=== PATIENT | female | born 1930 | race Caucasian/White ===

== ENCOUNTER 2017-02-07 19:41 | Inpatient (IN) | payer MEDICARE, BC ==
[~2017-02-07] VITALS: Ht 162.6 cm; Wt 56.2 kg
[~2017-02-07 19:41] MED LIST: BACT800T5 PO; COUM1TAB PO; DIGO0.12 PO; LEVO75TA3 PO; LOPE2 PO; METO25 PO
[2017-02-07 20:01] VITALS: BP 157/100; PULSE 87; RESP 18; TEMP 97.5; O2SAT 93
--- NOTE | 2017-02-07 20:16 | PD ---
HPI Chief Complaint: TIA Time Seen by Provider: 20:00 Travel History International Travel<30 days: No Contact w/Intl Traveler<30days: No Traveled to known affect area: No History of Present Illness HPI This 86-year-old female presents with complaint that she was unable to talk for about 2-3 minutes today. She had a similar episode on Saturday. Both episodes happened around 2:00 in the afternoon. There was no associated headache. She did not notice any weakness of her arms or legs. She was sitting during today' s episode. She tried to talk nonsensical sounds came out. She went to lay down for 20 minutes and after that she was okay. She has a history of atrial fibrillation and has been on Coumadin for some time. She has never had a stroke. PFSH Past Medical History Hx Anticoagulant Therapy: Yes Arthritis: Yes (KNEES AND ARMS) Atrial Fibrillation: Yes Autoimmune Disease: No Anxiety: Yes Heart Rhythm Problems: Yes (AFIB WITH RBBB) Cancer: Yes Cardiovascular Problems: Yes Chemotherapy: No Chest Pain: Yes Diminished Hearing: No Endocrine: Yes Gastrointestinal Disorders: Yes (IRRITABLE BOWEL SYNDROME) GERD: Yes (GERD) Headaches: Yes Hypertension: Yes Musculoskeletal: Yes Neurologic: Yes Psychiatric: Yes Immunizations Current: Yes Radiation Therapy: Yes Thyroid Disease: Yes Tetanus Vaccination: Unknown Influenza Vaccination: Yes ?: Not Past Surgical History Gynecologic Surgery: Yes (HYSTERECTOMY) Hysterectomy: Yes Other Surgery: Yes (1998 LUMPECTOMY) Social History Alcohol Use: No Tobacco Use: No Substance Use: No Allergies-Medications (Allergen,Severity, Reaction): Coded Allergies: No Known Allergies (Verified , 02/07/17) Reported Meds & Prescriptions Reported Meds & Active Scripts Active Reported Lasix (Furosemide) 20 Mg Tab 20 Mg PO DAILY Lasix (Furosemide) 40 Mg Tab 40 Mg PO DAILY Coumadin (Warfarin) 1 Mg Tab 1 Mg PO DAILY Metoprolol Tartrate 25 Mg Tab 25 Mg PO DAILY Loperamide (Loperamide HCl) 2 Mg Cap 2 Mg PO DIRECTED PRN One capsule after each loose stool. Not to exceed 8 capsules per day. Levothyroxine (Levothyroxine Sodium) 75 Mcg Tab 75 Mcg PO DAILY Digoxin 0.125 Mg Tab 0.125 Mg PO DAILY Review of Systems General / Constitutional: No: Fever, Chills Eyes: No: Diploplia, Blurred Vision HENT: No: Headaches, Vertigo Cardiovascular: No: Chest Pain or Discomfort, Palpitations Respiratory: No: Cough, Shortness of Breath Gastrointestinal: No: Vomiting, Diarrhea Genitourinary: No: Urgency, Frequency Musculoskeletal: No: Myalgias, Arthralgias Skin: No Lumps Neurologic: Positive: Focal Abnormalities, No: Weakness, Headache Hematologic/Lymphatic: No: Easy Bruising Physical Exam Narrative GENERAL: Well-developed female SKIN: Warm and dry. HEAD: Atraumatic. Normocephalic. EYES: Pupils equal and round. No scleral icterus. No injection or drainage. ENT: No nasal bleeding or discharge. Mucous membranes pink and moist. NECK: Trachea midline. No JVD. CARDIOVASCULAR: Irregular rate and rhythm. No murmur appreciated. RESPIRATORY: No accessory muscle use. Clear to auscultation. Breath sounds equal bilaterally. GASTROINTESTINAL: Abdomen soft, non-tender, nondistended. Hepatic and splenic margins not palpable. MUSCULOSKELETAL: No obvious deformities. No clubbing. No cyanosis. No edema. NEUROLOGICAL: Awake and alert. No obvious cranial nerve deficits. Motor grossly within normal limits. Normal speech. PSYCHIATRIC: Appropriate mood and affect; insight and judgment normal. Data Data Last Documented VS Vital Signs Date Time Temp Pulse Resp B/P Pulse Ox O2 Delivery O2 Flow Rate FiO2 02/07/17 20:10 87 18 93 Room Air 02/07/17 20:01 97.5 157/100 Orders Electrocardiogram (02/07/17 20:13) Complete Blood Count With Diff (02/07/17 20:13) Basic Metabolic Panel (Bmp) (02/07/17 20:13) Prothrombin Time / Inr (Pt) (02/07/17 20:13) Act Partial Throm Time (Ptt) (02/07/17 20:13) Urinalysis - C+S If Indicated (02/07/17 20:13) Ct Brain W/O Iv Contrast(Rout) (02/07/17 20:13) Digoxin (02/07/17 20:16) Labs Laboratory Tests Test 02/07/17 20:35 White Blood Count 8.0 TH/MM3 Red Blood Count 4.70 MIL/MM3 Hemoglobin 13.8 GM/DL Hematocrit 39.1 % Mean Corpuscular Volume 83.3 FL Mean Corpuscular Hemoglobin 29.3 PG Mean Corpuscular Hemoglobin 35.1 % Concent Red Cell Distribution Width 14.7 % Platelet Count 205 TH/MM3 Mean Platelet Volume 8.7 FL Neutrophils (%) (Auto) 73.7 % Lymphocytes (%) (Auto) 14.9 % Monocytes (%) (Auto) 8.1 % Eosinophils (%) (Auto) 2.7 % Basophils (%) (Auto) 0.6 % Neutrophils # (Auto) 6.0 TH/MM3 Lymphocytes # (Auto) 1.2 TH/MM3 Monocytes # (Auto) 0.6 TH/MM3 Eosinophils # (Auto) 0.2 TH/MM3 Basophils # (Auto) 0.0 TH/MM3 CBC Comment DIFF FINAL Differential Comment Prothrombin Time 17.2 SEC Prothromb Time International 1.5 RATIO Ratio Activated Partial 33.3 SEC Thromboplast Time Sodium Level 144 MEQ/L Potassium Level 3.7 MEQ/L Chloride Level 111 MEQ/L Carbon Dioxide Level 23.5 MEQ/L Anion Gap 10 MEQ/L Blood Urea Nitrogen 33 MG/DL Random Glucose 109 MG/DL Calcium Level 8.8 MG/DL [facility] Medical Decision Making Medical Screen Exam Complete: Yes Emergency Medical Condition: Yes Medical Record Reviewed: Yes Differential Diagnosis Differential includes CVA, TIA Narrative Course CT scan is read as negative. Her INR is subtherapeutic at 1.5. EKG shows atrial fibrillation at a rate of 75. There is a right bundle branch block. 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
[2017-02-07] MEDS ORDERED: DIGO0.12 PO (20:18)
[2017-02-07] MEDS ORDERED: FURO1TAB62 PO (20:18)
[2017-02-07] MEDS ORDERED: COUM1TAB PO (20:18)
[2017-02-07] MEDS ORDERED: FURO1TAB60 PO (20:18)
[2017-02-07] MEDS ORDERED: METO25TA3 PO (20:18)
[2017-02-07] MEDS ORDERED: LOPE2CAP PO (20:18)
[2017-02-07] MEDS ORDERED: LEVO75TA3 PO (20:18)
[2017-02-07 20:45] LABS: BASOPHIL % 0.6 % (0.0-2.0); EOSINOPHIL # 0.2 TH/MM3 (0-0.4); EOSINOPHIL % 2.7 % (0.0-4.0); HEMATOCRIT 39.1 % (35.0-46.0); HEMO FLAGS DIFF FINAL; LYMPH % 14.9 % (9.0-44.0); LYMPHOCYTE # 1.2 TH/MM3 (1.0-4.8); MEAN CELL VOLUME 83.3 FL (80.0-100.0); MEAN CORPUSCULAR HEMOGLOBIN 29.3 PG (27.0-34.0); MEAN CORPUSCULAR HGB CONC 35.1 % (32.0-36.0); MONO % 8.1 % (0.0-8.0); NEUT % 73.7 % (16.0-70.0); PLATELET COUNT 205 TH/MM3 (150-450); RED CELL DISTRIBUTION WIDTH 14.7 % (11.6-17.2)
--- NOTE | 2017-02-07 21:03 | RADHPO ---
EXAM DATE/TIME: 02/07/2017 20:36 [facility] COMPARISON: Report only CT BRAIN W/O CONTRAST, November 02, 2012, 17:33. INDICATIONS : Altered mental status. Speech difficulty. Evaluate for transischemic attack. RADIATION DOSE: 55.82 CTDIvol (mGy) MEDICAL HISTORY : Hypertension. SURGICAL HISTORY : None. ENCOUNTER: Initial ACUITY: 1 day PAIN SCALE: 0/10 LOCATION: cranial TECHNIQUE: Multiple contiguous axial images were obtained of the head. Using automated exposure control and adj ustment of the mA and/or kV according to patient size, radiation dose was kept as low as reasonably a chievable to obtain optimal diagnostic quality images. FINDINGS: CEREBRUM: The ventricles are normal for age. No evidence of midline shift, mass lesion, hemorrhage or acute in farction. No extra-axial fluid collections are seen. There is chronic low-attenuation in the periven tricular white matter. Diffuse atrophy noted. Incidentally seen cavum septum pellucidum. POSTERIOR FOSSA: The cerebellum and brainstem are intact. The 4th ventricle is midline. The cerebellopontine angle i s unremarkable. EXTRACRANIAL: The visualized portion of the orbits is intact. SKULL: The calvaria is intact. No evidence of skull fracture. CONCLUSION: No acute intracranial abnormality. Atrophy and chronic white matter changes. Daniel Peralta MD on February 07, 2017 at 21:00 Board Certified Radiologist. This report was verified electronically.
[2017-02-07 21:06] LABS: POTASSIUM 3.7 MEQ/L (3.5-5.1)
[2017-02-07 21:09] LABS: BICARBONATE 23.5 MEQ/L (21.0-32.0)
[2017-02-07 21:11] LABS: APTT (PATIENT) 33.3 SEC (24.3-30.1); INTERNATIONAL NORMALIZED RATIO 1.5 RATIO; PROTHROMBIN TIME - PATIENT 17.2 SEC (9.8-11.6)
[2017-02-07 21:12] VITALS: BP 191/97; PULSE 65; RESP 18; O2SAT 96
[2017-02-07] MEDS ORDERED: ACETAMINOPHEN 325 MG TAB PO PRN (21:30)
[2017-02-07] MEDS ORDERED: SODIUM CHLORIDE 0.9% FLUSH 5 ML FLUSH IVF PRN (21:30)
[2017-02-07] MEDS ORDERED: ENALAPRILAT 1.25 MG/ML VIAL IV PRN (21:30)
[2017-02-07] MEDS ORDERED: GLUCAGON 1 MG/ML VIAL IM/SQ PRN (21:30)
[2017-02-07] MEDS ORDERED: ONDANSETRON HCL 4 MG/2 ML VIAL IVP PRN (21:30)
[2017-02-07] MEDS ORDERED: BISACODYL 10 MG SUPP PR PRN (21:30)
[2017-02-07] MEDS ORDERED: SODIUM CHLORIDE 0.9% FLUSH 5 ML FLUSH FLUSH PRN (21:30)
[2017-02-07] MEDS ORDERED: DEXTROSE 50% IN WATER 50 ML VIAL(D50) IV PUSH PRN (21:30)
[2017-02-07 21:32] VITALS: O2SAT 95
[2017-02-07 21:32] LABS: BLOOD, URINE TRACE (NEG); GLUCOSE,URINE NEG (NEG); KETONE, URINE NEG (NEG); NITRITE,URINE NEG (NEG)
[2017-02-07 21:48] LABS: URINE COLOR YELLOW (YELLW/STRAW)
[2017-02-07 21:49] LABS: COMMENT (UR) CULT NOT INDICATED; CULTURE IF INDICATED CULT NOT INDICATED; RBC, URINE 0-3 /hpf (0-3); SQUAMOUS EPITHELIAL CELL URINE 0-5 /hpf (0-5); WBC, URINE 0-2 /hpf (0-5)
[2017-02-07 22:32] VITALS: BP 189/112; PULSE 73; RESP 18; O2SAT 95
[2017-02-08] VITALS (15 sets, daily range): BP systolic 165–201; BP diastolic 87–118; PULSE 71–127; RESP 17–24; TEMP 96.5–97.9; O2SAT 89–99
[2017-02-08 06:37] LABS: AUTOMATED NEUTROPHIL # 6.2 TH/MM3 (1.8-7.7); BASOPHIL # 0.1 TH/MM3 (0-0.2); BASOPHIL % 0.7 % (0.0-2.0); EOSINOPHIL # 0.2 TH/MM3 (0-0.4); HEMATOCRIT 42.7 % (35.0-46.0); LYMPH % 13.7 % (9.0-44.0); LYMPHOCYTE # 1.2 TH/MM3 (1.0-4.8); MEAN CELL VOLUME 83.5 FL (80.0-100.0); MEAN CORPUSCULAR HEMOGLOBIN 27.7 PG (27.0-34.0); MEAN CORPUSCULAR HGB CONC 33.2 % (32.0-36.0); MONO % 8.8 % (0.0-8.0); NEUT % 74.8 % (16.0-70.0); PLATELET COUNT 198 TH/MM3 (150-450); RED BLOOD COUNT 5.12 MIL/MM3 (4.00-5.30); RED CELL DISTRIBUTION WIDTH 14.7 % (11.6-17.2); WHITE BLOOD COUNT 8.4 TH/MM3 (4.0-11.0)
[2017-02-08 06:38] LABS: HEMO FLAGS DIFF FINAL
[2017-02-08 06:40] LABS: CHLORIDE 112 MEQ/L (98-107); POTASSIUM 3.8 MEQ/L (3.5-5.1); SODIUM (NA) 144 MEQ/L (136-145)
[2017-02-08 06:45] LABS: ANION GAP 10 MEQ/L (5-15); BICARBONATE 22.1 MEQ/L (21.0-32.0); BLOOD UREA NITROGEN 28 MG/DL (7-18)
[2017-02-08 06:48] LABS: ALT (GPT) 26 U/L (10-53); AST (GOT) 21 U/L (15-37); GLOMERULAR FILTRATION RATE 47 ML/MIN (>89)
[2017-02-08 06:49] LABS: TOTAL BILIRUBIN ADULT 1.5 MG/DL (0.2-1.0)
[2017-02-08 06:51] LABS: ALKALINE PHOSPHATASE 92 U/L (45-117)
[2017-02-08] MEDS ORDERED: INSULIN ASPART SUPPLEMENTAL SCALE SQ SCH ×2 (07:00→11:00)
[2017-02-08] MEDS ORDERED: GLUCAGON 1 MG/ML VIAL IM/SQ PRN (08:45)
[2017-02-08] MEDS ORDERED: DEXTROSE 50% IN WATER 50 ML VIAL(D50) IV PUSH PRN (08:45)
[2017-02-08] MEDS ORDERED: GLUCAGON 1 MG/ML VIAL OTHER PRN (08:45)
[2017-02-08] MEDS ORDERED: SODIUM CHLORIDE 0.9% FLUSH 5 ML FLUSH IVF PRN ×2 (08:45)
[2017-02-08] MEDS: SODIUM CHLORIDE 0.9% FLUSH 5 ML FLUSH IVF SCH ×2 (08:46→21:00)
[2017-02-08] MEDS ORDERED: DO NOT ADM ANY ANTICOAGULANT DRUGS XX PRN (09:00)
[2017-02-08] MEDS ORDERED: ASPIRIN 81 MG CHEW TAB PO SCH (09:00)
[2017-02-08] MEDS ORDERED: SODIUM CHLORIDE 0.9% FLUSH 5 ML FLUSH IVF SCH ×2 (09:00)
[2017-02-08] MEDS ORDERED: SODIUM CHLORIDE 0.9% FLUSH 5 ML FLUSH FLUSH SCH (09:00)
[2017-02-08] MEDS: HEPARIN-D5W INJ 250 ML IV SCH (09:16)
[2017-02-08 09:43] LABS: HDL CHOLESTEROL 36.9 MG/DL (40.0-60.0); LDL CHOLESTEROL 101 MG/DL (0-99)
--- NOTE | 2017-02-08 09:54 | RADHPO ---
EXAM DATE/TIME: 02/08/2017 08:53 [facility] COMPARISON: No previous studies available for comparison. INDICATIONS : Cerebrovascular accident. MEDICAL HISTORY : Gastroesophageal reflux disease. Hypertension. Thyroid disease. Anticoagulant therapy. Atrial fibri llation. IBS. Arhtritis. Radiation therapy. SURGICAL HISTORY : Hysterectomy. Lumpectomy. ENCOUNTER: Initial ACUITY: 1 day PAIN SCORE: 0/10 LOCATION: Bilateral neck PEAK SYSTOLIC VELOCITIES (cm/sec): ICA/CCA RATIO: Right: 1.0 Left: 1.1 ICA: Right: 54 Left: 76 CCA: Right: 55 Left: 72 ECA: Right: 79 Left: 61 VERTEBRAL: Right: 53 antegrade Left: 44 antegrade Elevated flow velocities and ICA/CCA ratios have been found to correlate with increased degrees of vessel stenosis, calculated as percentage of diameter relative to a normal segment of distal ICA/CCA FINDINGS: RIGHT CAROTID: Patchy, mild and occasionally mild to moderate soft and calcified plaque seen throughout the right CC A, bulb and ICA. LEFT CAROTID: Patchy, mild and occasionally mild to moderate soft and calcified plaque seen throughout the right CC A bulb and ICA. VERTEBRAL ARTERIES: Antegrade flow is seen in both vertebral arteries. MISCELLANEOUS: None. CONCLUSION: Mild to moderate fairly widespread plaque of both carotid systems. No hemodynamically significant cata leonora. Daniel Peralta MD on February 08, 2017 at 9:50 Board Certified Radiologist. This report was verified electronically.
[2017-02-08] MEDS: INSULIN ASPART SUPPLEMENTAL SCALE SQ SCH ×3 (11:00→21:00)
--- NOTE | 2017-02-08 11:59 | MB ---
cc: DAVID HOOD M.D. DATE OF CONSULTATION: 02/08/2017 REASON FOR CONSULTATION TIA. HISTORY OF PRESENT ILLNESS Ms. Del Cid is a very nice 86-year-old woman who has atrial fibrillation. She takes Coumadin every day. She has had two episodes where she suddenly lost ability to talk. She had an episode yesterday and a similar episode last Saturday. She states she was talking to a friend on the telephone, suddenly could not get any words out, although she could think of what she wanted to say. It lasted several minutes then resolved. She had no focal weakness or numbness. No headache or double vision. No other neurologic complaints. PAST MEDICAL HISTORY 1. History of atrial fibrillation. 2. Arthritis. 3. Irritable bowel syndrome. 4. Gastroesophageal reflux. 5. Hypertension. 6. Hypothyroidism. 7. Hysterectomy. 8. Lumpectomy. 9. History of cancer. SOCIAL HISTORY She denies tobacco use or alcohol use. MEDICATIONS 1. Coumadin 1 mg daily. 2. Metoprolol 25 mg daily. 3. Loperamide 2 mg as needed. 4. Synthroid 75 mcg daily. 5. Digoxin 0.125 mg daily. 6. Lasix 10 mg, two daily. NEUROLOGIC EXAMINATION Vital signs: Blood pressure is 195/87, pulse 90, respiratory rate 17, temperature 97 degrees. Higher cortical functions at this time are normal including speech. Cranial nerves are intact. Motor exam is 5/5 strength of all groups. There is no drift. Fine motor skills are within normal limits. Reflexes are 2+ symmetric. IMAGING DATA CT of the brain shows atrophy and chronic ischemic change but no acute change present. No hemorrhage. LABORATORY DATA Her INR yesterday was 1.5, PT 17.2, APTT 33.3. White count is 8000, hemoglobin 13.8, hematocrit 39.1%, platelet count 205,000. Sodium 144, potassium 3.7, chloride 111, CO2 23.5, BUN 33, creatinine 1.3, GFR 39, glucose 109, AST 21, ALT 26. Digoxin level 0.8. Urinalysis is normal. EKG is atrial fibrillation. IMPRESSION 1. TIA with expressive aphasia. 2. Subtherapeutic INR. 3. Atrial fibrillation. RECOMMENDATIONS Would recommend starting the patient on IV heparin per protocol with no boluses. Increase the Coumadin. Once the INR is between 2 and 3 stop the heparin. Will also obtain further evaluation with an MRI and MRA of the brain, echocardiogram, carotid ultrasound and lipid panel. MD KIMBERLY Blanchard/MORALES /8:32 AM /11:46 AM
--- NOTE | 2017-02-08 12:38 | HHI.HP ---
cc: Lc Moran MD [facility] Primary Care Physician No Primary Care Physician Admission Diagnosis TIA Diagnoses: Chief Complaint: Difficulty speaking Travel History International Travel<30 Days: No Contact w/Intl Traveler <30 Da: No Traveled to Known Affected Are: No History of Present Illness Patient is an 86-year-old female with a known history of anxiety who was in the presence of her grandson who is her primary tray drier. During this time patient became confused with difficulty word finding and had some evidence of expressive aphasia. This resolved. Her grandson thought she was very worked up and anxious. There were 2 more episodes throughout the day and finally the patient was brought to the hospital. There was some concern for TIA versus stroke. She does have atrial fibrillation but no personal history of stroke. Her heart rate has been well controlled and she has been on warfarin. Her INR however is subtherapeutic. She has been seen by neurologist with recommendations for IV heparin and for titration of her warfarin to therapeutic levels. Images are still pending at this time. Patient symptoms again have resolved and she is back to normal per her grandson who is at the bedside. Patient has no pain. She is independent with her ADLs and is appropriate with her personal hygiene. She has a family history of dementia but no personal history of dementia. For these reasons the patient was recommended for inpatient evaluation Review of Systems Constitutional: DENIES: Diaphoretic episodes, Fatigue, Fever, Weight gain, Weight loss, Chills, Dizziness, Change in appetite, Night Sweats Endocrine: DENIES: Abnorml menstrual pattern, Heat/cold intolerance, Polydipsia , Polyuria, Polyphagia Eyes: DENIES: Blurred vision, Diplopia, Eye inflammation, Eye pain, Vision loss , Photosensitivity, Double Vision Ears, nose, mouth, throat: DENIES: Tinnitus, Hearing loss, Vertigo, Nasal discharge, Oral lesions, Throat pain, Hoarseness, Ear Pain, Running Nose, Epistaxis, Sinus Pain, Toothache, Odynophagia Respiratory: DENIES: Apneas, Cough, Snoring, Wheezing, Hemoptysis, Sputum production, Shortness of breath Cardiovascular: DENIES: Chest pain, Palpitations, Syncope, Dyspnea on Exertion , PND, Lower Extremity Edema, Orthopnea, Claudication Gastrointestinal: DENIES: Abdominal pain, Black stools, Bloody stools, Constipation, Diarrhea, Nausea, Vomiting, Difficulty Swallowing, Anorexia Genitourinary: DENIES: Abnormal vaginal bleeding, Dysmenorrhea, Dyspareunia, Sexual dysfunction, Urinary frequency, Urinary incontinence, Urgency, Hematuria , Dysuria, Nocturia, Vaginal discharge Musculoskeletal: DENIES: Joint pain, Muscle aches, Stiffness, Joint Swelling, Back pain, Neck pain Integumentary: DENIES: Abnormal pigmentation, Pruritus, Rash, Nail changes, Breast masses, Breast skin changes, Nipple discharge Hematologic/lymphatic: DENIES: Bruising, Lymphadenopathy Immunologic/allergic: DENIES: Eczema, Urticaria Neurologic: COMPLAINS OF: Speech Problems, DENIES: Abnormal gait, Headache, Localized weakness, Paresthesias, Seizures, Tremor, Poor Balance Psychiatric: COMPLAINS OF: Anxiety, DENIES: Confusion, Mood changes, Depression, Hallucinations, Agitation, Suicidal Ideation, Homicidal Ideation, Delusions Past Family Social History Past Medical History Atrial fibrillation, hypothyroidism, hypertension Past Surgical History Cystocele, rectocele, hysterectomy Reported Medications Reviewed in the medical record, nothing new Allergies: Coded Allergies: No Known Allergies (Verified , 02/07/17) Active Ordered Medications Reviewed in the medical record Family History Sisters have had dementia, all 3 of her children have Social History Lives independently, no tobacco or alcohol dependency, does her own ADLs and personal hygiene without difficulty Physical Exam Vital Signs Vital Signs Date Time Temp Pulse Resp B/P Pulse Ox O2 Delivery O2 Flow Rate FiO2 02/08/17 07:47 18 93 Nasal Cannula 2 02/08/17 07:46 93 Nasal Cannula 2.00 02/08/17 07:30 89 21 02/08/17 07:13 97.9 90 17 195/87 99 Room Air 02/08/17 07:00 90 17 99 Room Air 02/08/17 06:33 86 18 96 Room Air 02/08/17 06:33 86 18 176/90 96 Room Air 02/08/17 04:42 83 18 195/101 95 Room Air 02/08/17 04:42 83 18 95 Room Air 02/08/17 02:41 80 18 201/96 96 Room Air 02/08/17 02:41 80 18 Room Air 96 02/08/17 00:45 71 18 95 Room Air 02/08/17 00:45 71 18 165/89 95 Room Air 02/07/17 22:32 73 18 189/112 95 Room Air 02/07/17 22:32 73 18 95 Room Air 02/07/17 21:32 95 21 02/07/17 21:12 65 18 191/97 96 Room Air 02/07/17 20:10 87 18 93 Room Air 02/07/17 20:01 97.5 87 18 157/100 93 Physical Exam GENERAL: This is a well-nourished, well-developed patient, in no apparent distress. SKIN: No rashes, ecchymoses or lesions. Cool and dry. HEAD: Atraumatic. Normocephalic. No temporal or scalp tenderness. EYES: Pupils equal round and reactive. Extraocular motions intact. No scleral icterus. No injection or drainage. ENT: Nose without bleeding, purulent drainage or septal hematoma. Throat without erythema, tonsillar hypertrophy or exudate. Uvula midline. Airway patent. NECK: Trachea midline. No JVD or lymphadenopathy. Supple, nontender, no meningeal signs. CARDIOVASCULAR: Regular rate and rhythm without murmurs, gallops, or rubs. RESPIRATORY: Clear to auscultation. Breath sounds equal bilaterally. No wheezes , rales, or rhonchi. GASTROINTESTINAL: Abdomen soft, non-tender, nondistended. No hepato-splenomegaly , or palpable masses. No guarding. MUSCULOSKELETAL: Extremities without clubbing, cyanosis, or edema. No joint tenderness, effusion, or edema noted. No calf tenderness. Negative Homans sign bilaterally. NEUROLOGICAL: Awake and alert. Cranial nerves II through XII intact. Motor and sensory grossly within normal limits. Five out of 5 muscle strength in all muscle groups. Normal speech. Laboratory Laboratory Tests Test 02/07/17 02/07/17 02/08/17 20:35 21:25 06:15 White Blood Count 8.0 8.4 Red Blood Count 4.70 5.12 Hemoglobin 13.8 14.2 Hematocrit 39.1 42.7 Mean Corpuscular Volume 83.3 83.5 Mean Corpuscular Hemoglobin 29.3 27.7 Mean Corpuscular Hemoglobin 35.1 33.2 Concent Red Cell Distribution Width 14.7 14.7 Platelet Count 205 198 Mean Platelet Volume 8.7 9.1 Neutrophils (%) (Auto) 73.7 74.8 Lymphocytes (%) (Auto) 14.9 13.7 Monocytes (%) (Auto) 8.1 8.8 Eosinophils (%) (Auto) 2.7 2.0 Basophils (%) (Auto) 0.6 0.7 Neutrophils # (Auto) 6.0 6.2 Lymphocytes # (Auto) 1.2 1.2 Monocytes # (Auto) 0.6 0.7 Eosinophils # (Auto) 0.2 0.2 Basophils # (Auto) 0.0 0.1 CBC Comment DIFF FINAL DIFF FINAL Differential Comment Prothrombin Time 17.2 Prothromb Time International 1.5 Ratio Activated Partial 33.3 Thromboplast Time Sodium Level 144 144 Potassium Level 3.7 3.8 Chloride Level 111 112 Carbon Dioxide Level 23.5 22.1 Anion Gap 10 10 Blood Urea Nitrogen 33 28 Creatinine 1.30 1.10 Estimat Glomerular Filtration 39 47 Rate Random Glucose 109 90 Calcium Level 8.8 9.3 Digoxin Level 0.8 Urine Color YELLOW Urine Turbidity CLEAR Urine pH 6.0 Urine Specific [place] 1.015 Urine Protein TRACE Urine Glucose (UA) NEG Urine Ketones NEG Urine Occult Blood TRACE Urine Nitrite NEG Urine Bilirubin NEG Urine Leukocyte Esterase NEG Urine RBC 0-3 Urine WBC 0-2 Urine Squamous Epithelial 0-5 Cells Microscopic Urinalysis Comment CULT NOT INDICATED Total Bilirubin 1.5 Aspartate Amino Transf 21 (AST/SGOT) Alanine Aminotransferase 26 (ALT/SGPT) Alkaline Phosphatase 92 Total Protein 7.6 Albumin 3.9 Triglycerides Level 118 Cholesterol Level 161 LDL Cholesterol 101 HDL Cholesterol 36.9 Cholesterol/HDL Ratio 4.36 Result Diagram: 02/08/1715 02/08/1715 Imaging Last Impressions Carotid Artery Ultrasound 02/08/17 0000 Signed Impressions: Service Date/Time: Wednesday, February 08, 2017 08:53 - CONCLUSION: Mild to moderate fairly widespread plaque of both carotid systems. No hemodynamically significant narrowing. Daniel Peralta MD Head CT 02/07/172012 Signed Impressions: Service Date/Time: January 20:36 - CONCLUSION: No acute intracranial abnormality. Atrophy and chronic white matter changes. Daniel Peralta MD Assessment and Plan Problem List: (1) Transient ischemic attack (TIA) ICD Code: G45.9 Status: Acute Plan: Neurology consult appreciated, continue with adjustment of warfarin, heparin to titrate to INR greater than 2. Currently subtherapeutic. Follow-up MRI and MRA. Blood pressure control (2) Afib ICD Code: I48.91 Status: Acute Plan: Rate controlled. Continue with metoprolol and digoxin Patient will continue with warfarin (3) Thyroid disease ICD Code: E07.9 Status: Acute Plan: Continue Synthroid Physician Certification 2 Midnight Certification Type: Admission for Inpatient Services Order for Inpatient Services The services are ordered in accordance with Medicare regulations or non- Medicare payer requirements, as applicable. In the case of services not specified as inpatient-only, they are appropriately provided as inpatient services in accordance with the 2-midnight benchmark. Estimated LOS (days): 3 3 days is the estimated time the patient will need to remain in the hospital, assuming treatment plan goals are met and no additional complications. 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
[2017-02-08 13:34] LABS: HEMOGLOBIN A1a 0.8 %; HEMOGLOBIN A1b 1.5 %; HEMOGLOBIN Ao 86.6 %; HEMOGLOBIN P3 5.2 %
[2017-02-08 14:22] LABS: HEMOGLOBIN A1a 0.6 %; HEMOGLOBIN A1b 1.5 %; HEMOGLOBIN Ao 86.6 %; HEMOGLOBIN P3 5.1 %
[2017-02-08] MEDS: METOPROLOL TARTRATE 25 MG TAB PO SCH (14:40)
[2017-02-08] MEDS: FUROSEMIDE 20 MG TAB PO SCH (14:40)
--- NOTE | 2017-02-08 15:52 | RADHPO ---
EXAM DATE/TIME: 02/08/2017 15:23 [facility] COMPARISON: CT BRAIN W/O CONTRAST, February 07, 2017, 20:36. INDICATIONS : CVA. Dysphasia now resolved. MEDICAL HISTORY : Hypertension. SURGICAL HISTORY : Hysterectomy. Left hip. ENCOUNTER: Initial ACUITY: 1 day PAIN SCORE: 0/10 LOCATION: head TECHNIQUE: Multiplanar, multisequence MRI of the brain was performed without contrast. FINDINGS: Generalized enlargement of the CSF spaces is noted. There is a cavum septum pellucidum. Moderate to s evere T2 hyperintense changes are seen throughout the cerebral white matter. These are predominantly in the periventricular and deep white matter tracts. There is no evidence of restricted diffusion, he morrhage mass effect or edema. CONCLUSION: Atrophic changes with chronic ischemic white matter disease. No evidence of acute infarct, hemorrhage mass or edema. Eligio Barth MD on February 08, 2017 at 15:48 Board Certified Radiologist. This report was verified electronically.
[2017-02-08 16:10] LABS: APTT (PATIENT) 37.3 SEC (24.3-30.1); INTERNATIONAL NORMALIZED RATIO 1.5 RATIO; PROTHROMBIN TIME - PATIENT 16.5 SEC (9.8-11.6)
--- NOTE | 2017-02-08 16:14 | RADHPO ---
EXAM DATE/TIME: 02/08/2017 15:23 [facility] COMPARISON: MRI BRAIN W/O CONTRAST, February 08, 2017, 15:23. INDICATIONS : CVA. Dysphasia now resolved. MEDICAL HISTORY : Hypertension. SURGICAL HISTORY : Hysterectomy. Left hip. ENCOUNTER: Initial ACUITY: 1 day PAIN SCORE: 0/10 LOCATION: head Please note a normal MRA of the brain does not entirely exclude the possibility of a small aneurysm, nor the possibility of distal intracranial vessel disease. TECHNIQUE: 3D time of flight MRA was performed. Source images, multiplanar STS MIP, and 3D volume MIP reconstru ctions were reviewed. FINDINGS: There is excellent visualization of the major intracranial arteries out to the second-order branch ve ssels. Anterior circulation: Significant luminal irregularity and flow distortion is identified in the distal cervical segment/pre -petrous of the left internal carotid artery. The internal carotid arteries are otherwise widely patent. Significant luminal irregularity with focal areas of stenosis are identified in the M2 branches of le ft middle cerebral artery. Anterior circulation is otherwise unremarkable. There is no evidence of aneurysm. Posterior circulation: The left vertebral artery is dominant. The right vertebral artery is small and terminates in PICA. Th ere is no significant vertebral basilar stenosis or aneurysm. CONCLUSION: Significant luminal deformity involving the distal left cervical internal carotid artery which may co ntain a significant stenotic lesion. Intracranial luminal irregularity and stenotic lesions within the left MCA characteristics of advance d atherosclerotic disease. Dominant left vertebral artery. No evidence of significant vertebral basilar stenosis. Eligio Barth MD on February 08, 2017 at 16:07 Board Certified Radiologist. This report was verified electronically.
[2017-02-08] MEDS: WARFARIN SOD 3 MG TAB PO SCH (16:53)
--- NOTE | 2017-02-08 19:02 | EC ---
Study Study Date:02/08/2017 STUDY CONCLUSIONS SUMMARY - Left ventricle: The cavity size was normal. Wall thickness was normal. Systolic function was normal. The estimated ejection fraction was in the range of 60% to 65%. Wall motion was normal; there were no regional wall motion abnormalities. - Aortic valve: Mild to moderate regurgitation. Valve area: 1.41cm^2(VTI). Valve area: 1.53cm^2 (Vmax). - Mitral valve: Mild to moderate regurgitation. - Left atrium: The atrium was dilated. - Right ventricle: The cavity size was dilated. Wall thickness was normal. - Right atrium: The atrium was dilated. - Tricuspid valve: Moderate-severe regurgitation. - Pulmonary arteries: PA peak pressure: 63mm Hg (S). If LV function is below 40, please consider prescribing an ACEI or ARB or document rationale for non-use. PROCEDURE DATA STUDY STATUS: Elective. Procedure: Transthoracic echocardiography. Image quality was good. Scanning was performed from the parasternal, apical, and subcostal acoustic windows. Study completion: The patient tolerated the procedure well. Transthoracic echocardiography. M-mode, complete 2D, complete spectral Doppler, and color Doppler. Height: Height: 64in. Weight: Weight: 121.7lb. Body mass index: BMI: 20.9kg/m^2. Body surface area: BSA: 1.59m^2. Patient status: Inpatient. CARDIAC ANATOMY LEFT VENTRICLE: The cavity size was normal. Wall thickness was normal. Systolic function was normal. The estimated ejection fraction was in the range of 60% to 65%. Wall motion was normal; there were no regional wall motion abnormalities. AORTIC VALVE: Trileaflet; normal thickness leaflets. Doppler: Transvalvular velocity was within the normal range. There was no stenosis. Mild to moderate regurgitation. Valve area: 1.41cm^2(VTI). Indexed valve area: 0.89cm^2/m^2 (VTI). Valve area: 1.53cm^2 (Vmax). Indexed valve area: 0.96cm^2/m^2 (Vmax). Mean gradient: 6mm Hg (S). Peak gradient: 10mm Hg (S). AORTA: Aortic root: The aortic root was normal in size. MITRAL VALVE: Structurally normal valve. Doppler: Transvalvular velocity was within the normal range. There was no evidence for stenosis. Mild to moderate regurgitation. Peak gradient: 7mm Hg (D). LEFT ATRIUM: The atrium was dilated. RIGHT VENTRICLE: The cavity size was dilated. Wall thickness was normal. PULMONIC VALVE: Doppler: Transvalvular velocity was within the normal range. There was no evidence for stenosis. No regurgitation. TRICUSPID VALVE: Structurally normal valve. Doppler: Transvalvular velocity was within the normal range. Moderate-severe regurgitation. PULMONARY ARTERY: The main pulmonary artery was normal-sized. Systolic pressure was within the normal range. RIGHT ATRIUM: The atrium was dilated. PERICARDIUM: There was no pericardial effusion. SYSTEMIC VEINS: Inferior vena cava: The vessel was normal in size. Patient weight: 121.7lb _Ejection fraction:_ 65-75% _Fractional shortening:_ 32% up to 5Kg 5-11.5Kg 11.6-22.9Kg 23-45Kg 45-57Kg Aortic Root 7-13 <17 13-22 17-27 17-27 LA diam 6-13 <23 24-38 33-47 37-40 RVID 10-17 7-15 7-15 7-18 8-17 LVIDd 12-22 <32 24-38 33-47 37-40 LVPW 2-4 3-6 5-7 6-8 7-8 IVS 2-4 3-6 5-7 6-8 7-8 BASIC MEASUREMENTS ADULT NORMAL Left ventricle LV internal dimension, ED, chordal *37.5 mm 43-52 level, PLAX LV internal dimension, ES, chordal 27.1 mm 23-38 level, PLAX Fractional shortening, chordal level, *28 % >29 PLAX LV posterior wall thickness, ED 11.7 mm IVS/LVPW ratio, ED 0.99 <1.3 Ventricular septum Septal thickness, ED 11.6 mm Aortic valve Leaflet separation 19 mm 15-26 Aorta Root diameter, ED 37 mm Left atrium Anterior-posterior dimension 29 mm Anterior-posterior dimension index 1.82 cm/m^2 <2.2 Right ventricle RV internal dimension, ED, PLAX *43.6 mm 19-38 BASIC MEASUREMENTS ADULT NORMAL Aortic valve Leaflet separation 19 mm 15-26 DOPPLER MEASUREMENTS ADULT NORMAL Main pulmonary artery Pressure, S *63 mm Hg =30 Aortic valve Peak velocity, S 162 cm/s Mean velocity, S 112 cm/s VTI, S 29.7 cm Mean gradient, S 6 mm Hg Peak gradient, S 10 mm Hg Valve area, VTI 1.41 cm^2 Valve area index, VTI 0.89 cm^2/m^2 Valve area, Vmax 1.53 cm^2 Valve area index, Vmax 0.96 cm^2/m^2 Regurgitant velocity, ED 558 cm/s Regurgitant deceleration 2520 cm/s^2 Regurgitant pressure half-time 653 ms Regurgitant gradient, ED 125 mm Hg Mitral valve Peak E-wave velocity 129 cm/s Deceleration time *131 ms 150-230 Peak gradient, D 7 mm Hg Tricuspid valve Regurgitant peak velocity 371 cm/s Peak RV-RA gradient, S 55 mm Hg Maximal regurgitant velocity 371 cm/s Systemic veins Estimated CVP 10 mm Hg Right ventricle RV pressure, S *65 mm Hg <30 Pulmonic valve Peak velocity, S 70.3 cm/s LEGEND: Mean values are shown as u=mean value. Asterisk (*) carvalho values outside specified normal range. Prepared and signed by Amador Jha [id number]
--- NOTE | 2017-02-08 19:42 | EKG ---
Date Performed: 02/07/2017 Time Performed: 20:19:40 PTAGE: 86 years EKG: Atrial fibrillation Indeterminate axis Right bundle branch block Inferior/lateral ST-T palmer ges are nonspecific Abnormal ECG PREVIOUS TRACING : 11/03/2012 05.34 Compared to prior tracing no significant change DOCTOR: Ryan Miles Interpretating Date/Time 02/08/2017 19:40:25
[2017-02-08] MEDS: PRAVASTATIN SOD 40 MG TAB PO SCH (21:00)
[2017-02-08] MEDS: LORazepam 2 MG/ML VIAL IV PRN (22:53)
[2017-02-09] VITALS (9 sets, daily range): BP systolic 123–159; BP diastolic 58–100; PULSE 81–115; RESP 19–24; TEMP 96.8–98.7; O2SAT 92–99
[2017-02-09 03:49] LABS: APTT (PATIENT) 41.5 SEC (24.3-30.1)
[2017-02-09] MEDS: LEVOTHYROXINE SODIUM 75 MCG TAB PO SCH (06:00)
[2017-02-09] MEDS: INSULIN ASPART SUPPLEMENTAL SCALE SQ SCH ×4 (06:24→21:00)
[2017-02-09] MEDS: LORazepam 2 MG/ML VIAL IV PRN ×3 (06:33→22:46)
[2017-02-09 07:33] LABS: INTERNATIONAL NORMALIZED RATIO 1.5 RATIO; PROTHROMBIN TIME - PATIENT 16.8 SEC (9.8-11.6)
[2017-02-09 09:23] LABS: HDL CHOLESTEROL 42.6 MG/DL (40.0-60.0)
--- NOTE | 2017-02-09 10:42 | HHI.PR ---
Subjective Remarks Patient seen and evaluated for TIA. Symptoms appear to be resolving patient appears to be back to baseline. Some confusion overnight requiring sedation and patient was placed on restraints. Overall patient appears back to normal this morning? . Care plan discussed with Shahram ABBOTT Objective Vitals Vital Signs Date Time Temp Pulse Resp B/P Pulse Ox O2 Delivery O2 Flow Rate FiO2 02/09/17 08:19 93 21 02/09/17 08:00 96.8 82 22 123/65 94 02/09/17 04:10 98.1 100 24 149/100 93 02/09/17 00:10 98.3 97 22 150/99 94 02/08/17 20:20 96 Nasal Cannula 2.00 02/08/17 20:10 97.0 90 24 192/102 93 02/08/17 20:00 127 02/08/17 16:37 77 02/08/17 16:00 96.5 77 20 177/104 97 02/08/17 12:00 96.6 81 20 182/99 94 I/O 02/08/17 02/08/17 02/08/17 02/09/17 02/09/17 02/09/17 07:00 15:00 23:00 07:00 15:00 23:00 Intake Total 240 ml Balance 240 ml Intake Oral 240 ml # Voids 2 2 Result Diagram: 02/08/1715 02/08/17 0615 Other Results Echocardiogram shows elevated pulmonary artery pressures with mild mitral regurgitation, left ventricular function within normal limits Imaging Last Impressions Head Magnetic Resonance Angiography 02/08/17 0000 Signed Impressions: Service Date/Time: Wednesday, February 08, 2017 15:23 - CONCLUSION: Significant luminal deformity involving the distal left cervical internal carotid artery which may contain a significant stenotic lesion. Intracranial luminal irregularity and stenotic lesions within the left MCA characteristics of advanced atherosclerotic disease. Dominant left vertebral artery. No evidence of significant vertebral basilar stenosis. Eligio Barth MD Carotid Artery Ultrasound 02/08/17 0000 Signed Impressions: Service Date/Time: Wednesday, February 08, 2017 08:53 - CONCLUSION: Mild to moderate fairly widespread plaque of both carotid systems. No hemodynamically significant narrowing. Daniel Peralta MD Brain MRI 02/08/17 0000 Signed Impressions: Service Date/Time: Wednesday, February 08, 2017 15:23 - CONCLUSION: Atrophic changes with chronic ischemic white matter disease. No evidence of acute infarct, hemorrhage mass or edema. Eligio Barth MD Head CT 02/07/172012 Signed Impressions: Service Date/Time: January 20:36 - CONCLUSION: No acute intracranial abnormality. Atrophy and chronic white matter changes. Daniel Peralta MD Objective Remarks GENERAL: This is a well-nourished, well-developed patient, in no apparent distress. CARDIOVASCULAR: Regular rate and rhythm without gallops, or rubs. There is a soft systolic murmur RESPIRATORY: Clear to auscultation. Breath sounds equal bilaterally. No wheezes , rales, or rhonchi. GASTROINTESTINAL: Abdomen soft, non-tender, nondistended. Normal active bowel sounds MUSCULOSKELETAL: Extremities without clubbing, cyanosis, or edema. NEURO: Alert & Oriented x4 to person, place, time, situation. Moves all ext x4 A/P Problem List: (1) Transient ischemic attack (TIA) ICD Code: G45.9 Status: Acute Plan: Neurology consult appreciated, continue with adjustment of warfarin, heparin to titrate to INR greater than 2 (1.5 today). MRI/A neg for acute intracranial abnormalities (2) Afib ICD Code: I48.91 Status: Chronic Plan: Rate controlled. Continue with metoprolol and digoxin Patient will continue with warfarin/heparin for goal of inr greater than 2 (3) Thyroid disease ICD Code: E07.9 Status: Chronic Plan: Continue Synthroid (4) HTN (hypertension) ICD Code: I10 Status: Chronic Plan: cont metoprolol (5) Cognitive decline ICD Code: R41.89 Status: Acute Plan: Patient with a strong family history of dementia. Some cognitive decline assessed by speech therapy. Health care surrogate is her grandson. 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
--- NOTE | 2017-02-09 10:43 | HHI.FF ---
Face to Face Verification Diagnosis: (1) Cognitive decline (2) HTN (hypertension) Speech Therapy Order: To Improve: Speech and communication skills, Cognitive skills Home Health Nursing Order: Medical education Signs/symptoms of disease process Medication education-adverse effect Nuclear Engineering Technician Order: To Evaluate: Living conditions/environment, Support services Order: To Provide: Long range planning I have seen patient Philly Del Cid on 02/09/17. My clinical findings support the need for the requested home health care services because: Med compliance is questionable Impaired cognition/judgement I certify that my clinical findings support that this patient is homebound because: Impaired cognitive ability/safety Na Santos MD Feb 09, 2017 10:43
[2017-02-09] MEDS: FUROSEMIDE 20 MG TAB PO SCH (11:23)
[2017-02-09] MEDS: SODIUM CHLORIDE 0.9% FLUSH 5 ML FLUSH IVF SCH ×2 (11:24→21:00)
[2017-02-09] MEDS: METOPROLOL TARTRATE 25 MG TAB PO SCH (11:24)
[2017-02-09] MEDS: DIGOXIN 0.125 MG TAB PO SCH (11:24)
[2017-02-09] MEDS ORDERED: QUEtiapine FUMARATE 25 MG TAB PO ONE (12:30)
[2017-02-09] MEDS: WARFARIN SOD 3 MG TAB PO SCH (14:51)
[2017-02-09] MEDS: HEPARIN-D5W INJ 250 ML IV SCH (14:54)
[2017-02-09] MEDS: QUEtiapine FUMARATE 100 MG TAB PO SCH (21:00)
[2017-02-09] MEDS: PRAVASTATIN SOD 40 MG TAB PO SCH (21:00)
[2017-02-09] MEDS ORDERED: MEMANTINE HCL 5 MG TAB PO SCH (21:00)
[2017-02-10] VITALS (7 sets, daily range): BP systolic 148–187; BP diastolic 75–94; PULSE 70–96; RESP 16–20; TEMP 96–98; O2SAT 94–98
[2017-02-10] MEDS: LEVOTHYROXINE SODIUM 75 MCG TAB PO SCH (05:53)
[2017-02-10] MEDS: INSULIN ASPART SUPPLEMENTAL SCALE SQ SCH ×4 (06:20→21:00)
[2017-02-10 08:03] LABS: APTT (PATIENT) 55.7 SEC (24.3-30.1); INTERNATIONAL NORMALIZED RATIO 1.9 RATIO
--- NOTE | 2017-02-10 08:23 | HHI.PR ---
Review/Management Daily Summary neuro coverage mildly agitated and confused thinks she is at home no insight on dx spoke to RN inr just back 1.9 suggest giving coumadin this am and d/c heparin ambulate and d/c to nursing rehab Subjective Subjective Comments No acute neuro/tia events reported remains confused Active Medications Current Medications Medications (Trade) Dose Ordered Sig/Jose A Route Start Time Stop Time Status Last Admin (Vasotec Inj) 1.25 mg Q4H PRN IV 02/07/17 21:30 (Pravachol) 40 mg HS PO 02/08/17 21:00 (Zofran Inj) 4 mg Q6H PRN IVP 02/07/17 21:30 (Dulcolax Supp) 10 mg DAILY PRN MA 02/07/17 21:30 (Tylenol) 650 mg Q6H PRN PO 02/07/17 21:30 (D50w (Vial) Inj) 25 ml UNSCH PRN IV PUSH 02/08/17 08:45 Glucagon 1 mg 1 mg UNSCH PRN IM/SQ 02/08/17 08:45 (Heparin-D5W Inj) 250 ml @ 0 mls/hr TITRATE IV 02/08/17 08:45 02/09/17 14:54 (NS Flush) 2 ml BID IVF 02/08/17 09:00 02/09/17 11:24 (NS Flush) 2 ml UNSCH PRN IVF 02/08/17 08:45 02/08/17 22:53 (Coumadin) 3 mg DAILY@16 PO 02/08/17 16:00 02/09/17 14:51 (Lanoxin) 0.125 mg DAILY PO 02/09/17 09:00 02/09/17 11:24 (Lasix) 20 mg DAILY PO 02/08/17 13:00 02/09/17 11:23 (Synthroid) 75 mcg DAILY@06 PO 02/09/17 06:00 (Lopressor) 25 mg DAILY PO 02/08/17 13:00 02/09/17 11:24 (Ativan Inj) 0.5 mg Q8H PRN IV 02/08/17 22:00 02/09/17 22:46 (SEROquel) 100 mg HS PO 02/09/17 21:00 Allergies Allergies Coded Allergies No Known Allergies (Verified02/07/17) Exam I&O / VS 02/09/17 02/09/17 02/10/17 15:00 23:00 07:00 Intake Total 100 ml 64 ml Balance 100 ml 64 ml Intake Oral 100 ml IV Total 64 ml # Voids 2 1 2 # Bowel Movements 0 0 0 Vital Signs Date Time Temp Pulse Resp B/P Pulse Ox O2 Delivery O2 Flow Rate FiO2 02/10/17 00:00 96.8 70 18 167/87 98 02/09/17 20:00 97.6 115 19 159/98 99 02/09/17 19:44 92 Nasal Cannula 2.00 02/09/17 16:00 98.7 115 22 126/58 95 02/09/17 12:00 85 20 130/80 95 Objective Micro and Labs Laboratory Tests Test 02/10/17 07:30 Prothrombin Time 22.0 Prothromb Time International 1.9 Ratio Activated Partial 55.7 Thromboplast Time Documentation Reviewed: Reviewed old records Kaushik Bower MD Feb 10, 2017 08:23
[2017-02-10] MEDS: METOPROLOL TARTRATE 25 MG TAB PO SCH (08:34)
[2017-02-10] MEDS: FUROSEMIDE 20 MG TAB PO SCH (08:34)
[2017-02-10] MEDS: DIGOXIN 0.125 MG TAB PO SCH (08:34)
[2017-02-10] MEDS: SODIUM CHLORIDE 0.9% FLUSH 5 ML FLUSH IVF SCH ×2 (08:36→23:13)
--- NOTE | 2017-02-10 12:34 | HHI.PR ---
Subjective Remarks Follow-up for TIA. Patient complains of right wrist pain stating that the chair wouldn't get away from the table and she points to the bed railing. Patient is in restraints, but she is calm and pleasant. She denies any headache or weakness. She states she is "wobbly". She denies any chest pain or shortness of breath. C/o rash to her back. Patient denies lesions to her breasts or waistline. Objective Vitals Vital Signs Date Time Temp Pulse Resp B/P Pulse Ox O2 Delivery O2 Flow Rate FiO2 02/10/17 08:00 96.8 96 20 148/75 94 02/10/17 07:40 96 Nasal Cannula 2.00 02/10/17 00:00 96.8 70 18 167/87 98 02/09/17 20:00 97.6 115 19 159/98 99 02/09/17 19:44 92 Nasal Cannula 2.00 02/09/17 16:00 98.7 115 22 126/58 95 I/O 02/09/17 02/09/17 02/09/17 02/10/17 02/10/17 02/10/17 07:00 15:00 23:00 07:00 15:00 23:00 Intake Total 100 ml 64 ml Balance 100 ml 64 ml Intake Oral 100 ml IV Total 64 ml # Voids 2 2 1 2 # Bowel Movements 0 0 0 Result Diagram: 02/08/17 0615 02/08/1715 Imaging Last Impressions Head Magnetic Resonance Angiography 02/08/17 0000 Signed Impressions: Service Date/Time: Wednesday, February 08, 2017 15:23 - CONCLUSION: Significant luminal deformity involving the distal left cervical internal carotid artery which may contain a significant stenotic lesion. Intracranial luminal irregularity and stenotic lesions within the left MCA characteristics of advanced atherosclerotic disease. Dominant left vertebral artery. No evidence of significant vertebral basilar stenosis. Eligio Barth MD Carotid Artery Ultrasound 02/08/17 0000 Signed Impressions: Service Date/Time: Wednesday, February 08, 2017 08:53 - CONCLUSION: Mild to moderate fairly widespread plaque of both carotid systems. No hemodynamically significant narrowing. Daniel Peralta MD Brain MRI 02/08/17 0000 Signed Impressions: Service Date/Time: Wednesday, February 08, 2017 15:23 - CONCLUSION: Atrophic changes with chronic ischemic white matter disease. No evidence of acute infarct, hemorrhage mass or edema. Eligio Barth MD Head CT 02/07/172012 Signed Impressions: Service Date/Time: January 20:36 - CONCLUSION: No acute intracranial abnormality. Atrophy and chronic white matter changes. Daniel Peralta MD Objective Remarks GENERAL: Elderly pleasant female in no apparent distress. SKIN: Warm and dry. Excoriated lesions over the upper and lower back. No lesions to the hands. CARDIOVASCULAR: Irregularly irregular rhythm. RESPIRATORY: No accessory muscle use. Clear to auscultation. Breath sounds equal bilaterally. GASTROINTESTINAL: Abdomen soft, non-tender, nondistended. MUSCULOSKELETAL: 2+ bilateral distal radial pulses. Patient has tenderness to palpation over the volar right wrist NEUROLOGICAL: Awake and alert. Patient knows she is at the hospital; knows the month and year. Normal speech. PSYCHIATRIC: Appropriate mood and affect. Urinary Catheter: No Vascular Central Line Catheter: No A/P Problem List: (1) Transient ischemic attack (TIA) ICD Code: G45.9 Status: Acute (2) Afib ICD Code: I48.91 Status: Chronic (3) Thyroid disease ICD Code: E07.9 Status: Chronic (4) HTN (hypertension) ICD Code: I10 Status: Chronic (5) Cognitive decline ICD Code: R41.89 Status: Acute Assessment and Plan Transient ischemic attack (TIA) -Neurology consult appreciated, continue with adjustment of warfarin, heparin to titrate to INR greater than 2. - INR 1.9 today but neuro evaluated patient this morning and advised discontinuing drip and continuing coumadin. Recheck INR tomorrow. -MRI/A neg for acute intracranial abnormalities Afib: chronic, rate controlled -Continue with metoprolol and digoxin -Patient will continue with warfarin Thyroid disease: Chronic -Continue Synthroid HTN (hypertension): Chronic, but uncontrolled currently. -Cont metoprolol, digoxin, lasix. -Add Norvasc 10 mg po daily. Renal failure: Appears to be CKD on record review. Cr stable. -Avoid nephrotoxins Cognitive decline -Patient with a strong family history of dementia. Some cognitive decline assessed by speech therapy. -Health care surrogate is her grandson. -We'll cont to support patient to return to her home environment with [facility] wrist pain: X-rays ordered and personally interpreted without evidence of fracture. Rash to the back: although appears somewhat like scabies it is unlikely as it is not noted anywhere else. Could be from sheets and patient states she has scratched in the area. Discussed with Dr. Santos. Discharge Planning Neurologist indicates discharging to rehabilitation, but physical therapy indicates the patient does not require further physical therapy and can go home. ST and OT advise supervision at home due to cognitive deficits. Discussed with Dr. Santos who states she is going to speak with son. Patient currently hypertensive, started new medication. Make sure INR is therapeutic. Likely discharge tomorrow. 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
[2017-02-10] MEDS ORDERED: PERMETHRIN 5% CREAM 60 GM TOPICAL ONE (14:00)
--- NOTE | 2017-02-10 14:37 | RADHPO ---
EXAM DATE/TIME: 02/10/2017 14:04 [place] COMPARISON: No previous studies available for comparison. INDICATIONS : Right wrist pain MEDICAL HISTORY : None. SURGICAL HISTORY : None. ENCOUNTER: Initial ACUITY: 1 day PAIN SCORE: 8/10 LOCATION: Right wrist FINDINGS: No acute fracture is seen. There is some remodeling at the first carpometacarpal joint with degenerat ramy and hypertrophic change. There is fusion between the triquetrum and the lunate. This a normal elizabeth iant. Bones appear osteopenic. There some degenerative change at the first interphalangeal joint. The re some cystic change at the scaphoid, first metacarpal, and distal radius. CONCLUSION: Chronic change as described above. Daniel Foster MD on February 10, 2017 at 14:34 Board Certified Radiologist. This report was verified electronically.
[2017-02-10] MEDS: WARFARIN SOD 3 MG TAB PO SCH (17:32)
[2017-02-10] MEDS: PRAVASTATIN SOD 40 MG TAB PO SCH (23:15)
[2017-02-10] MEDS: QUEtiapine FUMARATE 100 MG TAB PO SCH (23:15)
[2017-02-11] VITALS: BP 119/71; PULSE 90; RESP 18; TEMP 98.5; O2SAT 96
[2017-02-11] MEDS: LEVOTHYROXINE SODIUM 75 MCG TAB PO SCH (05:04)
[2017-02-11] MEDS: INSULIN ASPART SUPPLEMENTAL SCALE SQ SCH (06:23)
[2017-02-11 08:00] VITALS: BP 116/69; PULSE 104; RESP 18; TEMP 97.4; O2SAT 97
[2017-02-11 08:25] LABS: INTERNATIONAL NORMALIZED RATIO 2.3 RATIO; PROTHROMBIN TIME - PATIENT 25.8 SEC (9.8-11.6)
[2017-02-11] MEDS: DIGOXIN 0.125 MG TAB PO SCH (09:11)
[2017-02-11] MEDS: FUROSEMIDE 20 MG TAB PO SCH (09:11)
[2017-02-11] MEDS: METOPROLOL TARTRATE 25 MG TAB PO SCH (09:11)
[2017-02-11] MEDS: SODIUM CHLORIDE 0.9% FLUSH 5 ML FLUSH IVF SCH (09:12)
--- NOTE | 2017-02-11 10:40 | HHI.PR ---
Subjective Remarks Follow-up TIA 02/10/17-patient seen and examined, alert and oriented 2. No acute event overnight. Alondra by the bedside and agreed with discharge at home with home health care, however is thinking about possible DETENTION in the near future. But in the meantime alondra state he may hire a nurse to be with his grandma at all time. Objective Vitals Vital Signs Date Time Temp Pulse Resp B/P Pulse Ox O2 Delivery O2 Flow Rate FiO2 02/11/17 08:00 97.4 104 18 116/69 97 02/11/17 00:00 96 Nasal Cannula 2.00 02/11/17 00:00 98.5 90 18 119/71 96 02/10/17 20:49 95 21 02/10/17 20:00 98.0 87 16 148/81 95 02/10/17 16:00 96.0 83 20 187/90 97 02/10/17 12:00 96.1 78 20 183/94 95 I/O 02/10/17 02/10/17 02/10/17 02/11/17 02/11/17 02/11/17 07:00 15:00 23:00 07:00 15:00 23:00 Intake Total 118 ml 0 ml 120 ml Balance 118 ml 0 ml 120 ml Intake Oral 118 ml 120 ml IV Total 0 ml 0 ml # Voids 2 2 # Bowel Movements 0 0 Result Diagram: 02/08/17 0615 02/08/17 0615 Imaging Last Impressions Head Magnetic Resonance Angiography 02/08/17 0000 Signed Impressions: Service Date/Time: Wednesday, February 08, 2017 15:23 - CONCLUSION: Significant luminal deformity involving the distal left cervical internal carotid artery which may contain a significant stenotic lesion. Intracranial luminal irregularity and stenotic lesions within the left MCA characteristics of advanced atherosclerotic disease. Dominant left vertebral artery. No evidence of significant vertebral basilar stenosis. Eligio Barth MD Carotid Artery Ultrasound 02/08/17 0000 Signed Impressions: Service Date/Time: Wednesday, February 08, 2017 08:53 - CONCLUSION: Mild to moderate fairly widespread plaque of both carotid systems. No hemodynamically significant narrowing. Daniel Peralta MD Brain MRI 02/08/17 0000 Signed Impressions: Service Date/Time: Wednesday, February 08, 2017 15:23 - CONCLUSION: Atrophic changes with chronic ischemic white matter disease. No evidence of acute infarct, hemorrhage mass or edema. Eligio Barth MD Head CT 02/07/172012 Signed Impressions: Service Date/Time: January 20:36 - CONCLUSION: No acute intracranial abnormality. Atrophy and chronic white matter changes. Daniel Peralta MD Objective Remarks GENERAL: NAD SKIN: Warm and dry. HEAD: Normocephalic. EYES: No scleral icterus. No injection or drainage. NECK: Supple, trachea midline. No JVD or lymphadenopathy. CARDIOVASCULAR: Regular rate and rhythm without murmurs, gallops, or rubs. RESPIRATORY: Breath sounds equal bilaterally. No accessory muscle use. GASTROINTESTINAL: Abdomen soft, non-tender, nondistended. MUSCULOSKELETAL: No cyanosis, or edema. BACK: Nontender without obvious deformity. No CVA tenderness. Procedures none A/P Problem List: (1) Transient ischemic attack (TIA) ICD Code: G45.9 Status: Acute (2) Afib ICD Code: I48.91 Status: Chronic (3) Thyroid disease ICD Code: E07.9 Status: Chronic (4) HTN (hypertension) ICD Code: I10 Status: Chronic (5) Cognitive decline ICD Code: R41.89 Status: Acute Assessment and Plan 86-year-old female with Transient ischemic attack (TIA): Resolved.MRI/A neg for acute intracranial abnormalities. INR currently therapeutic. Appreciate input from neurology. PT 1. Afib: chronic, rate controlled -Continue with metoprolol and digoxin as well as Coumadin Thyroid disease: Chronic -Continue Synthroid HTN (hypertension): Chronic, but uncontrolled currently. -Cont metoprolol, digoxin, lasix and Norvasc 10 mg. however will increase Lopressor to 25 mg twice a day and discontinuing Norvasc. Renal failure: Appears to be CKD on record review. Cr stable. -Avoid nephrotoxins Cognitive decline -Patient with a strong family history of dementia. Some cognitive decline assessed by speech therapy. -Health care surrogate is her grandson. 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 Could be from sheets and patient states she has scratched in the area. 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
[2017-02-11] MEDS ORDERED: COUM3TAB PO (10:46)
[2017-02-11] MEDS ORDERED: PRAV40TA PO (10:46)
[2017-02-11] MEDS ORDERED: METO-309 PO (10:46)
--- NOTE | 2017-02-11 10:51 | HHI.DS ---
Discharge Summary Admission Date Feb 07, 2017 at 21:23 Discharge Date: Feb 11, 2017 Admitting Diagnosis TIA (1) Transient ischemic attack (TIA) ICD Code: G45.9 (2) Afib ICD Code: I48.91 (3) Thyroid disease ICD Code: E07.9 (4) HTN (hypertension) ICD Code: I10 (5) Cognitive decline ICD Code: R41.89 Procedures none Brief History - From Admission Patient is an 86-year-old female with a known history of anxiety who was in the presence of her grandson who is her primary talent program manager. During this time patient became confused with difficulty word finding and had some evidence of expressive aphasia. This resolved. Her grandson thought she was very worked up and anxious. There were 2 more episodes throughout the day and finally the patient was brought to the hospital. There was some concern for TIA versus stroke. She does have atrial fibrillation but no personal history of stroke. Her heart rate has been well controlled and she has been on warfarin. Her INR however is subtherapeutic. She has been seen by neurologist with recommendations for IV heparin and for titration of her warfarin to therapeutic levels. Images are still pending at this time. Patient symptoms again have resolved and she is back to normal per her grandson who is at the bedside. Patient has no pain. She is independent with her ADLs and is appropriate with her personal hygiene. She has a family history of dementia but no personal history of dementia. For these reasons the patient was recommended for inpatient evaluation CBC/BMP: 02/08/17 0615 02/08/17 0615 Significant Findings Laboratory Tests Test 02/08/17 02/08/17 02/09/17 02/09/17 15:45 21:25 03:25 06:50 Prothrombin Time 16.5 SEC 16.8 SEC (9.8-11.6) (9.8-11.6) Activated Partial 37.3 SEC 42.0 SEC 41.5 SEC Thromboplast Time (24.3-30.1) (24.3-30.1) (24.3-30.1) LDL Cholesterol 100 MG/DL (0-99) Test 02/10/17 02/11/17 07:30 07:22 Prothrombin Time 22.0 SEC 25.8 SEC (9.8-11.6) (9.8-11.6) Activated Partial 55.7 SEC Thromboplast Time (24.3-30.1) Imaging Last Impressions Head Magnetic Resonance Angiography 02/08/17 Signed Impressions: Service Date/Time: Wednesday, February 08, 2017 15:23 - CONCLUSION: Significant luminal deformity involving the distal left cervical internal carotid artery which may contain a significant stenotic lesion. Intracranial luminal irregularity and stenotic lesions within the left MCA characteristics of advanced atherosclerotic disease. Dominant left vertebral artery. No evidence of significant vertebral basilar stenosis. Eligio Barth MD Carotid Artery Ultrasound 02/08/17 Signed Impressions: Service Date/Time: Wednesday, February 08, 2017 08:53 - CONCLUSION: Mild to moderate fairly widespread plaque of both carotid systems. No hemodynamically significant narrowing. Daniel Peralta MD Brain MRI 02/08/17 Signed Impressions: Service Date/Time: Wednesday, February 08, 2017 15:23 - CONCLUSION: Atrophic changes with chronic ischemic white matter disease. No evidence of acute infarct, hemorrhage mass or edema. Eligio Barth MD Head CT 02/07/172012 Signed Impressions: Service Date/Time: January 20:36 - CONCLUSION: No acute intracranial abnormality. Atrophy and chronic white matter changes. Daniel Peralta MD PE at Discharge GENERAL: NAD SKIN: Warm and dry. HEAD: Normocephalic. EYES: No scleral icterus. No injection or drainage. NECK: Supple, trachea midline. No JVD or lymphadenopathy. CARDIOVASCULAR: Regular rate and rhythm without murmurs, gallops, or rubs. RESPIRATORY: Breath sounds equal bilaterally. No accessory muscle use. GASTROINTESTINAL: Abdomen soft, non-tender, nondistended. MUSCULOSKELETAL: No cyanosis, or edema. BACK: Nontender without obvious deformity. No CVA tenderness. Hospital Course Patient admitted and diagnosed with TIA for which neurology was consulted as well as PT. She was started on heparin drip secondary to subtherapeutic INR and continue on Coumadin. Prior to discharge heparin drip was discontinued and patient INR was 2.3. Oral antihypertensive medications were adjusted accordingly and patient remained normotensive prior to discharge. DVT and GI prophylaxis were provided. Vitals remained stable. Pt Condition on Discharge: Stable Discharge Disposition: Disch w/ Home Health Serv Discharge Time: > 30 minutes Discharge Instructions DIET: Follow Instructions for: Coumadin (Warfarin) Diet Speech Therapy-Diet Recommends: Regular Activities you can perform: Regular-No Restrictions Follow up Referrals: PCP Follow-up - 1 Week SNF/[facility]/ with NURSE COSTUME SPECIALIST C New Orders: PT/INR - Next Day New Medications: Metoprolol Tartrate (Lopressor) 50 Mg Tab 25 MG PO BID Blood Pressure Management #30 Ref 0 TAB Pravastatin (Pravachol) 40 Mg Tab 40 MG PO HS Cholesterol Management #30 TAB Warfarin (Coumadin) 3 Mg Tab 3 MG PO DAILY@16 Prevent Blood Clot #30 TAB Continued Medications: Digoxin (Digoxin) 0.125 Mg Tab 0.125 MG PO DAILY Regulate Heart Beat #30 Ref 0 TAB Furosemide (Lasix) 20 Mg Tab 20 MG PO DAILY #30 Ref 0 TAB Levothyroxine (Levothyroxine) 75 Mcg Tab 75 MCG PO DAILY Thyroid #30 Ref 0 TAB Loperamide (Loperamide) 2 Mg Cap 2 MG PO DIRECTED One capsule after each loose stool. Not to exceed 8 capsules per day. PRN DIARRHEA Ref 0 CAP Discontinued Medications: Furosemide (Lasix) 40 Mg Tab 40 MG PO DAILY #30 Ref 0 TAB Metoprolol Tartrate (Metoprolol Tartrate) 25 Mg Tab 25 MG PO DAILY #30 Ref 0 TAB Warfarin (Coumadin) 1 Mg Tab 1 MG PO DAILY Prevent Blood Clot #30 Ref 0 TAB Akhil Ramirez MD Feb 11, 2017 10:51
[2017-02-11 12:00] VITALS: BP 122/69; PULSE 78; RESP 18; TEMP 97.5; O2SAT 94
[2017-02-11 13:03] VITALS: O2SAT 92
== END 2017-02-11 14:48 | disposition home health service (06) | DRG 69 ==
LOC: PHED 19:41 → PHEDA 21:23 → PHEDH 02-08 01:23 → PH3B 02-08 07:56
PROVIDERS: ADMIT Hospitalist; ATTEND Hospitalist
DX: G45.9 Transient cerebral ischemic attack, unspecified (principal); R47.01 Aphasia; I48.91 Unspecified atrial fibrillation; I45.10 Unspecified right bundle-branch block; E03.9 Hypothyroidism, unspecified; Z78.1 Physical restraint status; I12.9 Hypertensive chronic kidney disease with stage 1 through stage 4 chronic kidney disease, or unspecified chronic kidney disease; R79.1 Abnormal coagulation profile; N18.9 Chronic kidney disease, unspecified; F41.9 Anxiety disorder, unspecified; Z81.8 Family history of other mental and behavioral disorders; Z79.01 Long term (current) use of anticoagulants; R21 Rash and other nonspecific skin eruption; M25.531 Pain in right wrist; K21.9 Gastro-esophageal reflux disease without esophagitis; M19.90 Unspecified osteoarthritis, unspecified site; K58.9 Irritable bowel syndrome, unspecified
CPT/HCPCS: 70450; 70544; 70551; 73110; 80048; 80053; 80061; 80162; 81001; 82948; 83036; 85025; 85610; 85730; 93005; 93306; 93880; J1644; J2060

== ENCOUNTER 2018-01-05 00:08 | Emergency (ER) | payer MEDICARE, BC ==
[~2018-01-05] VITALS: Ht 162.6 cm; Wt 60.0 kg
[~2018-01-05 00:08] MED LIST changes: -BACT800T5 PO; -COUM1TAB PO; +COUM3TAB PO; +FURO1TAB62 PO; -LOPE2 PO; +LOPE2CAP PO; +METO-309 PO; -METO25 PO; +PRAV40TA PO
[2018-01-05 00:12] VITALS: BP 155/73; PULSE 97; RESP 28; TEMP 97.5; O2SAT 96
[2018-01-05 00:15] VITALS: BP 152/67; PULSE 83; RESP 22; RESP 24; O2SAT 94; O2SAT 95
[2018-01-05] MEDS ORDERED: SODIUM CHLOR 0.9% 1000 ML INJ 1,000 ML IV SCH (00:32)
[2018-01-05] MEDS ORDERED: SODIUM CHLORIDE 0.9% FLUSH 10 ML FLUSH IVF PRN (00:45)
--- NOTE | 2018-01-05 00:49 | PD ---
HPI Chief Complaint: Bleeding Time Seen by Provider: 00:32 Travel History International Travel<30 days: No Contact w/Intl Traveler<30days: No Traveled to known affect area: No History of Present Illness HPI The patient is an 87-year-old female that has had rectal bleeding for 3 days. She states she can feel a bulge there at the rectum. The patient is on Coumadin. She denies any syncopal or near syncopal spells. She states she has an appointment with a female colorectal surgeon on Saturday. PFSH Past Medical History Hx Anticoagulant Therapy: Yes Arthritis: Yes (KNEES AND ARMS) Atrial Fibrillation: Yes Autoimmune Disease: No Anxiety: Yes Depression: Yes (had 3 children ) Heart Rhythm Problems: Yes (AFIB WITH RBBB) Cancer: Yes Cardiovascular Problems: Yes Chemotherapy: No Chest Pain: Yes Cerebrovascular Accident: Yes Diminished Hearing: No Endocrine: Yes Gastrointestinal Disorders: Yes (IRRITABLE BOWEL SYNDROME) GERD: Yes (GERD) Genitourinary: No Headaches: Yes Hypertension: Yes Immune Disorder: No Musculoskeletal: Yes Neurologic: Yes Psychiatric: Yes Reproductive: No Respiratory: No Immunizations Current: Yes Radiation Therapy: Yes Thyroid Disease: Yes Past Surgical History Gynecologic Surgery: Yes (HYSTERECTOMY) Hysterectomy: Yes Other Surgery: Yes (1997 LUMPECTOMY) Social History Alcohol Use: No Tobacco Use: No Substance Use: No Allergies-Medications (Allergen,Severity, Reaction): Coded Allergies: No Known Allergies (Verified Adverse Reaction, Unknown, 01/05/18) Reported Meds & Prescriptions Reported Meds & Active Scripts Active Coumadin (Warfarin) 3 Mg Tab 3 Mg PO DAILY@16 Reported Xanax (Alprazolam) 0.25 Mg Tab 0.25 Mg PO Q8H PRN Levothyroxine (Levothyroxine Sodium) 75 Mcg Tab 75 Mcg PO DAILY Digoxin 0.125 Mg Tab 0.125 Mg PO DAILY Review of Systems Except as stated in HPI: all other systems reviewed are Neg Physical Exam Narrative GENERAL: The patient is alert, oriented 3 in moderate apparent distress with her rectal discomfort. Her vital signs show blood pressure 155/73 and respirations are 28 but the rest the vital signs are normal. The patient is anxious. SKIN: Focused skin assessment warm/dry. She does not appear to be particularly anemic. HEAD: Atraumatic. Normocephalic. EYES: Pupils equal and round. No scleral icterus. No injection or drainage. ENT: No nasal bleeding or discharge. Mucous membranes pink and moist. NECK: Trachea midline. No JVD. CARDIOVASCULAR: Regular rate and rhythm. No murmur appreciated. RESPIRATORY: No accessory muscle use. Clear to auscultation. Breath sounds equal bilaterally. GASTROINTESTINAL: Abdomen soft, non-tender, nondistended. Hepatic and splenic margins not palpable. MUSCULOSKELETAL: No obvious deformities. No clubbing. No cyanosis. No edema. NEUROLOGICAL: Awake and alert. No obvious cranial nerve deficits. Motor grossly within normal limits. Normal speech. PSYCHIATRIC: Appropriate mood and affect; insight and judgment normal. RECTAL EXAM: There is a rectal prolapse present with the rectum being out about 4 cm. This prolapse was reduced easily. There is blood around the rectal prolapse. No stool was seen. Data Data Last Documented VS Vital Signs Date Time Temp Pulse Resp B/P (MAP) Pulse Ox O2 Delivery O2 Flow Rate FiO2 01/05/18 01:07 83 20 136/49 (78) 95 Room Air 01/05/18 00:12 97.5 Orders Orders Basic Metabolic Panel (Bmp) (01/05/18 00:32) Comprehensive Metabolic Panel (01/05/18 00:32) Lipase (01/05/18 00:32) Prothrombin Time / Inr (Pt) (01/05/18 00:32) Urinalysis - C+S If Indicated (01/05/18 00:32) Type And Screen (01/05/18 00:32) Ecg Monitoring (01/05/18 00:32) Iv Access Insert/Monitor (01/05/18 00:32) Oximetry (01/05/18 00:32) Sodium Chlor 0.9% 1000 Ml Inj (Ns 1000 M (01/05/18 00:32) Sodium Chloride 0.9% Flush (Ns Flush) (01/05/18 00:45) Lorazepam Inj (Ativan Inj) (01/05/18 01:00) Complete Blood Count With Diff (01/05/18 01:04) Urine Culture (01/05/18 01:27) Labs Laboratory Tests Test 01/05/18 00:44 01/05/18 01:27 White Blood Count 8.5 TH/MM3 Red Blood Count 4.53 MIL/MM3 Hemoglobin 12.7 GM/DL Hematocrit 37.9 % Mean Corpuscular Volume 83.7 FL Mean Corpuscular Hemoglobin 28.0 PG Mean Corpuscular Hemoglobin Concent 33.4 % Red Cell Distribution Width 15.0 % Platelet Count 270 TH/MM3 Mean Platelet Volume 8.4 FL Neutrophils (%) (Auto) 71.5 % Lymphocytes (%) (Auto) 16.2 % Monocytes (%) (Auto) 9.4 % Eosinophils (%) (Auto) 2.3 % Basophils (%) (Auto) 0.6 % Neutrophils # (Auto) 6.0 TH/MM3 Lymphocytes # (Auto) 1.4 TH/MM3 Monocytes # (Auto) 0.8 TH/MM3 Eosinophils # (Auto) 0.2 TH/MM3 Basophils # (Auto) 0.1 TH/MM3 CBC Comment DIFF FINAL Differential Comment Prothrombin Time 19.5 SEC Prothromb Time International Ratio 1.9 RATIO Blood Urea Nitrogen 25 MG/DL Creatinine 1.00 MG/DL Random Glucose 106 MG/DL Total Protein 7.5 GM/DL Albumin 3.3 GM/DL Calcium Level 8.9 MG/DL Alkaline Phosphatase 115 U/L Aspartate Amino Transf (AST/SGOT) 18 U/L Alanine Aminotransferase (ALT/SGPT) 17 U/L Total Bilirubin 0.8 MG/DL Sodium Level 140 MEQ/L Potassium Level 3.8 MEQ/L Chloride Level 111 MEQ/L Carbon Dioxide Level 19.9 MEQ/L Anion Gap 9 MEQ/L Estimat Glomerular Filtration Rate 53 ML/MIN Lipase 255 U/L Urine Color YELLOW Urine Turbidity CLOUDY Urine pH 5.5 Urine Specific [place] 1.015 Urine Protein TRACE mg/dL Urine Glucose (UA) NEG mg/dL Urine Ketones NEG mg/dL Urine Occult Blood SMALL Urine Nitrite POS Urine Bilirubin NEG Urine Leukocyte Esterase LARGE Urine RBC 4-9 /hpf Urine WBC 100-200 /hpf Urine Squamous Epithelial Cells 0-5 /hpf Urine Bacteria MANY /hpf Microscopic Urinalysis Comment CATH-CULTURE IND MDM Medical Decision Making Medical Screen Exam Complete: Yes Emergency Medical Condition: Yes Medical Record Reviewed: Yes Interpretation(s) The CBC is normal. The hemoglobin is 12.7. The coagulation profile shows a ProTime of 19.5 and INR of 1.9. The complete metabolic profile shows a bicarbonate of 19.9, BUN 25, GFR of 53 and albumen of 3.3 but is otherwise unremarkable. The lipase is normal. The urine shows cloudy turbidity, small occult blood, positive nitrite, large leukocyte esterase with 4-9 red cells and 102 100 white cells and many bacteria and culture is indicated. Differential Diagnosis Rectal prolapse, lower GI bleed, urinary tract infection, electrolyte disorder, anemia, coagulopathy from Coumadin Narrative Course The patient's INR is acceptable. She does have GI bleeding and should not take the Coumadin today and not start the Coumadin until she discusses this with Dr. Moran. She does have a urine infection. She does have a rectal prolapse. I reduced the rectal prolapse and the patient seems to be more comfortable. She is told that the rectal prolapse will come out later, possibly with the next bowel movement. The patient will be given Rocephin IV here and Keflex. This will not interfere with her Coumadin. Diagnosis Primary Impression: Rectal prolapse Additional Impressions: Rectal bleeding Urinary tract infection Anticoagulated on Coumadin Chronic atrial fibrillation Additional Instructions: Rectal prolapse Disposition: 01 DISCHARGE HOME Condition: Stable Valerio Arguelles MD Jan 05, 2018 00:49
[2018-01-05] MEDS ORDERED: LORazepam 2 MG/ML VIAL IV PUSH ONE (01:00)
[2018-01-05 01:06] LABS: BASOPHIL # 0.1 TH/MM3 (0-0.2); BASOPHIL % 0.6 % (0.0-2.0); EOSINOPHIL # 0.2 TH/MM3 (0-0.4); EOSINOPHIL % 2.3 % (0.0-4.0); HEMATOCRIT 37.9 % (35.0-46.0); HEMOGLOBIN 12.7 GM/DL (11.6-15.3); LYMPH % 16.2 % (9.0-44.0); LYMPHOCYTE # 1.4 TH/MM3 (1.0-4.8); MEAN CELL VOLUME 83.7 FL (80.0-100.0); MEAN CORPUSCULAR HGB CONC 33.4 % (32.0-36.0); MEAN PLATELET VOLUME 8.4 FL (7.0-11.0); MONO % 9.4 % (0.0-8.0); MONOCYTE # 0.8 TH/MM3 (0-0.9); NEUT % 71.5 % (16.0-70.0); PLATELET COUNT 270 TH/MM3 (150-450); RED BLOOD COUNT 4.53 MIL/MM3 (4.00-5.30); WHITE BLOOD COUNT 8.5 TH/MM3 (4.0-11.0)
[2018-01-05 01:07] VITALS: BP 136/49; PULSE 83; RESP 20; O2SAT 95
[2018-01-05 01:10] LABS: CHLORIDE 111 MEQ/L (98-107); SODIUM (NA) 140 MEQ/L (136-145)
[2018-01-05 01:14] LABS: ALBUMIN 3.3 GM/DL (3.4-5.0); BICARBONATE 19.9 MEQ/L (21.0-32.0); BLOOD UREA NITROGEN 25 MG/DL (7-18); CALCIUM 8.9 MG/DL (8.5-10.1); GLUCOSE,RANDOM 106 MG/DL (74-106)
[2018-01-05 01:17] LABS: ALT (GPT) 17 U/L (10-53); AST (GOT) 18 U/L (15-37); GLOMERULAR FILTRATION RATE 53 ML/MIN (>89)
[2018-01-05] MEDS ORDERED: ALPR.25 PO (01:18)
[2018-01-05 01:19] LABS: TOTAL BILIRUBIN ADULT 0.8 MG/DL (0.2-1.0); TOTAL PROTEIN 7.5 GM/DL (6.4-8.2)
[2018-01-05 01:20] LABS: ALKALINE PHOSPHATASE 115 U/L (45-117); INTERNATIONAL NORMALIZED RATIO 1.9 RATIO; PROTHROMBIN TIME - PATIENT 19.5 SEC (9.8-11.6)
[2018-01-05 01:39] LABS: BILIRUBIN, URINE NEG (NEG); BLOOD, URINE SMALL (NEG); GLUCOSE,URINE NEG (NEG); KETONE, URINE NEG (NEG); NITRITE,URINE POS (NEG); PH, URINE 5.5 (5.0-8.5); URINE LEUKOCYTE ESTERASE LARGE (NEG)
[2018-01-05 01:44] LABS: BACTERIA, URINE MANY /hpf; SQUAMOUS EPITHELIAL CELL URINE 0-5 /hpf (0-5); URINE COLOR YELLOW (YELLW/STRAW); WBC, URINE 100-200 /hpf (0-5)
[2018-01-05 02:02] VITALS: BP 144/68
[2018-01-05] MEDS ORDERED: CEPH-460 PO (02:05)
[2018-01-05] MEDS ORDERED: cefTRIAXone INJ 1,000 MG in SODIUM CHLORIDE 0.9% INJ 100 ML IV ONE (02:15)
== END 2018-01-05 03:04 | disposition home or self-care (01) ==
LOC: PHED 00:08
DX: K62.3 Rectal prolapse (principal); K62.5 Hemorrhage of anus and rectum; N39.0 Urinary tract infection, site not specified; B96.20 Unspecified Escherichia coli [E. coli] as the cause of diseases classified elsewhere; I48.2 Chronic atrial fibrillation; I48.91 Unspecified atrial fibrillation; I10 Essential (primary) hypertension; K21.9 Gastro-esophageal reflux disease without esophagitis; E07.9 Disorder of thyroid, unspecified
CPT/HCPCS: 80053; 81001; 83690; 85025; 85610; 86850; 86900; 86901; 87077; 87086; 87186; 96361; 96365; 96375; 99284; J0696; J2060; J7030

== ENCOUNTER 2018-01-07 15:20 | Inpatient (IN) | payer MEDICARE, BC ==
[~2018-01-07] VITALS: Ht 162.6 cm; Wt 60.3 kg
[~2018-01-07 15:20] MED LIST changes: +ALPR.25 PO; +CEPH-460 PO; -FURO1TAB62 PO; -LOPE2CAP PO; -METO-309 PO; -PRAV40TA PO
[2018-01-07 16:00] VITALS: BP 136/76; PULSE 85; RESP 16; TEMP 97.6; O2SAT 95
[2018-01-07] MEDS ORDERED: DEXT 5%-NACL 0.9% 1000 ML INJ 1,000 ML IV SCH (16:00)
[2018-01-07] MEDS ORDERED: ACETAMINOPHEN 325 MG TAB PO PRN (16:15)
[2018-01-07] MEDS ORDERED: Post-op Orders (for Pharmacy) XX ONE (16:15)
[2018-01-07] MEDS ORDERED: ACETAMINOPHEN/HYDROcodone 325 MG/5 MG TAB PO PRN ×2 (16:15)
[2018-01-07] MEDS ORDERED: PCA - TOTAL MG MORPHINE DELIVERED PER SHIFT SCH (16:15)
[2018-01-07] MEDS ORDERED: BENZOCAINE 6 MG/MENTHOL 10 MG LOZENGE BUCCAL PRN (16:15)
[2018-01-07] MEDS ORDERED: POTASSIUM CHLOR 40 MEQ PREMIX 100 ML IV PRN (16:15)
[2018-01-07] MEDS ORDERED: MORPHINE SULFATE 30 MG/30 ML PCA IV SCH (16:15)
[2018-01-07] MEDS ORDERED: ENALAPRILAT 2.5 MG/2 ML VIAL IV PUSH PRN (16:15)
[2018-01-07] MEDS ORDERED: KETOROLAC TROMETHAMINE 30 MG/ML (IVP) VIAL IVP PRN (16:15)
[2018-01-07] MEDS ORDERED: NALOXONE HCL 0.4 MG/ML AMP IV PUSH PRN (16:15)
[2018-01-07] MEDS ORDERED: POTASSIUM CHLOR 20 MEQ PREMIX 100 ML IV PRN (16:15)
[2018-01-07] MEDS ORDERED: ENALAPRILAT 1.25 MG/ML VIAL IV PUSH PRN (16:15)
[2018-01-07] MEDS: LEVOTHYROXINE SODIUM 75 MCG TAB PO SCH (16:30)
[2018-01-07] MEDS ORDERED: DIGOXIN 0.125 MG TAB PO SCH (16:30)
[2018-01-07] MEDS ORDERED: DILT120T PO (16:48)
[2018-01-07] MEDS ORDERED: JANT2.5T PO (16:48)
[2018-01-07] MEDS: D5-NS + KCL 20 MEQ INJ 1,000 ML IV SCH (17:25)
[2018-01-07] MEDS ORDERED: MAGNESIUM CITRATE SOLN 300 ML BTL PO ONE (17:45)
[2018-01-07] MEDS ORDERED: metroNIDAZOLE 500 MG INJ 100 ML IV SCH (18:00)
[2018-01-07] MEDS ORDERED: metroNIDAZOLE 500 MG INJ 100 ML IV ONE (18:00)
[2018-01-07 18:24] LABS: ALBUMIN 3.1 GM/DL (3.4-5.0); ALT (GPT) 16 U/L (10-53); AST (GOT) 16 U/L (15-37); BICARBONATE 21.5 MEQ/L (21.0-32.0); BLOOD UREA NITROGEN 25 MG/DL (7-18); CALCIUM 8.4 MG/DL (8.5-10.1); CHLORIDE 113 MEQ/L (98-107); CREATININE 1.04 MG/DL (0.50-1.00); GLOMERULAR FILTRATION RATE 50 ML/MIN (>89); GLUCOSE,RANDOM 104 MG/DL (74-106); SODIUM (NA) 143 MEQ/L (136-145)
[2018-01-07 18:26] LABS: INTERNATIONAL NORMALIZED RATIO 1.5 RATIO; PROTHROMBIN TIME - PATIENT 14.9 SEC (9.8-11.6)
[2018-01-07 18:27] LABS: ALKALINE PHOSPHATASE 108 U/L (45-117); TOTAL BILIRUBIN ADULT 0.8 MG/DL (0.2-1.0); TOTAL PROTEIN 6.9 GM/DL (6.4-8.2)
[2018-01-07 18:49] LABS: AUTOMATED NEUTROPHIL # 7.4 TH/MM3 (1.8-7.7); BASOPHIL # 0.1 TH/MM3 (0-0.2); BASOPHIL % 0.7 % (0.0-2.0); EOSINOPHIL # 0.1 TH/MM3 (0-0.4); EOSINOPHIL % 1.5 % (0.0-4.0); HEMATOCRIT 36.7 % (35.0-46.0); HEMOGLOBIN 12.8 GM/DL (11.6-15.3); LYMPH % 10.6 % (9.0-44.0); MEAN CELL VOLUME 83.3 FL (80.0-100.0); MEAN CORPUSCULAR HEMOGLOBIN 28.9 PG (27.0-34.0); MEAN CORPUSCULAR HGB CONC 34.7 % (32.0-36.0); MEAN PLATELET VOLUME 8.7 FL (7.0-11.0); MONO % 9.3 % (0.0-8.0); MONOCYTE # 0.9 TH/MM3 (0-0.9); NEUT % 77.9 % (16.0-70.0); PLATELET COUNT 249 TH/MM3 (150-450); RED BLOOD COUNT 4.41 MIL/MM3 (4.00-5.30); RED CELL DISTRIBUTION WIDTH 15.6 % (11.6-17.2); WHITE BLOOD COUNT 9.4 TH/MM3 (4.0-11.0)
--- NOTE | 2018-01-07 19:18 | MB ---
cc: EMMA PALENCIA ANDREW H. M.D. DATE OF CONSULTATION: 01/07/2018 REASON FOR CONSULTATION: Evaluation vomiting and dysphagia. HISTORY OF PRESENT ILLNESS A pleasant 87-year-old female who was admitted by Dr. Wesley for significant rectal prolapse and hemorrhoidal disease. The patient is scheduled for surgery tomorrow for repair of these problems. The patient has had bleeding. She is noted to be on Coumadin therapy. This was held for the past four days. We were asked to evaluate her for her dysphagia. She is followed by Dr. Sharma in our practice, and actually about three weeks ago she was scheduled for EGD with possible dilatation, but the procedure was cancelled by anesthesia due to a rapid heart rate and rapid atrial fibrillation which was of new onset. Since then her heart rate has been stabilized. She reports that over the past year she has had difficulty with swallowing and after she eats she quickly regurgitates and vomits her food. She feels a sensation in the lower sternal area of the food sticking. She has had endoscopy by Dr. Sharma with dilation without any obvious fixed obstruction of the esophagus. This may be due to a motility issue of the esophagus. Dilation had been carried out previously with good symptomatic response. We were asked to coordinate endoscopy with Dr. Wesley for the procedure as the patient was going to be given anesthesia. PAST MEDICAL HISTORY: 1. Previous TIAs. 2. Atrial fibrillation. 3. Hypertension. 4. History of IBS. 5. Gastroesophageal reflux. 6. Previous hysterectomy. 7. Previous UTIs. 8. History of anxiety. 9. Hypothyroidism. PAST SURGICAL HISTORY: Left hip and left shoulder replacement. OUTPATIENT MEDICATIONS 1. Acetaminophen. 2. Xanax. 3. Chloraseptic. 4. Lanoxin. 5. Vasotec. 6. Buckhorn. 7. Toradol. 8. Synthroid. 9. Zofran. 10. Metronidazole. 11. Potassium supplements. 12. Coumadin. The Coumadin has been held. 13. Levothyroxine. FAMILY HISTORY AND SOCIAL HISTORY Both noncontributory. REVIEW OF SYSTEMS: 12-point review of systems as stated in the HPI. She has had rectal bleeding, rectal prolapse. She has had difficulty swallowing as mentioned above. Weight has been stable, however. LABORATORY DATA Potassium and sodium were normal. Creatinine is 1.0, glucose is 106. Liver enzymes and bilirubin were normal. Abdominal was 3.4. Lipase was 255. Hemoglobin 12.7, white count was normal, platelet count was 270. PHYSICAL EXAMINATION: A pleasant elderly female who is alert and oriented x3 in no acute distress. Her vital signs are currently stable. Blood pressure 136/70, pulse is 85, regular. She is afebrile. HEENT: Exam normocephalic. Sclerae anicteric. Oral mucosa moist. NECK: Neck is supple. CARDIAC: S1-S2 regular rhythm. CHEST: Chest is clear to AP. ABDOMEN: Abdominal exam is benign, nontender. No mass, no organomegaly. Bowel sounds are present. EXTREMITIES: Trace pedal edema noted otherwise unremarkable. NEUROLOGIC: She appears to be intact. IMPRESSION 1. Rectal prolapse with rectal bleeding. 2. History of intermittent dysphagia, difficulty swallowing which may be a motility based problem of the esophagus. PLAN The patient will undergo surgery tomorrow. Unfortunately we cannot coordinate the procedure with endoscopy at the time of surgery but this can be considered after her surgery, since she is off Coumadin and ideally it would be an appropriate time to pursue EGD with possible dilatation. There is a possibility that the patient does have gastroparesis. She does report that she gets full quickly after eating as well, so she may have a secondary problem. At some point a gastric emptying study may prove of benefit as well. I would continue her PPI for now and Dr. Meléndez will follow the patient. If possible we can schedule her endoscopy in a day or so. Thank you kindly for this consult. I have discussed the case with Dr. Wesley as well. MD ANTOINE Peace/AMANDA /6:02 PM /6:53 PM
[2018-01-07 20:00] VITALS: BP 138/69; PULSE 82; RESP 20; TEMP 97.1; O2SAT 96
[2018-01-07] MEDS ORDERED: METOCLOPRAMIDE HCL 10 MG/2 ML VIAL IVS SCH (21:00)
[2018-01-07] MEDS: ALPRAZolam 0.25 MG TAB PO PRN (21:30)
[2018-01-07] MEDS ORDERED: LACTATED RINGER'S 1000 ML IV PRN (22:15)
[2018-01-07] MEDS ORDERED: SODIUM CHLORID 0.9% 500 ML IV PRN (22:15)
[2018-01-08] VITALS (9 sets, daily range): BP systolic 132–165; BP diastolic 64–87; PULSE 78–101; RESP 14–20; TEMP 95.9–98.5; O2SAT 90–95
[2018-01-08] MEDS: LEVOTHYROXINE SODIUM 75 MCG TAB PO SCH (05:14)
[2018-01-08 06:17] LABS: AUTOMATED NEUTROPHIL # 6.4 TH/MM3 (1.8-7.7); BASOPHIL # 0.1 TH/MM3 (0-0.2); BASOPHIL % 0.8 % (0.0-2.0); EOSINOPHIL # 0.2 TH/MM3 (0-0.4); EOSINOPHIL % 1.9 % (0.0-4.0); HEMATOCRIT 37.1 % (35.0-46.0); HEMOGLOBIN 13.1 GM/DL (11.6-15.3); LYMPH % 13.6 % (9.0-44.0); LYMPHOCYTE # 1.2 TH/MM3 (1.0-4.8); MEAN CELL VOLUME 83.5 FL (80.0-100.0); MEAN CORPUSCULAR HEMOGLOBIN 29.4 PG (27.0-34.0); MEAN CORPUSCULAR HGB CONC 35.2 % (32.0-36.0); MEAN PLATELET VOLUME 8.5 FL (7.0-11.0); MONO % 9.6 % (0.0-8.0); MONOCYTE # 0.8 TH/MM3 (0-0.9); NEUT % 74.1 % (16.0-70.0); PLATELET COUNT 251 TH/MM3 (150-450); RED BLOOD COUNT 4.44 MIL/MM3 (4.00-5.30); RED CELL DISTRIBUTION WIDTH 15.9 % (11.6-17.2); WHITE BLOOD COUNT 8.6 TH/MM3 (4.0-11.0)
[2018-01-08 06:48] LABS: BICARBONATE 24.3 MEQ/L (21.0-32.0); CALCIUM 9.1 MG/DL (8.5-10.1); CREATININE 1.19 MG/DL (0.50-1.00)
[2018-01-08] MEDS: ALPRAZolam 0.25 MG TAB PO PRN (08:59)
[2018-01-08] MEDS ORDERED: PANTOPRAZOLE SOD 40 MG DELAYED RELEASE TAB PO SCH (09:00)
[2018-01-08] MEDS ORDERED: PANTOPRAZOLE SODIUM 40 MG VIAL IVP SCH (09:00)
[2018-01-08] MEDS: D5-NS + KCL 20 MEQ INJ 1,000 ML IV SCH (09:01)
--- NOTE | 2018-01-08 10:32 | HHI.GIFU ---
GI Follow-up Note Consult Follow-up Subjective: Patient laying in bed comfortably.States swallowing ok today Objective: PHYSICAL EXAMINATION: Vitals signs stable No fever HEENT: no jaundice. Throat is clear. NECK: no lymphadenopathy. CHEST: Chest is clear to auscultation and percussion. CARDIAC: Regular rate and rhythm ABDOMEN: Soft, nondistended, nontender; no hepatosplenomegaly; bowel sounds are present in all four quadrants. EXTREMITIES: No clubbing, cyanosis, or edema. DIRECTOR OF FOOD AND NUTRITION: alert and oriented times three. Available Data (labs, X- Rays, Procedures) : for OR today ASSESSMENT/PLAN: 1. Dysphagia 2. Taye satiety 3. rectal prolapse PLAN: 1 EGD/Dil-hopefully tomorrow. All indications,risks, alternatives, benefits, limitations, complications were discussed including bleeding, infection, perforation, , etc It was a pleasure seeing Philly Del Cid. Thank you for this consult. Entered by: Gerard Monsivais MD Jan 08, 2018 10:32
[2018-01-08] MEDS ORDERED: DEXAMETHASONE SOD PHOS 4 MG/ML VIAL IV ONE (12:00)
[2018-01-08] MEDS ORDERED: PHENYLEPH/NS 1000 MCG/10 ML SYR IV ONE (12:00)
[2018-01-08] MEDS ORDERED: INSULIN HUMAN REGULAR 1,000 UNITS/10 ML VIAL SQ PRN (12:00)
[2018-01-08] MEDS ORDERED: ROCURONIUM INJ 50 MG/5 ML SYRINGE IV PUSH ONE (12:00)
[2018-01-08] MEDS ORDERED: POVIDONE IODINE 5% (ANTISEPSIS KIT) 4 APPLICATIONS EACH NARE PRN (12:00)
[2018-01-08] MEDS ORDERED: CHLORHEXIDINE GLUCONATE 2 % 1 PACK (2 CLOTHS) TOPICAL PRN (12:00)
[2018-01-08] MEDS ORDERED: ceFAZolin INJ 1,000 MG VIAL IV ONE (12:00)
[2018-01-08] MEDS ORDERED: SODIUM CHLOR 0.9% 1000 ML INJ 2,000 ML IV ONE (12:00)
[2018-01-08] MEDS ORDERED: PROPOFOL 200 MG/20 ML AMP IV ONE (12:00)
[2018-01-08] MEDS ORDERED: SODIUM CHLORID 0.9% 500 ML IV PRN (12:00)
[2018-01-08] MEDS ORDERED: LACTATED RINGER'S 1000 ML IV PRN (12:00)
[2018-01-08] MEDS ORDERED: METOPROLOL TARTRATE 25 MG TAB PO PRN (12:00)
[2018-01-08] MEDS ORDERED: ONDANSETRON HCL 4 MG/2 ML VIAL IV ONE (12:00)
[2018-01-08] MEDS ORDERED: LIDOCAINE HCL 1% PF 5 ML SYRINGE OTHER ONE (12:00)
--- NOTE | 2018-01-08 12:03 | HHI.PR ---
Subjective Remarks C/R Surg afebrile, VSS UO good rashaad Prep OK little bleeding Objective - Vital Signs Date Time Temp Pulse Resp B/P (MAP) Pulse Ox O2 Delivery O2 Flow Rate FiO2 01/08/18 08:00 98.5 89 19 136/70 (92) 91 Result Diagram: 01/08/1851 01/08/18 0551 Objective Remarks PE alert HEENT - clear CHEST - clear bilat CARDIA - irreg ABD - soft, min tympany EXT - 1 -2 + edema A/P Assessment and Plan Imp: OK for surgery OOB until OR hold coumadin Andrew Wesley MD Jan 08, 2018 12:03
[2018-01-08] MEDS ORDERED: BUPIVACAINE HCL PF 0.5% 30 ML VIAL ONE ×4 (12:06→13:24)
[2018-01-08] MEDS ORDERED: LIDOCAINE 1%/EPINEPHrine 1:100,000 SOLN 50 ML VIAL ONE (12:06)
[2018-01-08] MEDS ORDERED: BUPIVACAINE/EPINEPHRINE 0.25% 50 ML VIAL ONE (12:07)
[2018-01-08] MEDS ORDERED: SILVER SULFADIAZINE/LIDOCAINE CREAM 60 GM JAR EXTERNAL ONE (12:30)
[2018-01-08] MEDS ORDERED: SILVER SULFADIAZINE/LIDOCAINE CREAM 60 GM JAR SCH (12:45)
[2018-01-08] MEDS ORDERED: metroNIDAZOLE 500 MG INJ 100 ML IV ONE (12:56)
[2018-01-08] MEDS ORDERED: ceFAZolin INJ 1,000 MG VIAL ONE (12:57)
[2018-01-08] MEDS ORDERED: SUGAMMADEX SODIUM 200 MG/2 ML VIAL IV PUSH ONE (14:09)
[2018-01-08] MEDS ORDERED: D5-NS + KCL 20 MEQ INJ 1,000 ML IV SCH (14:42)
[2018-01-08] MEDS ORDERED: Post-op Orders (for Pharmacy) XX ONE (14:45)
[2018-01-08] MEDS ORDERED: BENZOCAINE 6 MG/MENTHOL 10 MG LOZENGE BUCCAL PRN (14:45)
[2018-01-08] MEDS ORDERED: ONDANSETRON HCL 4 MG/2 ML VIAL IV PUSH PRN (14:45)
[2018-01-08] MEDS ORDERED: NALOXONE HCL 0.4 MG/ML AMP IV PUSH PRN (14:45)
[2018-01-08] MEDS ORDERED: ENALAPRILAT 1.25 MG/ML VIAL IV PUSH PRN (14:45)
[2018-01-08] MEDS: PCA - TOTAL MG MORPHINE DELIVERED PER SHIFT SCH ×2 (14:45→22:00)
[2018-01-08] MEDS ORDERED: POTASSIUM CHLOR 20 MEQ PREMIX 100 ML IV PRN (14:45)
[2018-01-08] MEDS ORDERED: MORPHINE SULFATE 30 MG/30 ML PCA IV SCH (14:45)
[2018-01-08] MEDS ORDERED: ACETAMINOPHEN 325 MG TAB PO PRN (14:45)
[2018-01-08] MEDS ORDERED: POTASSIUM CHLOR 40 MEQ PREMIX 100 ML IV PRN (14:45)
[2018-01-08] MEDS ORDERED: ENALAPRILAT 2.5 MG/2 ML VIAL IV PUSH PRN (14:45)
[2018-01-08] MEDS ORDERED: BUPIVACAINE HCL PF 0.5% 30 ML VIAL NB SCH (14:45)
[2018-01-08] MEDS ORDERED: DO NOT ADM ANY ANTICOAGULANT DRUGS PRN (14:48)
[2018-01-08] MEDS ORDERED: *RESP: ALBUTEROL 2.5 MG/3 ML NEB (PRN) PERIprocedural Use ONLY NEB ONE (14:57)
[2018-01-08] MEDS ORDERED: ACETAMINOPHEN 1000 MG/100 ML 100 ML IV ONE (15:03)
[2018-01-08] MEDS ORDERED: *morphine SULFATE 4 MG/ML PERIprocedure ONLY ONE (15:04)
[2018-01-08] MEDS ORDERED: ACETAMINOPHEN/HYDROcodone 325 MG/5 MG TAB PO PRN (16:00)
[2018-01-08] MEDS ORDERED: KETOROLAC TROMETHAMINE 30 MG/ML (IVP) VIAL IVP PRN (16:00)
[2018-01-08] MEDS: METOCLOPRAMIDE HCL 10 MG/2 ML VIAL IVS SCH (21:00)
[2018-01-08] MEDS: metroNIDAZOLE 500 MG INJ 100 ML IV SCH (21:01)
[2018-01-08] MEDS: POTASSIUM CHLORIDE INJ 20 MEQ in DEXT 5%-NACL 0.9% 1000 ML INJ 1,000 ML IV SCH (23:30)
[2018-01-09] VITALS (18 sets, daily range): BP systolic 120–171; BP diastolic 64–98; PULSE 78–95; RESP 8–19; TEMP 97.6–97.9; O2SAT 81–97
[2018-01-09 04:12] LABS: AUTOMATED NEUTROPHIL # 9.2 TH/MM3 (1.8-7.7); BASOPHIL % 0.1 % (0.0-2.0); HEMATOCRIT 34.6 % (35.0-46.0); HEMOGLOBIN 12.1 GM/DL (11.6-15.3); LYMPH % 3.5 % (9.0-44.0); LYMPHOCYTE # 0.4 TH/MM3 (1.0-4.8); MEAN CELL VOLUME 84.3 FL (80.0-100.0); MEAN CORPUSCULAR HEMOGLOBIN 29.4 PG (27.0-34.0); MEAN CORPUSCULAR HGB CONC 34.9 % (32.0-36.0); MEAN PLATELET VOLUME 8.3 FL (7.0-11.0); MONO % 6.5 % (0.0-8.0); MONOCYTE # 0.7 TH/MM3 (0-0.9); NEUT % 89.9 % (16.0-70.0); PLATELET COUNT 219 TH/MM3 (150-450); RED CELL DISTRIBUTION WIDTH 15.6 % (11.6-17.2); WHITE BLOOD COUNT 10.3 TH/MM3 (4.0-11.0)
[2018-01-09] MEDS: metroNIDAZOLE 500 MG INJ 100 ML IV SCH ×2 (04:23→13:01)
[2018-01-09 04:36] LABS: CALCIUM 8.3 MG/DL (8.5-10.1); CREATININE 1.12 MG/DL (0.50-1.00)
[2018-01-09] MEDS: PCA - TOTAL MG MORPHINE DELIVERED PER SHIFT SCH (06:00)
[2018-01-09] MEDS: LEVOTHYROXINE SODIUM 75 MCG TAB PO SCH (06:18)
[2018-01-09] MEDS: POTASSIUM CHLORIDE INJ 20 MEQ in DEXT 5%-NACL 0.9% 1000 ML INJ 1,000 ML IV SCH ×2 (07:30→12:45)
--- NOTE | 2018-01-09 08:01 | HHI.PR ---
Subjective Remarks C/R Surg afebrile, VSS UO fair CHRIS min Objective - Vital Signs Date Time Temp Pulse Resp B/P (MAP) Pulse Ox O2 Delivery O2 Flow Rate FiO2 01/09/18 07:25 93 Nasal Cannula 4.00 01/09/18 06:00 14 01/09/18 03:00 97.6 92 129/73 (91) Result Diagram: 01/09/1834401/09/18 034 Objective Remarks PE alert ABD - soft, min tympany, wound dry A/P Assessment and Plan Imp: stable post-op ?EGD if stable hold coumadin - start subcut heparin Andrew Wesley MD Jan 09, 2018 08:01
[2018-01-09] MEDS: DILTIAZEM-CD 240 MG CAP ER PO SCH (08:43)
[2018-01-09] MEDS: METOCLOPRAMIDE HCL 10 MG/2 ML VIAL IVS SCH (08:44)
[2018-01-09] MEDS: PANTOPRAZOLE SODIUM 40 MG VIAL IVP SCH (08:45)
[2018-01-09] MEDS: SODIUM CHLOR 0.45% 1000 ML INJ 1,000 ML IV SCH ×2 (08:54→18:45)
[2018-01-09] MEDS: FUROSEMIDE 20 MG/2 ML VIAL IV PUSH SCH (08:54)
[2018-01-09] MEDS: PANTOPRAZOLE SOD 40 MG DELAYED RELEASE TAB PO SCH (09:00)
[2018-01-09] MEDS ORDERED: ESMOLOL HCL 100 MG/10 ML VIAL IV ONE (12:00)
[2018-01-09] MEDS ORDERED: SUCCINYLCHOLINE CHLORIDE 200 MG/10 ML VIAL IV ONE (12:00)
[2018-01-09] MEDS ORDERED: PHENYLEPH/NS 1000 MCG/10 ML SYR IV ONE (12:00)
[2018-01-09] MEDS ORDERED: ONDANSETRON HCL 4 MG/2 ML VIAL IV ONE (12:00)
--- NOTE | 2018-01-09 13:32 | MP ---
cc: GAB ERIC M.D. DATE OF SURGERY 01/08/2018 PREOPERATIVE DIAGNOSIS Full-thickness rectal prolapse. PROCEDURE Exploratory laparotomy with rectopexy POSTOPERATIVE DIAGNOSIS Full-thickness rectal prolapse. SURGEON Dr. Eric LINE PILOT Dr. Yunior Palacios PROCEDURE The patient was placed in the supine position. After adequate general anesthesia, her legs were placed in [place] stirrups and supported appropriately. The abdomen and perineum were then prepped with Betadine solution and draped in the usual sterile fashion. With Dr. Palacios's assistance, the abdomen was opened through an infraumbilical transverse incision dividing the rectus muscles with electrocautery. Exploration revealed a very deep cul-de-sac with findings consistent with full-thickness rectal prolapse with edema and swelling of the distal rectum. The sigmoid loop was somewhat redundant. It was also stuck down to the vaginal apex and the left pelvic sidewall adhered to the left remaining ovary. The proximal colon was also palpated and felt to be very redundant, but had no palpable masses. The small bowel was run from the ligament of Treitz down to the ileocecal valve and felt to be unremarkable. The liver did appear to be somewhat congested, but no masses were palpated. The gallbladder was quite distended, but had no stones. The stomach and duodenum were normal. Great vessels were of normal caliber and slightly calcified. First, the sigmoid colon was mobilized medially by dividing along the white line of Toldt. The left ureter was identified and carefully preserved. Dissection then opened up the right retroperitoneal space and the bowel dissected off the presacral fascia down toward the pelvic floor. After full mobilization, some adhesions to the left pelvic sidewall were taken down and the ovary from the sigmoid colon giving us rectal mobilization. The bowel was then pexed to the sacral promontory using two Prolene sutures on each side to secure the peritoneum getting good traction on the rectum to pex it in position. At completion, the lumen of the bowel appeared to be adequate and was not constricted. Abdomen was irrigated copiously and hemostasis achieved. Pratik-Collins drain was placed down into the presacral space and brought up through stab wound in the right lower quadrant and secured to the skin with a nylon suture. The wound was then closed in two layers using #1 PDS sutures to reapproximate the respective fascial layers. On-Q catheters were placed into the rectus sheath on both sides and then brought up through subcutaneous tunnels above the transverse incision. The subcu tissues were irrigated copiously and the skin closed with a running subcuticular Vicryl suture. The wound area washed with normal saline and dried, sterile dressing of Telfa and gauze applied. The patient tolerated the procedure quite well and was brought to recovery room in stable condition. Sponge and needle counts were correct at the end of the procedure. MD KOKO Vidal/NAZ /10:24 PM /1:25 PM
--- NOTE | 2018-01-09 15:51 | GIPROC ---
[facility] [address] [facility]. [facility], [address] EGD PROCEDURE REPORT EXAM DATE: 01/09/2018 PATIENT NAME: Philly Del Cid MR #: [id number] BIRTHDATE: 1930 ATTENDING: Gerard Meléndez MD ORDER #: [id number] [employer] MANAGER: Angela Joshua and Alvina Henson STATUS: inpatient INDICATIONS: The patient is a 87 yr old female here for an EGD due to dysphagia PROCEDURE PERFORMED: EGD w/ biopsy EGD w/ dilation of esophagus via guidewire MEDICATIONS: None and Per Anesthesia. TOPICAL ANESTHETIC: none CONSENT: The patient understands the risks and benefits of the procedure and understands that these risks include, but are not limited to: sedation, allergic reaction, infection, perforation and/or bleeding. Alternative means of evaluation and treatment include, among others: physical exam, x-rays, and/or surgical intervention. The patient elects to proceed with this endoscopic procedure. medical equipment was checked for proper function. Hand hygiene and appropriate measures for infection prevention was taken. After the risks, benefits and alternatives of the procedure were thoroughly explained, Informed consent was verified, confirmed and timeout was successfully executed by the treatment team. The patient was anesthetized with topical anesthesia and the Pentax EG-[id number] endoscope was introduced through the mouth and advanced to the second portion of the duodenum. Retroflexion was performed and was normal The gastroscope was then slowly withdrawn and removed. ESOPHAGUS: The GE Junction was located 38cm from the incisors. The GEJ appeared normal. Presbyesophagus. The stricture was dilated using a 17mm (51Fr) savary dilator over guidewire. Following this dilation, there was no change in the appearance of the stricture. Multiple biopsies were performed using cold forceps. Sample sent for histology. STOMACH: Two 1-3mm erosions were found in the gastric fundus. Multiple biopsies was performed using cold forceps. Sample sent for histology. DUODENUM: The duodenal mucosa appeared normal in the 2nd part of the duodenum and duodenal bulb. ADVERSE EVENTS: There were no complications. IMPRESSIONS: 1. The GE Junction was located 38cm from the incisors 2. Presbyesophagus 3. Two 1-3mm erosions were found in the gastric fundus; multiple biopsies was performed 4. Normal duodenal mucosa in the 2nd part of the duodenum and duodenal bulb 5. Retroflexion was performed and was normal RECOMMENDATIONS: Await biopsy results. Biopsy results will not be ready for 7-10 days. If you don't hear from us in two weeks, call our office for biopsy results. PATIENT CONDITION: stable DISPOSITION: Inpatient REPEAT EXAM: NONE Gerard Meléndez MD eSigned: Gerard Meléndez MD 01/09/2018 3:51 PM cc: PATIENT NAME: Philly Del Cid MR#: [id number]
[2018-01-09] MEDS ORDERED: DO NOT ADM ANY ANTICOAGULANT DRUGS PRN (15:53)
[2018-01-09] MEDS ORDERED: MIDAZOLAM HCL 2 MG/2 ML VIAL ONE (17:03)
[2018-01-10] VITALS (31 sets, daily range): BP systolic 120–154; BP diastolic 56–76; PULSE 73–98; RESP 18; TEMP 97.6–98.8; O2SAT 91–96
[2018-01-10] MEDS: FUROSEMIDE 20 MG/2 ML VIAL IV PUSH SCH ×3 (04:44→21:21)
[2018-01-10] MEDS: METOCLOPRAMIDE HCL 10 MG/2 ML VIAL IVS SCH ×3 (04:45→21:20)
[2018-01-10] MEDS: POTASSIUM CHLORIDE INJ 20 MEQ in DEXT 5%-NACL 0.9% 1000 ML INJ 1,000 ML IV SCH ×4 (04:45→23:30)
[2018-01-10] MEDS: LEVOTHYROXINE SODIUM 75 MCG TAB PO SCH (07:57)
[2018-01-10] MEDS: PANTOPRAZOLE SOD 40 MG DELAYED RELEASE TAB PO SCH (09:00)
[2018-01-10] MEDS: SODIUM CHLOR 0.45% 1000 ML INJ 1,000 ML IV SCH (09:55)
--- NOTE | 2018-01-10 09:55 | HHI.GIFU ---
GI Follow-up Note Consult Follow-up Subjective: Patient tolerating liquids. Discussed EGD finding with her Objective: PHYSICAL EXAMINATION: Vitals signs stable No fever CHEST: Chest is clear to auscultation and percussion. CARDIAC: Regular rate and rhythm with no murmur gallop or rubs. ABDOMEN: Soft, nondistended, nontender; no hepatosplenomegaly; bowel sounds are present in all four quadrants. EXTREMITIES: No edema. SKIN: no jaundice. SALES SUPPORT ADMINISTRATOR: alert and oriented times three. Available Data (labs, X- Rays, Procedues) : ASSESSMENT/PLAN: 1. Dysphagia--presbyesophagus noted-dilated. bx pending 2. Taye satiety 3. rectal prolapse 4. Gastric erosions PLAN: 1. Cont PPI 2. Advance diet as tolerated It was a pleasure seeing Philly Del Cid. Thank you for this consult. Entered by: Gerard Monsivais MD Jan 10, 2018 09:55
[2018-01-10] MEDS: PANTOPRAZOLE SODIUM 40 MG VIAL IVP SCH (10:03)
[2018-01-10] MEDS: DILTIAZEM-CD 240 MG CAP ER PO SCH (10:06)
[2018-01-10] MEDS: ALPRAZolam 0.25 MG TAB PO PRN ×2 (11:12→18:39)
[2018-01-10] MEDS: ACETAMINOPHEN/HYDROcodone 325 MG/5 MG TAB PO PRN (15:52)
--- NOTE | 2018-01-10 18:31 | HHI.PR ---
Subjective Remarks C/R Surg afebrile, VSS UO good CHRIS min Objective - Vital Signs Date Time Temp Pulse Resp B/P (MAP) Pulse Ox O2 Delivery O2 Flow Rate FiO2 01/10/18 18:04 85 01/10/18 16:36 95 Nasal Cannula 2.00 01/10/18 15:43 97.7 18 129/62 (84) Result Diagram: 01/09/1834401/09/18 0345 Objective Remarks PE alert ABD - soft, min tympany, wound dry +diarrhea A/P Assessment and Plan Imp: stable post-op hold coumadin - start subcut heparin Andrew Wesley MD Jan 10, 2018 18:31
[2018-01-11] VITALS (15 sets, daily range): BP systolic 111–138; BP diastolic 56–72; PULSE 80–91; RESP 18–24; TEMP 98.2–98.8; O2SAT 91–94
[2018-01-11] MEDS: SODIUM CHLOR 0.45% 1000 ML INJ 1,000 ML IV SCH (02:35)
[2018-01-11] MEDS: ACETAMINOPHEN/HYDROcodone 325 MG/5 MG TAB PO PRN (06:14)
[2018-01-11] MEDS: LEVOTHYROXINE SODIUM 75 MCG TAB PO SCH (06:14)
[2018-01-11] MEDS: POTASSIUM CHLORIDE INJ 20 MEQ in DEXT 5%-NACL 0.9% 1000 ML INJ 1,000 ML IV SCH (07:30)
[2018-01-11] MEDS: DILTIAZEM-CD 240 MG CAP ER PO SCH (09:13)
[2018-01-11] MEDS: PANTOPRAZOLE SODIUM 40 MG VIAL IVP SCH (09:13)
[2018-01-11] MEDS: PANTOPRAZOLE SOD 40 MG DELAYED RELEASE TAB PO SCH (09:13)
[2018-01-11] MEDS: FUROSEMIDE 20 MG/2 ML VIAL IV PUSH SCH ×2 (09:13→22:08)
--- NOTE | 2018-01-11 10:07 | HHI.FF ---
Face to Face Verification Diagnosis: (1) Rectal prolapse (2) Transient ischemic attack (TIA) (3) Afib Physical Therapy Order: Evaluate and Treat, Improve ambulation, Strength and gait training Home Health Nursing Order: Medical education Signs/symptoms of disease process Wound care and dressing changes I have seen patient Philly Del Cid on 01/11/18. My clinical findings support the need for the requested home health care services because: Ltd mobility - disease progression Patient has SOB Deconditioned w/ increased weakness Limited ability to care for self Infection w/ risk of complications I certify that my clinical findings support that this patient is homebound because: Post-op weakness Impaired cognitive ability/safety Unsteady gait/balance Unable to use public transportation Andrew Wesley MD Jan 11, 2018 10:07
--- NOTE | 2018-01-11 11:14 | HHI.PR ---
Subjective Remarks C/R Surg afebrile, VSS UO good CHRIS min stools better Objective - Vital Signs Date Time Temp Pulse Resp B/P (MAP) Pulse Ox O2 Delivery O2 Flow Rate FiO2 01/11/18 07:54 92 Nasal Cannula 2.00 01/11/18 06:00 88 01/11/18 03:30 98.6 18 138/72 (94) Result Diagram: 01/09/1834401/09/18 034 Objective Remarks PE alert ABD - soft, min tympany, wound dry +diarrhea better A/P Assessment and Plan Imp: hold coumadin - start subcut heparin adv diet dc plans Andrew Wesley MD Jan 11, 2018 11:14
[2018-01-11] MEDS: METOCLOPRAMIDE HCL 10 MG/2 ML VIAL IVS SCH ×2 (11:50→22:09)
[2018-01-11 14:07] LABS: INTERNATIONAL NORMALIZED RATIO 1.5 RATIO; PROTHROMBIN TIME - PATIENT 14.7 SEC (9.8-11.6)
[2018-01-11] MEDS: WARFARIN SOD 5 MG TAB PO SCH (16:06)
[2018-01-11] MEDS: ONDANSETRON HCL 4 MG/2 ML VIAL IV PUSH PRN (22:09)
[2018-01-12] VITALS (7 sets, daily range): BP systolic 115–133; BP diastolic 56–87; PULSE 75–89; RESP 18–20; TEMP 98.1–98.7; O2SAT 90–97
[2018-01-12] MEDS: LEVOTHYROXINE SODIUM 75 MCG TAB PO SCH (08:04)
[2018-01-12] MEDS: METOCLOPRAMIDE HCL 10 MG/2 ML VIAL IVS SCH ×2 (09:00→22:13)
[2018-01-12] MEDS: DILTIAZEM-CD 240 MG CAP ER PO SCH (09:19)
[2018-01-12] MEDS: PANTOPRAZOLE SOD 40 MG DELAYED RELEASE TAB PO SCH (09:19)
[2018-01-12] MEDS: ACETAMINOPHEN/HYDROcodone 325 MG/5 MG TAB PO PRN ×2 (09:20→15:04)
[2018-01-12] MEDS: FUROSEMIDE 20 MG/2 ML VIAL IV PUSH SCH ×2 (09:20→22:13)
[2018-01-12] MEDS: PANTOPRAZOLE SODIUM 40 MG VIAL IVP SCH (09:21)
--- NOTE | 2018-01-12 10:37 | HHI.PR ---
Subjective Remarks C/R Surg afebrile, VSS UO good stools better, less Objective - Vital Signs Date Time Temp Pulse Resp B/P (MAP) Pulse Ox O2 Delivery O2 Flow Rate FiO2 01/12/18 07:38 98.1 87 20 130/87 (101) 93 01/11/18 21:00 Nasal Cannula 2.00 Result Diagram: 01/09/18 0345 01/09/18 0345 Objective Remarks PE alert ABD - soft, min tympany, wound dry no prolapse A/P Assessment and Plan Imp: hold coumadin - start subcut heparin adv diet dc plans Andrew Wesley MD Jan 12, 2018 10:37
[2018-01-12] MEDS: RESP: ALBUTEROL 2.5 MG/IPRATROPIUM 0.5 MG NEB (SCH) NEB ×2 (11:27→20:00)
[2018-01-12] MEDS: HEPARIN SODIUM - SQ 10,000 UNITS/ML VIAL SQ SCH ×2 (11:49→22:13)
[2018-01-12] MEDS: ONDANSETRON HCL 4 MG/2 ML VIAL IV PUSH PRN ×2 (12:47→18:19)
[2018-01-12] MEDS: WARFARIN SOD 5 MG TAB PO SCH (15:49)
[2018-01-12] MEDS: ALPRAZolam 0.25 MG TAB PO PRN (22:12)
[2018-01-13] VITALS (9 sets, daily range): BP systolic 116–161; BP diastolic 56–79; PULSE 79–98; RESP 16–20; TEMP 97.9–98.6; O2SAT 91–97
[2018-01-13] MEDS: RESP: ALBUTEROL 2.5 MG/IPRATROPIUM 0.5 MG NEB (SCH) NEB ×3 (07:14→20:03)
[2018-01-13] MEDS: PANTOPRAZOLE SODIUM 40 MG VIAL IVP SCH (09:00)
[2018-01-13] MEDS: PANTOPRAZOLE SOD 40 MG DELAYED RELEASE TAB PO SCH (09:21)
[2018-01-13] MEDS: METOCLOPRAMIDE HCL 10 MG/2 ML VIAL IVS SCH ×2 (09:21→21:02)
[2018-01-13] MEDS: FUROSEMIDE 20 MG/2 ML VIAL IV PUSH SCH ×2 (09:22→21:02)
[2018-01-13] MEDS: DILTIAZEM-CD 240 MG CAP ER PO SCH (09:22)
[2018-01-13] MEDS: LEVOTHYROXINE SODIUM 75 MCG TAB PO SCH (09:24)
[2018-01-13] MEDS: HEPARIN SODIUM - SQ 10,000 UNITS/ML VIAL SQ SCH ×2 (11:17→22:09)
[2018-01-13] MEDS: WARFARIN SOD 5 MG TAB PO SCH (15:18)
[2018-01-13] MEDS: ALPRAZolam 0.25 MG TAB PO PRN (22:09)
--- NOTE | 2018-01-13 23:07 | HHI.PR ---
Subjective Remarks C/R Surg afebrile, VSS UO good stools better, less diarrhea Objective - Vital Signs Date Time Temp Pulse Resp B/P (MAP) Pulse Ox O2 Delivery O2 Flow Rate FiO2 01/13/18 20:03 95 Nasal Cannula 2.00 01/13/18 19:20 97.9 93 16 128/72 (90) Result Diagram: 01/09/1834401/09/18 034 Objective Remarks PE alert ABD - soft, min tympany, wound dry no prolapse, still on O2 A/P Assessment and Plan Imp: cont coumadin adv diet dc plans rehab Andrew Wesley MD Jan 13, 2018 23:07
[2018-01-14] MEDS: LEVOTHYROXINE SODIUM 75 MCG TAB PO SCH (05:55)
[2018-01-14 07:33] VITALS: BP 144/78; PULSE 89; RESP 18; TEMP 98.1; O2SAT 92
[2018-01-14] MEDS: RESP: ALBUTEROL 2.5 MG/IPRATROPIUM 0.5 MG NEB (SCH) NEB (07:44)
[2018-01-14] MEDS: DILTIAZEM-CD 240 MG CAP ER PO SCH (09:22)
[2018-01-14] MEDS: PANTOPRAZOLE SOD 40 MG DELAYED RELEASE TAB PO SCH (09:22)
[2018-01-14] MEDS: FUROSEMIDE 20 MG/2 ML VIAL IV PUSH SCH (09:23)
[2018-01-14] MEDS: METOCLOPRAMIDE HCL 10 MG/2 ML VIAL IVS SCH (09:23)
[2018-01-14] MEDS: PANTOPRAZOLE SODIUM 40 MG VIAL IVP SCH (09:24)
== END 2018-01-14 11:15 | DRG 330 ==
LOC: INTOOBSV 15:20 → N07B 15:20 → OBSVTOIN 01-08 14:45 → HCPC 01-08 15:06 → HCVI 01-08 19:01 → HCPC 01-09 11:40 → HCIS 01-14 01:56
PROVIDERS: ADMIT Colon & Rectal Surgery; ATTEND Colon & Rectal Surgery
PROC: 0DSP0ZZ Reposition Rectum, Open Approach (ICD-10-PCS; principal; 2018-01-08 12:38)
PROC: 0D758ZZ Dilation of Esophagus, Via Natural or Artificial Opening Endoscopic (ICD-10-PCS; 2018-01-09)
PROC: 0DB58ZX Excision of Esophagus, Via Natural or Artificial Opening Endoscopic, Diagnostic (ICD-10-PCS; 2018-01-09)
PROC: 0DB68ZX Excision of Stomach, Via Natural or Artificial Opening Endoscopic, Diagnostic (ICD-10-PCS; 2018-01-09)
DX: K62.3 Rectal prolapse (principal); K62.5 Hemorrhage of anus and rectum; I48.91 Unspecified atrial fibrillation; K25.9 Gastric ulcer, unspecified as acute or chronic, without hemorrhage or perforation; N39.0 Urinary tract infection, site not specified; K31.84 Gastroparesis; K22.8 Other specified diseases of esophagus; N73.6 Female pelvic peritoneal adhesions (postinfective); I10 Essential (primary) hypertension; R19.7 Diarrhea, unspecified; K21.9 Gastro-esophageal reflux disease without esophagitis; E03.9 Hypothyroidism, unspecified; K29.50 Unspecified chronic gastritis without bleeding; F41.9 Anxiety disorder, unspecified; Z79.01 Long term (current) use of anticoagulants; Z85.3 Personal history of malignant neoplasm of breast; Z86.73 Personal history of transient ischemic attack (TIA), and cerebral infarction without residual deficits; Z92.3 Personal history of irradiation; Z96.612 Presence of left artificial shoulder joint; Z96.642 Presence of left artificial hip joint; B96.20 Unspecified Escherichia coli [E. coli] as the cause of diseases classified elsewhere
CPT/HCPCS: 80048; 80053; 85025; 85610; 85730; 88305; 88312; 94150; 94640; 94664; C1769; C9113; J0131; J0330; J0690; J1100; J1644; J1940; J2250; J2270; J2370; J2405; J2765; J3010; J3480; J7030; J7042; J7613

== ENCOUNTER 2018-02-05 12:18 | Inpatient (IN) | payer MEDICARE, BC ==
[~2018-02-05] VITALS: Ht 162.6 cm; Wt 53.1 kg
[~2018-02-05 12:18] MED LIST changes: -CEPH-460 PO; -DIGO0.12 PO; +DILT120T PO; +JANT2.5T PO
[2018-02-05 12:43] VITALS: BP 151/85; PULSE 107; RESP 22; TEMP 97.7; O2SAT 95
--- NOTE | 2018-02-05 13:26 | RADRPT ---
EXAM DATE/TIME: 02/05/2018 13:15 [place] COMPARISON: WRIST RIGHT COMPLETE ([id number]), February 10, 2017, 14:04. INDICATIONS : Shortness of breath. MEDICAL HISTORY : Hypertension. SURGICAL HISTORY : Hysterectomy. Left hip. Total left shoulder. ENCOUNTER: Initial ACUITY: 2 days PAIN SCORE: 0/10 LOCATION: Bilateral chest FINDINGS: The heart is enlarged. There is a moderate size left basilar effusion and consolidative change in the left lower lobe. There is diffuse interstitial prominence. There is minimal effusion at the right ba se. The exam was suggest congestive failure. There is degenerative changes in the right shoulder. The patient is post left shoulder arthroplasty. CONCLUSION: 1. Pleural effusions larger on the left than the right with consolidative change in the left lung bas e and diffuse interstitial prominence. Study would suggest congestive failure. Zeferino Walden MD on February 05, 2018 at 13:23 Board Certified Radiologist. This report was verified electronically.
[2018-02-05 14:18] LABS: AUTOMATED NEUTROPHIL # 6.8 TH/MM3 (1.8-7.7); BASOPHIL # 0.1 TH/MM3 (0-0.2); BASOPHIL % 0.7 % (0.0-2.0); EOSINOPHIL % 0.3 % (0.0-4.0); HEMATOCRIT 38.6 % (35.0-46.0); HEMOGLOBIN 13.3 GM/DL (11.6-15.3); LYMPHOCYTE # 1.2 TH/MM3 (1.0-4.8); MEAN CELL VOLUME 83.3 FL (80.0-100.0); MEAN CORPUSCULAR HEMOGLOBIN 28.7 PG (27.0-34.0); MEAN CORPUSCULAR HGB CONC 34.4 % (32.0-36.0); MEAN PLATELET VOLUME 8.1 FL (7.0-11.0); MONO % 11.1 % (0.0-8.0); NEUT % 74.9 % (16.0-70.0); PLATELET COUNT 313 TH/MM3 (150-450); RED BLOOD COUNT 4.63 MIL/MM3 (4.00-5.30); RED CELL DISTRIBUTION WIDTH 16.2 % (11.6-17.2); WHITE BLOOD COUNT 9.1 TH/MM3 (4.0-11.0)
[2018-02-05 14:31] LABS: INTERNATIONAL NORMALIZED RATIO 2.7 RATIO; PROTHROMBIN TIME - PATIENT 27.1 SEC (9.8-11.6)
--- NOTE | 2018-02-05 14:38 | PD ---
HPI Chief Complaint: GI Complaint Time Seen by Provider: 14:35 Travel History International Travel<30 days: No Contact w/Intl Traveler<30days: No Traveled to known affect area: No History of Present Illness HPI 87-year-old female presents to the emergency Department with complaint of continued vomiting after having her esophagus stretched. She says she had vomiting before that and has continued since after the procedure. Says she cannot keep anything down. Says she can eat and then when she drinks she throws up. Does not know the doctor's name who did her "upper surgery," but says Dr. Naylor did her "lower surgery." She denies choking, gagging, coughing. She was just discharged from rehabilitation on Saturday. She denies pain. Reports shortness of breath. Says she uses home oxygen. She appears anxious and she says she is afraid. Denies chest pain. Denies fevers. No known relieving factors. Aggravated by drinking. Has not taken any medication or drainage from his to alleviate her symptoms. Symptoms are moderate to severe in severity. Primary care provider is Dr. Jones. Allergies to ampicillin. History of hypertension, hypothyroid, and is on Coumadin for atrial fibrillation. He has no other medical complaints. No other modifying factors or associated signs and symptoms. 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) Diminished Hearing: No Endocrine: Yes Gastrointestinal Disorders: Yes (IRRITABLE BOWEL SYNDROME) GERD: Yes Genitourinary: No Headaches: Yes Hypertension: Yes Immune Disorder: No Implanted Vascular Access Dvce: No Musculoskeletal: Yes Neurologic: Yes Psychiatric: Yes Reproductive: No Respiratory: No Immunizations Current: Yes Radiation Therapy: Yes (1998) Seizures: No Thyroid Disease: Yes ("TAKES A THYROID PILL") Ulcer: Yes (DUODENAL ULCER A TEENAGER) Past Surgical History Gynecologic Surgery: Yes (HYSTERECTOMY) Hysterectomy: Yes Joint Replacement: Yes (L HIP AND L SHOULDER) Other Surgery: Yes (1997 LUMPECTOMY) Social History Alcohol Use: No Tobacco Use: No Substance Use: No Allergies-Medications (Allergen,Severity, Reaction): Coded Allergies: ampicillin (Verified Allergy, Severe, Rash, 02/05/18) No Known Allergies (Verified Allergy, Unknown, 01/07/18) Reported Meds & Prescriptions Reported Meds & Active Scripts Active Coumadin (Warfarin) 3 Mg Tab 3 Mg PO DAILY@16 Reported Diltiazem (Diltiazem HCl) 120 Mg Tab 240 Mg PO QID Jantoven (Warfarin) 2.5 Mg Tab 2.5 Mg PO DAILY Xanax (Alprazolam) 0.25 Mg Tab 0.25 Mg PO Q8H PRN Levothyroxine (Levothyroxine Sodium) 75 Mcg Tab 75 Mcg PO DAILY Review of Systems Except as stated in HPI: all other systems reviewed are Neg Physical Exam Narrative GENERAL: Well-nourished, well-developed patient, in no acute distress; appears anxious SKIN: Warm and dry. HEAD: Atraumatic. Normocephalic. EYES: Pupils equal and round. No scleral icterus. No injection or drainage. ENT: Mucosa pink and moist. No erythema or exudates. No uvular edema. No uvular , palatal, or tonsillar deviation. Airway patent. Nasal turbinates appear normal without nasal blood, purulent drainage or septal hematoma. NECK: Trachea midline. CARDIOVASCULAR: Tachycardic rate and rhythm in the 100. No murmur appreciated. RESPIRATORY: Tachypnea. Patient appears anxious. No accessory muscle use. Clear to auscultation with decreased lung sounds in bilateral bases. Breath sounds equal bilaterally. GASTROINTESTINAL: Abdomen soft, non-tender, nondistended. Hepatic and splenic margins not palpable. Bowel sounds are active 4 quadrants. MUSCULOSKELETAL: No obvious deformities. No clubbing. No cyanosis. No edema. NEUROLOGICAL: Awake and alert. Oriented 3. No obvious cranial nerve deficits. Motor grossly within normal limits. Normal speech. PSYCHIATRIC: Appropriate mood and affect; insight and judgment normal. Data Data Last Documented VS Vital Signs Date Time Temp Pulse Resp B/P (MAP) Pulse Ox O2 Delivery O2 Flow Rate FiO2 02/05/18 14:55 89 Room Air 02/05/18 14:54 97 18 02/05/18 12:43 97.7 Orders Orders Complete Blood Count With Diff (02/05/18 12:47) Comprehensive Metabolic Panel (02/05/18 12:47) Lipase (02/05/18 12:47) Act Partial Throm Time (Ptt) (02/05/18 12:47) Prothrombin Time / Inr (Pt) (02/05/18 12:47) Chest, Pa & Lat (02/05/18 ) Electrocardiogram (02/05/18 ) B-Type Natriuretic Peptide (02/05/18 14:56) Lorazepam Inj (Ativan Inj) (02/05/18 15:00) Consult Gastroenterology (02/05/18 ) NPO (02/05/18 15:58) (Hub Use Only)Inp Phy Cons/Ref (02/05/18 ) Admit Order (Ed Use Only) (02/05/18 16:29) Labs Laboratory Tests Test 02/05/18 14:00 02/05/18 15:11 White Blood Count 9.1 TH/MM3 Red Blood Count 4.63 MIL/MM3 Hemoglobin 13.3 GM/DL Hematocrit 38.6 % Mean Corpuscular Volume 83.3 FL Mean Corpuscular Hemoglobin 28.7 PG Mean Corpuscular Hemoglobin Concent 34.4 % Red Cell Distribution Width 16.2 % Platelet Count 313 TH/MM3 Mean Platelet Volume 8.1 FL Neutrophils (%) (Auto) 74.9 % Lymphocytes (%) (Auto) 13.0 % Monocytes (%) (Auto) 11.1 % Eosinophils (%) (Auto) 0.3 % Basophils (%) (Auto) 0.7 % Neutrophils # (Auto) 6.8 TH/MM3 Lymphocytes # (Auto) 1.2 TH/MM3 Monocytes # (Auto) 1.0 TH/MM3 Eosinophils # (Auto) 0.0 TH/MM3 Basophils # (Auto) 0.1 TH/MM3 CBC Comment DIFF FINAL Differential Comment Prothrombin Time 27.1 SEC Prothromb Time International Ratio 2.7 RATIO Activated Partial Thromboplast Time 46.1 SEC Blood Urea Nitrogen 22 MG/DL Creatinine 1.23 MG/DL Random Glucose 74 MG/DL Total Protein 7.5 GM/DL Albumin 3.6 GM/DL Calcium Level 9.2 MG/DL Alkaline Phosphatase 136 U/L Aspartate Amino Transf (AST/SGOT) 25 U/L Alanine Aminotransferase (ALT/SGPT) 20 U/L Total Bilirubin 1.2 MG/DL Sodium Level 141 MEQ/L Potassium Level 4.1 MEQ/L Chloride Level 107 MEQ/L Carbon Dioxide Level 24.2 MEQ/L Anion Gap 10 MEQ/L Estimat Glomerular Filtration Rate 41 ML/MIN Lipase 128 U/L B-Type Natriuretic Peptide 894 PG/ML MDM Medical Decision Making Medical Screen Exam Complete: Yes Emergency Medical Condition: Yes Medical Record Reviewed: Yes Differential Diagnosis Congestive heart failure, pleural effusion, vomiting, food bolus, stricture Narrative Course 87-year-old female post esophageal stretching with continued vomiting. Endoscopy done by Dr. Manny dewitt 01/09/2018. 1438: CBC unremarkable. PT 27.1. APTT 46.1. Chest x-ray concludes: Chest X-Ray 02/05/18 0000 Signed Impressions: Service Date/Time: Monday, February 05, 2018 13:15 - CONCLUSION: 1. Pleural effusions larger on the left than the right with consolidative change in the left lung base and diffuse interstitial prominence. Study would suggest congestive failure. Zeferino Walden MD 1458: BUN 22, creatinine 1.23, GFR 41, otherwise CMP unremarkable. Lipase 128. BNP ordered. Call placed to Dr. Bryant, presentation designer. 1555: I spoke with Dr. Banks. Report given and consult ordered. Patient will be admitted. 1630: I spoke with Dr. Noel office and report given for patient admission. Physician Communication Physician Communication Dr. Banks, presentation designer Dr. Meza Diagnosis Primary Impression: Vomiting Qualified Codes: R11.10 - Vomiting, unspecified Additional Impressions: Pleural effusion, bilateral CHF (congestive heart failure) Qualified Codes: I50.9 - Heart failure, unspecified Hypoxia Shortness of breath Admitting Information Admitting Physician Requests: Admit Damaris Cottrell Feb 05, 2018 14:38
[2018-02-05 14:39] LABS: ALBUMIN 3.6 GM/DL (3.4-5.0); AST (GOT) 25 U/L (15-37); BICARBONATE 24.2 MEQ/L (21.0-32.0); BLOOD UREA NITROGEN 22 MG/DL (7-18); CALCIUM 9.2 MG/DL (8.5-10.1); CHLORIDE 107 MEQ/L (98-107); CREATININE 1.23 MG/DL (0.50-1.00); GLOMERULAR FILTRATION RATE 41 ML/MIN (>89); GLUCOSE,RANDOM 74 MG/DL (74-106); SODIUM (NA) 141 MEQ/L (136-145)
[2018-02-05 14:41] LABS: ALT (GPT) 20 U/L (10-53)
[2018-02-05 14:43] LABS: ALKALINE PHOSPHATASE 136 U/L (45-117); TOTAL BILIRUBIN ADULT 1.2 MG/DL (0.2-1.0); TOTAL PROTEIN 7.5 GM/DL (6.4-8.2)
[2018-02-05 14:54] VITALS: BP 170/87; PULSE 97; RESP 18; O2SAT 94
[2018-02-05 14:55] VITALS: O2SAT 89
[2018-02-05] MEDS ORDERED: LORazepam 2 MG/ML VIAL IV PUSH ONE (15:00)
[2018-02-05] MEDS ORDERED: ONDANSETRON HCL 4 MG/2 ML VIAL IVP PRN (17:00)
[2018-02-05] MEDS ORDERED: LACTULOSE SYRUP 20 GM/30 ML CUP PO PRN (17:00)
[2018-02-05] MEDS ORDERED: MAGNESIUM HYDROXIDE SUSP 30 ML CUP PO PRN (17:00)
[2018-02-05] MEDS ORDERED: SODIUM CHLORIDE 0.9% FLUSH 10 ML FLUSH IV FLUSH PRN (17:00)
[2018-02-05] MEDS ORDERED: SENNOSIDES 8.6 MG TAB PO PRN (17:00)
[2018-02-05] MEDS ORDERED: BISACODYL 10 MG SUPP RECTAL PRN (17:00)
[2018-02-05] MEDS ORDERED: NALOXONE HCL 0.4 MG/ML AMP IV PUSH PRN (17:00)
[2018-02-05] MEDS ORDERED: ACETAMINOPHEN 325 MG TAB PO PRN (17:00)
[2018-02-05 17:30] VITALS: BP 154/67; PULSE 51; RESP 18; TEMP 98.7; O2SAT 99
[2018-02-05] MEDS: DILTIAZEM HCL 60 MG TAB PO SCH ×2 (18:16→21:30)
[2018-02-05 18:18] VITALS: PULSE 96
--- NOTE | 2018-02-05 19:52 | MB ---
cc: Rah Banks MD DATE OF CONSULT: REASON FOR GASTROINTESTINAL CONSULTATION: Evaluation of nausea, vomiting, difficulty swallowing. HISTORY OF PRESENT ILLNESS: This is a pleasant 87-year-old female who is known to our practice. The patient recently was hospitalized at this institution in January for rectal prolapse. She was evaluated and treated by Dr. Wesley. She has a history of chronic dysphagia with previous endoscopic procedures being performed in the past by Dr. Sharma and most recently by Dr. Meléndez here at this institution. She had EGD with dilatation of the esophagus. There was some minimal narrowing of the EG junction, but no fake stricture was noted, and dilation was carried out. The patient reports that ever since she has had that done, her dysphagia has persisted. It seems to be mostly due to liquids rather than solids. Actually, today, here in the ED, she did consume solids and was able to do so quite nicely. She states while she was in rehab, she would drink water and/or liquids and subsequently have emesis shortly afterwards. Her endoscopic biopsies were negative for eosinophilic esophagitis. She states that this type of problem has persisted for several months now. The patient is very anxious and is quite concerned about her problem. She does report some shortness of breath. Her chest x-ray on this admission does reveal bilateral pleural effusions and changes consistent with congestive failure. The patient is known to be on Coumadin therapy because of chronic atrial fibrillation. She states 1 dose was held yesterday because her levels were too high. Her current hemoglobin is normal. White count is normal. INR was 2.7. Her liver enzymes were within normal range. Total bilirubin was 1.2. Electrolytes were stable. Creatinine is 1.23. PAST MEDICAL HISTORY: Includes hypertension, hypothyroidism, chronic atrial fibrillation. PAST SURGICAL HISTORY: She has had a previous hysterectomy, lumpectomy, left hip and left shoulder surgery. ALLERGIES: AMPICILLIN. CURRENT MEDICATIONS: Include Coumadin, diltiazem, Xanax, levothyroxine and omeprazole. FAMILY HISTORY: Negative from a GI standpoint. SOCIAL HISTORY: She denies smoking, alcohol or illicit drug use. REVIEW OF SYSTEMS: A 12-point review of systems as stated in the HPI. She denies any current rectal bleeding. PHYSICAL EXAMINATION: GENERAL: Well-developed, well-nourished female, alert. She does appear apprehensive, anxious. No acute distress. HEENT: Normocephalic. Sclerae anicteric. Oral mucosa moist. Poor dentition is noted. NECK: Supple. CARDIAC: S1, S2, regular rhythm without murmur. CHEST: Decreased breath sounds at the bases. ABDOMEN: Slightly protuberant but soft, nontender. Bowel sounds are present. I do not detect any masses or organomegaly. EXTREMITIES: Without clubbing, cyanosis or edema. LABORATORY DATA: Information was mentioned above. Lipase incidentally was normal. Sed rate was 41. IMPRESSION: 1. Nausea and vomiting. 2. History of dysphagia, to liquids mostly. 3. Bilateral pleural effusions. 4. Congestive heart failure. 5. Anxiety. PLAN: I have discussed this case with the patient. I have tried to reassure her. I would like to see if we could receive benefit from medical therapy including low-dose Elavil 10 mg at night and possibly baclofen 5 mg either twice a day or 3 times a day to try and relax the esophageal musculature. We could consider a Gastrografin or even a barium swallow later on as it was noted on her endoscopy report that she did have a Presby-like esophagus as well. Therefore, she could have a baseline motility disorder of the esophagus causing her liquid dysphagia. I am not certain whether or not she could withstand undergoing an esophageal manometry, which might be taxing to the patient. I will be glad to follow the patient with you. I would also continue acid suppressive therapy. Incidentally, I would hold off endoscopy for now and dilated should not be performed due to her elevated PT/INR from Coumadin therapy. Thank you kindly for this consult. MD ANTOINE Peace/SONJA , 07:26 PM , 07:51 PM
[2018-02-05 20:11] VITALS: BP 139/83; PULSE 64; RESP 18; TEMP 97.7; O2SAT 94
[2018-02-05] MEDS: DOCUSATE SODIUM 50 MG/SENNA 8.6 MG TAB PO SCH (21:00)
[2018-02-05] MEDS ORDERED: PILL SPLITTER OTHER PRN (21:00)
[2018-02-05] MEDS: SODIUM CHLORIDE 0.9% FLUSH 10 ML FLUSH IV FLUSH SCH (21:30)
[2018-02-05] MEDS: BACLOFEN 10 MG TAB PO SCH (21:30)
[2018-02-05] MEDS: AMITRIPTYLINE HCL 10 MG TAB PO SCH (22:22)
[2018-02-06] VITALS (7 sets, daily range): BP systolic 128–162; BP diastolic 64–80; PULSE 65–93; RESP 16–24; TEMP 96.3–98.4; O2SAT 91–97
[2018-02-06 04:15] LABS: INTERNATIONAL NORMALIZED RATIO 2.6 RATIO; PROTHROMBIN TIME - PATIENT 26.4 SEC (9.8-11.6)
[2018-02-06 04:38] LABS: ALBUMIN 2.7 GM/DL (3.4-5.0); ALKALINE PHOSPHATASE 103 U/L (45-117); ALT (GPT) 14 U/L (10-53); AST (GOT) 16 U/L (15-37); BICARBONATE 25.8 MEQ/L (21.0-32.0); BLOOD UREA NITROGEN 24 MG/DL (7-18); CALCIUM 8.5 MG/DL (8.5-10.1); CHLORIDE 110 MEQ/L (98-107); CREATININE 1.19 MG/DL (0.50-1.00); GLOMERULAR FILTRATION RATE 43 ML/MIN (>89); GLUCOSE,RANDOM 72 MG/DL (74-106); SODIUM (NA) 144 MEQ/L (136-145); TOTAL BILIRUBIN ADULT 0.9 MG/DL (0.2-1.0)
[2018-02-06] MEDS: LEVOTHYROXINE SODIUM 75 MCG TAB PO SCH (06:05)
[2018-02-06] MEDS: BACLOFEN 10 MG TAB PO SCH ×2 (09:00→22:10)
[2018-02-06] MEDS: DOCUSATE SODIUM 50 MG/SENNA 8.6 MG TAB PO SCH ×2 (09:00→21:00)
--- NOTE | 2018-02-06 09:29 | HHI.GIFU ---
Subjective Remarks Alert NAD c/o right shoulder pain tolerating breakfast staes she had emesis yesterday Objective Vitals I&O Vital Signs Date Time Temp Pulse Resp B/P (MAP) Pulse Ox O2 Delivery O2 Flow Rate FiO2 02/06/18 04:00 98.4 66 16 151/72 (98) 96 02/06/18 00:00 97.6 69 17 132/75 (94) 97 02/05/18 20:11 97.7 64 18 139/83 (101) 94 02/05/18 18:18 96 02/05/18 17:30 98.7 51 18 154/67 (96) 99 02/05/18 14:55 89 Room Air 02/05/18 14:54 97 18 170/87 (114) 94 Room Air 02/05/18 14:50 20 02/05/18 12:43 97.7 107 22 151/85 (107) 95 I/O 02/05/18 02/05/18 02/05/18 02/06/18 02/06/18 02/06/18 07:00 15:00 23:00 07:00 15:00 23:00 Output Total 200 ml Balance -200 ml Output Urine Total 200 ml # Bowel Movements 2 Laboratory Laboratory Tests Test 02/05/18 14:00 02/05/18 15:11 02/06/18 03:33 White Blood Count 9.1 Red Blood Count 4.63 Hemoglobin 13.3 Hematocrit 38.6 Mean Corpuscular Volume 83.3 Mean Corpuscular Hemoglobin 28.7 Mean Corpuscular Hemoglobin Concent 34.4 Red Cell Distribution Width 16.2 Platelet Count 313 Mean Platelet Volume 8.1 Neutrophils (%) (Auto) 74.9 Lymphocytes (%) (Auto) 13.0 Monocytes (%) (Auto) 11.1 Eosinophils (%) (Auto) 0.3 Basophils (%) (Auto) 0.7 Neutrophils # (Auto) 6.8 Lymphocytes # (Auto) 1.2 Monocytes # (Auto) 1.0 Eosinophils # (Auto) 0.0 Basophils # (Auto) 0.1 CBC Comment DIFF FINAL Differential Comment Prothrombin Time 27.1 26.4 Prothromb Time International Ratio 2.7 2.6 Activated Partial Thromboplast Time 46.1 Blood Urea Nitrogen 22 24 Creatinine 1.23 1.19 Random Glucose 74 72 Total Protein 7.5 6.0 Albumin 3.6 2.7 Calcium Level 9.2 8.5 Alkaline Phosphatase 136 103 Aspartate Amino Transf (AST/SGOT) 25 16 Alanine Aminotransferase (ALT/SGPT) 20 14 Total Bilirubin 1.2 0.9 Sodium Level 141 144 Potassium Level 4.1 4.2 Chloride Level 107 110 Carbon Dioxide Level 24.2 25.8 Anion Gap 10 8 Estimat Glomerular Filtration Rate 41 43 Lipase 128 B-Type Natriuretic Peptide 894 Imaging Current Medications Medications (Trade) Dose Ordered Sig/Jose A Route PRN Reason Start Time Stop Time Status Last Admin Dose Admin Sodium Chloride (NS Flush) 2 ml UNSCH PRN IV FLUSH FLUSH AFTER USING IV ACCESS 02/05/18 17:00 Sodium Chloride (NS Flush) 2 ml BID IV FLUSH 02/05/18 21:00 02/05/18 21:30 Acetaminophen (Tylenol) 650 mg Q4H PRN PO TEMP > 100.4 02/05/18 17:00 Ondansetron HCl (Zofran Inj) 4 mg Q6H PRN IVP NAUSEA OR VOMITING 02/05/18 17:00 Naloxone HCl (Narcan Inj) 0.4 mg UNSCH PRN IV PUSH SEE LABEL COMMENTS 02/05/18 17:00 Senna/Docusate Sodium ([place]-Colace) 1 tab BID PO 02/05/18 21:00 Magnesium Hydroxide (Milk Of Magnesia Liq) 30 ml Q12H PRN PO Mild constipation 02/05/18 17:00 Sennosides (Senokot) 17.2 mg Q12H PRN PO Moderate constipation 02/05/18 17:00 Bisacodyl (Dulcolax Supp) 10 mg DAILY PRN RECTAL SEVERE CONSITIPATION 02/05/18 17:00 Lactulose (Lactulose Liq) 30 ml DAILY PRN PO SEVERE CONSITIPATION 02/05/18 17:00 Levothyroxine Sodium (Synthroid) 75 mcg DAILY@0600 PO 02/06/18 06:00 02/06/18 06:05 Warfarin Sodium (Coumadin) 3 mg DAILY@16 PO 02/06/18 16:00 Diltiazem HCl (Cardizem) 120 mg QID PO 02/05/18 18:00 02/05/18 21:30 Patient Medication Teaching (Coumadin Booklet) 1 ONCE ONCE OTHER 02/06/18 16:00 02/06/18 16:01 Alprazolam (Xanax) 0.5 mg Q6H PRN PO ANXIETY 02/05/18 18:15 Amitriptyline HCl (Elavil) 10 mg HS PO 02/05/18 21:00 02/05/18 22:22 Baclofen (Lioresal) 5 mg BID PO 02/05/18 21:00 02/05/18 21:30 Miscellaneous (Pill Splitter) 1 ea UNSCH PRN OTHER SEE LABEL COMMENTS 02/05/18 21:00 Physical Exam HEENT: Pupils round and reactive to light; normocephalic; atraumatic; no jaundice. Throat is clear. NECK: Neck is supple, no JVD, no lymphadenopathy. CHEST: Chest is clear to auscultation and percussion. CARDIAC: Regular rate and rhythm with no murmur gallop or rubs. ABDOMEN: Soft, nondistended, nontender; no hepatosplenomegaly; bowel sounds are present in all four quadrants. EXTREMITIES: No clubbing, cyanosis, or edema. pain right shoulder SKIN: Normal; no rash; no jaundice. LACE WINDER: No focal deficits; alert and oriented times three. Assessment and Plan Assessment: (1) Dysphagia ICD Codes: R13.10 - Dysphagia, unspecified (2) Vomiting ICD Codes: R11.10 - Vomiting, unspecified Status: Acute Plan Obtain Mod BA swallow w speech pathology and follow clinically Problem Qualifiers (1) Vomiting: Qualified Codes: R11.10 - Vomiting, unspecified Rah Banks MD Feb 06, 2018 09:29
[2018-02-06] MEDS: ALPRAZolam 0.5 MG TAB PO PRN (10:30)
--- NOTE | 2018-02-06 11:14 | RADRPT ---
EXAM DATE/TIME: 02/06/2018 10:28 [facility] COMPARISON: No previous studies available for comparison. INDICATIONS : Dysphagia. Esophagus was dialated last month and patient complains of vomiting since that time FLUORO TIME: 0.9 minutes IMAGE COUNT: 1 CONTRAST: Dose as prescribed by speech pathologist. MEDICAL HISTORY : Hypertension. SURGICAL HISTORY : Hysterectomy. ENCOUNTER: Initial ACUITY: 1 month PAIN SCORE: 0/10 LOCATION: Bilateral esophagus FINDINGS: A modified barium swallow was performed with speech pathology. Patient was given a variety of liquids to swallow. Patient demonstrated no difficulty in swallowing the various liquids and cracker. No definite penetra tion or aspiration was demonstrated. There is evidence of mild to moderate primary degenerative arthr itis involving the cervical spine. For a full detailed report, see report by the speech pathologist. CONCLUSION: 1. 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 2. Otherwise, grossly unremarkable modified swallow. Isaiah Rowan MD on February 06, 2018 at 11:12 Board Certified Radiologist. This report was verified electronically.
[2018-02-06] MEDS: SODIUM CHLORIDE 0.9% FLUSH 10 ML FLUSH IV FLUSH SCH ×2 (11:28→22:10)
[2018-02-06] MEDS: DILTIAZEM HCL 60 MG TAB PO SCH ×3 (11:28→16:51)
[2018-02-06] MEDS: WARFARIN SOD 3 MG TAB PO SCH (15:57)
[2018-02-06] MEDS ORDERED: ACETAMINOPHEN 325 MG TAB PO PRN (16:30)
[2018-02-06] MEDS ORDERED: FUROSEMIDE 40 MG/4 ML VIAL IV PUSH ONE (16:30)
--- NOTE | 2018-02-06 16:47 | HHI.HP ---
History of Present Illness Service Dr Meza, Primary Care Physician Lc Moran MD Admission Diagnosis vomiting, CHF, bilateral pleural effusions, SOB, hypoxia Diagnoses: History of Present Illness 87-year-old female presents to the emergency Department with complaint of continued vomiting after having her esophagus stretched. She was recently D/C from [facility] on Saturday02/03/18. She in unable to keep anything down. She complains of SOB, she does use home O2. She was noted to be very anxious. Cxr shows some Chf/pleural effusion. bnp 894. She does have afib and is on Coumadin. Gi, and cardiology consulted. Review of Systems Respiratory: COMPLAINS OF: Shortness of breath Cardiovascular: COMPLAINS OF: Dyspnea on Exertion Gastrointestinal: COMPLAINS OF: Difficulty Swallowing Psychiatric: COMPLAINS OF: Anxiety Past Family Social History Allergies: Coded Allergies: ampicillin (Verified Allergy, Severe, Rash, 02/05/18) No Known Allergies (Verified Allergy, Unknown, 01/07/18) Past Medical History A fib HTN TIA IBS GERD Breast Cancer Anxiety Arthritis Past Surgical History Lumpectomy Left hip replacement Left Shoulder replacement Reported Medications Diltiazem (Diltiazem HCl) 120 Mg Tab 240 Mg PO QID Jantoven (Warfarin) 2.5 Mg Tab 2.5 Mg PO DAILY Xanax (Alprazolam) 0.25 Mg Tab 0.25 Mg PO Q8H PRN Levothyroxine (Levothyroxine Sodium) 75 Mcg Tab 75 Mcg PO DAILY Coumadin 3 mg qd Active Ordered Medications Current Medications Medications (Trade) Dose Ordered Sig/Jose A Route Start Time Stop Time Status Last Admin (NS Flush) 2 ml UNSCH PRN IV FLUSH 02/05/18 17:00 (NS Flush) 2 ml BID IV FLUSH 02/05/18 21:00 02/06/18 11:28 (Tylenol) 650 mg Q4H PRN PO 02/05/18 17:00 02/06/18 15:58 (Zofran Inj) 4 mg Q6H PRN IVP 02/05/18 17:00 (Narcan Inj) 0.4 mg UNSCH PRN IV PUSH 02/05/18 17:00 (Saskia-Colace) 1 tab BID PO 02/05/18 21:00 (Milk Of Magnesia Liq) 30 ml Q12H PRN PO 02/05/18 17:00 (Senokot) 17.2 mg Q12H PRN PO 02/05/18 17:00 (Dulcolax Supp) 10 mg DAILY PRN RECTAL 02/05/18 17:00 (Lactulose Liq) 30 ml DAILY PRN PO 02/05/18 17:00 (Synthroid) 75 mcg DAILY@0600 PO 02/06/18 06:00 02/06/18 06:05 (Coumadin) 3 mg DAILY@16 PO 02/06/18 16:00 02/06/18 15:57 (Cardizem) 120 mg QID PO 02/05/18 18:00 02/06/18 14:26 (Xanax) 0.5 mg Q6H PRN PO 02/05/18 18:15 02/06/18 10:30 (Elavil) 10 mg HS PO 02/05/18 21:00 02/05/18 22:22 (Lioresal) 5 mg BID PO 02/05/18 21:00 02/06/18 09:00 (Pill Splitter) 1 ea UNSCH PRN OTHER 02/05/18 21:00 (Tylenol) 650 mg Q4H PRN PO 02/06/18 16:30 Social History Denies ETOH, Tobacco, elicit drugs Physical Exam Vital Signs Vital Signs Date Time Temp Pulse Resp B/P (MAP) Pulse Ox O2 Delivery O2 Flow Rate FiO2 02/06/18 12:00 96.5 93 20 162/80 (107) 95 02/06/18 08:00 96.3 87 20 144/72 (96) 91 02/06/18 04:00 98.4 66 16 151/72 (98) 96 02/06/18 00:00 97.6 69 17 132/75 (94) 97 02/05/18 20:11 97.7 64 18 139/83 (101) 94 02/05/18 18:18 96 02/05/18 17:30 98.7 51 18 154/67 (96) 99 Physical Exam GENERAL: This is a well-nourished, well-developed patient, very anxious SKIN: No rashes, ecchymoses or lesions. Cool and dry. HEAD: Atraumatic. Normocephalic. No temporal or scalp tenderness. EYES: Pupils equal round and reactive. Extraocular motions intact. No scleral icterus. No injection or drainage. ENT: Nose without bleeding, purulent drainage NECK: Trachea midline. No JVD or lymphadenopathy. CARDIOVASCULAR: regular rate irregular rhythm RESPIRATORY:. Breath sounds equal bilaterally with crackles. GASTROINTESTINAL: Abdomen soft, non-tender, nondistended. MUSCULOSKELETAL: Extremities without clubbing, cyanosis, or edema. No joint tenderness, effusion, or edema noted. NEUROLOGICAL: Awake and alert. Cranial nerves II through XII intact. Normal speech. Laboratory Laboratory Tests Test 02/06/18 03:33 Prothrombin Time 26.4 Prothromb Time International Ratio 2.6 Blood Urea Nitrogen 24 Creatinine 1.19 Random Glucose 72 Total Protein 6.0 Albumin 2.7 Calcium Level 8.5 Alkaline Phosphatase 103 Aspartate Amino Transf (AST/SGOT) 16 Alanine Aminotransferase (ALT/SGPT) 14 Total Bilirubin 0.9 Sodium Level 144 Potassium Level 4.2 Chloride Level 110 Carbon Dioxide Level 25.8 Anion Gap 8 Estimat Glomerular Filtration Rate 43 Result Diagram: 02/05/18 1400 02/06/18 0333 Imaging Last 48 hours Impressions Modified Barium Swallow 02/06/18 0000 Signed Impressions: Service Date/Time: January 10:28 - CONCLUSION: 1. 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 2. Otherwise, grossly unremarkable modified swallow. Isaiah Rowan MD Chest X-Ray 02/05/18 0000 Signed Impressions: Service Date/Time: Monday, February 05, 2018 13:15 - CONCLUSION: 1. Pleural effusions larger on the left than the right with consolidative change in the left lung base and diffuse interstitial prominence. Study would suggest congestive failure. Zeferino Walden MD Last 24 hours Impressions Modified Barium Swallow 02/06/18 0000 Signed Impressions: Service Date/Time: January 10:28 - CONCLUSION: 1. 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 2. Otherwise, grossly unremarkable modified swallow. Isaiah Rowan MD Capdaniei VTE Risk Assessment Caprini VTE Risk Assessment: Mod/High Risk (score >= 2) Caprini Risk Assessment Model Point Value = 1 Point Value = 2 Point Value = 3 Point Value = 5 Age 41-60 Minor surgery BMI > 25 kg/m2 Swollen legs Varicose veins or History of unexplained or recurrent spontaneous Oral contraceptives or hormone replacement Sepsis (< 1 month) Serious lung disease, including pneumonia (< 1 month) Abnormal pulmonary function Acute myocardial infarction Congestive heart failure (< 1 month) History of inflammatory bowel disease Medical patient at bed rest Age 61-74 Arthroscopic surgery Major open surgery (> 45 min) Laparoscopic surgery (> 45 min) Malignancy Confined to bed (> 72 hours) Immobilizing plaster cast Central venous access Age >= 75 History of VTE Family history of VTE Factor V Leiden Prothrombin [id number] Lupus anticoagulant Anticardiolipin antibodies Elevated serum homocysteine Heparin-induced thrombocytopenia Other congenital or acquired thrombophilia Stroke (< 1 month) Elective arthroplasty Hip, pelvis, or leg fracture Acute spinal cord injury (< 1 month) Prophylaxis Regimen Total Risk Factor Score Risk Level Prophylaxis Regimen 0-1 Low Early ambulation 2 Moderate Order ONE of the following: *Sequential Compression Device (SCD) *Heparin 5000 units SQ BID 3-4 Higher Order ONE of the following medications: *Heparin 5000 units SQ TID *Enoxaparin/Lovenox 40 mg SQ daily (WT < 150 kg, CrCl > 30 mL/min) *Enoxaparin/Lovenox 30 mg SQ daily (WT < 150 kg, CrCl > 10-29 mL/min) *Enoxaparin/Lovenox 30 mg SQ BID (WT < 150 kg, CrCl > 30 mL/min) AND/OR *Sequential Compression Device (SCD) 5 or more Highest Order ONE of the following medications: *Heparin 5000 units SQ TID (Preferred with Epidurals) *Enoxaparin/Lovenox 40 mg SQ daily (WT < 150 kg, CrCl > 30 mL/min) *Enoxaparin/Lovenox 30 mg SQ daily (WT < 150 kg, CrCl > 10-29 mL/min) *Enoxaparin/Lovenox 30 mg SQ BID (WT < 150 kg, CrCl > 30 mL/min) AND *Sequential Compression Device (SCD) Assessment and Plan Problem List: (1) Dysphagia ICD Codes: R13.10 - Dysphagia, unspecified Plan: Follow Gi Recommendations, Barium swallow today (2) CHF (congestive heart failure) ICD Codes: I50.9 - Heart failure, unspecified Status: Acute Plan: Cardiology consulted, telemetry, Diuretics, follow Bnp, cxr (3) Afib ICD Codes: I48.91 - Unspecified atrial fibrillation Status: Chronic Plan: Rate controlled, on Coumadin, monitor INR, Cont Cardizem. (4) HTN (hypertension) ICD Codes: I10 - Essential (primary) hypertension Status: Chronic Plan: Monitor BP cont home medications. Discharge Planning Home/ snf at D/C Problem Qualifiers (1) CHF (congestive heart failure): Qualified Codes: I50.9 - Heart failure, unspecified Adrienne Lee Feb 06, 2018 16:47
--- NOTE | 2018-02-06 16:50 | HHI.HP ---
History of Present Illness Primary Care Physician Lc Moran MD Admission Diagnosis vomiting, CHF, bilateral pleural effusions, SOB, hypoxia Diagnoses: History of Present Illness 87-year-old female presents to the emergency Department with complaint of continued vomiting after having her esophagus stretched. She was recently D/C from [facility] on Saturday02/03/18. She in unable to keep anything down. She complains of SOB, she does use home O2. She was noted to be very anxious. Cxr shows some Chf/pleural effusion. bnp 894. She does have afib and is on Coumadin. Gi, and cardiology consulted. Review of Systems Respiratory: COMPLAINS OF: Shortness of breath Gastrointestinal: COMPLAINS OF: Nausea, Vomiting Past Family Social History Allergies: Coded Allergies: ampicillin (Verified Allergy, Severe, Rash, 02/05/18) No Known Allergies (Verified Allergy, Unknown, 01/07/18) Past Medical History hypothyroid anxiety hypertension esophageal strictures Past Surgical History esophageal dilation Reported Medications Reported Meds & Active Scripts Active Coumadin (Warfarin) 3 Mg Tab 3 Mg PO DAILY@16 Reported Diltiazem (Diltiazem HCl) 120 Mg Tab 240 Mg PO QID Jantoven (Warfarin) 2.5 Mg Tab 2.5 Mg PO DAILY Xanax (Alprazolam) 0.25 Mg Tab 0.25 Mg PO Q8H PRN Levothyroxine (Levothyroxine Sodium) 75 Mcg Tab 75 Mcg PO DAILY Active Ordered Medications Inpatient Medications Acetaminophen (Tylenol) 650 mg Q4H PRN PO PAIN 1-10; Start 02/06/18 at 16:30 Alprazolam (Xanax) 0.5 mg Q6H PRN PO ANXIETY Last administered on 02/06/18at 10: 30; Start 02/05/18 at 18:15 Amitriptyline HCl (Elavil) 10 mg HS PO Last administered on 02/05/18at 22:22; Start 02/05/18 at 21:00 Baclofen (Lioresal) 5 mg BID PO Last administered on 02/06/18at 09:00; Start 02/05 at 21:00 Bisacodyl (Dulcolax Supp) 10 mg DAILY PRN RECTAL SEVERE CONSITIPATION; Start at 17:00 Diltiazem HCl (Cardizem) 120 mg QID PO Last administered on 02/06/18at 14:26; Start 02/05/18 at 18:00 Furosemide (Lasix Inj) 40 mg NOW ONCE IV PUSH ; Start 02/06/18 at 16:30; Stop at 16:31; Status DC Lactulose (Lactulose Liq) 30 ml DAILY PRN PO SEVERE CONSITIPATION; Start at 17:00 Levothyroxine Sodium (Synthroid) 75 mcg DAILY@0600 PO Last administered on at 06:05; Start 02/06/18 at 06:00 Lorazepam (Ativan Inj) 0.5 mg ONCE ONCE IV PUSH Last administered on 02/05/18at 15:11; Start 02/05/18 at 15:00; Stop 02/05/18 at 15:16; Status DC Magnesium Hydroxide (Milk Of Magnesia Liq) 30 ml Q12H PRN PO Mild constipation ; Start 02/05/18 at 17:00 Miscellaneous (Pill Splitter) 1 ea UNSCH PRN OTHER SEE LABEL COMMENTS; Start at 21:00 Naloxone HCl (Narcan Inj) 0.4 mg UNSCH PRN IV PUSH SEE LABEL COMMENTS; Start at 17:00 Ondansetron HCl (Zofran Inj) 4 mg Q6H PRN IVP NAUSEA OR VOMITING; Start at 17:00 Patient Medication Teaching (Coumadin Booklet) 1 ONCE ONCE OTHER ; Start at 16:00; Stop 02/06/18 at 16:01; Status DC Senna/Docusate Sodium (Saskia-Colace) 1 tab BID PO ; Start 02/05/18 at 21:00 Sennosides (Senokot) 17.2 mg Q12H PRN PO Moderate constipation; Start 02/05/18 at 17:00 Sodium Chloride (NS Flush) 2 ml BID IV FLUSH Last administered on 02/06/18at 11: 28; Start 02/05/18 at 21:00 Warfarin Sodium (Coumadin) 3 mg DAILY@16 PO Last administered on 02/06/18at 15:57 ; Start 02/06/18 at 16:00 Social History non smoker rare drinker Physical Exam Vital Signs Vital Signs Date Time Temp Pulse Resp B/P (MAP) Pulse Ox O2 Delivery O2 Flow Rate FiO2 02/06/18 12:00 96.5 93 20 162/80 (107) 95 02/06/18 08:00 96.3 87 20 144/72 (96) 91 02/06/18 04:00 98.4 66 16 151/72 (98) 96 02/06/18 00:00 97.6 69 17 132/75 (94) 97 02/05/18 20:11 97.7 64 18 139/83 (101) 94 02/05/18 18:18 96 02/05/18 17:30 98.7 51 18 154/67 (96) 99 Physical Exam GENERAL: This is a well-nourished, well-developed patient, in no apparent distress. SKIN: No rashes, ecchymoses or lesions. Cool and dry. HEAD: Atraumatic. Normocephalic. No temporal or scalp tenderness. EYES: Pupils equal round and reactive. Extraocular motions intact. No scleral icterus. No injection or drainage. ENT: Nose without bleeding, purulent drainage or septal hematoma. Throat without erythema, tonsillar hypertrophy or exudate. Uvula midline. Airway patent. NECK: Trachea midline. No JVD or lymphadenopathy. Supple, nontender, no meningeal signs. CARDIOVASCULAR: Regular rate and rhythm without murmurs, gallops, or rubs. RESPIRATORY: Clear to auscultation. Breath sounds equal bilaterally. No wheezes , rales, or rhonchi. GASTROINTESTINAL: Abdomen soft, non-tender, nondistended. No hepato-splenomegaly , or palpable masses. No guarding. MUSCULOSKELETAL: Extremities without clubbing, cyanosis, or edema. No joint tenderness, effusion, or edema noted. No calf tenderness. Negative Homans sign bilaterally. NEUROLOGICAL: Awake and alert. Cranial nerves II through XII intact. Motor and sensory grossly within normal limits. Five out of 5 muscle strength in all muscle groups. Normal speech. Laboratory Laboratory Tests Test 02/06/18 03:33 Prothrombin Time 26.4 Prothromb Time International Ratio 2.6 Blood Urea Nitrogen 24 Creatinine 1.19 Random Glucose 72 Total Protein 6.0 Albumin 2.7 Calcium Level 8.5 Alkaline Phosphatase 103 Aspartate Amino Transf (AST/SGOT) 16 Alanine Aminotransferase (ALT/SGPT) 14 Total Bilirubin 0.9 Sodium Level 144 Potassium Level 4.2 Chloride Level 110 Carbon Dioxide Level 25.8 Anion Gap 8 Estimat Glomerular Filtration Rate 43 Result Diagram: 02/05/18 1400 02/06/18 0333 Caprini VTE Risk Assessment Caprini VTE Risk Assessment: Mod/High Risk (score >= 2) Caprini Risk Assessment Model Point Value = 1 Point Value = 2 Point Value = 3 Point Value = 5 Age 41-60 Minor surgery BMI > 25 kg/m2 Swollen legs Varicose veins or History of unexplained or recurrent spontaneous Oral contraceptives or hormone replacement Sepsis (< 1 month) Serious lung disease, including pneumonia (< 1 month) Abnormal pulmonary function Acute myocardial infarction Congestive heart failure (< 1 month) History of inflammatory bowel disease Medical patient at bed rest Age 61-74 Arthroscopic surgery Major open surgery (> 45 min) Laparoscopic surgery (> 45 min) Malignancy Confined to bed (> 72 hours) Immobilizing plaster cast Central venous access Age >= 75 History of VTE Family history of VTE Factor V Leiden Prothrombin [id number] Lupus anticoagulant Anticardiolipin antibodies Elevated serum homocysteine Heparin-induced thrombocytopenia Other congenital or acquired thrombophilia Stroke (< 1 month) Elective arthroplasty Hip, pelvis, or leg fracture Acute spinal cord injury (< 1 month) Prophylaxis Regimen Total Risk Factor Score Risk Level Prophylaxis Regimen 0-1 Low Early ambulation 2 Moderate Order ONE of the following: *Sequential Compression Device (SCD) *Heparin 5000 units SQ BID 3-4 Higher Order ONE of the following medications: *Heparin 5000 units SQ TID *Enoxaparin/Lovenox 40 mg SQ daily (WT < 150 kg, CrCl > 30 mL/min) *Enoxaparin/Lovenox 30 mg SQ daily (WT < 150 kg, CrCl > 10-29 mL/min) *Enoxaparin/Lovenox 30 mg SQ BID (WT < 150 kg, CrCl > 30 mL/min) AND/OR *Sequential Compression Device (SCD) 5 or more Highest Order ONE of the following medications: *Heparin 5000 units SQ TID (Preferred with Epidurals) *Enoxaparin/Lovenox 40 mg SQ daily (WT < 150 kg, CrCl > 30 mL/min) *Enoxaparin/Lovenox 30 mg SQ daily (WT < 150 kg, CrCl > 10-29 mL/min) *Enoxaparin/Lovenox 30 mg SQ BID (WT < 150 kg, CrCl > 30 mL/min) AND *Sequential Compression Device (SCD) Darion Meza DO Feb 06, 2018 16:50
[2018-02-06] MEDS ORDERED: FUROSEMIDE 20 MG/2 ML VIAL IV PUSH ONE (17:30)
[2018-02-06] MEDS: FUROSEMIDE 40 MG/4 ML VIAL IV PUSH SCH (18:00)
[2018-02-06] MEDS: METOLAZONE 2.5 MG TAB PO SCH (19:02)
--- NOTE | 2018-02-06 19:16 | MB ---
cc: Manuel Balderas MD DATE OF CONSULT: 02/06/2018 REASON FOR CONSULTATION: Congestive heart failure. HISTORY OF PRESENT ILLNESS: The patient is an 87-year-old white female, followed in the office by Dr. 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 The patient also has noted some increase in baseline shortness of breath over the last few days, as well as increased pedal edema. She denies chest pain, lightheadedness, syncope, near syncope, palpitations, paroxysmal nocturnal dyspnea. She reports compliance with her medications and usually a [id number] diet. The patient also denies any recent flu illness. PAST MEDICAL HISTORY: 1. Paroxysmal supraventricular tachycardia in 2002. 2. Chronic atrial fibrillation. 3. Hyperlipidemia. 4. Gastroesophageal reflux disease. 5. Irritable bowel syndrome. 6. History of breast cancer status post lumpectomy in 1997. 7. Hypothyroidism. 8. Transient ischemic attack 01/2017. 9. Esophageal stricture, status post dilation last month. 10. 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 She did have a normal nuclear stress test showing normal ejection fraction 07/17/2017. PAST SURGICAL HISTORY: 1. Breast lumpectomy in 1997. 2. Hysterectomy. 3. Left hip replacement. 4. Left shoulder replacement. 5. Exploratory laparotomy with rectopexy 01/08/2018. CARDIAC MEDICATIONS AT HOME: Warfarin 2.5 mg daily, Cardizem 240 mg daily. ALLERGIES: Ampicillin. FAMILY HISTORY: Noncontributory. SOCIAL HISTORY: There is no history of alcohol or tobacco abuse. REVIEW OF SYSTEMS: As in the history of present illness, otherwise negative or noncontributory. She also denies headache, melena, bright red blood per rectum, wheezing, cough, fevers. PHYSICAL EXAMINATION: VITAL SIGNS: Blood pressure 162/80 with a pulse of 93, respirations 20. GENERAL: She is a well developed, well nourished white female, in no acute distress. NECK: Jugular venous pressure is seen to the mandible, carotid pulses are 2+ bilaterally and without bruits. CHEST: Reveals bibasilar crackles. CARDIAC: She has an irregular irregular rhythm without S3 or murmur. ABDOMEN: She has a soft, nontender abdomen, bowel sounds are present. There is no definite hepatosplenomegaly. EXTREMITIES: Examination reveals no clubbing or cyanosis. There is 1+ pretibial edema bilaterally. LABORATORY DATA: Includes normal CBC, potassium 4.2, BUN 24, creatinine 1.19, INR 2.6. IMAGING STUDIES: Chest x-ray shows diffuse increase in interstitial markings, moderate sized left sided pleural effusion with minimal effusion at the right base. EKG shows atrial fibrillation, right bundle branch block. IMPRESSION: Acute congestive heart failure in this 87-year-old white female with a history of chronic atrial fibrillation, irritable bowel syndrome, breast cancer, transient ischemic attack, possible mild cardiomyopathy with ejection fraction 40-45% by echocardiogram last year. By her current exam and her chest x-ray findings, she indeed has moderate congestive heart failure. Her brain natriuretic peptide level has also increased to 894. The precipitating factor is not entirely clear. She appears to have adequate heart rate control with her chronic atrial fibrillation. There is no evidence for acute coronary syndrome. Echocardiogram is pending. RECOMMENDATIONS: 1. Would favor beta hunter therapy over diltiazem. 2. Await her 2D echo. 3. Consider the addition of an JESI inhibitor. 4. Intravenous Lasix diuresis. 5. Continue anticoagulation therapy for her chronic atrial fibrillation. MD NADIA Pinzon/GILES , 05:49 PM , 07:15 PM MAR
--- NOTE | 2018-02-06 19:55 | RADRPT ---
EXAM DATE/TIME: 02/06/2018 19:38 [facility] COMPARISON: CHEST SINGLE AP, November 02, 2012, 17:43. INDICATIONS : short of breath MEDICAL HISTORY : Hypertension. Congestive heart failure. SURGICAL HISTORY : Hysterectomy. Left hip. Total left shoulder ENCOUNTER: Subsequent ACUITY: 3 days PAIN SCORE: 0/10 LOCATION: chest FINDINGS: Prominent consolidation in the left mid and lower lung with loss of delineation of the left heart bor maribel and left hemidiaphragm. There is also a meniscal interface laterally in the left mid chest sugge sting moderate-sized pleural effusion. Hazy areas of opacity in the lower lateral right lung and mil d blunting of the costophrenic angles present on the right side. The heart is enlarged, similar to p rior. CONCLUSION: Prominent consolidation left mid and lower lung with probable associated pleural effusion. Hazy opac ities in the lower right lung suggest either non-consolidative infiltrate or pleural effusion. Miguel Grace MD on February 06, 2018 at 19:53 Board Certified Radiologist. This report was verified electronically.
--- NOTE | 2018-02-06 21:40 | EKG ---
Date Performed: 02/05/2018 Time Performed: 15:29:03 PTAGE: 87 years EKG: ATRIAL FIBRILLATION RIGHT BUNDLE BRANCH BLOCK ABNORMAL ECG PREVIOUS TRACING : 02/07/2017 20.19 No significant change from previous tracing noted. DOCTOR: Manuel Balderas Interpretating Date/Time 02/06/2018 21:38:25
[2018-02-06] MEDS: AMITRIPTYLINE HCL 10 MG TAB PO SCH (22:09)
[2018-02-06] MEDS: METOPROLOL TARTRATE 50 MG TAB PO SCH (22:10)
[2018-02-07] VITALS (9 sets, daily range): BP systolic 116–148; BP diastolic 70–79; PULSE 53–91; RESP 17–20; TEMP 97.2–98.1; O2SAT 93–97
[2018-02-07] MEDS: LEVOTHYROXINE SODIUM 75 MCG TAB PO SCH (05:16)
[2018-02-07 07:41] LABS: INTERNATIONAL NORMALIZED RATIO 2.6 RATIO; PROTHROMBIN TIME - PATIENT 26.1 SEC (9.8-11.6)
[2018-02-07 08:05] LABS: BICARBONATE 21.7 MEQ/L (21.0-32.0); CALCIUM 8.1 MG/DL (8.5-10.1); CREATININE 1.19 MG/DL (0.50-1.00)
--- NOTE | 2018-02-07 08:10 | PD.CARD.PN ---
Subjective Subjective Remarks Anxious. Doesn't think she has dyspnea. Denies CP, dizziness, palpitations, PND. Slept fairly well. Objective Medications Item Value Date Time Metoprolol 75 mg 02/06/18 2100 Tartrate Q12HR/PO 02/06/182209 (Lopressor) Furosemide 40 mg 02/06/18 1800 (Lasix Inj) BID@/IV PUSH Metolazone 2.5 mg 02/06/18 1800 (Zaroxolyn) DAILY/PO 02/06/18 190 Warfarin Sodium 3 mg 02/06/18 1600 (Coumadin) DAILY@16/PO 02/06/18 1557 Current Medications Medications (Trade) Dose Ordered Sig/Jose A Route Start Time Stop Time Status Last Admin (NS Flush) 2 ml UNSCH PRN IV FLUSH 02/05/18 17:00 (NS Flush) 2 ml BID IV FLUSH 02/05/18 21:00 02/06/18 22:10 (Tylenol) 650 mg Q4H PRN PO 02/05/18 17:00 02/06/18 15:58 (Zofran Inj) 4 mg Q6H PRN IVP 02/05/18 17:00 (Narcan Inj) 0.4 mg UNSCH PRN IV PUSH 02/05/18 17:00 ([place]ia-Colace) 1 tab BID PO 02/05/18 21:00 (Milk Of Magnesia Liq) 30 ml Q12H PRN PO 02/05/18 17:00 (Senokot) 17.2 mg Q12H PRN PO 02/05/18 17:00 (Dulcolax Supp) 10 mg DAILY PRN RECTAL 02/05/18 17:00 (Lactulose Liq) 30 ml DAILY PRN PO 02/05/18 17:00 (Synthroid) 75 mcg DAILY@0600 PO 02/06/18 06:00 02/07/18 05:16 (Coumadin) 3 mg DAILY@16 PO 02/06/18 16:00 02/06/18 15:57 (Xanax) 0.5 mg Q6H PRN PO 02/05/18 18:15 02/06/18 10:30 (Elavil) 10 mg HS PO 02/05/18 21:00 02/06/18 22:09 (Lioresal) 5 mg BID PO 02/05/18 21:00 02/06/18 22:10 (Pill Splitter) 1 ea UNSCH PRN OTHER 02/05/18 21:00 (Tylenol) 650 mg Q4H PRN PO 02/06/18 16:30 (Lopressor) 75 mg Q12HR PO 02/06/18 21:00 02/06/18 22:10 (Lasix Inj) 40 mg BID@09,18 IV PUSH 02/06/18 18:00 (Zaroxolyn) 2.5 mg DAILY PO 02/06/18 18:00 02/06/18 19:02 Vital Signs / I&O Vital Signs Date Time Temp Pulse Resp B/P (MAP) Pulse Ox O2 Delivery O2 Flow Rate FiO2 02/07/18 04:04 Venturi Mask 6.00 02/07/18 04:00 69 02/07/18 04:00 97.8 72 18 122/70 (87) 94 02/07/18 00:00 Venturi Mask 6.00 02/07/18 00:00 53 02/07/18 00:00 98.0 84 19 134/70 (91) 93 02/06/18 20:00 65 02/06/18 20:00 Venturi Mask 6.00 02/06/18 20:00 98.4 69 20 128/64 (85) 93 02/06/18 18:30 94 Venturi Mask 6.00 02/06/18 16:00 83 02/06/18 15:00 97.7 93 24 140/72 (94) 92 02/06/18 12:00 96.5 93 20 162/80 (107) 95 I/O 02/06/18 02/06/18 02/06/18 02/07/18 02/07/18 02/07/18 07:00 15:00 23:00 07:00 15:00 23:00 Intake Total 200 ml Output Total 200 ml 670 ml Balance -200 ml -470 ml Intake Oral 200 ml Output Urine Total 200 ml 670 ml # Voids 1 # Bowel Movements 2 1 Physical Exam GENERAL: Well developed, well nourished. No acute distress. HEENT: Jugular venous pressure 8 cm water at 45 degrees. CHEST: Minimal bibasilar crackles. CARDIAC: Irregular rate and rhythm without S3 or murmur. ABDOMEN: Soft, nontender, no hepatosplenomegaly. Bowel sounds present. EXTREMITIES: No clubbing. Trace edema. Laboratory Laboratory Tests Test 02/07/18 07:05 Prothrombin Time 26.1 SEC Prothromb Time International Ratio 2.6 RATIO Assessment and Plan Problem List: (1) CHF (congestive heart failure) ICD Codes: I50.9 - Heart failure, unspecified Status: Acute Plan: Overall improved. Small amount of diuresis past 24 hours. Echo pending. Patient with echo in 01/2017 done in radiology center showing EF 40-45 %. No evidence for ACS. REC await echo continue metoprolol add enalapril 5 mg bid continue IV furosemide, oral metolazone monitor BMP (2) Chronic atrial fibrillation ICD Codes: I48.2 - Chronic atrial fibrillation Status: Chronic Plan: Stable, chronic atrial fib. HR's acceptable. INR therapeutic. Continue metoprolol, warfarin. Code Status full code Discussed Condition With patient Problem Qualifiers (1) CHF (congestive heart failure): Qualified Codes: I50.9 - Heart failure, unspecified Manuel Balderas MD Feb 07, 2018 08:10
[2018-02-07] MEDS: FUROSEMIDE 40 MG/4 ML VIAL IV PUSH SCH ×2 (08:53→16:55)
[2018-02-07] MEDS: ENALAPRIL MALEATE 5 MG TAB PO SCH ×2 (08:53→21:48)
[2018-02-07] MEDS: METOPROLOL TARTRATE 50 MG TAB PO SCH ×2 (08:54→21:49)
[2018-02-07] MEDS: BACLOFEN 10 MG TAB PO SCH ×2 (08:54→21:48)
[2018-02-07] MEDS: METOLAZONE 2.5 MG TAB PO SCH (08:55)
[2018-02-07] MEDS: SODIUM CHLORIDE 0.9% FLUSH 10 ML FLUSH IV FLUSH SCH ×2 (08:55→21:49)
[2018-02-07] MEDS: DOCUSATE SODIUM 50 MG/SENNA 8.6 MG TAB PO SCH ×2 (08:55→21:00)
--- NOTE | 2018-02-07 10:01 | HHI.GIFU ---
Subjective Remarks Pt seen by speech pathology w MBS study and evaluation was WNL...tolerated ALL consistensies but pt had emesis today w oatmeal also slight SOB on vent mask Objective Vitals I&O Vital Signs Date Time Temp Pulse Resp B/P (MAP) Pulse Ox O2 Delivery O2 Flow Rate FiO2 02/07/18 09:32 95 Venturi Mask 6.00 02/07/18 08:23 97.4 69 20 116/78 (91) 95 02/07/18 04:04 Venturi Mask 6.00 02/07/18 04:00 69 02/07/18 04:00 97.8 72 18 122/70 (87) 94 02/07/18 00:00 Venturi Mask 6.00 02/07/18 00:00 53 02/07/18 00:00 98.0 84 19 134/70 (91) 93 02/06/18 20:00 65 02/06/18 20:00 Venturi Mask 6.00 02/06/18 20:00 98.4 69 20 128/64 (85) 93 02/06/18 18:30 94 Venturi Mask 6.00 02/06/18 16:00 83 02/06/18 15:00 97.7 93 24 140/72 (94) 92 02/06/18 12:00 96.5 93 20 162/80 (107) 95 I/O 02/06/18 02/06/18 02/06/18 02/07/18 02/07/18 02/07/18 07:00 15:00 23:00 07:00 15:00 23:00 Intake Total 200 ml Output Total 200 ml 670 ml Balance -200 ml -470 ml Intake Oral 200 ml Output Urine Total 200 ml 670 ml # Voids 1 # Bowel Movements 2 1 Laboratory Laboratory Tests Test 02/07/18 07:05 Prothrombin Time 26.1 Prothromb Time International Ratio 2.6 Blood Urea Nitrogen 30 Creatinine 1.19 Random Glucose 82 Calcium Level 8.1 Sodium Level 140 Potassium Level 3.7 Chloride Level 108 Carbon Dioxide Level 21.7 Anion Gap 10 Estimat Glomerular Filtration Rate 43 Imaging Last 72 hours Impressions Modified Barium Swallow 02/06/18 0000 Signed Impressions: Service Date/Time: January 10:28 - CONCLUSION: 1. 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 2. Otherwise, grossly unremarkable modified swallow. Isaiah Rowan MD Chest X-Ray 02/06/18 0000 Signed Impressions: Service Date/Time: January 19:38 - CONCLUSION: Prominent consolidation left mid and lower lung with probable associated pleural effusion. Hazy opacities in the lower right lung suggest either non-consolidative infiltrate or pleural effusion. Miguel Grace MD Chest X-Ray 02/05/18 0000 Signed Impressions: Service Date/Time: Monday, February 05, 2018 13:15 - CONCLUSION: 1. Pleural effusions larger on the left than the right with consolidative change in the left lung base and diffuse interstitial prominence. Study would suggest congestive failure. Zeferino Walden MD Physical Exam CHEST: Chest crackles at bases CARDIAC: Regular rate and rhythm with no murmur gallop or rubs. ABDOMEN: Soft, nondistended, nontender; no hepatosplenomegaly; bowel sounds are present in all four quadrants. EXTREMITIES: No clubbing, cyanosis, or edema. pain right shoulder SKIN: Normal; no rash; no jaundice. Assessment and Plan Assessment: (1) Dysphagia ICD Codes: R13.10 - Dysphagia, unspecified (2) Vomiting ICD Codes: R11.10 - Vomiting, unspecified Status: Acute Plan will try pureed diet pt may have severe esophageal dysmotility .. Ckeck Formal BARIUM SWALLOW tomorrow Problem Qualifiers (1) Vomiting: Qualified Codes: R11.10 - Vomiting, unspecified Rah Banks MD Feb 07, 2018 10:01
--- NOTE | 2018-02-07 12:25 | HHI.PR ---
Subjective Remarks Up In chair, very anxious, on Venti mask 6L Objective Vital Signs Date Time Temp Pulse Resp B/P (MAP) Pulse Ox O2 Delivery O2 Flow Rate FiO2 02/07/18 09:32 95 Venturi Mask 6.00 02/07/18 08:23 97.4 69 20 116/78 (91) 95 02/07/18 08:00 70 02/07/18 04:04 Venturi Mask 6.00 02/07/18 04:00 69 02/07/18 04:00 97.8 72 18 122/70 (87) 94 02/07/18 00:00 Venturi Mask 6.00 02/07/18 00:00 53 02/07/18 00:00 98.0 84 19 134/70 (91) 93 02/06/18 20:00 65 02/06/18 20:00 Venturi Mask 6.00 02/06/18 20:00 98.4 69 20 128/64 (85) 93 02/06/18 18:30 94 Venturi Mask 6.00 02/06/18 16:00 83 02/06/18 15:00 97.7 93 24 140/72 (94) 92 I/O 02/06/18 02/06/18 02/06/18 02/07/18 02/07/18 02/07/18 07:00 15:00 23:00 07:00 15:00 23:00 Intake Total 200 ml Output Total 200 ml 670 ml Balance -200 ml -470 ml Intake Oral 200 ml Output Urine Total 200 ml 670 ml # Voids 1 # Bowel Movements 2 1 Result Diagram: 02/05/18 1400 02/07/18 0705 Imaging Last 48 hours Impressions Modified Barium Swallow 02/06/18 0000 Signed Impressions: Service Date/Time: January 10:28 - CONCLUSION: 1. 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 2. Otherwise, grossly unremarkable modified swallow. Isaiah Rowan MD Chest X-Ray 02/06/18 0000 Signed Impressions: Service Date/Time: January 19:38 - CONCLUSION: Prominent consolidation left mid and lower lung with probable associated pleural effusion. Hazy opacities in the lower right lung suggest either non-consolidative infiltrate or pleural effusion. Miguel Grace MD Other Results GENERAL: This is a well-nourished, well-developed patient, very anxious SKIN: No rashes, ecchymoses or lesions. Cool and dry. HEAD: Atraumatic. Normocephalic. No temporal or scalp tenderness. EYES: Pupils equal round and reactive. ENT: Nose without bleeding, purulent drainage NECK: Trachea midline. No JVD or lymphadenopathy. CARDIOVASCULAR: regular rate irregular rhythm RESPIRATORY:. Breath sounds equal bilaterally with crackles at base on venti mask GASTROINTESTINAL: Abdomen soft, non-tender, nondistended. MUSCULOSKELETAL: Extremities without clubbing, cyanosis, or edema. NEUROLOGICAL: Awake and alert. Normal speech. Medications and IVs Laboratory Tests Test 02/05/18 14:00 02/05/18 15:11 02/06/18 03:33 02/07/18 07:05 Neutrophils (%) (Auto) 74.9 % (16.0-70.0) Monocytes (%) (Auto) 11.1 % (0.0-8.0) Monocytes # (Auto) 1.0 TH/MM3 (0-0.9) Prothrombin Time 27.1 SEC (9.8-11.6) 26.4 SEC (9.8-11.6) 26.1 SEC (9.8-11.6) Activated Partial Thromboplast Time 46.1 SEC (24.3-30.1) Blood Urea Nitrogen 22 MG/DL (7-18) 24 MG/DL (7-18) 30 MG/DL (7-18) Creatinine 1.23 MG/DL (0.50-1.00) 1.19 MG/DL (0.50-1.00) 1.19 MG/DL (0.50-1.00) Alkaline Phosphatase 136 U/L (45-117) Total Bilirubin 1.2 MG/DL (0.2-1.0) Estimat Glomerular Filtration Rate 41 ML/MIN (>89) 43 ML/MIN (>89) 43 ML/MIN (>89) B-Type Natriuretic Peptide 894 PG/ML (0-100) Random Glucose 72 MG/DL (74-106) Total Protein 6.0 GM/DL (6.4-8.2) Albumin 2.7 GM/DL (3.4-5.0) Chloride Level 110 MEQ/L (98-107) 108 MEQ/L (98-107) Calcium Level 8.1 MG/DL (8.5-10.1) Current Medications Medications (Trade) Dose Ordered Sig/Jose A Route Start Time Stop Time Status Last Admin (NS Flush) 2 ml UNSCH PRN IV FLUSH 02/05/18 17:00 (NS Flush) 2 ml BID IV FLUSH 02/05/18 21:00 02/07/18 08:55 (Tylenol) 650 mg Q4H PRN PO 02/05/18 17:00 02/06/18 15:58 (Zofran Inj) 4 mg Q6H PRN IVP 02/05/18 17:00 (Narcan Inj) 0.4 mg UNSCH PRN IV PUSH 02/05/18 17:00 ([place]-Colace) 1 tab BID PO 02/05/18 21:00 (Milk Of Magnesia Liq) 30 ml Q12H PRN PO 02/05/18 17:00 (Senokot) 17.2 mg Q12H PRN PO 02/05/18 17:00 (Dulcolax Supp) 10 mg DAILY PRN RECTAL 02/05/18 17:00 (Lactulose Liq) 30 ml DAILY PRN PO 02/05/18 17:00 (Synthroid) 75 mcg DAILY@0600 PO 02/06/18 06:00 02/07/18 05:16 (Coumadin) 3 mg DAILY@16 PO 02/06/18 16:00 02/06/18 15:57 (Xanax) 0.5 mg Q6H PRN PO 02/05/18 18:15 02/06/18 10:30 (Elavil) 10 mg HS PO 02/05/18 21:00 02/06/18 22:09 (Lioresal) 5 mg BID PO 02/05/18 21:00 02/07/18 08:54 (Pill Splitter) 1 ea UNSCH PRN OTHER 02/05/18 21:00 (Tylenol) 650 mg Q4H PRN PO 02/06/18 16:30 (Lopressor) 75 mg Q12HR PO 02/06/18 21:00 02/07/18 08:54 (Lasix Inj) 40 mg BID@18 IV PUSH 02/06/18 18:00 02/07/18 08:53 (Zaroxolyn) 2.5 mg DAILY PO 02/06/18 18:00 02/07/18 08:55 (Vasotec) 5 mg BID PO 02/07/18 09:00 02/07/18 08:53 Assessment and Plan Problem List: (1) CHF (congestive heart failure) ICD Codes: I50.9 - Heart failure, unspecified Status: Acute Plan: Follow cardiology recommendation. Lasix, Metoprolol, enalapril. Echo pending. (2) Afib ICD Codes: I48.91 - Unspecified atrial fibrillation Status: Chronic Plan: Rate controlled, on Coumadin, monitor INR. 2.6 today (3) Dysphagia ICD Codes: R13.10 - Dysphagia, unspecified Plan: Follow Gi Recommendations, Barium swallow yesterday unremarkable barium swallow. (4) HTN (hypertension) ICD Codes: I10 - Essential (primary) hypertension Status: Chronic Plan: Monitor BP cont home medications. (5) Pleural effusion, bilateral ICD Codes: J90 - Pleural effusion, not elsewhere classified Status: Acute Plan: Cont diuretics, Pulmonary consulted Discharge Planning Home/snf when stable Problem Qualifiers (1) CHF (congestive heart failure): Qualified Codes: I50.9 - Heart failure, unspecified Adrienne Lee Feb 07, 2018 12:25
--- NOTE | 2018-02-07 14:05 | ECHRPT ---
Indication: CARDIOMYOPATHY CONCLUSIONS The left ventricular systolic function is low normal with an estimated ejection fraction in the rang e of 50- 55%. Mild concentric left ventricular hypertrophy. Trace mitral valve regurgitation. Mild aortic valve regurgitation. There is moderate to severe tricuspid valve regurgitation. Mild pulmonary valve regurgitation. A moderate left sided pleural effusion is noted, and most likely a right sided pleural effusion. BP: 122 / 70 HR: 69 Rhythm: MEASUREMENTS (Male / Female) Normal Values Technical Quality:Good 2D ECHO LV Diastolic Diameter PLAX 4.3 cm 4.2 - 5.9 / 3.9 - 5.3 cm LV Systolic Diameter PLAX 3.2 cm IVS Diastolic Thickness 1.5 cm 0.6 - 1.0 / 0.6 - 0.9 cm LVPW Diastolic Thickness 0.8 cm 0.6 - 1.0 / 0.6 - 0.9 cm LV Relative Wall Thickness 0.5 RV Internal Dim ED PLAX 2.2 cm LA Systolic Diameter LX 3.7 cm 3.0 - 4.0 / 2.7 - 3.8 cm M-MODE Aortic Root Diameter MM 2.4 cm AV Cusp Separation MM 1.7 cm DOPPLER Mitral E Point Velocity 142.0 cm/s Mitral A Point Velocity 35.2 cm/s Mitral E to A Ratio 4.0 TR Peak Velocity 301.0 cm/s TR Peak Gradient 36.2 mmHg Right Atrial Pressure 10.0 mmHg Pulmonary Artery Systolic Pressu 46.2 mmHg Right Ventricular Systolic Press 46.2 mmHg FINDINGS LEFT VENTRICLE Normal left ventricular size. Mild concentric left ventricular hypertrophy. The left ventricular systolic function is low normal with an estimated ejection fraction in the rang e of 50- 55%. RIGHT VENTRICLE Grossly normal right ventricle LEFT ATRIUM The left atrial size is moderately dilated. RIGHT ATRIUM The right atrial size is moderately dilated. ATRIAL SEPTUM Normal atrial septal thickness without atrial level shunting by limited color doppler interrogation. AORTA The aortic root and proximal ascending aorta are normal in size on limited imaging. MITRAL VALVE Mild mitral annular calcification is present. Trace mitral valve regurgitation. No mitral valve stenosis. AORTIC VALVE Aortic valve sclerosis is present. Mild aortic valve regurgitation. No aortic valve stenosis. TRICUSPID VALVE There is moderate to severe tricuspid valve regurgitation. No tricuspid valve stenosis. There is estimated mild pulmonary hypertension present ( 46 mmHg). PULMONARY VALVE Mild pulmonary valve regurgitation. VESSELS The inferior vena cava is normal in size. PERICARDIUM There is a trivial pericardial effusion present. A moderate left sided pleural effusion is noted, and most likely a right sided pleural effusion. Ryan Miles DO (Electronically Signed) Final Date:07 February 2018 14:04
[2018-02-07] MEDS: WARFARIN SOD 3 MG TAB PO SCH (16:55)
--- NOTE | 2018-02-07 20:59 | RADRPT ---
EXAM DATE/TIME: 02/07/2018 20:45 [facility] COMPARISON: CHEST SINGLE AP, February 06, 2018, 19:38. INDICATIONS : Shortness of breath. RADIATION DOSE: 9.55 CTDIvol (mGy) MEDICAL HISTORY : Cardiovascular disease. Hypertension. Carcinoma, breast. SURGICAL HISTORY : Shoulder replacement. ENCOUNTER: Initial ACUITY: 1 day PAIN SCALE: 0/10 LOCATION: chest TECHNIQUE: Volumetric scanning of the chest was performed. Using automated exposure control and adjustment of t he mA and/or kV according to patient size, radiation dose was kept as low as reasonably achievable to obtain optimal diagnostic quality images. DICOM format image data is available electronically for r eview and comparison. Follow-up recommendations for detected pulmonary nodules are based at a minimum on nodule size and pa tient risk factors according to Fleischner Society Guidelines. FINDINGS: There is complete consolidation of the left lower lobe with air bronchograms and some volume loss. T here is also subsegmental consolidation in the right lower lobe and lateral left midlung. There are large bilateral pleural effusions measuring up to 4.4 cm on the right side and 7.3 cm on the left jessi e. No evidence of pneumothorax. Moderate cardiomegaly with change in configuration. Prominent max nary artery calcifications. Diffuse osteopenia. Healed fracture of the lateral left 7th rib. CONCLUSION: Large bilateral pleural effusions, left greater than right, left lower lobe consolidation, and patchy areas of consolidative infiltrate in the posterior right lower and left midlung. Miguel Grace MD on February 07, 2018 at 20:54 Board Certified Radiologist. This report was verified electronically.
[2018-02-07] MEDS: AMITRIPTYLINE HCL 10 MG TAB PO SCH (21:48)
[2018-02-07] MEDS: CEFEPIME INJ 1,000 MG in SODIUM CHLORIDE 0.9% INJ 100 ML IV SCH (21:49)
[2018-02-08] VITALS (8 sets, daily range): BP systolic 115–147; BP diastolic 58–75; PULSE 83–100; RESP 17–20; TEMP 97.6–98.2; O2SAT 92–97
[2018-02-08] MEDS: CEFEPIME INJ 1,000 MG in SODIUM CHLORIDE 0.9% INJ 100 ML IV SCH ×3 (04:53→21:15)
[2018-02-08] MEDS: LEVOTHYROXINE SODIUM 75 MCG TAB PO SCH (04:54)
[2018-02-08 07:37] LABS: INTERNATIONAL NORMALIZED RATIO 2.9 RATIO; PROTHROMBIN TIME - PATIENT 29.4 SEC (9.8-11.6)
[2018-02-08 08:54] LABS: BICARBONATE 29.3 MEQ/L (21.0-32.0); CALCIUM 8.8 MG/DL (8.5-10.1); CREATININE 1.29 MG/DL (0.50-1.00)
--- NOTE | 2018-02-08 08:58 | RADRPT ---
EXAM DATE/TIME: 02/08/2018 08:15 [facility] COMPARISON: No previous studies available for comparison. INDICATIONS : Patient has had difficulty swallowing for 2 months, has modified swallow yesterday and did well; emes is after breakfast. FLUORO TIME: .6 minutes IMAGE COUNT: 40 CONTRAST: 1. Liquid E-Z Paque Barium Sulfate (60% w/v, 41% w.w) MEDICAL HISTORY : Cardiovascular disease. Hypertension. Carcinoma, breast SURGICAL HISTORY : shoulder replacement ENCOUNTER: Subsequent ACUITY: 2 months PAIN SCORE: 3/10 LOCATION: Bilateral esophageal FINDINGS: Patient ingested barium without difficulty. There are no obstructing or constricting lesions. Significant esophageal dysmotility is noted with tertiary contractions. There is an ineffective strip ping wave. Small hiatal hernia is demonstrated. CONCLUSION: 1. Presbyesophagus with significant dysmotility. 2. No evidence of obstructing or constricting lesions. 3. Small hiatal hernia. Eligio Barth MD on February 08, 2018 at 8:55 Board Certified Radiologist. This report was verified electronically.
[2018-02-08] MEDS: DOCUSATE SODIUM 50 MG/SENNA 8.6 MG TAB PO SCH ×2 (09:15→21:14)
[2018-02-08] MEDS: ENALAPRIL MALEATE 5 MG TAB PO SCH ×2 (09:15→21:14)
[2018-02-08] MEDS: BACLOFEN 10 MG TAB PO SCH ×2 (09:16→21:14)
[2018-02-08] MEDS: AZITHROMYCIN 250 MG TAB PO SCH (09:16)
[2018-02-08] MEDS: METOPROLOL TARTRATE 50 MG TAB PO SCH ×2 (09:16→21:14)
[2018-02-08] MEDS: METOLAZONE 2.5 MG TAB PO SCH (09:17)
[2018-02-08] MEDS: FUROSEMIDE 40 MG/4 ML VIAL IV PUSH SCH (09:17)
[2018-02-08] MEDS: SODIUM CHLORIDE 0.9% FLUSH 10 ML FLUSH IV FLUSH SCH ×2 (09:18→21:15)
--- NOTE | 2018-02-08 11:08 | PD.CARD.PN ---
Subjective Subjective Remarks No cardiac complaints Objective Medications Current Medications Medications (Trade) Dose Ordered Sig/Jose A Route Start Time Stop Time Status Last Admin (NS Flush) 2 ml UNSCH PRN IV FLUSH 02/05/18 17:00 (NS Flush) 2 ml BID IV FLUSH 02/05/18 21:00 02/08/18 09:18 (Tylenol) 650 mg Q4H PRN PO 02/05/18 17:00 02/06/18 15:58 (Zofran Inj) 4 mg Q6H PRN IVP 02/05/18 17:00 (Narcan Inj) 0.4 mg UNSCH PRN IV PUSH 02/05/18 17:00 ([place]-Colace) 1 tab BID PO 02/05/18 21:00 02/08/18 09:15 (Milk Of Magnesia Liq) 30 ml Q12H PRN PO 02/05/18 17:00 (Senokot) 17.2 mg Q12H PRN PO 02/05/18 17:00 (Dulcolax Supp) 10 mg DAILY PRN RECTAL 02/05/18 17:00 (Lactulose Liq) 30 ml DAILY PRN PO 02/05/18 17:00 (Synthroid) 75 mcg DAILY@0600 PO 02/06/18 06:00 02/08/18 04:54 (Coumadin) 3 mg DAILY@16 PO 02/06/18 16:00 02/07/18 16:55 (Xanax) 0.5 mg Q6H PRN PO 02/05/18 18:15 02/06/18 10:30 (Elavil) 10 mg HS PO 02/05/18 21:00 02/07/18 21:48 (Lioresal) 5 mg BID PO 02/05/18 21:00 02/08/18 09:16 (Pill Splitter) 1 ea UNSCH PRN OTHER 02/05/18 21:00 (Tylenol) 650 mg Q4H PRN PO 02/06/18 16:30 (Lopressor) 75 mg Q12HR PO 02/06/18 21:00 02/08/18 09:16 (Lasix Inj) 40 mg BID@ IV PUSH 02/06/18 18:00 02/08/18 09:17 (Zaroxolyn) 2.5 mg DAILY PO 02/06/18 18:00 02/08/18 09:17 (Vasotec) 5 mg BID PO 02/07/18 09:00 02/08/18 09:15 Cefepime HCl 1000 mg/Sodium Chloride 100 ml @ 200 mls/hr Q8H IV 02/07/18 20:00 02/08/18 04:53 (Zithromax) 500 mg DAILY PO 02/08/18 09:00 02/08/18 09:16 Vital Signs / I&O Vital Signs Date Time Temp Pulse Resp B/P (MAP) Pulse Ox O2 Delivery O2 Flow Rate FiO2 02/08/18 10:21 Nasal Cannula 3.00 02/08/18 08:00 97.9 89 20 146/68 (94) 94 02/08/18 04:00 97 Nasal Cannula 3.00 02/08/18 04:00 89 02/08/18 04:00 98.0 98 17 139/74 (95) 96 02/08/18 00:00 97 Nasal Cannula 3.00 02/08/18 00:00 88 02/08/18 00:00 97.6 83 17 147/75 (99) 92 02/07/18 22:00 98 Nasal Cannula 4.00 02/07/18 20:00 91 02/07/18 20:00 Venturi Mask 6.00 02/07/18 20:00 98.1 84 17 148/79 (102) 97 02/07/18 19:18 96 Venturi Mask 6.00 02/07/18 16:03 98.1 82 19 142/76 (98) 96 02/07/18 16:00 83 02/07/18 12:37 70 02/07/18 12:37 96 Venturi Mask 6.00 02/07/18 12:03 97.2 66 19 117/71 (86) 97 I/O 02/07/18 02/07/18 02/07/18 02/08/18 02/08/18 02/08/18 07:00 15:00 23:00 07:00 15:00 23:00 Intake Total 200 ml 240 ml 800 ml Output Total 670 ml 700 ml Balance -470 ml 240 ml 100 ml Intake Oral 200 ml 240 ml 800 ml Output Urine Total 670 ml 700 ml # Voids 1 6 9 # Bowel Movements 1 1 1 Physical Exam GENERAL: This is a well-nourished, well-developed patient, in no apparent distress. CARDIOVASCULAR: Regular rate and irregular rhythm without murmurs, gallops, or rubs. RESPIRATORY: Clear to auscultation. Breath sounds equal bilaterally. No wheezes , rales, or rhonchi. GASTROINTESTINAL: Abdomen soft, non-tender, nondistended. Normal, active bowel sounds MUSCULOSKELETAL: Extremities without clubbing, cyanosis, or edema. NEURO: Alert & Oriented x4 to person, place, time, situation. Moves all ext x4 Laboratory Laboratory Tests Test 02/08/18 06:27 Prothrombin Time 29.4 SEC Prothromb Time International Ratio 2.9 RATIO Blood Urea Nitrogen 28 MG/DL Creatinine 1.29 MG/DL Random Glucose 80 MG/DL Calcium Level 8.8 MG/DL Sodium Level 138 MEQ/L Potassium Level 2.9 MEQ/L Chloride Level 99 MEQ/L Carbon Dioxide Level 29.3 MEQ/L Anion Gap 10 MEQ/L Estimat Glomerular Filtration Rate 39 ML/MIN Imaging Last 24 hours Impressions Barium Swallow X-Ray 02/08/18 0000 Signed Impressions: Service Date/Time: Thursday, February 08, 2018 08:15 - CONCLUSION: 1. Presbyesophagus with significant dysmotility. 2. No evidence of obstructing or constricting lesions. 3. Small hiatal hernia. Eligio Barth MD Chest CT 02/07/18 1950 Signed Impressions: Service Date/Time: Wednesday, February 07, 2018 20:45 - CONCLUSION: Large bilateral pleural effusions, left greater than right, left lower lobe consolidation, and patchy areas of consolidative infiltrate in the posterior right lower and left midlung. Miguel Grace MD Assessment and Plan Problem List: (1) CHF (congestive heart failure) ICD Codes: I50.9 - Heart failure, unspecified Status: Acute Plan: Seems compensated, cr up and K+ down; stopped IV lasix, will start low dose oral lasix tomorrow, for now will keep metolazone but may d/c as well; echo shows preserved LVEF; replaced K+ and added daily (2) Chronic atrial fibrillation ICD Codes: I48.2 - Chronic atrial fibrillation Status: Chronic Plan: Stable, chronic atrial fib. HR's acceptable. INR therapeutic. Continue metoprolol, warfarin. Problem Qualifiers (1) CHF (congestive heart failure): Qualified Codes: I50.9 - Heart failure, unspecified Figueroa Qiu MD Feb 08, 2018 11:08
[2018-02-08] MEDS ORDERED: POTASSIUM CHLORIDE 20 MEQ CONTROLLED RELEASE TAB PO ONE (11:15)
--- NOTE | 2018-02-08 12:00 | HHI.PR ---
Subjective Remarks Now with O2 via NC. Patient awake and alert and resting in bed lying flat. Objective Vital Signs Date Time Temp Pulse Resp B/P (MAP) Pulse Ox O2 Delivery O2 Flow Rate FiO2 02/08/18 10:21 Nasal Cannula 3.00 02/08/18 08:00 97.9 89 20 146/68 (94) 94 02/08/18 08:00 98 02/08/18 04:00 97 Nasal Cannula 3.00 02/08/18 04:00 89 02/08/18 04:00 98.0 98 17 139/74 (95) 96 02/08/18 00:00 97 Nasal Cannula 3.00 02/08/18 00:00 88 02/08/18 00:00 97.6 83 17 147/75 (99) 92 02/07/18 22:00 98 Nasal Cannula 4.00 02/07/18 20:00 91 02/07/18 20:00 Venturi Mask 6.00 02/07/18 20:00 98.1 84 17 148/79 (102) 97 02/07/18 19:18 96 Venturi Mask 6.00 02/07/18 16:03 98.1 82 19 142/76 (98) 96 02/07/18 16:00 83 02/07/18 12:37 70 02/07/18 12:37 96 Venturi Mask 6.00 02/07/18 12:03 97.2 66 19 117/71 (86) 97 I/O 02/07/18 02/07/18 02/07/18 02/08/18 02/08/18 02/08/18 07:00 15:00 23:00 07:00 15:00 23:00 Intake Total 200 ml 240 ml 800 ml Output Total 670 ml 700 ml Balance -470 ml 240 ml 100 ml Intake Oral 200 ml 240 ml 800 ml Output Urine Total 670 ml 700 ml # Voids 1 6 9 # Bowel Movements 1 1 1 Result Diagram: 02/05/18 1400 02/08/18 0627 Imaging Last Impressions Barium Swallow X-Ray 02/08/18 0000 Signed Impressions: Service Date/Time: Thursday, February 08, 2018 08:15 - CONCLUSION: 1. Presbyesophagus with significant dysmotility. 2. No evidence of obstructing or constricting lesions. 3. Small hiatal hernia. Eligio Barth MD Chest CT 02/07/18 1950 Signed Impressions: Service Date/Time: Wednesday, February 07, 2018 20:45 - CONCLUSION: Large bilateral pleural effusions, left greater than right, left lower lobe consolidation, and patchy areas of consolidative infiltrate in the posterior right lower and left midlung. Miguel Grace MD Modified Barium Swallow 02/06/18 0000 Signed Impressions: Service Date/Time: January 10:28 - CONCLUSION: 1. 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 2. Otherwise, grossly unremarkable modified swallow. Isaiah Rowan MD Chest X-Ray 02/06/18 0000 Signed Impressions: Service Date/Time: January 19:38 - CONCLUSION: Prominent consolidation left mid and lower lung with probable associated pleural effusion. Hazy opacities in the lower right lung suggest either non-consolidative infiltrate or pleural effusion. Miguel Grace MD Objective Remarks General - Awake and alert HEENT - AT/NC Resp - scattered rales at bases CV - Irregular rate and rhythm Abd - soft and nontender with active BS MS - FROM without deformity Medications and IVs Current Medications Medications (Trade) Dose Ordered Sig/Jose A Route Start Time Stop Time Status Last Admin (NS Flush) 2 ml UNSCH PRN IV FLUSH 02/05/18 17:00 (NS Flush) 2 ml BID IV FLUSH 02/05/18 21:00 02/08/18 09:18 (Tylenol) 650 mg Q4H PRN PO 02/05/18 17:00 02/06/18 15:58 (Zofran Inj) 4 mg Q6H PRN IVP 02/05/18 17:00 (Narcan Inj) 0.4 mg UNSCH PRN IV PUSH 02/05/18 17:00 ([place]-Colace) 1 tab BID PO 02/05/18 21:00 02/08/18 09:15 (Milk Of Magnesia Liq) 30 ml Q12H PRN PO 02/05/18 17:00 (Senokot) 17.2 mg Q12H PRN PO 02/05/18 17:00 (Dulcolax Supp) 10 mg DAILY PRN RECTAL 02/05/18 17:00 (Lactulose Liq) 30 ml DAILY PRN PO 02/05/18 17:00 (Synthroid) 75 mcg DAILY@0600 PO 02/06/18 06:00 02/08/18 04:54 (Coumadin) 3 mg DAILY@16 PO 02/06/18 16:00 02/07/18 16:55 (Xanax) 0.5 mg Q6H PRN PO 02/05/18 18:15 02/06/18 10:30 (Elavil) 10 mg HS PO 02/05/18 21:00 02/07/18 21:48 (Lioresal) 5 mg BID PO 02/05/18 21:00 02/08/18 09:16 (Pill Splitter) 1 ea UNSCH PRN OTHER 02/05/18 21:00 (Tylenol) 650 mg Q4H PRN PO 02/06/18 16:30 (Lopressor) 75 mg Q12HR PO 02/06/18 21:00 02/08/18 09:16 (Zaroxolyn) 2.5 mg DAILY PO 02/06/18 18:00 02/08/18 09:17 (Vasotec) 5 mg BID PO 02/07/18 09:00 02/08/18 09:15 Cefepime HCl 1000 mg/Sodium Chloride 100 ml @ 200 mls/hr Q8H IV 02/07/18 20:00 02/08/18 04:53 (Zithromax) 500 mg DAILY PO 02/08/18 09:00 02/08/18 09:16 (Lasix) 20 mg DAILY PO 02/09/18 09:00 UNV (KCl) 10 meq DAILY PO 02/09/18 09:00 UNV Assessment and Plan Problem List: (1) Hypokalemia due to loss of potassium ICD Codes: E87.6 - Hypokalemia Status: Acute Plan: Received extra KCL today and Lasix changed from IV to PO (2) CHF (congestive heart failure) ICD Codes: I50.9 - Heart failure, unspecified Status: Acute Plan: F/u Cards recommendations (3) Pleural effusion, bilateral ICD Codes: J90 - Pleural effusion, not elsewhere classified Status: Acute Plan: F/U Pulm recommendations (4) Chronic atrial fibrillation ICD Codes: I48.2 - Chronic atrial fibrillation Status: Chronic Plan: INR therapeutic at 2.9 Assessment and Plan Monitor sats and F/U Cards and Pul recommendations. Exam and Xray are improved. Discussed Condition With Patient and manager photo Planning Home vs SNF Problem Qualifiers (1) CHF (congestive heart failure): Qualified Codes: I50.9 - Heart failure, unspecified Levi Bautista Feb 08, 2018 12:00
--- NOTE | 2018-02-08 13:06 | HHI.GIFU ---
Subjective Remarks Eating better today Nad ....... BA swallow : Presby esophagus no obstruction Objective Vitals I&O Vital Signs Date Time Temp Pulse Resp B/P (MAP) Pulse Ox O2 Delivery O2 Flow Rate FiO2 02/08/18 12:00 87 02/08/18 10:21 Nasal Cannula 3.00 02/08/18 08:00 97.9 89 20 146/68 (94) 94 02/08/18 08:00 98 02/08/18 04:00 97 Nasal Cannula 3.00 02/08/18 04:00 89 02/08/18 04:00 98.0 98 17 139/74 (95) 96 02/08/18 00:00 97 Nasal Cannula 3.00 02/08/18 00:00 88 02/08/18 00:00 97.6 83 17 147/75 (99) 92 02/07/18 22:00 98 Nasal Cannula 4.00 02/07/18 20:00 91 02/07/18 20:00 Venturi Mask 6.00 02/07/18 20:00 98.1 84 17 148/79 (102) 97 02/07/18 19:18 96 Venturi Mask 6.00 02/07/18 16:03 98.1 82 19 142/76 (98) 96 02/07/18 16:00 83 I/O 02/07/18 02/07/18 02/07/18 02/08/18 02/08/18 02/08/18 07:00 15:00 23:00 07:00 15:00 23:00 Intake Total 200 ml 240 ml 800 ml Output Total 670 ml 700 ml Balance -470 ml 240 ml 100 ml Intake Oral 200 ml 240 ml 800 ml Output Urine Total 670 ml 700 ml # Voids 1 6 9 # Bowel Movements 1 1 1 Laboratory Laboratory Tests Test 02/08/18 06:27 Prothrombin Time 29.4 Prothromb Time International Ratio 2.9 Blood Urea Nitrogen 28 Creatinine 1.29 Random Glucose 80 Calcium Level 8.8 Sodium Level 138 Potassium Level 2.9 Chloride Level 99 Carbon Dioxide Level 29.3 Anion Gap 10 Estimat Glomerular Filtration Rate 39 Imaging Last 24 hours Impressions Barium Swallow X-Ray 02/08/18 0000 Signed Impressions: Service Date/Time: Thursday, February 08, 2018 08:15 - CONCLUSION: 1. Presbyesophagus with significant dysmotility. 2. No evidence of obstructing or constricting lesions. 3. Small hiatal hernia. Eligio Barth MD Chest CT 02/07/181949 Signed Impressions: Service Date/Time: Wednesday, February 07, 2018 20:45 - CONCLUSION: Large bilateral pleural effusions, left greater than right, left lower lobe consolidation, and patchy areas of consolidative infiltrate in the posterior right lower and left midlung. Miguel Grace MD Physical Exam CHEST: Chest crackles at bases CARDIAC: Regular rate and rhythm with no murmur gallop or rubs. ABDOMEN: Soft, nondistended, nontender; no hepatosplenomegaly; bowel sounds are present in all four quadrants. EXTREMITIES: No clubbing, cyanosis, or edema. pain right shoulder SKIN: Normal; no rash; no jaundice. Assessment and Plan Assessment: (1) Dysphagia ICD Codes: R13.10 - Dysphagia, unspecified (2) Vomiting ICD Codes: R11.10 - Vomiting, unspecified Status: Acute Plan Continue present therapy w elavil and baclofen Pts sxs due to esophageal dysmotility......ok for d/c w outpt [facility] w Dr Sharma if pulmonary stable Problem Qualifiers (1) Vomiting: Qualified Codes: R11.10 - Vomiting, unspecified Rah Banks MD Feb 08, 2018 13:06
--- NOTE | 2018-02-08 13:27 | HHI.PR ---
Subjective Remarks Patient is lying in bed in NAD. On 3L oxygen. Looks comfortable. Afebrile. Objective Vital Signs Vital Signs Date Time Temp Pulse Resp B/P (MAP) Pulse Ox O2 Delivery O2 Flow Rate FiO2 02/08/18 12:00 87 02/08/18 10:21 Nasal Cannula 3.00 02/08/18 08:00 97.9 89 20 146/68 (94) 94 02/08/18 08:00 98 02/08/18 04:00 97 Nasal Cannula 3.00 02/08/18 04:00 89 02/08/18 04:00 98.0 98 17 139/74 (95) 96 02/08/18 00:00 97 Nasal Cannula 3.00 02/08/18 00:00 88 02/08/18 00:00 97.6 83 17 147/75 (99) 92 02/07/18 22:00 98 Nasal Cannula 4.00 02/07/18 20:00 91 02/07/18 20:00 Venturi Mask 6.00 02/07/18 20:00 98.1 84 17 148/79 (102) 97 02/07/18 19:18 96 Venturi Mask 6.00 02/07/18 16:03 98.1 82 19 142/76 (98) 96 02/07/18 16:00 83 I/O 02/07/18 02/07/18 02/07/18 02/08/18 02/08/18 02/08/18 06:59 14:59 22:59 06:59 14:59 22:59 Intake Total 200 ml 240 ml 800 ml Output Total 670 ml 700 ml Balance -470 ml 240 ml 100 ml Intake Oral 200 ml 240 ml 800 ml Output Urine Total 670 ml 700 ml # Voids 1 6 9 # Bowel Movements 1 1 1 Result Diagram: 02/05/18 1400 02/08/18 0627 Other Results Last Impressions Barium Swallow X-Ray 02/08/18 0000 Signed Impressions: Service Date/Time: Thursday, February 08, 2018 08:15 - CONCLUSION: 1. Presbyesophagus with significant dysmotility. 2. No evidence of obstructing or constricting lesions. 3. Small hiatal hernia. Eligio Barth MD Chest CT 02/07/18 1950 Signed Impressions: Service Date/Time: Wednesday, February 07, 2018 20:45 - CONCLUSION: Large bilateral pleural effusions, left greater than right, left lower lobe consolidation, and patchy areas of consolidative infiltrate in the posterior right lower and left midlung. Miguel Grace MD Modified Barium Swallow 02/06/18 0000 Signed Impressions: Service Date/Time: January 10:28 - CONCLUSION: 1. 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 2. Otherwise, grossly unremarkable modified swallow. Isaiah Rowan MD Chest X-Ray 02/06/18 0000 Signed Impressions: Service Date/Time: January 19:38 - CONCLUSION: Prominent consolidation left mid and lower lung with probable associated pleural effusion. Hazy opacities in the lower right lung suggest either non-consolidative infiltrate or pleural effusion. Miguel Grace MD Objective Remarks GENERAL: Patient is 87 yo lying in bed in NAD SKIN: Warm and dry. HEAD: Normocephalic. EYES: No scleral icterus. No injection or drainage. NECK: Supple, trachea midline. No JVD or lymphadenopathy. CARDIOVASCULAR: Regular rate and rhythm without murmurs, gallops, or rubs. RESPIRATORY: Breath sounds equal bilaterally. Diminished at bases GASTROINTESTINAL: Abdomen soft, non-tender, nondistended. MUSCULOSKELETAL: No cyanosis, or edema. Neuro: Awake and alert. A/P Assessment and Plan 1)Resp Insuff 2)Pleural effusions with consolidation 3)CHF 4)Afib 5)HTN 6)Coagulopathy - on Coumadin Plan Continue with oxygen keep sats >92% Bronchodilators( DuoNeb), Incentive Spirometry Continue with abx ( Cefepime, Zithromax) monitor for signs of infections ( fever , WBC) Check sputum cx, strep pneumonia and Legionella urinary Ag Will repeat CXR in 1-2 days if effusion is worse then will need US guided thoracentesis and holding Coumadin. Monitor CBC, INR- 2.9 today Continue with diuretics- On Lasix 20mg daily and Zaroxolyn 2.5 daily Continue treatment plan. Shannon Han MD Feb 08, 2018 13:27
[2018-02-08] MEDS ORDERED: RESP: ALBUTEROL 2.5 MG/IPRATROPIUM 0.5 MG NEB (PRN) NEB (13:30)
[2018-02-08] MEDS: WARFARIN SOD 3 MG TAB PO SCH (15:28)
[2018-02-08] MEDS: RESP: ALBUTEROL 2.5 MG/IPRATROPIUM 0.5 MG NEB (SCH) NEB ×2 (17:00→21:19)
[2018-02-08] MEDS: ALPRAZolam 0.5 MG TAB PO PRN (17:46)
--- NOTE | 2018-02-08 20:03 | MB ---
cc: Gage Coleman MD, V J MD DATE OF CONSULT: 02/07/2018 REASON FOR CONSULTATION: Hypoxia and pulmonary infiltrates with effusion. HISTORY OF PRESENT ILLNESS: This is an 87-year-old lady who was initially admitted with complaints of vomiting and apparently had endoscopy with esophageal dilatation. The patient was unable to keep her food down and was quite short of breath and despite of being on oxygen at the [facility] she was noted to be hypoxic, anxious and tachypneic and was brought to the hospital. Chest x-ray showed pulmonary infiltrates with pleural effusion. The patient has been treated for atrial fibrillation and is on anticoagulation including Coumadin. She also had a lower lobe infiltrate consistent with possible pneumonia, in the left base larger than in the right base. There was suggestion of congestive heart failure as well. The patient presently is quite weak, unable to answer many questions and she is presently on a Ventimask at 50% FiO2. She has a cough. She has wheezing. She is orthopneic and she has had some leg swelling. PAST MEDICAL HISTORY: Includes history for gastroesophageal reflux, history of atrial fibrillation and hypertension, history of TIAs and irritable bowel syndrome, anxiety disorder as well as arthritis. She has had history of breast cancer, lumpectomy of the left breast. PAST SURGICAL HISTORY: Includes left hip replacement surgery and left shoulder replacement surgery. ALLERGIES; AMPICILLIN. HABITS: The patient has remote history of smoking and no significant alcohol use. FAMILY HISTORY: Essentially noncontributory. MEDICATIONS: Cardizem 240 mg daily, ____ 2.5 mg daily, Xanax 0.25 mg q 8 p.r.n., levothyroxine 75 mcg a day. REVIEW OF SYSTEMS: The patient has wheezing and orthopnea, cough and shortness of breath. She has reflex and choking. She also has had some leg swelling. She has urinary frequency and lower abdominal discomfort and arthritis of her extremities as well as anxiety. PHYSICAL EXAMINATION: GENERAL: This is an elderly averagely built white female who is anxious and tachypneic. VITAL SIGNS: Blood pressure 150/80, pulse is 85, respirations are 20, temperature 97.2. HEENT: Head normocephalic. Pupils are reactive and equal. Tongue is moist. Throat is injected. Ears - no inflammation. NECK: No bruits, mild venous distention while lying flat. Trachea midline. CHEST: Distant breath sounds with occasional wheezes throughout both lung katz with a few bibasilar crackles, more on the left side. HEART: Sounds are irregular, S1 and S2, with no definite murmur or S3. ABDOMEN: Soft, protuberant. No masses, no organomegaly or tenderness. The bowel sounds are active. EXTREMITIES: No clubbing, no edema. Peripheral pulses are diminished. NEUROLOGIC: Reflexes are 1+ with no gross motor deficits. Cranial nerves are grossly intact. RECTAL: Exam is deferred. SKIN: No lesions are observed. IMPRESSION: 1. Basilar pneumonia with hypoxemia. 2. Congestive heart failure with atrial fibrillation and atherosclerotic heart disease. 3. Dysphagia and probable aspiration. 4. Essential hypertension. 5. History of transient ischemic attack. 6. History of breast cancer. PLAN: The patient will be maintained on O2 at 5 liters nasal cannula and weaned down. Continue with diuretic therapy as ordered. She will be placed on antibiotic coverage including cefepime 1 gram IV q 8 hrs and Zithromax 500 mg daily. Sputum will be sent for Gram stain and culture. Followup chest x-ray to be obtained. CT scan of the chest to evaluate the lower lung infiltrates without contrast. Pulmonary function study will be obtained when she is clinically stable and on a nasal cannula. The patient will be nebulized albuterol and Atrovent solution 4 times daily. I will follow the case with you, Dr. Meza. Thank you for this consultation. MD YANIQUE Schofield//checo , 10:47 AM , 05:05 PM
[2018-02-08] MEDS: AMITRIPTYLINE HCL 10 MG TAB PO SCH (21:14)
[2018-02-09] VITALS (12 sets, daily range): BP systolic 105–142; BP diastolic 65–82; PULSE 87–106; RESP 18–20; TEMP 97.2–98.1; O2SAT 92–97
[2018-02-09] MEDS: CEFEPIME INJ 1,000 MG in SODIUM CHLORIDE 0.9% INJ 100 ML IV SCH ×3 (03:47→20:26)
[2018-02-09] MEDS: RESP: ALBUTEROL 2.5 MG/IPRATROPIUM 0.5 MG NEB (SCH) NEB ×4 (03:56→21:04)
[2018-02-09] MEDS: ALPRAZolam 0.5 MG TAB PO PRN ×3 (04:30→20:43)
[2018-02-09] MEDS: LEVOTHYROXINE SODIUM 75 MCG TAB PO SCH (04:31)
[2018-02-09] MEDS: FUROSEMIDE 20 MG TAB PO SCH (08:50)
[2018-02-09] MEDS: ENALAPRIL MALEATE 5 MG TAB PO SCH ×2 (08:50→20:25)
[2018-02-09] MEDS: SODIUM CHLORIDE 0.9% FLUSH 10 ML FLUSH IV FLUSH SCH ×2 (08:50→20:26)
[2018-02-09] MEDS: BACLOFEN 10 MG TAB PO SCH ×2 (08:51→20:25)
[2018-02-09] MEDS: POTASSIUM CHLORIDE 10 MEQ CAP PO SCH (08:51)
[2018-02-09] MEDS: METOLAZONE 2.5 MG TAB PO SCH (08:51)
[2018-02-09] MEDS: AZITHROMYCIN 250 MG TAB PO SCH (08:51)
[2018-02-09] MEDS: METOPROLOL TARTRATE 50 MG TAB PO SCH ×2 (08:51→20:25)
[2018-02-09] MEDS: DOCUSATE SODIUM 50 MG/SENNA 8.6 MG TAB PO SCH ×2 (08:51→20:25)
[2018-02-09 09:09] LABS: BICARBONATE 27.3 MEQ/L (21.0-32.0); CALCIUM 8.7 MG/DL (8.5-10.1); CREATININE 1.31 MG/DL (0.50-1.00)
--- NOTE | 2018-02-09 10:57 | HHI.PR ---
Subjective Remarks Now with O2 via NC. Patient awake and alert, but much more confused today. Objective Vital Signs Date Time Temp Pulse Resp B/P (MAP) Pulse Ox O2 Delivery O2 Flow Rate FiO2 02/09/18 10:17 Nasal Cannula 3.00 02/09/18 08:51 94 Nasal Cannula 3.00 02/09/18 08:00 97.9 106 20 142/82 (102) 92 02/09/18 04:00 92 02/09/18 04:00 98.0 89 18 122/70 (87) 92 02/09/18 00:34 96 02/09/18 00:00 98.1 93 18 107/65 (79) 93 02/08/18 21:21 94 Nasal Cannula 3.00 02/08/18 21:15 Nasal Cannula 3.00 02/08/18 20:00 97.8 94 18 115/67 (83) 94 02/08/18 17:02 97 Nasal Cannula 3.00 02/08/18 16:00 100 02/08/18 16:00 98.0 94 20 116/61 (79) 94 02/08/18 12:00 98.2 92 20 119/58 (78) 93 02/08/18 12:00 87 I/O 02/08/18 02/08/18 02/08/18 02/09/18 02/09/18 02/09/18 07:00 15:00 23:00 07:00 15:00 23:00 Intake Total 800 ml 100 ml 480 ml Output Total 700 ml Balance 100 ml 100 ml 480 ml Intake Oral 800 ml 480 ml IV Total 100 ml Output Urine Total 700 ml # Voids 9 3 2 # Bowel Movements 1 3 Result Diagram: 02/05/18 1400 02/09/18 0755 Imaging Last Impressions Barium Swallow X-Ray 02/08/18 0000 Signed Impressions: Service Date/Time: Thursday, February 08, 2018 08:15 - CONCLUSION: 1. Presbyesophagus with significant dysmotility. 2. No evidence of obstructing or constricting lesions. 3. Small hiatal hernia. Eligio Barth MD Chest CT 02/07/18 1950 Signed Impressions: Service Date/Time: Wednesday, February 07, 2018 20:45 - CONCLUSION: Large bilateral pleural effusions, left greater than right, left lower lobe consolidation, and patchy areas of consolidative infiltrate in the posterior right lower and left midlung. Miguel Garce MD Modified Barium Swallow 02/06/18 0000 Signed Impressions: Service Date/Time: January 10:28 - CONCLUSION: 1. 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 2. Otherwise, grossly unremarkable modified swallow. Isaiah Rowan MD Chest X-Ray 02/06/18 0000 Signed Impressions: Service Date/Time: January 19:38 - CONCLUSION: Prominent consolidation left mid and lower lung with probable associated pleural effusion. Hazy opacities in the lower right lung suggest either non-consolidative infiltrate or pleural effusion. Miguel Grace MD Objective Remarks General - Awake and alert. but confused HEENT - AT/NC Resp - decreased BS at bases CV - Irregular rate and rhythm Abd - soft and nontender with active BS MS - FROM without deformity Medications and IVs Current Medications Medications (Trade) Dose Ordered Sig/Jose A Route Start Time Stop Time Status Last Admin (NS Flush) 2 ml UNSCH PRN IV FLUSH 02/05/18 17:00 (NS Flush) 2 ml BID IV FLUSH 02/05/18 21:00 02/09/18 08:50 (Tylenol) 650 mg Q4H PRN PO 02/05/18 17:00 02/06/18 15:58 (Zofran Inj) 4 mg Q6H PRN IVP 02/05/18 17:00 (Narcan Inj) 0.4 mg UNSCH PRN IV PUSH 02/05/18 17:00 ([place]-Colace) 1 tab BID PO 02/05/18 21:00 02/09/18 08:51 (Milk Of Magnesia Liq) 30 ml Q12H PRN PO 02/05/18 17:00 (Senokot) 17.2 mg Q12H PRN PO 02/05/18 17:00 (Dulcolax Supp) 10 mg DAILY PRN RECTAL 02/05/18 17:00 (Lactulose Liq) 30 ml DAILY PRN PO 02/05/18 17:00 (Synthroid) 75 mcg DAILY@0600 PO 02/06/18 06:00 02/09/18 04:31 (Coumadin) 3 mg DAILY@16 PO 02/06/18 16:00 02/08/18 15:28 (Xanax) 0.5 mg Q6H PRN PO 02/05/18 18:15 02/09/18 04:30 (Elavil) 10 mg HS PO 02/05/18 21:00 02/08/18 21:14 (Lioresal) 5 mg BID PO 02/05/18 21:00 02/09/18 08:51 (Pill Splitter) 1 ea UNSCH PRN OTHER 02/05/18 21:00 (Tylenol) 650 mg Q4H PRN PO 02/06/18 16:30 (Lopressor) 75 mg Q12HR PO 02/06/18 21:00 02/09/18 08:51 (Zaroxolyn) 2.5 mg DAILY PO 02/06/18 18:00 02/09/18 08:51 (Vasotec) 5 mg BID PO 02/07/18 09:00 02/09/18 08:50 Cefepime HCl 1000 mg/Sodium Chloride 100 ml @ 200 mls/hr Q8H IV 02/07/18 20:00 02/09/18 03:47 (Zithromax) 500 mg DAILY PO 02/08/18 09:00 02/09/18 08:51 (Lasix) 20 mg DAILY PO 02/09/18 09:00 02/09/18 08:50 (KCl) 10 meq DAILY PO 02/09/18 09:00 02/09/18 08:51 (Duoneb Neb) 1 ampule Q2HR NEB PRN NEB 02/08/18 13:30 (Duoneb Neb) 1 ampule Q6HR NEB NEB 02/08/18 16:00 02/09/18 08:48 Assessment and Plan Problem List: (1) Hypokalemia due to loss of potassium ICD Codes: E87.6 - Hypokalemia Status: Acute Plan: Received extra KCL yesterday but K still low. Will supplement PO with 40 meq IV Kcl and recheck in the AM. Now on Lasix PO (2) CHF (congestive heart failure) ICD Codes: I50.9 - Heart failure, unspecified Status: Acute Plan: F/u Cards recommendations (3) Pleural effusion, bilateral ICD Codes: J90 - Pleural effusion, not elsewhere classified Status: Acute Plan: Per Pulm, for repeat CXR tomorrow and order thoracentesis if effusion not improved. F/U Pulm recommendations (4) Chronic atrial fibrillation ICD Codes: I48.2 - Chronic atrial fibrillation Status: Chronic Plan: INR therapeutic at 2.9 yesterday Assessment and Plan Monitor sats and F/U Cards and Pul recommendations. Exam and Xray are improved. Discussed Condition With Patient's nurse Discharge Planning SNF Problem Qualifiers (1) CHF (congestive heart failure): Qualified Codes: I50.9 - Heart failure, unspecified Levi Bautista Feb 09, 2018 10:57
--- NOTE | 2018-02-09 11:37 | HHI.PR ---
Subjective Remarks Patient is lying in bed in NAD. On 3L oxygen. Looks comfortable. Afebrile, confused Objective Vital Signs Vital Signs Date Time Temp Pulse Resp B/P (MAP) Pulse Ox O2 Delivery O2 Flow Rate FiO2 02/09/18 10:17 Nasal Cannula 3.00 02/09/18 08:51 94 Nasal Cannula 3.00 02/09/18 08:00 97.9 106 20 142/82 (102) 92 02/09/18 08:00 88 02/09/18 04:00 92 02/09/18 04:00 98.0 89 18 122/70 (87) 92 02/09/18 00:34 96 02/09/18 00:00 98.1 93 18 107/65 (79) 93 02/08/18 21:21 94 Nasal Cannula 3.00 02/08/18 21:15 Nasal Cannula 3.00 02/08/18 20:00 97.8 94 18 115/67 (83) 94 02/08/18 17:02 97 Nasal Cannula 3.00 02/08/18 16:00 100 02/08/18 16:00 98.0 94 20 116/61 (79) 94 02/08/18 12:00 98.2 92 20 119/58 (78) 93 02/08/18 12:00 87 I/O 02/08/18 02/08/18 02/08/18 02/09/18 02/09/18 02/09/18 07:00 15:00 23:00 07:00 15:00 23:00 Intake Total 800 ml 100 ml 480 ml Output Total 700 ml Balance 100 ml 100 ml 480 ml Intake Oral 800 ml 480 ml IV Total 100 ml Output Urine Total 700 ml # Voids 9 3 2 # Bowel Movements 1 3 Result Diagram: 02/05/18 1400 02/09/18 0755 Other Results Laboratory Tests Test 02/09/18 07:55 Blood Urea Nitrogen 32 MG/DL Creatinine 1.31 MG/DL Random Glucose 87 MG/DL Calcium Level 8.7 MG/DL Sodium Level 134 MEQ/L Potassium Level 2.8 MEQ/L Chloride Level 97 MEQ/L Carbon Dioxide Level 27.3 MEQ/L Anion Gap 10 MEQ/L Estimat Glomerular Filtration Rate 38 ML/MIN Objective Remarks GENERAL: Patient is 87 yo lying in bed in NAD SKIN: Warm and dry. HEAD: Normocephalic. EYES: No scleral icterus. No injection or drainage. NECK: Supple, trachea midline. No JVD or lymphadenopathy. CARDIOVASCULAR: Regular rate and rhythm without murmurs, gallops, or rubs. RESPIRATORY: Breath sounds equal bilaterally. Diminished at bases GASTROINTESTINAL: Abdomen soft, non-tender, nondistended. MUSCULOSKELETAL: No cyanosis, or edema. Neuro: Awake and alert. A/P Assessment and Plan 1)Resp Insuff 2)Pleural effusions with consolidation 3)CHF 4)Afib 5)HTN 6)Coagulopathy - on Coumadin Plan Continue with oxygen keep sats >92% Bronchodilators( DuoNeb), Incentive Spirometry Continue with abx ( Cefepime, Zithromax) monitor for signs of infections ( fever , WBC) Check sputum cx, strep pneumonia and Legionella urinary Ag Check CXR if effusion is worse then will need US guided thoracentesis and hold Coumadin. Monitor CBC, INR- 2.9 on 02/08 Continue with diuretics- On Lasix 20mg daily and Zaroxolyn 2.5 daily Continue treatment plan. Shannon Han MD Feb 09, 2018 11:37
--- NOTE | 2018-02-09 12:27 | PD.CARD.PN ---
Subjective Subjective Remarks No cardiac complaints Objective Medications Current Medications Medications (Trade) Dose Ordered Sig/Jose A Route Start Time Stop Time Status Last Admin (NS Flush) 2 ml UNSCH PRN IV FLUSH 02/05/18 17:00 (NS Flush) 2 ml BID IV FLUSH 02/05/18 21:00 02/09/18 08:50 (Tylenol) 650 mg Q4H PRN PO 02/05/18 17:00 02/06/18 15:58 (Zofran Inj) 4 mg Q6H PRN IVP 02/05/18 17:00 (Narcan Inj) 0.4 mg UNSCH PRN IV PUSH 02/05/18 17:00 ([place]-Colace) 1 tab BID PO 02/05/18 21:00 02/09/18 08:51 (Milk Of Magnesia Liq) 30 ml Q12H PRN PO 02/05/18 17:00 (Senokot) 17.2 mg Q12H PRN PO 02/05/18 17:00 (Dulcolax Supp) 10 mg DAILY PRN RECTAL 02/05/18 17:00 (Lactulose Liq) 30 ml DAILY PRN PO 02/05/18 17:00 (Synthroid) 75 mcg DAILY@0600 PO 02/06/18 06:00 02/09/18 04:31 (Coumadin) 3 mg DAILY@16 PO 02/06/18 16:00 02/08/18 15:28 (Xanax) 0.5 mg Q6H PRN PO 02/05/18 18:15 02/09/18 04:30 (Elavil) 10 mg HS PO 02/05/18 21:00 02/08/18 21:14 (Lioresal) 5 mg BID PO 02/05/18 21:00 02/09/18 08:51 (Pill Splitter) 1 ea UNSCH PRN OTHER 02/05/18 21:00 (Tylenol) 650 mg Q4H PRN PO 02/06/18 16:30 (Lopressor) 75 mg Q12HR PO 02/06/18 21:00 02/09/18 08:51 (Zaroxolyn) 2.5 mg DAILY PO 02/06/18 18:00 02/09/18 08:51 (Vasotec) 5 mg BID PO 02/07/18 09:00 02/09/18 08:50 Cefepime HCl 1000 mg/Sodium Chloride 100 ml @ 200 mls/hr Q8H IV 02/07/18 20:00 02/09/18 03:47 (Zithromax) 500 mg DAILY PO 02/08/18 09:00 02/09/18 08:51 (Lasix) 20 mg DAILY PO 02/09/18 09:00 02/09/18 08:50 (KCl) 10 meq DAILY PO 02/09/18 09:00 02/09/18 08:51 (Duoneb Neb) 1 ampule Q2HR NEB PRN NEB 02/08/18 13:30 (Duoneb Neb) 1 ampule Q6HR NEB NEB 02/08/18 16:00 02/09/18 08:48 Potassium Chloride 100 ml @ 50 mls/hr Q2H IV 02/09/18 11:00 02/09/18 14:59 Vital Signs / I&O Vital Signs Date Time Temp Pulse Resp B/P (MAP) Pulse Ox O2 Delivery O2 Flow Rate FiO2 02/09/18 10:17 Nasal Cannula 3.00 02/09/18 08:51 94 Nasal Cannula 3.00 02/09/18 08:00 97.9 106 20 142/82 (102) 92 02/09/18 08:00 88 02/09/18 04:00 92 02/09/18 04:00 98.0 89 18 122/70 (87) 92 02/09/18 00:34 96 02/09/18 00:00 98.1 93 18 107/65 (79) 93 02/08/18 21:21 94 Nasal Cannula 3.00 02/08/18 21:15 Nasal Cannula 3.00 02/08/18 20:00 97.8 94 18 115/67 (83) 94 02/08/18 17:02 97 Nasal Cannula 3.00 02/08/18 16:00 100 02/08/18 16:00 98.0 94 20 116/61 (79) 94 I/O 02/08/18 02/08/18 02/08/18 02/09/18 02/09/18 02/09/18 07:00 15:00 23:00 07:00 15:00 23:00 Intake Total 800 ml 100 ml 480 ml Output Total 700 ml Balance 100 ml 100 ml 480 ml Intake Oral 800 ml 480 ml IV Total 100 ml Output Urine Total 700 ml # Voids 9 3 2 # Bowel Movements 1 3 Physical Exam GENERAL: This is a well-nourished, well-developed patient, in no apparent distress. CARDIOVASCULAR: Regular rate and irregular rhythm without murmurs, gallops, or rubs. RESPIRATORY: Clear to auscultation. Breath sounds equal bilaterally. No wheezes , rales, or rhonchi. GASTROINTESTINAL: Abdomen soft, non-tender, nondistended. Normal, active bowel sounds MUSCULOSKELETAL: Extremities without clubbing, cyanosis, or edema. NEURO: Alert & Oriented x4 to person, place, time, situation. Moves all ext x4 Laboratory Laboratory Tests Test 02/09/18 07:55 Blood Urea Nitrogen 32 MG/DL Creatinine 1.31 MG/DL Random Glucose 87 MG/DL Calcium Level 8.7 MG/DL Sodium Level 134 MEQ/L Potassium Level 2.8 MEQ/L Chloride Level 97 MEQ/L Carbon Dioxide Level 27.3 MEQ/L Anion Gap 10 MEQ/L Estimat Glomerular Filtration Rate 38 ML/MIN Imaging Last Impressions Barium Swallow X-Ray 02/08/18 Signed Impressions: Service Date/Time: Thursday, February 08, 2018 08:15 - CONCLUSION: 1. Presbyesophagus with significant dysmotility. 2. No evidence of obstructing or constricting lesions. 3. Small hiatal hernia. Eligio Barth MD Chest CT 02/07/18 1950 Signed Impressions: Service Date/Time: Wednesday, February 07, 2018 20:45 - CONCLUSION: Large bilateral pleural effusions, left greater than right, left lower lobe consolidation, and patchy areas of consolidative infiltrate in the posterior right lower and left midlung. Miguel Grace MD Modified Barium Swallow 02/06/18 0000 Signed Impressions: Service Date/Time: January 10:28 - CONCLUSION: 1. 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 2. Otherwise, grossly unremarkable modified swallow. Isaiah Rowan MD Chest X-Ray 02/06/18 0000 Signed Impressions: Service Date/Time: January 19:38 - CONCLUSION: Prominent consolidation left mid and lower lung with probable associated pleural effusion. Hazy opacities in the lower right lung suggest either non-consolidative infiltrate or pleural effusion. Miguel Grace MD Assessment and Plan Problem List: (1) CHF (congestive heart failure) ICD Codes: I50.9 - Heart failure, unspecified Status: Acute Plan: Compensated, on oral diuretics; K+ being replaced; normal LVEF by echo (2) Chronic atrial fibrillation ICD Codes: I48.2 - Chronic atrial fibrillation Status: Chronic Plan: Stable, chronic atrial fib. HR's acceptable. INR therapeutic. Continue metoprolol, warfarin. (3) Pleural effusion, bilateral ICD Codes: J90 - Pleural effusion, not elsewhere classified Status: Acute Plan: may need thoracentesis; do not feel the pt would benefit from further IV diuretics at this time (4) Hypokalemia due to loss of potassium ICD Codes: E87.6 - Hypokalemia Status: Acute Plan: currently being replaced. Problem Qualifiers (1) CHF (congestive heart failure): Qualified Codes: I50.9 - Heart failure, unspecified Figueroa Qiu MD Feb 09, 2018 12:27
--- NOTE | 2018-02-09 12:35 | HHI.GIFU ---
Subjective Remarks alert NAd Had difficulty w Janet olivarez Grandson at bedside Objective Vitals I&O Vital Signs Date Time Temp Pulse Resp B/P (MAP) Pulse Ox O2 Delivery O2 Flow Rate FiO2 02/09/18 10:17 Nasal Cannula 3.00 02/09/18 08:51 94 Nasal Cannula 3.00 02/09/18 08:00 97.9 106 20 142/82 (102) 92 02/09/18 08:00 88 02/09/18 04:00 92 02/09/18 04:00 98.0 89 18 122/70 (87) 92 02/09/18 00:34 96 02/09/18 00:00 98.1 93 18 107/65 (79) 93 02/08/18 21:21 94 Nasal Cannula 3.00 02/08/18 21:15 Nasal Cannula 3.00 02/08/18 20:00 97.8 94 18 115/67 (83) 94 02/08/18 17:02 97 Nasal Cannula 3.00 02/08/18 16:00 100 02/08/18 16:00 98.0 94 20 116/61 (79) 94 I/O 02/08/18 02/08/18 02/08/18 02/09/18 02/09/18 02/09/18 07:00 15:00 23:00 07:00 15:00 23:00 Intake Total 800 ml 100 ml 480 ml Output Total 700 ml Balance 100 ml 100 ml 480 ml Intake Oral 800 ml 480 ml IV Total 100 ml Output Urine Total 700 ml # Voids 9 3 2 # Bowel Movements 1 3 Laboratory Laboratory Tests Test 02/09/18 07:55 Blood Urea Nitrogen 32 Creatinine 1.31 Random Glucose 87 Calcium Level 8.7 Sodium Level 134 Potassium Level 2.8 Chloride Level 97 Carbon Dioxide Level 27.3 Anion Gap 10 Estimat Glomerular Filtration Rate 38 Imaging Last 48 hours Impressions Barium Swallow X-Ray 02/08/18 0000 Signed Impressions: Service Date/Time: Thursday, February 08, 2018 08:15 - CONCLUSION: 1. Presbyesophagus with significant dysmotility. 2. No evidence of obstructing or constricting lesions. 3. Small hiatal hernia. Eligio Barth MD Chest CT 02/07/18 1950 Signed Impressions: Service Date/Time: Wednesday, February 07, 2018 20:45 - CONCLUSION: Large bilateral pleural effusions, left greater than right, left lower lobe consolidation, and patchy areas of consolidative infiltrate in the posterior right lower and left midlung. Miguel Grace MD Physical Exam CHEST: Chest crackles at bases CARDIAC: Regular rate and rhythm with no murmur gallop or rubs. ABDOMEN: Soft, nondistended, nontender; no hepatosplenomegaly; bowel sounds are present in all four quadrants. EXTREMITIES: No clubbing, cyanosis, or edema. pain right shoulder SKIN: Normal; no rash; no jaundice. Assessment and Plan Assessment: (1) Dysphagia ICD Codes: R13.10 - Dysphagia, unspecified (2) Vomiting ICD Codes: R11.10 - Vomiting, unspecified Status: Acute Plan Continue present therapy w elavil and baclofen discussed case w grandson if feeding not possible may need to consider peg tube Problem Qualifiers (1) Vomiting: Qualified Codes: R11.10 - Vomiting, unspecified Rah Banks MD Feb 09, 2018 12:35
[2018-02-09] MEDS: POTASSIUM CHLOR 20 MEQ PREMIX 100 ML IV SCH ×2 (14:16→16:24)
[2018-02-09] MEDS: WARFARIN SOD 3 MG TAB PO SCH (16:24)
[2018-02-09 16:58] LABS: BASOPHIL # 0.1 TH/MM3 (0-0.2); BASOPHIL % 0.5 % (0.0-2.0); EOSINOPHIL # 0.1 TH/MM3 (0-0.4); EOSINOPHIL % 0.8 % (0.0-4.0); HEMATOCRIT 39.5 % (35.0-46.0); HEMOGLOBIN 13.7 GM/DL (11.6-15.3); LYMPH % 7.2 % (9.0-44.0); LYMPHOCYTE # 0.9 TH/MM3 (1.0-4.8); MEAN CELL VOLUME 82.9 FL (80.0-100.0); MEAN CORPUSCULAR HEMOGLOBIN 28.6 PG (27.0-34.0); MEAN CORPUSCULAR HGB CONC 34.5 % (32.0-36.0); MEAN PLATELET VOLUME 8.7 FL (7.0-11.0); MONO % 10.2 % (0.0-8.0); MONOCYTE # 1.3 TH/MM3 (0-0.9); NEUT % 81.3 % (16.0-70.0); PLATELET COUNT 282 TH/MM3 (150-450); RED BLOOD COUNT 4.77 MIL/MM3 (4.00-5.30); RED CELL DISTRIBUTION WIDTH 16.5 % (11.6-17.2); WHITE BLOOD COUNT 12.3 TH/MM3 (4.0-11.0)
[2018-02-09 17:27] LABS: ALBUMIN 2.8 GM/DL (3.4-5.0); ALT (GPT) 24 U/L (10-53); AST (GOT) 29 U/L (15-37); BICARBONATE 28.4 MEQ/L (21.0-32.0); BLOOD UREA NITROGEN 31 MG/DL (7-18); CALCIUM 8.6 MG/DL (8.5-10.1); CHLORIDE 97 MEQ/L (98-107); CREATININE 1.21 MG/DL (0.50-1.00); GLOMERULAR FILTRATION RATE 42 ML/MIN (>89); GLUCOSE,RANDOM 88 MG/DL (74-106); SODIUM (NA) 134 MEQ/L (136-145)
[2018-02-09 17:29] LABS: ALKALINE PHOSPHATASE 114 U/L (45-117); TOTAL BILIRUBIN ADULT 1.6 MG/DL (0.2-1.0)
[2018-02-09] MEDS: AMITRIPTYLINE HCL 10 MG TAB PO SCH (20:25)
[2018-02-10] VITALS (10 sets, daily range): BP systolic 91–121; BP diastolic 51–69; PULSE 66–87; RESP 16–22; TEMP 97.3–97.5; O2SAT 96–100
[2018-02-10] MEDS: RESP: ALBUTEROL 2.5 MG/IPRATROPIUM 0.5 MG NEB (SCH) NEB ×4 (04:00→20:41)
[2018-02-10] MEDS: CEFEPIME INJ 1,000 MG in SODIUM CHLORIDE 0.9% INJ 100 ML IV SCH ×3 (05:56→21:18)
[2018-02-10] MEDS: LEVOTHYROXINE SODIUM 75 MCG TAB PO SCH (05:56)
--- NOTE | 2018-02-10 06:24 | RADRPT ---
EXAM DATE/TIME: 02/10/2018 05:24 [facility] COMPARISON: CHEST SINGLE AP, February 06, 2018, 19:38. INDICATIONS : Shortness of breath. Evaluate for effusion. MEDICAL HISTORY : Cardiovascular disease. Hypertension. Carcinoma, breast. SURGICAL HISTORY : Shoulder replacement. ENCOUNTER: Subsequent ACUITY: 4 - 6 days PAIN SCORE: 0/10 LOCATION: Bilateral chest FINDINGS: Single portable frontal view the chest shows mild cardiomegaly. There is been improvement in the pulm onary consolidations. Consolidation does remain within the left base. No discrete effusions. Left hum eral head prosthesis. CONCLUSION: Improvement in the bilateral pulmonary infiltrates and effusions. Mild consolidative changes remain i n the left base. Miguel Corcoran Jr., MD on February 10, 2018 at 6:21 Board Certified Radiologist. This report was verified electronically.
--- NOTE | 2018-02-10 08:59 | HHI.PR ---
Subjective Remarks Very lethargic this am. Nurse voiced she was agitated last night and was medicated. Breathing better on NC Objective Vital Signs Date Time Temp Pulse Resp B/P (MAP) Pulse Ox O2 Delivery O2 Flow Rate FiO2 02/10/18 08:52 97.3 79 16 100/59 (73) 99 02/10/18 08:36 98 Nasal Cannula 3.00 02/10/18 07:54 82 02/10/18 05:41 97.5 75 18 121/69 (86) 100 02/10/18 04:06 84 02/09/18 23:49 Nasal Cannula 3.00 02/09/18 23:49 97.9 94 18 139/80 (99) 97 02/09/18 23:47 87 02/09/18 22:24 99 02/09/18 21:06 94 Nasal Cannula 3.00 02/09/18 20:00 97.9 98 18 105/70 (82) 93 02/09/18 20:00 Nasal Cannula 3.00 02/09/18 16:00 92 02/09/18 16:00 97.5 99 20 107/74 (85) 93 02/09/18 12:00 97.2 91 20 120/82 (95) 93 02/09/18 10:17 Nasal Cannula 3.00 I/O 02/09/18 02/09/18 02/09/18 02/10/18 02/10/18 02/10/18 07:00 15:00 23:00 07:00 15:00 23:00 Intake Total 100 ml 240 ml Balance 100 ml 240 ml Intake Oral 240 ml IV Total 100 ml # Voids 2 2 1 # Bowel Movements 1 1 Result Diagram: 02/09/18 1610 02/09/18 1610 Imaging Last 72 hours Impressions Chest X-Ray 02/10/18 0600 Signed Impressions: Service Date/Time: Saturday, February 10, 2018 05:24 - CONCLUSION: Improvement in the bilateral pulmonary infiltrates and effusions. Mild consolidative changes remain in the left base. Miguel Corcoran Jr., MD Barium Swallow X-Ray 02/08/18 0000 Signed Impressions: Service Date/Time: Thursday, February 08, 2018 08:15 - CONCLUSION: 1. Presbyesophagus with significant dysmotility. 2. No evidence of obstructing or constricting lesions. 3. Small hiatal hernia. Eligio Barth MD Chest CT 02/07/181949 Signed Impressions: Service Date/Time: Wednesday, February 07, 2018 20:45 - CONCLUSION: Large bilateral pleural effusions, left greater than right, left lower lobe consolidation, and patchy areas of consolidative infiltrate in the posterior right lower and left midlung. Miguel Grace MD Other Results GENERAL: This is a well-nourished, well-developed patient, lethargic SKIN: No rashes, ecchymoses or lesions. Cool and dry. HEAD: Atraumatic. Normocephalic. No temporal or scalp tenderness. EYES: Pupils equal round and reactive. Extraocular motions intact. No scleral icterus. No injection or drainage. ENT: Nose without bleeding, purulent drainage NECK: Trachea midline. No JVD or lymphadenopathy. CARDIOVASCULAR: regular rate irregular rhythm RESPIRATORY:. Breath sounds equal bilaterally GASTROINTESTINAL: Abdomen soft, non-tender, nondistended. MUSCULOSKELETAL: Extremities without clubbing, cyanosis, or edema. No joint tenderness, effusion, or edema noted. NEUROLOGICAL:Lethargic, but arousable Medications and IVs Current Medications Medications (Trade) Dose Ordered Sig/Jose A Route Start Time Stop Time Status Last Admin (NS Flush) 2 ml UNSCH PRN IV FLUSH 02/05/18 17:00 (NS Flush) 2 ml BID IV FLUSH 02/05/18 21:00 02/09/18 20:26 (Tylenol) 650 mg Q4H PRN PO 02/05/18 17:00 02/06/18 15:58 (Zofran Inj) 4 mg Q6H PRN IVP 02/05/18 17:00 (Narcan Inj) 0.4 mg UNSCH PRN IV PUSH 02/05/18 17:00 ([place]-Colace) 1 tab BID PO 02/05/18 21:00 02/09/18 20:25 (Milk Of Magnesia Liq) 30 ml Q12H PRN PO 02/05/18 17:00 (Senokot) 17.2 mg Q12H PRN PO 02/05/18 17:00 (Dulcolax Supp) 10 mg DAILY PRN RECTAL 02/05/18 17:00 (Lactulose Liq) 30 ml DAILY PRN PO 02/05/18 17:00 (Synthroid) 75 mcg DAILY@0600 PO 02/06/18 06:00 02/10/18 05:56 (Coumadin) 3 mg DAILY@16 PO 02/06/18 16:00 02/09/18 16:24 (Xanax) 0.5 mg Q6H PRN PO 02/05/18 18:15 02/09/18 20:43 (Elavil) 10 mg HS PO 02/05/18 21:00 02/09/18 20:25 (Lioresal) 5 mg BID PO 02/05/18 21:00 02/09/18 20:25 (Pill Splitter) 1 ea UNSCH PRN OTHER 02/05/18 21:00 (Tylenol) 650 mg Q4H PRN PO 02/06/18 16:30 (Lopressor) 75 mg Q12HR PO 02/06/18 21:00 02/09/18 20:25 (Vasotec) 5 mg BID PO 02/07/18 09:00 02/09/18 20:25 Cefepime HCl 1000 mg/Sodium Chloride 100 ml @ 200 mls/hr Q8H IV 02/07/18 20:00 02/10/18 05:56 (Zithromax) 500 mg DAILY PO 02/08/18 09:00 02/09/18 08:51 (Lasix) 20 mg DAILY PO 02/09/18 09:00 02/09/18 08:50 (KCl) 10 meq DAILY PO 02/09/18 09:00 02/09/18 08:51 (Duoneb Neb) 1 ampule Q2HR NEB PRN NEB 02/08/18 13:30 (Duoneb Neb) 1 ampule Q6HR NEB NEB 02/08/18 16:00 02/09/18 21:04 Assessment and Plan Problem List: (1) CHF (congestive heart failure) ICD Codes: I50.9 - Heart failure, unspecified Status: Acute Plan: Follow cardiology recommendation. Lasix, Metoprolol, enalapril. (2) Pleural effusion, bilateral ICD Codes: J90 - Pleural effusion, not elsewhere classified Status: Acute Plan: Pulmonary following, CXR today show some improvement, LLL consolidation remains. (3) Afib ICD Codes: I48.91 - Unspecified atrial fibrillation Status: Chronic Plan: Rate controlled, on Coumadin (4) Dysphagia ICD Codes: R13.10 - Dysphagia, unspecified Plan: Follow Gi Recommendations, Nurse reports no vomiting (5) HTN (hypertension) ICD Codes: I10 - Essential (primary) hypertension Status: Chronic Plan: Monitor BP cont home medications. Assessment and Plan Very Lethargic this am, will d/c xanax. Discharge Planning Rehab at D/C Problem Qualifiers (1) CHF (congestive heart failure): Qualified Codes: I50.9 - Heart failure, unspecified Adrienne Lee Feb 10, 2018 08:59
[2018-02-10] MEDS: ENALAPRIL MALEATE 5 MG TAB PO SCH ×2 (09:00→21:18)
[2018-02-10] MEDS: SODIUM CHLORIDE 0.9% FLUSH 10 ML FLUSH IV FLUSH SCH ×2 (09:19→21:20)
[2018-02-10] MEDS: FUROSEMIDE 20 MG TAB PO SCH (09:23)
[2018-02-10] MEDS: AZITHROMYCIN 250 MG TAB PO SCH (09:23)
[2018-02-10] MEDS: DOCUSATE SODIUM 50 MG/SENNA 8.6 MG TAB PO SCH ×2 (09:23→21:19)
[2018-02-10] MEDS: METOPROLOL TARTRATE 50 MG TAB PO SCH ×2 (09:24→21:18)
[2018-02-10] MEDS: POTASSIUM CHLORIDE 10 MEQ CAP PO SCH (09:24)
[2018-02-10] MEDS: BACLOFEN 10 MG TAB PO SCH ×2 (09:25→21:18)
--- NOTE | 2018-02-10 09:26 | PD.CARD.PN ---
Subjective Subjective Remarks pt more confused/somnolent this am; had xanax apparently Objective Medications Current Medications Medications (Trade) Dose Ordered Sig/Jose A Route Start Time Stop Time Status Last Admin (NS Flush) 2 ml UNSCH PRN IV FLUSH 02/05/18 17:00 (NS Flush) 2 ml BID IV FLUSH 02/05/18 21:00 02/09/18 20:26 (Tylenol) 650 mg Q4H PRN PO 02/05/18 17:00 02/06/18 15:58 (Zofran Inj) 4 mg Q6H PRN IVP 02/05/18 17:00 (Narcan Inj) 0.4 mg UNSCH PRN IV PUSH 02/05/18 17:00 ([place]-Colace) 1 tab BID PO 02/05/18 21:00 02/09/18 20:25 (Milk Of Magnesia Liq) 30 ml Q12H PRN PO 02/05/18 17:00 (Senokot) 17.2 mg Q12H PRN PO 02/05/18 17:00 (Dulcolax Supp) 10 mg DAILY PRN RECTAL 02/05/18 17:00 (Lactulose Liq) 30 ml DAILY PRN PO 02/05/18 17:00 (Synthroid) 75 mcg DAILY@0600 PO 02/06/18 06:00 02/10/18 05:56 (Coumadin) 3 mg DAILY@16 PO 02/06/18 16:00 02/09/18 16:24 (Xanax) 0.5 mg Q6H PRN PO 02/05/18 18:15 02/09/18 20:43 (Elavil) 10 mg HS PO 02/05/18 21:00 02/09/18 20:25 (Lioresal) 5 mg BID PO 02/05/18 21:00 02/09/18 20:25 (Pill Splitter) 1 ea UNSCH PRN OTHER 02/05/18 21:00 (Tylenol) 650 mg Q4H PRN PO 02/06/18 16:30 (Lopressor) 75 mg Q12HR PO 02/06/18 21:00 02/09/18 20:25 (Vasotec) 5 mg BID PO 02/07/18 09:00 02/09/18 20:25 Cefepime HCl 1000 mg/Sodium Chloride 100 ml @ 200 mls/hr Q8H IV 02/07/18 20:00 02/10/18 05:56 (Zithromax) 500 mg DAILY PO 02/08/18 09:00 02/09/18 08:51 (Lasix) 20 mg DAILY PO 02/09/18 09:00 02/09/18 08:50 (KCl) 10 meq DAILY PO 02/09/18 09:00 02/09/18 08:51 (Duoneb Neb) 1 ampule Q2HR NEB PRN NEB 02/08/18 13:30 (Duoneb Neb) 1 ampule Q6HR NEB NEB 02/08/18 16:00 02/09/18 21:04 Vital Signs / I&O Vital Signs Date Time Temp Pulse Resp B/P (MAP) Pulse Ox O2 Delivery O2 Flow Rate FiO2 02/10/18 08:52 97.3 79 16 100/59 (73) 99 02/10/18 08:36 98 Nasal Cannula 3.00 02/10/18 07:54 82 02/10/18 05:41 97.5 75 18 121/69 (86) 100 02/10/18 04:06 84 02/09/18 23:49 Nasal Cannula 3.00 02/09/18 23:49 97.9 94 18 139/80 (99) 97 02/09/18 23:47 87 02/09/18 22:24 99 02/09/18 21:06 94 Nasal Cannula 3.00 02/09/18 20:00 97.9 98 18 105/70 (82) 93 02/09/18 20:00 Nasal Cannula 3.00 02/09/18 16:00 92 02/09/18 16:00 97.5 99 20 107/74 (85) 93 02/09/18 12:00 97.2 91 20 120/82 (95) 93 02/09/18 10:17 Nasal Cannula 3.00 I/O 02/09/18 02/09/18 02/09/18 02/10/18 02/10/18 02/10/18 07:00 15:00 23:00 07:00 15:00 23:00 Intake Total 100 ml 240 ml Balance 100 ml 240 ml Intake Oral 240 ml IV Total 100 ml # Voids 2 2 1 # Bowel Movements 1 1 Physical Exam GENERAL: somnolent/confused CARDIOVASCULAR: Regular rate and irregular rhythm without murmurs, gallops, or rubs. RESPIRATORY: Clear to auscultation. Breath sounds equal bilaterally. No wheezes , rales, or rhonchi. GASTROINTESTINAL: Abdomen soft, non-tender, nondistended. Normal, active bowel sounds MUSCULOSKELETAL: Extremities without clubbing, cyanosis, or edema. NEURO: not oriented Laboratory Laboratory Tests Test 02/09/18 16:10 White Blood Count 12.3 TH/MM3 Red Blood Count 4.77 MIL/MM3 Hemoglobin 13.7 GM/DL Hematocrit 39.5 % Mean Corpuscular Volume 82.9 FL Mean Corpuscular Hemoglobin 28.6 PG Mean Corpuscular Hemoglobin Concent 34.5 % Red Cell Distribution Width 16.5 % Platelet Count 282 TH/MM3 Mean Platelet Volume 8.7 FL Neutrophils (%) (Auto) 81.3 % Lymphocytes (%) (Auto) 7.2 % Monocytes (%) (Auto) 10.2 % Eosinophils (%) (Auto) 0.8 % Basophils (%) (Auto) 0.5 % Neutrophils # (Auto) 10.0 TH/MM3 Lymphocytes # (Auto) 0.9 TH/MM3 Monocytes # (Auto) 1.3 TH/MM3 Eosinophils # (Auto) 0.1 TH/MM3 Basophils # (Auto) 0.1 TH/MM3 CBC Comment DIFF FINAL Differential Comment Blood Urea Nitrogen 31 MG/DL Creatinine 1.21 MG/DL Random Glucose 88 MG/DL Total Protein 7.0 GM/DL Albumin 2.8 GM/DL Calcium Level 8.6 MG/DL Alkaline Phosphatase 114 U/L Aspartate Amino Transf (AST/SGOT) 29 U/L Alanine Aminotransferase (ALT/SGPT) 24 U/L Total Bilirubin 1.6 MG/DL Sodium Level 134 MEQ/L Potassium Level 3.5 MEQ/L Chloride Level 97 MEQ/L Carbon Dioxide Level 28.4 MEQ/L Anion Gap 9 MEQ/L Estimat Glomerular Filtration Rate 42 ML/MIN Imaging Last 24 hours Impressions Chest X-Ray 02/10/18 0600 Signed Impressions: Service Date/Time: Saturday, February 10, 2018 05:24 - CONCLUSION: Improvement in the bilateral pulmonary infiltrates and effusions. Mild consolidative changes remain in the left base. Miguel Corcoran Jr., MD Assessment and Plan Problem List: (1) CHF (congestive heart failure) ICD Codes: I50.9 - Heart failure, unspecified Status: Acute Plan: Compensated, on oral diuretics; K+ being replaced; normal LVEF by echo (2) Chronic atrial fibrillation ICD Codes: I48.2 - Chronic atrial fibrillation Status: Chronic Plan: Stable, chronic atrial fib. HR's acceptable. INR therapeutic. Continue metoprolol, warfarin. (3) Pleural effusion, bilateral ICD Codes: J90 - Pleural effusion, not elsewhere classified Status: Acute Plan: may need thoracentesis; do not feel the pt would benefit from further IV diuretics at this time (4) Hypokalemia due to loss of potassium ICD Codes: E87.6 - Hypokalemia Status: Acute Plan: currently being replaced; improved (5) Confusion and disorientation ICD Codes: F99 - Mental disorder, not otherwise specified Plan: will defer to medical team Assessment and Plan will sign off at this point, pls call with questions. Problem Qualifiers (1) CHF (congestive heart failure): Qualified Codes: I50.9 - Heart failure, unspecified Figueroa Qiu MD Feb 10, 2018 09:26
[2018-02-10 13:03] LABS: AUTOMATED NEUTROPHIL # 6.4 TH/MM3 (1.8-7.7); BASOPHIL % 0.5 % (0.0-2.0); EOSINOPHIL # 0.2 TH/MM3 (0-0.4); EOSINOPHIL % 2.4 % (0.0-4.0); HEMATOCRIT 44.8 % (35.0-46.0); HEMOGLOBIN 14.7 GM/DL (11.6-15.3); LYMPH % 8.8 % (9.0-44.0); LYMPHOCYTE # 0.7 TH/MM3 (1.0-4.8); MEAN CELL VOLUME 85.8 FL (80.0-100.0); MEAN CORPUSCULAR HEMOGLOBIN 28.2 PG (27.0-34.0); MEAN CORPUSCULAR HGB CONC 32.9 % (32.0-36.0); MONO % 8.7 % (0.0-8.0); MONOCYTE # 0.7 TH/MM3 (0-0.9); NEUT % 79.6 % (16.0-70.0); PLATELET COUNT 271 TH/MM3 (150-450); RED BLOOD COUNT 5.22 MIL/MM3 (4.00-5.30); RED CELL DISTRIBUTION WIDTH 16.7 % (11.6-17.2)
[2018-02-10 13:12] LABS: INTERNATIONAL NORMALIZED RATIO 5.7 RATIO; PROTHROMBIN TIME - PATIENT 57.5 SEC (9.8-11.6)
[2018-02-10 13:19] LABS: BICARBONATE 29.1 MEQ/L (21.0-32.0); CALCIUM 8.9 MG/DL (8.5-10.1); CREATININE 1.27 MG/DL (0.50-1.00)
[2018-02-10] MEDS ORDERED: POTASSIUM CHLORIDE 10 MEQ CONTROLLED RELEASE TAB PO ONE (14:45)
--- NOTE | 2018-02-10 19:19 | HHI.PR ---
Subjective Remarks Feels better. On O2 4 L. Good output. CXR is improved. Objective Vital Signs Date Time Temp Pulse Resp B/P (MAP) Pulse Ox O2 Delivery O2 Flow Rate FiO2 02/10/18 18:23 Nasal Cannula 3.00 02/10/18 16:36 97.3 66 20 111/59 (76) 97 02/10/18 13:14 97.3 87 20 91/51 (64) 98 02/10/18 11:54 81 02/10/18 08:52 97.3 79 16 100/59 (73) 99 02/10/18 08:36 98 Nasal Cannula 3.00 02/10/18 08:00 Nasal Cannula 3.00 02/10/18 07:54 82 02/10/18 05:41 97.5 75 18 121/69 (86) 100 02/10/18 04:06 84 02/09/18 23:49 Nasal Cannula 3.00 02/09/18 23:49 97.9 94 18 139/80 (99) 97 02/09/18 23:47 87 02/09/18 22:24 99 02/09/18 21:06 94 Nasal Cannula 3.00 02/09/18 20:00 97.9 98 18 105/70 (82) 93 02/09/18 20:00 Nasal Cannula 3.00 I/O 02/09/18 02/09/18 02/09/18 02/10/18 02/10/18 02/10/18 06:59 14:59 22:59 06:59 14:59 22:59 Intake Total 100 ml 240 ml 100 ml Balance 100 ml 240 ml 100 ml Intake Oral 240 ml IV Total 100 ml 100 ml # Voids 2 2 1 1 1 # Bowel Movements 1 1 Result Diagram: 02/10/18 1230 02/10/18 1230 Objective Remarks GENERAL: This is an elderly averagely built white female who is anxious and tachypneic. HEENT: Head normocephalic. Pupils are reactive and equal. Tongue is moist. Throat is injected. Ears - no inflammation. NECK: No bruits, mild venous distention while lying flat. Trachea midline. CHEST: Distant breath sounds with occasional wheezes over both lung katz with a few bibasilar crackles, more on the left side. HEART: Sounds are irregular, S1 and S2, with no definite murmur or S3. ABDOMEN: Soft, protuberant. No masses, no organomegaly or tenderness. The bowel sounds are active. EXTREMITIES: No clubbing, no edema. Peripheral pulses are diminished. NEUROLOGIC: Reflexes are 1+ with no gross motor deficits. Cranial nerves are grossly intact. SKIN: No lesions are observed. Assessment and Plan Assessment and Plan IMPRESSION: 1. Basilar pneumonia with hypoxemia. 2. Congestive heart failure with atrial fibrillation and atherosclerotic heart disease. 3. Dysphagia and probable aspiration. 4. Essential hypertension. 5. History of transient ischemic attack. 6. History of breast cancer. PLan : 1. Continue antibiotics as ordered.D/C Zithromax 2. Nebs qid Duoneb 3. O2 at 3 L. 4. IS at Bedside qid 5. Swallow Evaluation. 6. Continue lasix 20 mg daily Gage Coleman MD Feb 10, 2018 19:19
[2018-02-10] MEDS: AMITRIPTYLINE HCL 10 MG TAB PO SCH (21:18)
[2018-02-11] VITALS (12 sets, daily range): BP systolic 103–141; BP diastolic 55–85; PULSE 86–103; RESP 18–24; TEMP 97.6–99.2; O2SAT 94–99
[2018-02-11] MEDS: ALPRAZolam 0.5 MG TAB PO PRN ×3 (02:24→21:14)
[2018-02-11] MEDS: RESP: ALBUTEROL 2.5 MG/IPRATROPIUM 0.5 MG NEB (SCH) NEB ×4 (04:12→21:29)
[2018-02-11] MEDS: CEFEPIME INJ 1,000 MG in SODIUM CHLORIDE 0.9% INJ 100 ML IV SCH ×2 (04:56→11:36)
[2018-02-11] MEDS: LEVOTHYROXINE SODIUM 75 MCG TAB PO SCH (04:57)
[2018-02-11] MEDS: SODIUM CHLORIDE 0.9% FLUSH 10 ML FLUSH IV FLUSH SCH ×2 (07:29→21:17)
--- NOTE | 2018-02-11 07:39 | PD.CARD.PN ---
Subjective Subjective Remarks -confused, no CV complaints Objective Medications Current Medications Medications (Trade) Dose Ordered Sig/Jose A Route Start Time Stop Time Status Last Admin (NS Flush) 2 ml UNSCH PRN IV FLUSH 02/05/18 17:00 (NS Flush) 2 ml BID IV FLUSH 02/05/18 21:00 02/11/18 07:29 (Tylenol) 650 mg Q4H PRN PO 02/05/18 17:00 02/06/18 15:58 (Zofran Inj) 4 mg Q6H PRN IVP 02/05/18 17:00 (Narcan Inj) 0.4 mg UNSCH PRN IV PUSH 02/05/18 17:00 ([place]-Colace) 1 tab BID PO 02/05/18 21:00 02/10/18 21:19 (Milk Of Magnesia Liq) 30 ml Q12H PRN PO 02/05/18 17:00 (Senokot) 17.2 mg Q12H PRN PO 02/05/18 17:00 (Dulcolax Supp) 10 mg DAILY PRN RECTAL 02/05/18 17:00 (Lactulose Liq) 30 ml DAILY PRN PO 02/05/18 17:00 (Synthroid) 75 mcg DAILY@0600 PO 02/06/18 06:00 02/10/18 05:56 (Coumadin) 3 mg DAILY@16 PO 02/06/18 16:00 Future Hold 02/09/18 16:24 (Xanax) 0.5 mg Q6H PRN PO 02/05/18 18:15 Future hold 02/11/18 02:24 (Elavil) 10 mg HS PO 02/05/18 21:00 02/10/18 21:18 (Lioresal) 5 mg BID PO 02/05/18 21:00 02/10/18 21:18 (Pill Splitter) 1 ea UNSCH PRN OTHER 02/05/18 21:00 (Tylenol) 650 mg Q4H PRN PO 02/06/18 16:30 (Lopressor) 75 mg Q12HR PO 02/06/18 21:00 02/10/18 21:18 (Vasotec) 5 mg BID PO 02/07/18 09:00 02/10/18 21:18 Cefepime HCl 1000 mg/Sodium Chloride 100 ml @ 200 mls/hr Q8H IV 02/07/18 20:00 02/11/18 04:56 (Lasix) 20 mg DAILY PO 02/09/18 09:00 02/10/18 09:23 (Duoneb Neb) 1 ampule Q2HR NEB PRN NEB 02/08/18 13:30 (Duoneb Neb) 1 ampule Q6HR NEB NEB 02/08/18 16:00 02/11/18 04:12 (KCl) 10 meq BID PO 02/11/18 09:00 03/01/18 08:59 Vital Signs / I&O Vital Signs Date Time Temp Pulse Resp B/P (MAP) Pulse Ox O2 Delivery O2 Flow Rate FiO2 02/11/18 04:12 98 Nasal Cannula 3.00 02/11/18 04:07 Nasal Cannula 3.00 02/11/18 04:00 98.2 91 22 107/65 (79) 96 02/11/18 04:00 93 02/11/18 00:00 98.0 103 20 103/55 (71) 02/11/18 00:00 100 02/10/18 23:49 Nasal Cannula 3.00 02/10/18 20:41 97 Nasal Cannula 3.00 02/10/18 20:00 Nasal Cannula 3.00 02/10/18 20:00 97.5 87 22 112/56 (74) 96 02/10/18 20:00 83 02/10/18 18:23 Nasal Cannula 3.00 02/10/18 16:36 97.3 66 20 111/59 (76) 97 02/10/18 13:14 97.3 87 20 91/51 (64) 98 02/10/18 11:54 81 02/10/18 08:52 97.3 79 16 100/59 (73) 99 02/10/18 08:36 98 Nasal Cannula 3.00 02/10/18 08:00 Nasal Cannula 3.00 02/10/18 07:54 82 I/O 02/10/18 02/10/18 02/10/18 02/11/18 02/11/18 02/11/18 07:00 15:00 23:00 07:00 15:00 23:00 Intake Total 100 ml 100 ml Balance 100 ml 100 ml IV Total 100 ml 100 ml # Voids 1 1 2 1 # Bowel Movements 1 0 2 Physical Exam GENERAL: Well developed, well nourished. confused, would not answer questions HEENT: Jugular venous pressure is normal. CHEST: Lungs clear to auscultation bilaterally. Unlabored respiratory effort. CARDIAC: irregular rate and rhythm without S3, S4, or murmur. ABDOMEN: Soft, nontender, no hepatosplenomegaly. Bowel sounds present. EXTREMITIES: No clubbing, cyanosis, or edema. Laboratory Laboratory Tests Test 02/10/18 12:30 White Blood Count 8.0 TH/MM3 Red Blood Count 5.22 MIL/MM3 Hemoglobin 14.7 GM/DL Hematocrit 44.8 % Mean Corpuscular Volume 85.8 FL Mean Corpuscular Hemoglobin 28.2 PG Mean Corpuscular Hemoglobin Concent 32.9 % Red Cell Distribution Width 16.7 % Platelet Count 271 TH/MM3 Mean Platelet Volume 8.0 FL Neutrophils (%) (Auto) 79.6 % Lymphocytes (%) (Auto) 8.8 % Monocytes (%) (Auto) 8.7 % Eosinophils (%) (Auto) 2.4 % Basophils (%) (Auto) 0.5 % Neutrophils # (Auto) 6.4 TH/MM3 Lymphocytes # (Auto) 0.7 TH/MM3 Monocytes # (Auto) 0.7 TH/MM3 Eosinophils # (Auto) 0.2 TH/MM3 Basophils # (Auto) 0.0 TH/MM3 CBC Comment DIFF FINAL Differential Comment Hematology Comments Prothrombin Time 57.5 SEC Prothromb Time International Ratio 5.7 RATIO Blood Urea Nitrogen 33 MG/DL Creatinine 1.27 MG/DL Random Glucose 102 MG/DL Calcium Level 8.9 MG/DL Sodium Level 135 MEQ/L Potassium Level 3.3 MEQ/L Chloride Level 98 MEQ/L Carbon Dioxide Level 29.1 MEQ/L Anion Gap 8 MEQ/L Estimat Glomerular Filtration Rate 40 ML/MIN Assessment and Plan Problem List: (1) Wide-complex tachycardia ICD Codes: I47.2 - Ventricular tachycardia Plan: tele most consistent with Rashawn's phenomenon (not VT) -she is a poor revascularization candidate at this time (2) CHF (congestive heart failure) ICD Codes: I50.9 - Heart failure, unspecified Status: Acute Plan: stable (3) Chronic atrial fibrillation ICD Codes: I48.2 - Chronic atrial fibrillation Status: Chronic Plan: Stable, chronic atrial fib. (4) Pleural effusion, bilateral ICD Codes: J90 - Pleural effusion, not elsewhere classified Status: Acute (5) Hypokalemia due to loss of potassium ICD Codes: E87.6 - Hypokalemia Status: Acute (6) Confusion and disorientation ICD Codes: F99 - Mental disorder, not otherwise specified Plan: will defer to medical team Problem Qualifiers (1) CHF (congestive heart failure): Qualified Codes: I50.9 - Heart failure, unspecified Sabra Cheema MD Feb 11, 2018 07:39
[2018-02-11] MEDS: FUROSEMIDE 20 MG TAB PO SCH (08:19)
[2018-02-11] MEDS: DOCUSATE SODIUM 50 MG/SENNA 8.6 MG TAB PO SCH ×2 (08:19→21:17)
[2018-02-11] MEDS: BACLOFEN 10 MG TAB PO SCH ×2 (08:19→21:14)
[2018-02-11] MEDS: METOPROLOL TARTRATE 50 MG TAB PO SCH ×2 (08:19→21:14)
[2018-02-11] MEDS: ENALAPRIL MALEATE 5 MG TAB PO SCH ×2 (08:19→21:14)
[2018-02-11] MEDS: POTASSIUM CHLORIDE 10 MEQ CAP PO SCH ×2 (08:19→21:13)
--- NOTE | 2018-02-11 08:48 | HHI.PR ---
Subjective Remarks Continues to be very confused this am. Objective Vital Signs Date Time Temp Pulse Resp B/P (MAP) Pulse Ox O2 Delivery O2 Flow Rate FiO2 02/11/18 04:12 98 Nasal Cannula 3.00 02/11/18 04:07 Nasal Cannula 3.00 02/11/18 04:00 98.2 91 22 107/65 (79) 96 02/11/18 04:00 93 02/11/18 00:00 98.0 103 20 103/55 (71) 02/11/18 00:00 100 02/10/18 23:49 Nasal Cannula 3.00 02/10/18 20:41 97 Nasal Cannula 3.00 02/10/18 20:00 Nasal Cannula 3.00 02/10/18 20:00 97.5 87 22 112/56 (74) 96 02/10/18 20:00 83 02/10/18 18:23 Nasal Cannula 3.00 02/10/18 16:36 97.3 66 20 111/59 (76) 97 02/10/18 13:14 97.3 87 20 91/51 (64) 98 02/10/18 11:54 81 02/10/18 08:52 97.3 79 16 100/59 (73) 99 I/O 02/10/18 02/10/18 02/10/18 02/11/18 02/11/18 02/11/18 07:00 15:00 23:00 07:00 15:00 23:00 Intake Total 100 ml 100 ml Balance 100 ml 100 ml IV Total 100 ml 100 ml # Voids 1 1 2 1 # Bowel Movements 1 0 2 Result Diagram: 02/10/18 1230 02/10/18 1230 Imaging Last 72 hours Impressions Chest X-Ray 02/10/18 0600 Signed Impressions: Service Date/Time: Saturday, February 10, 2018 05:24 - CONCLUSION: Improvement in the bilateral pulmonary infiltrates and effusions. Mild consolidative changes remain in the left base. Miguel Corcoran Jr., MD Other Results GENERAL: This is a well-nourished, well-developed patient confused SKIN: No rashes, ecchymoses or lesions. Cool and dry. CARDIOVASCULAR: regular rate irregular rhythm RESPIRATORY:. Breath sounds equal bilaterally GASTROINTESTINAL: Abdomen soft, non-tender, nondistended. MS-trace edema NEUROLOGICAL:awake, confused Medications and IVs Medications and IVs Current Medications Medications (Trade) Dose Ordered Sig/Jose A Route Start Time Stop Time Status Last Admin (NS Flush) 2 ml UNSCH PRN IV FLUSH 02/05/18 17:00 (NS Flush) 2 ml BID IV FLUSH 02/05/18 21:00 02/11/18 07:29 (Tylenol) 650 mg Q4H PRN PO 02/05/18 17:00 02/06/18 15:58 (Zofran Inj) 4 mg Q6H PRN IVP 02/05/18 17:00 (Narcan Inj) 0.4 mg UNSCH PRN IV PUSH 02/05/18 17:00 ([place]-Colace) 1 tab BID PO 02/05/18 21:00 02/11/18 08:19 (Milk Of Magnesia Liq) 30 ml Q12H PRN PO 02/05/18 17:00 (Senokot) 17.2 mg Q12H PRN PO 02/05/18 17:00 (Dulcolax Supp) 10 mg DAILY PRN RECTAL 02/05/18 17:00 (Lactulose Liq) 30 ml DAILY PRN PO 02/05/18 17:00 (Synthroid) 75 mcg DAILY@0600 PO 02/06/18 06:00 02/10/18 05:56 (Coumadin) 3 mg DAILY@16 PO 02/06/18 16:00 Future Hold 02/09/18 16:24 (Xanax) 0.5 mg Q6H PRN PO 02/05/18 18:15 Future hold 02/11/18 02:24 (Elavil) 10 mg HS PO 02/05/18 21:00 02/10/18 21:18 (Lioresal) 5 mg BID PO 02/05/18 21:00 02/11/18 08:19 (Pill Splitter) 1 ea UNSCH PRN OTHER 02/05/18 21:00 (Tylenol) 650 mg Q4H PRN PO 02/06/18 16:30 (Lopressor) 75 mg Q12HR PO 02/06/18 21:00 02/11/18 08:19 (Vasotec) 5 mg BID PO 02/07/18 09:00 02/11/18 08:19 Cefepime HCl 1000 mg/Sodium Chloride 100 ml @ 200 mls/hr Q8H IV 02/07/18 20:00 02/11/18 04:56 (Lasix) 20 mg DAILY PO 02/09/18 09:00 02/11/18 08:19 (Duoneb Neb) 1 ampule Q2HR NEB PRN NEB 02/08/18 13:30 (Duoneb Neb) 1 ampule Q6HR NEB NEB 02/08/18 16:00 02/11/18 04:12 (KCl) 10 meq BID PO 02/11/18 09:00 03/01/18 08:59 02/11/18 08:19 Assessment and Plan Problem List: (1) CHF (congestive heart failure) ICD Codes: I50.9 - Heart failure, unspecified Status: Acute Plan: Follow cardiology recommendation. Lasix, Metoprolol, enalapril. (2) Pleural effusion, bilateral ICD Codes: J90 - Pleural effusion, not elsewhere classified Status: Acute Plan: Pulmonary following, CXR today show some improvement, LLL consolidation remains. (3) Afib ICD Codes: I48.91 - Unspecified atrial fibrillation Status: Chronic Plan: Rate controlled, on Coumadin (4) Dysphagia ICD Codes: R13.10 - Dysphagia, unspecified Plan: Follow Gi Recommendations, Nurse reports no vomiting (5) HTN (hypertension) ICD Codes: I10 - Essential (primary) hypertension Status: Chronic Plan: Monitor BP cont home medications. Assessment and Plan Confused this am. Has underlying dementia, but more confused from baseline. Received call last night that patient had run of VT. . Cardiology reconsulted, and determined that it was not actual Vtach. INR today 4.5. Will restart when INR <3.0. Potassium pending, Breathing better on NC 4L.. Will get UA, and check ammonia level for increased confusion. If clear and breathing continues to improve will DC once cleared by Pulmonary. Problem Qualifiers (1) CHF (congestive heart failure): Qualified Codes: I50.9 - Heart failure, unspecified Adrienne Lee Feb 11, 2018 08:48
[2018-02-11 08:50] LABS: AUTOMATED NEUTROPHIL # 5.4 TH/MM3 (1.8-7.7); BASOPHIL # 0.1 TH/MM3 (0-0.2); BASOPHIL % 0.9 % (0.0-2.0); EOSINOPHIL # 0.1 TH/MM3 (0-0.4); EOSINOPHIL % 1.6 % (0.0-4.0); HEMATOCRIT 37.4 % (35.0-46.0); HEMOGLOBIN 13.3 GM/DL (11.6-15.3); LYMPH % 11.3 % (9.0-44.0); LYMPHOCYTE # 0.8 TH/MM3 (1.0-4.8); MEAN CELL VOLUME 83.1 FL (80.0-100.0); MEAN CORPUSCULAR HEMOGLOBIN 29.5 PG (27.0-34.0); MEAN CORPUSCULAR HGB CONC 35.5 % (32.0-36.0); MEAN PLATELET VOLUME 8.2 FL (7.0-11.0); MONO % 10.3 % (0.0-8.0); MONOCYTE # 0.7 TH/MM3 (0-0.9); NEUT % 75.9 % (16.0-70.0); PLATELET COUNT 259 TH/MM3 (150-450); WHITE BLOOD COUNT 7.2 TH/MM3 (4.0-11.0)
[2018-02-11 08:53] LABS: INTERNATIONAL NORMALIZED RATIO 4.5 RATIO; PROTHROMBIN TIME - PATIENT 44.8 SEC (9.8-11.6)
[2018-02-11 09:20] LABS: BICARBONATE 26.8 MEQ/L (21.0-32.0); CALCIUM 9.5 MG/DL (8.5-10.1); CREATININE 1.23 MG/DL (0.50-1.00)
[2018-02-11 12:53] LABS: BICARBONATE 28.7 MEQ/L (21.0-32.0); CALCIUM 9.2 MG/DL (8.5-10.1); CREATININE 1.24 MG/DL (0.50-1.00)
--- NOTE | 2018-02-11 18:21 | HHI.PR ---
Subjective Remarks Confused and crying. On O2 2 L. Keeps O2 off CXR is improved. Objective Vital Signs Date Time Temp Pulse Resp B/P (MAP) Pulse Ox O2 Delivery O2 Flow Rate FiO2 02/11/18 16:00 97.7 97 20 129/85 (100) 98 02/11/18 15:59 92 02/11/18 15:10 94 Nasal Cannula 3.00 02/11/18 12:00 97.6 86 20 141/68 (92) 99 02/11/18 09:32 Nasal Cannula 3.00 02/11/18 09:10 94 Nasal Cannula 3.00 02/11/18 08:00 97.7 92 24 127/81 (96) 96 02/11/18 04:12 98 Nasal Cannula 3.00 02/11/18 04:07 Nasal Cannula 3.00 02/11/18 04:00 98.2 91 22 107/65 (79) 96 02/11/18 04:00 93 02/11/18 00:00 98.0 103 20 103/55 (71) 02/11/18 00:00 100 02/10/18 23:49 Nasal Cannula 3.00 02/10/18 20:41 97 Nasal Cannula 3.00 02/10/18 20:00 Nasal Cannula 3.00 02/10/18 20:00 97.5 87 22 112/56 (74) 96 02/10/18 20:00 83 02/10/18 18:23 Nasal Cannula 3.00 I/O 02/10/18 02/10/18 02/10/18 02/11/18 02/11/18 02/11/18 07:00 15:00 23:00 07:00 15:00 23:00 Intake Total 100 ml 100 ml Balance 100 ml 100 ml IV Total 100 ml 100 ml # Voids 1 1 2 1 # Bowel Movements 1 0 2 Result Diagram: 02/11/18 0809 02/11/18 1155 Objective Remarks GENERAL: This is an elderly averagely built white female who is anxious . HEENT: Head normocephalic. Pupils are reactive and equal. Tongue is moist. Throat is clear. Ears - no inflammation. NECK: No bruits, mild venous distention while lying flat. Trachea midline. CHEST: Distant breath sounds with occasional wheezes over both lung katz with bibasilar crackles, more on the left side. HEART: Sounds are irregular, S1 and S2, with no definite murmur or S3. ABDOMEN: Soft, protuberant. No masses, no organomegaly or tenderness. The bowel sounds are active. EXTREMITIES: No clubbing, no edema. Peripheral pulses are diminished. NEUROLOGIC: Reflexes are 1+ with no gross motor deficits. SKIN: No lesions are observed. Assessment and Plan Assessment and Plan IMPRESSION: 1. Basilar pneumonia with hypoxemia. 2. Congestive heart failure with atrial fibrillation and atherosclerotic heart disease. 3. Dysphagia and probable aspiration. 4. Essential hypertension. 5. History of transient ischemic attack. 6. History of breast cancer. PLan : 1. Continue antibiotics and switch to PO Ceftin 2. Nebs qid Duoneb 3. O2 at 2 L. 4. IS at Bedside qid 5. PT Evaluation 6. Continue lasix 20 mg daily 7. Rehab soon Gage Coleman MD Feb 11, 2018 18:21
[2018-02-11] MEDS: AMITRIPTYLINE HCL 10 MG TAB PO SCH (21:13)
[2018-02-11] MEDS: CEFUROXIME AXETIL 500 MG TAB PO SCH (21:14)
[2018-02-11] MEDS: risperiDONE 0.25 MG TAB PO SCH (21:17)
[2018-02-12] VITALS (11 sets, daily range): BP systolic 110–133; BP diastolic 63–91; PULSE 64–100; RESP 18–20; TEMP 97.3–98.3; O2SAT 93–100
[2018-02-12 02:33] LABS: BILIRUBIN, URINE NEG (NEG); BLOOD, URINE NEG (NEG); GLUCOSE,URINE NEG (NEG); HYALINE CAST, URINE 3 /lpf (RARE); KETONE, URINE NEG (NEG); NITRITE,URINE NEG (NEG); PH, URINE 6.5 (5.0-8.5); SQUAMOUS EPITHELIAL CELL URINE <1 /hpf (0-5); URINE COLOR YELLOW (YELLW/STRAW); URINE LEUKOCYTE ESTERASE NEG (NEG)
[2018-02-12] MEDS: RESP: ALBUTEROL 2.5 MG/IPRATROPIUM 0.5 MG NEB (SCH) NEB ×2 (03:10→09:37)
[2018-02-12] MEDS: ALPRAZolam 0.5 MG TAB PO PRN (03:15)
[2018-02-12] MEDS: LEVOTHYROXINE SODIUM 75 MCG TAB PO SCH (06:00)
--- NOTE | 2018-02-12 06:34 | HHI.PR ---
Subjective Remarks remains confused, no apparent distress. Objective Vital Signs Date Time Temp Pulse Resp B/P (MAP) Pulse Ox O2 Delivery O2 Flow Rate FiO2 02/12/18 04:16 98.2 94 19 131/86 (101) 97 02/12/18 00:34 98.3 100 18 125/63 (83) 97 02/12/18 00:10 Nasal Cannula 3.00 02/12/18 00:00 Room Air 02/11/18 21:27 94 Nasal Cannula 3.00 02/11/18 21:00 99.2 93 18 120/63 (82) 96 02/11/18 20:00 Nasal Cannula 3.00 02/11/18 20:00 Room Air 02/11/18 20:00 96 02/11/18 16:00 97.7 97 20 129/85 (100) 98 02/11/18 15:59 92 02/11/18 15:10 94 Nasal Cannula 3.00 02/11/18 12:00 97.6 86 20 141/68 (92) 99 02/11/18 09:32 Nasal Cannula 3.00 02/11/18 09:10 94 Nasal Cannula 3.00 02/11/18 08:00 97.7 92 24 127/81 (96) 96 I/O 02/11/18 02/11/18 02/11/18 02/12/18 02/12/18 02/12/18 07:00 15:00 23:00 07:00 15:00 23:00 Intake Total 100 ml 360 ml Balance 100 ml 360 ml Intake Oral 360 ml IV Total 100 ml # Voids 1 4 # Bowel Movements 2 2 Result Diagram: 02/11/18 0809 02/11/18 1155 Imaging Last 72 hours Impressions Chest X-Ray 02/10/18 0600 Signed Impressions: Service Date/Time: Saturday, February 10, 2018 05:24 - CONCLUSION: Improvement in the bilateral pulmonary infiltrates and effusions. Mild consolidative changes remain in the left base. Miguel Corcoran Jr., MD Other Results GENERAL: This is a well-nourished, well-developed patient confused SKIN: No rashes, ecchymoses or lesions. Cool and dry. CARDIOVASCULAR: regular rate irregular rhythm RESPIRATORY:. BS equal, BL, diminished, with expiratory wheezes. GASTROINTESTINAL: Abdomen soft, non-tender, nondistended. MS-trace edema NEUROLOGICAL:awake, confused Medications and IVs Current Medications Medications (Trade) Dose Ordered Sig/Jose A Route Start Time Stop Time Status Last Admin (NS Flush) 2 ml UNSCH PRN IV FLUSH 02/05/18 17:00 (NS Flush) 2 ml BID IV FLUSH 02/05/18 21:00 02/11/18 21:17 (Tylenol) 650 mg Q4H PRN PO 02/05/18 17:00 02/06/18 15:58 (Zofran Inj) 4 mg Q6H PRN IVP 02/05/18 17:00 (Narcan Inj) 0.4 mg UNSCH PRN IV PUSH 02/05/18 17:00 ([place]-Colace) 1 tab BID PO 02/05/18 21:00 02/11/18 21:17 (Milk Of Magnesia Liq) 30 ml Q12H PRN PO 02/05/18 17:00 (Senokot) 17.2 mg Q12H PRN PO 02/05/18 17:00 (Dulcolax Supp) 10 mg DAILY PRN RECTAL 02/05/18 17:00 (Lactulose Liq) 30 ml DAILY PRN PO 02/05/18 17:00 (Synthroid) 75 mcg DAILY@0600 PO 02/06/18 06:00 02/10/18 05:56 (Coumadin) 3 mg DAILY@16 PO 02/06/18 16:00 Future Hold 02/09/18 16:24 (Xanax) 0.5 mg Q6H PRN PO 02/05/18 18:15 Future hold 02/12/18 03:15 (Elavil) 10 mg HS PO 02/05/18 21:00 02/11/18 21:13 (Lioresal) 5 mg BID PO 02/05/18 21:00 02/11/18 21:14 (Pill Splitter) 1 ea UNSCH PRN OTHER 02/05/18 21:00 (Tylenol) 650 mg Q4H PRN PO 02/06/18 16:30 (Lopressor) 75 mg Q12HR PO 02/06/18 21:00 02/11/18 21:14 (Vasotec) 5 mg BID PO 02/07/18 09:00 02/11/18 21:14 (Lasix) 20 mg DAILY PO 02/09/18 09:00 02/11/18 08:19 (Duoneb Neb) 1 ampule Q2HR NEB PRN NEB 02/08/18 13:30 (Duoneb Neb) 1 ampule Q6HR NEB NEB 02/08/18 16:00 02/11/18 21:29 (KCl) 10 meq BID PO 02/11/18 09:00 03/01/18 08:59 02/11/18 21:13 (risperDAL) 0.25 mg Q12HR PO 02/11/18 21:00 02/11/18 21:17 (Ceftin) 500 mg BID PO 02/11/18 21:00 02/11/18 21:14 Assessment and Plan Problem List: (1) CHF (congestive heart failure) ICD Codes: I50.9 - Heart failure, unspecified Status: Acute Plan: Cont cardiac medications, Lasix, Metoprolol, enalapril. Will follow up as patients. (2) Pleural effusion, bilateral ICD Codes: J90 - Pleural effusion, not elsewhere classified Status: Acute Plan: Pulmonary following, antibiotics switched to po Ceftin, continue duonebs , O2 . (3) Afib ICD Codes: I48.91 - Unspecified atrial fibrillation Status: Chronic Plan: Rate controlled, on Coumadin INR pending 4.5 yesterday Coumadin on hold until <3.0 (4) Dysphagia ICD Codes: R13.10 - Dysphagia, unspecified Plan: Follow Gi Recommendations, Nurse reports no vomiting (5) HTN (hypertension) ICD Codes: I10 - Essential (primary) hypertension Status: Chronic Plan: Monitor BP cont home medications. Assessment and Plan 02/11/18-Confused this am. Has underlying dementia, but more confused from baseline. Received call last night that patient had run of VT. . Cardiology reconsulted,and determined that it was not actual Vtach. INR today 4.5. Will restart when INR <3.0. Potassium pending, Breathing better on NC 4L.. Will get UA, and check ammonia level for increased confusion. If clear and breathing continues to improve will DC once cleared by Pulmonary. 02/12/18 Breathing better today, remains confused. Antibiotics switched to po Ceftin. Will get CXR today. Likely DC in am, if cont to improve. Problem Qualifiers (1) CHF (congestive heart failure): Qualified Codes: I50.9 - Heart failure, unspecified Adrienne Lee Feb 12, 2018 06:34
[2018-02-12] MEDS: SODIUM CHLORIDE 0.9% FLUSH 10 ML FLUSH IV FLUSH SCH ×2 (07:31→22:29)
[2018-02-12] MEDS: BACLOFEN 10 MG TAB PO SCH ×2 (08:25→22:13)
[2018-02-12] MEDS: DOCUSATE SODIUM 50 MG/SENNA 8.6 MG TAB PO SCH ×2 (08:25→22:13)
[2018-02-12] MEDS: ENALAPRIL MALEATE 5 MG TAB PO SCH ×2 (08:25→22:13)
[2018-02-12] MEDS: CEFUROXIME AXETIL 500 MG TAB PO SCH ×2 (08:25→22:13)
[2018-02-12] MEDS: POTASSIUM CHLORIDE 10 MEQ CAP PO SCH ×2 (08:25→22:12)
[2018-02-12] MEDS: METOPROLOL TARTRATE 50 MG TAB PO SCH ×2 (08:25→22:14)
[2018-02-12] MEDS: FUROSEMIDE 20 MG TAB PO SCH (08:25)
[2018-02-12] MEDS: risperiDONE 0.25 MG TAB PO SCH ×2 (08:26→22:13)
--- NOTE | 2018-02-12 10:14 | RADRPT ---
EXAM DATE/TIME: 02/12/2018 09:14 [place] COMPARISON: CHEST PA & LAT, February 05, 2018, 13:15. INDICATIONS : Shortness of breath, follow up pleural effusion. MEDICAL HISTORY : Cardiovascular disease. Hypertension. Carcinoma, breast. SURGICAL HISTORY : Left shoulder replacement. ENCOUNTER: Subsequent ACUITY: 2 weeks PAIN SCORE: Non-responsive. LOCATION: Bilateral chest FINDINGS: The heart is enlarged. Minimal increased interstitial markings are noted consistent with pulmonary va scular congestion or pneumonitis. The left pleural effusion is decreased compared to previous examina tion. Severe degenerative changes and probable rotator cuff pathology are noted involving the right s houlder. CONCLUSION: 1. Cardiomegaly. 2. Increased interstitial markings consistent with pulmonary vascular congestion or pneumonitis. 3. Decreased left pleural effusion. 4. Severe degenerative changes and probable rotator cuff pathology involving the right shoulder. Rupert Zhou MD on February 12, 2018 at 10:10 Board Certified Radiologist. This report was verified electronically.
[2018-02-12 10:57] LABS: INTERNATIONAL NORMALIZED RATIO 5.3 RATIO; PROTHROMBIN TIME - PATIENT 53.1 SEC (9.8-11.6)
[2018-02-12 11:19] LABS: BICARBONATE 29.7 MEQ/L (21.0-32.0); CALCIUM 9.3 MG/DL (8.5-10.1); CREATININE 1.26 MG/DL (0.50-1.00)
[2018-02-12] MEDS ORDERED: POTASSIUM CHLORIDE 20 MEQ CONTROLLED RELEASE TAB PO ONE (11:45)
--- NOTE | 2018-02-12 17:25 | PD.CARD.PN ---
Subjective Subjective Remarks -confused, no CV complaints Objective Medications Current Medications Medications (Trade) Dose Ordered Sig/Jose A Route Start Time Stop Time Status Last Admin (NS Flush) 2 ml UNSCH PRN IV FLUSH 02/05/18 17:00 (NS Flush) 2 ml BID IV FLUSH 02/05/18 21:00 02/12/18 07:31 (Tylenol) 650 mg Q4H PRN PO 02/05/18 17:00 02/06/18 15:58 (Zofran Inj) 4 mg Q6H PRN IVP 02/05/18 17:00 (Narcan Inj) 0.4 mg UNSCH PRN IV PUSH 02/05/18 17:00 ([place]-Colace) 1 tab BID PO 02/05/18 21:00 02/12/18 08:25 (Milk Of Magnesia Liq) 30 ml Q12H PRN PO 02/05/18 17:00 (Senokot) 17.2 mg Q12H PRN PO 02/05/18 17:00 (Dulcolax Supp) 10 mg DAILY PRN RECTAL 02/05/18 17:00 (Lactulose Liq) 30 ml DAILY PRN PO 02/05/18 17:00 (Synthroid) 75 mcg DAILY@0600 PO 02/06/18 06:00 02/10/18 05:56 (Coumadin) 3 mg DAILY@16 PO 02/06/18 16:00 Future Hold 02/09/18 16:24 (Xanax) 0.5 mg Q6H PRN PO 02/05/18 18:15 Future hold 02/12/18 03:15 (Elavil) 10 mg HS PO 02/05/18 21:00 02/11/18 21:13 (Lioresal) 5 mg BID PO 02/05/18 21:00 02/12/18 08:25 (Pill Splitter) 1 ea UNSCH PRN OTHER 02/05/18 21:00 (Tylenol) 650 mg Q4H PRN PO 02/06/18 16:30 (Lopressor) 75 mg Q12HR PO 02/06/18 21:00 02/12/18 08:25 (Vasotec) 5 mg BID PO 02/07/18 09:00 02/12/18 08:25 (Lasix) 20 mg DAILY PO 02/09/18 09:00 02/12/18 08:25 (Duoneb Neb) 1 ampule Q2HR NEB PRN NEB 02/08/18 13:30 (risperDAL) 0.25 mg Q12HR PO 02/11/18 21:00 02/12/18 08:26 (Ceftin) 500 mg BID PO 02/11/18 21:00 02/12/18 08:25 (KCl) 20 meq BID PO 02/12/18 21:00 Vital Signs / I&O Vital Signs Date Time Temp Pulse Resp B/P (MAP) Pulse Ox O2 Delivery O2 Flow Rate FiO2 02/12/18 16:00 97.3 94 20 133/91 (105) 93 02/12/18 12:00 97.5 82 20 118/71 (87) 99 02/12/18 08:00 97.4 82 20 117/71 (86) 99 02/12/18 04:16 98.2 94 19 131/86 (101) 97 02/12/18 04:00 92 02/12/18 00:34 98.3 100 18 125/63 (83) 97 02/12/18 00:10 Nasal Cannula 3.00 02/12/18 00:00 Room Air 02/11/18 21:27 94 Nasal Cannula 3.00 02/11/18 21:00 99.2 93 18 120/63 (82) 96 02/11/18 20:00 Nasal Cannula 3.00 02/11/18 20:00 Room Air 02/11/18 20:00 96 I/O 02/11/18 02/11/18 02/11/18 02/12/18 02/12/18 02/12/18 07:00 15:00 23:00 07:00 15:00 23:00 Intake Total 100 ml 50 ml 360 ml 100 ml Balance 100 ml 50 ml 360 ml 100 ml Intake Oral 360 ml IV Total 100 ml 50 ml 100 ml # Voids 1 4 # Bowel Movements 2 2 Physical Exam GENERAL: Well developed, well nourished. confused, would not answer questions HEENT: Jugular venous pressure is normal. CHEST: Lungs clear to auscultation bilaterally. Unlabored respiratory effort. CARDIAC: irregular rate and rhythm without S3, S4, or murmur. ABDOMEN: Soft, nontender, no hepatosplenomegaly. Bowel sounds present. EXTREMITIES: No clubbing, cyanosis, or edema. Laboratory Laboratory Tests Test 02/11/18 23:20 02/12/18 10:20 Urine Color YELLOW Urine Turbidity CLEAR Urine pH 6.5 Urine Specific [place] 1.010 Urine Protein NEG mg/dL Urine Glucose (UA) NEG mg/dL Urine Ketones NEG mg/dL Urine Occult Blood NEG Urine Nitrite NEG Urine Bilirubin NEG Urine Urobilinogen LESS THAN 2.0 MG/DL Urine Leukocyte Esterase NEG Urine Squamous Epithelial Cells <1 /hpf Urine Hyaline Casts 3 /lpf Microscopic Urinalysis Comment CATH-CULT NOT IND Prothrombin Time 53.1 SEC Prothromb Time International Ratio 5.3 RATIO Blood Urea Nitrogen 34 MG/DL Creatinine 1.26 MG/DL Random Glucose 100 MG/DL Calcium Level 9.3 MG/DL Sodium Level 139 MEQ/L Potassium Level 3.1 MEQ/L Chloride Level 101 MEQ/L Carbon Dioxide Level 29.7 MEQ/L Anion Gap 8 MEQ/L Estimat Glomerular Filtration Rate 40 ML/MIN Ammonia LESS THAN 10 MCMOL/L Imaging Last 24 hours Impressions Chest X-Ray 02/12/18 0000 Signed Impressions: Service Date/Time: Monday, February 12, 2018 09:14 - CONCLUSION: 1. Cardiomegaly. 2. Increased interstitial markings consistent with pulmonary vascular congestion or pneumonitis. 3. Decreased left pleural effusion. 4. Severe degenerative changes and probable rotator cuff pathology involving the right shoulder. Rupert Zhou MD Assessment and Plan Problem List: (1) Wide-complex tachycardia ICD Codes: I47.2 - Ventricular tachycardia (2) CHF (congestive heart failure) ICD Codes: I50.9 - Heart failure, unspecified Status: Acute Plan: stable (3) Chronic atrial fibrillation ICD Codes: I48.2 - Chronic atrial fibrillation Status: Chronic Plan: Stable, chronic atrial fib- rate controlled; continue present meds -coumadin per primary team -attempted to call grand son, but NA ok for d/c from CV perspective (4) Pleural effusion, bilateral ICD Codes: J90 - Pleural effusion, not elsewhere classified Status: Acute (5) Hypokalemia due to loss of potassium ICD Codes: E87.6 - Hypokalemia Status: Acute (6) Confusion and disorientation ICD Codes: F99 - Mental disorder, not otherwise specified Problem Qualifiers (1) CHF (congestive heart failure): Qualified Codes: I50.9 - Heart failure, unspecified Sabra Cheema MD Feb 12, 2018 17:25
--- NOTE | 2018-02-12 17:46 | HHI.PR ---
Subjective Remarks Calm and seems sleepy . Had Xanax last PM. On O2 2 L. Keeps O2 on.INR >4. CXR is improved. Objective Vital Signs Date Time Temp Pulse Resp B/P (MAP) Pulse Ox O2 Delivery O2 Flow Rate FiO2 02/12/18 16:00 97.3 94 20 133/91 (105) 93 02/12/18 12:00 97.5 82 20 118/71 (87) 99 02/12/18 08:00 97.4 82 20 117/71 (86) 99 02/12/18 04:16 98.2 94 19 131/86 (101) 97 02/12/18 04:00 92 02/12/18 00:34 98.3 100 18 125/63 (83) 97 02/12/18 00:10 Nasal Cannula 3.00 02/12/18 00:00 Room Air 02/11/18 21:27 94 Nasal Cannula 3.00 02/11/18 21:00 99.2 93 18 120/63 (82) 96 02/11/18 20:00 Nasal Cannula 3.00 02/11/18 20:00 Room Air 02/11/18 20:00 96 I/O 02/11/18 02/11/18 02/11/18 02/12/18 02/12/18 02/12/18 07:00 15:00 23:00 07:00 15:00 23:00 Intake Total 100 ml 50 ml 360 ml 100 ml Balance 100 ml 50 ml 360 ml 100 ml Intake Oral 360 ml IV Total 100 ml 50 ml 100 ml # Voids 1 4 # Bowel Movements 2 2 Result Diagram: 02/11/18 0809 02/12/18 1020 Objective Remarks GENERAL: This is an elderly averagely built white female who is Lethargic HEENT: Head normocephalic. Pupils are reactive and equal. Tongue is moist. Throat is clear. Ears - no inflammation. NECK: No bruits, mild venous distention while lying flat. Trachea midline. CHEST: Distant breath sounds with occasional wheezes over both lung katz with bibasilar crackles. HEART: Sounds are irregular, S1 and S2, with no definite murmur or S3. ABDOMEN: Soft, protuberant. No masses, no organomegaly or tenderness. The bowel sounds are active. EXTREMITIES: No clubbing, no edema. Peripheral pulses are diminished. NEUROLOGIC: Reflexes are 1+ with no gross motor deficits. SKIN: No lesions are observed. Assessment and Plan Assessment and Plan IMPRESSION: 1. Basilar pneumonia with hypoxemia. 2. Congestive heart failure with atrial fibrillation and atherosclerotic heart disease. 3. Dysphagia and probable aspiration. 4. Essential hypertension. 5. History of transient ischemic attack. 6. History of breast cancer. PLan : 1. Continue PO Ceftin 500 mg BID X 7 days 2. Nebs TID Duoneb 3. O2 at 3 L. 4. IS at Bedside qid 5. PT Evaluation 6. Continue lasix 20 mg daily 7. Rehab anytime when INR is corrected. 8. Will see as OP in 2 weeks Gage Coleman MD Feb 12, 2018 17:46
--- NOTE | 2018-02-12 20:55 | RADRPT ---
EXAM DATE/TIME: 02/12/2018 20:02 [place] COMPARISON: MRI BRAIN W/O CONTRAST, February 08, 2017, 15:23. CT BRAIN W/O CONTRAST, February 07, 2017, 20:36. INDICATIONS : Altered mental status. RADIATION DOSE: 44.98 CTDIvol (mGy) MEDICAL HISTORY : Cardiovascular disease. Hypertension. Carcinoma, breast. SURGICAL HISTORY : None. ENCOUNTER: Initial ACUITY: 1 day PAIN SCALE: 0/10 LOCATION: cranial TECHNIQUE: Multiple contiguous axial images were obtained of the head. Using automated exposure control and adj ustment of the mA and/or kV according to patient size, radiation dose was kept as low as reasonably a chievable to obtain optimal diagnostic quality images. DICOM format image data is available electro nically for review and comparison. FINDINGS: CEREBRUM: The ventricles are normal for age. Cavum septum pellucidum again noted. No evidence of midline shift, mass lesion, hemorrhage or acute infarction. No extra-axial fluid collections are seen. Chronic low attenuation again seen in the periventricular white matter. POSTERIOR FOSSA: The cerebellum and brainstem are intact. The 4th ventricle is midline. The cerebellopontine angle i s unremarkable. EXTRACRANIAL: The visualized portion of the orbits is intact. SKULL: The calvaria is intact. No evidence of skull fracture. CONCLUSION: No atrophy or other acute intracranial abnormality. Chronic white matter changes. Daniel Peralta MD on February 12, 2018 at 20:52 Board Certified Radiologist. This report was verified electronically.
[2018-02-12 21:13] LABS: AUTOMATED NEUTROPHIL # 4.9 TH/MM3 (1.8-7.7); BASOPHIL # 0.1 TH/MM3 (0-0.2); BASOPHIL % 0.8 % (0.0-2.0); EOSINOPHIL # 0.4 TH/MM3 (0-0.4); EOSINOPHIL % 5.7 % (0.0-4.0); HEMATOCRIT 37.5 % (35.0-46.0); HEMOGLOBIN 13.4 GM/DL (11.6-15.3); LYMPH % 16.3 % (9.0-44.0); LYMPHOCYTE # 1.2 TH/MM3 (1.0-4.8); MEAN CELL VOLUME 81.6 FL (80.0-100.0); MEAN CORPUSCULAR HEMOGLOBIN 29.2 PG (27.0-34.0); MEAN CORPUSCULAR HGB CONC 35.8 % (32.0-36.0); MEAN PLATELET VOLUME 8.3 FL (7.0-11.0); MONOCYTE # 0.9 TH/MM3 (0-0.9); NEUT % 65.2 % (16.0-70.0); PLATELET COUNT 275 TH/MM3 (150-450); RED BLOOD COUNT 4.59 MIL/MM3 (4.00-5.30); RED CELL DISTRIBUTION WIDTH 15.8 % (11.6-17.2); WHITE BLOOD COUNT 7.5 TH/MM3 (4.0-11.0)
[2018-02-12] MEDS: AMITRIPTYLINE HCL 10 MG TAB PO SCH (22:13)
[2018-02-13] VITALS (11 sets, daily range): BP systolic 87–143; BP diastolic 49–67; PULSE 71–92; RESP 16–18; TEMP 96.9–97.9; O2SAT 95–100
[2018-02-13] MEDS: LEVOTHYROXINE SODIUM 75 MCG TAB PO SCH (05:41)
--- NOTE | 2018-02-13 07:30 | HHI.PR ---
Subjective Remarks Sleepy But Abusableable, O2 @ @liters Objective Vital Signs Date Time Temp Pulse Resp B/P (MAP) Pulse Ox O2 Delivery O2 Flow Rate FiO2 02/13/18 04:00 72 02/13/18 04:00 97.2 71 16 97/59 (72) 100 02/13/18 00:00 78 02/13/18 00:00 Nasal Cannula 2.00 02/13/18 00:00 97.4 74 16 108/67 (81) 98 02/12/18 21:00 81 02/12/18 20:46 98.1 86 18 132/69 (90) 100 02/12/18 20:00 Nasal Cannula 2.00 02/12/18 16:00 97.3 94 20 133/91 (105) 93 02/12/18 15:57 94 02/12/18 12:00 97.5 82 20 118/71 (87) 99 02/12/18 11:52 73 02/12/18 08:00 97.4 82 20 117/71 (86) 99 I/O 02/12/18 02/12/18 02/12/18 02/13/18 02/13/18 02/13/18 07:00 15:00 23:00 07:00 15:00 23:00 Intake Total 100 ml 240 ml 720 ml Balance 100 ml 240 ml 720 ml Intake Oral 240 ml 720 ml IV Total 100 ml # Voids 3 4 # Bowel Movements 1 1 Result Diagram: 02/12/18201902/12/18 1020 Imaging Last [address] 02/12/18 0000 Signed Impressions: Service Date/Time: Monday, February 12, 2018 20:02 - CONCLUSION: No atrophy or other acute intracranial abnormality. Chronic white matter changes. Daniel Peralta MD Chest X-Ray 02/12/18 0000 Signed Impressions: Service Date/Time: Monday, February 12, 2018 09:14 - CONCLUSION: 1. Cardiomegaly. 2. Increased interstitial markings consistent with pulmonary vascular congestion or pneumonitis. 3. Decreased left pleural effusion. 4. Severe degenerative changes and probable rotator cuff pathology involving the right shoulder. Rupert Zhou MD Other Results GENERAL: This is a well-nourished, well-developed patient sleepy SKIN: No rashes, ecchymoses or lesions. Cool and dry. CARDIOVASCULAR: regular rate irregular rhythm RESPIRATORY:. BS equal, BL, diminished, with expiratory wheezes. GASTROINTESTINAL: Abdomen soft, non-tender, nondistended. MS-trace edema NEUROLOGICAL:awake, confused Medications and IVs Last [address] 02/12/18 0000 Signed Impressions: Service Date/Time: Monday, February 12, 2018 20:02 - CONCLUSION: No atrophy or other acute intracranial abnormality. Chronic white matter changes. Daniel Peralta MD Chest X-Ray 02/12/18 0000 Signed Impressions: Service Date/Time: Monday, February 12, 2018 09:14 - CONCLUSION: 1. Cardiomegaly. 2. Increased interstitial markings consistent with pulmonary vascular congestion or pneumonitis. 3. Decreased left pleural effusion. 4. Severe degenerative changes and probable rotator cuff pathology involving the right shoulder. Rupert Zhou MD Assessment and Plan Problem List: (1) CHF (congestive heart failure) ICD Codes: I50.9 - Heart failure, unspecified Status: Acute Plan: Cont cardiac medications, Lasix, Metoprolol, enalapril. Will follow up as patients. (2) Pleural effusion, bilateral ICD Codes: J90 - Pleural effusion, not elsewhere classified Status: Acute Plan: Pulmonary following, antibiotics switched to po Ceftin, continue duonebs , O2 . (3) Afib ICD Codes: I48.91 - Unspecified atrial fibrillation Status: Chronic Plan: Rate controlled, on Coumadin INR pending 5.3 yesterday Coumadin on hold until <3.0 (4) Dysphagia ICD Codes: R13.10 - Dysphagia, unspecified Plan: Follow Gi Recommendations, Nurse reports no vomiting (5) HTN (hypertension) ICD Codes: I10 - Essential (primary) hypertension Status: Chronic Plan: Monitor BP cont home medications. Assessment and Plan 02/11/18-Confused this am. Has underlying dementia, but more confused from baseline. Received call last night that patient had run of VT. . Cardiology reconsulted,and determined that it was not actual Vtach. INR today 4.5. Will restart when INR <3.0. Potassium pending, Breathing better on NC 4L.. Will get UA, and check ammonia level for increased confusion. If clear and breathing continues to improve will DC once cleared by Pulmonary. 02/12/18 Breathing better today, remains confused. Antibiotics switched to po Ceftin. Will get CXR today. Likely DC in am, if cont to improve. 02/13/18 Sleepy this am, sats maintained on 2 liters. Xanax, Elavil and Risperdal stopped. CT of brain done yesterday, no acute abnormalities. Will dc to rehab once inr <3.0. Discussed plan with grandson. Problem Qualifiers (1) CHF (congestive heart failure): Qualified Codes: I50.9 - Heart failure, unspecified Adrienne Lee Feb 13, 2018 07:30
[2018-02-13] MEDS: DOCUSATE SODIUM 50 MG/SENNA 8.6 MG TAB PO SCH ×2 (09:40→22:00)
[2018-02-13] MEDS: CEFUROXIME AXETIL 500 MG TAB PO SCH ×2 (09:40→21:59)
[2018-02-13] MEDS: POTASSIUM CHLORIDE 10 MEQ CAP PO SCH ×2 (09:41→22:00)
[2018-02-13] MEDS: SODIUM CHLORIDE 0.9% FLUSH 10 ML FLUSH IV FLUSH SCH ×2 (09:41→22:12)
[2018-02-13] MEDS: METOPROLOL TARTRATE 50 MG TAB PO SCH ×2 (09:42→22:00)
[2018-02-13] MEDS: BACLOFEN 10 MG TAB PO SCH ×2 (09:43→22:01)
[2018-02-13] MEDS: ENALAPRIL MALEATE 5 MG TAB PO SCH ×2 (09:44→22:00)
[2018-02-13] MEDS: FUROSEMIDE 20 MG TAB PO SCH (09:44)
[2018-02-13 11:29] LABS: AUTOMATED NEUTROPHIL # 5.5 TH/MM3 (1.8-7.7); BASOPHIL # 0.1 TH/MM3 (0-0.2); BASOPHIL % 1.3 % (0.0-2.0); EOSINOPHIL # 0.4 TH/MM3 (0-0.4); EOSINOPHIL % 4.8 % (0.0-4.0); HEMATOCRIT 43.5 % (35.0-46.0); HEMOGLOBIN 14.7 GM/DL (11.6-15.3); LYMPH % 13.1 % (9.0-44.0); MEAN CORPUSCULAR HEMOGLOBIN 28.2 PG (27.0-34.0); MEAN CORPUSCULAR HGB CONC 33.9 % (32.0-36.0); MEAN PLATELET VOLUME 8.4 FL (7.0-11.0); MONO % 8.4 % (0.0-8.0); MONOCYTE # 0.6 TH/MM3 (0-0.9); NEUT % 72.4 % (16.0-70.0); PLATELET COUNT 304 TH/MM3 (150-450); RED BLOOD COUNT 5.24 MIL/MM3 (4.00-5.30); RED CELL DISTRIBUTION WIDTH 16.1 % (11.6-17.2); WHITE BLOOD COUNT 7.6 TH/MM3 (4.0-11.0)
[2018-02-13 11:31] LABS: INTERNATIONAL NORMALIZED RATIO 4.6 RATIO; PROTHROMBIN TIME - PATIENT 46.5 SEC (9.8-11.6)
[2018-02-13 11:51] LABS: BICARBONATE 27.8 MEQ/L (21.0-32.0); CALCIUM 9.9 MG/DL (8.5-10.1); CREATININE 1.37 MG/DL (0.50-1.00)
--- NOTE | 2018-02-13 18:52 | HHI.PR ---
Subjective Remarks Calm and still sleepy . Had Seroquel last PM. On O2 2 L. Keeps O2 on. INR better. CXR is improved. Objective Vital Signs Date Time Temp Pulse Resp B/P (MAP) Pulse Ox O2 Delivery O2 Flow Rate FiO2 02/13/18 16:00 97.9 79 16 107/56 (73) 100 02/13/18 15:55 81 02/13/18 12:00 97.9 78 16 122/65 (84) 97 02/13/18 12:00 92 02/13/18 10:31 95 Nasal Cannula 3.00 02/13/18 08:00 Nasal Cannula 3.00 02/13/18 08:00 96.9 78 16 143/53 (83) 100 02/13/18 07:39 82 02/13/18 04:00 72 02/13/18 04:00 97.2 71 16 97/59 (72) 100 02/13/18 00:00 78 02/13/18 00:00 Nasal Cannula 2.00 02/13/18 00:00 97.4 74 16 108/67 (81) 98 02/12/18 21:00 81 02/12/18 20:46 98.1 86 18 132/69 (90) 100 02/12/18 20:00 Nasal Cannula 2.00 I/O 02/12/18 02/12/18 02/12/18 02/13/18 02/13/18 02/13/18 07:00 15:00 23:00 07:00 15:00 23:00 Intake Total 100 ml 240 ml 720 ml 540 ml Balance 100 ml 240 ml 720 ml 540 ml Intake Oral 240 ml 720 ml 540 ml IV Total 100 ml # Voids 3 4 2 # Bowel Movements 1 1 1 Result Diagram: 02/13/18 1054 02/13/18 1054 Objective Remarks GENERAL: This is an elderly averagely built white female who is Lethargic HEENT: Head normocephalic. Pupils are reactive and equal. Tongue is moist. NECK: No bruits, mild venous distention while lying flat. Trachea midline. CHEST: Distant breath sounds with occasional wheezes over both lung katz . HEART: Sounds are irregular, S1 and S2, with no definite murmur or S3. ABDOMEN: Soft, protuberant. No masses, no organomegaly or tenderness. The bowel sounds are active. EXTREMITIES: No clubbing, no edema. Peripheral pulses are diminished. NEUROLOGIC: Reflexes are 1+ with no gross motor deficits. SKIN: No lesions are observed. Assessment and Plan Assessment and Plan IMPRESSION: 1. Basilar pneumonia with hypoxemia. 2. Congestive heart failure with atrial fibrillation and atherosclerotic heart disease. 3. Dysphagia and probable aspiration. 4. Essential hypertension. 5. History of transient ischemic attack. 6. History of breast cancer. PLan : 1. PO Ceftin 500 mg BID X 5 days 2. Nebs TID Duoneb 3. O2 at 3 L. 4. IS at Bedside qid 5. PT Evaluation 6. Continue lasix 20 mg daily 7. Rehab placement 8. Stop Sedation. Gage Coleman MD Feb 13, 2018 18:52
[2018-02-14] VITALS (12 sets, daily range): BP systolic 108–128; BP diastolic 55–73; PULSE 73–93; RESP 16–18; TEMP 97.3–98.4; O2SAT 96–99
[2018-02-14] MEDS: LEVOTHYROXINE SODIUM 75 MCG TAB PO SCH (06:34)
[2018-02-14] MEDS: FUROSEMIDE 20 MG TAB PO SCH (08:28)
[2018-02-14] MEDS: CEFUROXIME AXETIL 500 MG TAB PO SCH ×2 (08:28→22:11)
[2018-02-14] MEDS: SODIUM CHLORIDE 0.9% FLUSH 10 ML FLUSH IV FLUSH SCH ×2 (08:29→21:00)
[2018-02-14] MEDS: ENALAPRIL MALEATE 5 MG TAB PO SCH ×2 (08:29→22:11)
[2018-02-14] MEDS: POTASSIUM CHLORIDE 10 MEQ CAP PO SCH ×2 (08:29→22:11)
[2018-02-14] MEDS: METOPROLOL TARTRATE 50 MG TAB PO SCH ×2 (08:29→22:11)
[2018-02-14] MEDS: DOCUSATE SODIUM 50 MG/SENNA 8.6 MG TAB PO SCH ×2 (08:29→21:00)
[2018-02-14 08:45] LABS: AUTOMATED NEUTROPHIL # 4.8 TH/MM3 (1.8-7.7); BASOPHIL # 0.1 TH/MM3 (0-0.2); BASOPHIL % 1.4 % (0.0-2.0); EOSINOPHIL # 0.4 TH/MM3 (0-0.4); EOSINOPHIL % 5.1 % (0.0-4.0); HEMATOCRIT 41.7 % (35.0-46.0); LYMPH % 16.1 % (9.0-44.0); LYMPHOCYTE # 1.1 TH/MM3 (1.0-4.8); MEAN CELL VOLUME 83.8 FL (80.0-100.0); MEAN CORPUSCULAR HEMOGLOBIN 28.2 PG (27.0-34.0); MEAN CORPUSCULAR HGB CONC 33.7 % (32.0-36.0); MEAN PLATELET VOLUME 8.6 FL (7.0-11.0); MONO % 9.1 % (0.0-8.0); MONOCYTE # 0.6 TH/MM3 (0-0.9); NEUT % 68.3 % (16.0-70.0); PLATELET COUNT 301 TH/MM3 (150-450); RED BLOOD COUNT 4.97 MIL/MM3 (4.00-5.30); RED CELL DISTRIBUTION WIDTH 16.1 % (11.6-17.2); WHITE BLOOD COUNT 7.1 TH/MM3 (4.0-11.0)
[2018-02-14 08:52] LABS: PROTHROMBIN TIME - PATIENT 39.9 SEC (9.8-11.6)
[2018-02-14] MEDS: BACLOFEN 10 MG TAB PO SCH (09:00)
--- NOTE | 2018-02-14 09:19 | HHI.PR ---
Subjective Remarks More awake today, still sleepy, but able to hold conversation. Objective Vital Signs Date Time Temp Pulse Resp B/P (MAP) Pulse Ox O2 Delivery O2 Flow Rate FiO2 02/14/18 08:07 92 02/14/18 08:00 97.7 83 16 128/73 (91) 97 02/14/18 04:30 87 02/14/18 04:00 97.3 88 18 124/66 (85) 99 02/14/18 04:00 Nasal Cannula 2.00 02/14/18 00:00 98.0 79 18 122/56 (78) 96 02/14/18 00:00 Nasal Cannula 2.00 02/13/18 23:45 77 02/13/18 20:00 Nasal Cannula 2.00 02/13/18 20:00 97.3 84 18 107/53 (71) 95 02/13/18 19:48 86 02/13/18 16:00 97.9 79 16 107/56 (73) 100 02/13/18 15:55 81 02/13/18 12:00 97.9 78 16 122/65 (84) 97 02/13/18 12:00 92 02/13/18 10:31 95 Nasal Cannula 3.00 I/O 02/13/18 02/13/18 02/13/18 02/14/18 02/14/18 02/14/18 07:00 15:00 23:00 07:00 15:00 23:00 Intake Total 720 ml 540 ml Balance 720 ml 540 ml Intake Oral 720 ml 540 ml # Voids 4 2 # Bowel Movements 1 1 Result Diagram: 02/14/18 0803 02/13/18 1054 Imaging Last [address] 02/12/18 0000 Signed Impressions: Service Date/Time: Monday, February 12, 2018 20:02 - CONCLUSION: No atrophy or other acute intracranial abnormality. Chronic white matter changes. Daniel Peralta MD Chest X-Ray 02/12/18 0000 Signed Impressions: Service Date/Time: Monday, February 12, 2018 09:14 - CONCLUSION: 1. Cardiomegaly. 2. Increased interstitial markings consistent with pulmonary vascular congestion or pneumonitis. 3. Decreased left pleural effusion. 4. Severe degenerative changes and probable rotator cuff pathology involving the right shoulder. Rupert Zhou MD Other Results GENERAL: This is a well-nourished, well-developed patient, still sleepy SKIN: No rashes, ecchymoses or lesions. Cool and dry. CARDIOVASCULAR: regular rate irregular rhythm RESPIRATORY:. BS equal, BL, diminished, with expiratory wheezes and rhonchi O2 2L. GASTROINTESTINAL: Abdomen soft, non-tender, nondistended. MS-trace edema NEUROLOGICAL:awake, sleepy, arousable Medications and IVs Current Medications Medications (Trade) Dose Ordered Sig/Jose A Route Start Time Stop Time Status Last Admin (NS Flush) 2 ml UNSCH PRN IV FLUSH 02/05/18 17:00 (NS Flush) 2 ml BID IV FLUSH 02/05/18 21:00 02/14/18 08:29 (Tylenol) 650 mg Q4H PRN PO 02/05/18 17:00 02/06/18 15:58 (Zofran Inj) 4 mg Q6H PRN IVP 02/05/18 17:00 (Narcan Inj) 0.4 mg UNSCH PRN IV PUSH 02/05/18 17:00 ([place]-Colace) 1 tab BID PO 02/05/18 21:00 02/14/18 08:29 (Milk Of Magnesia Liq) 30 ml Q12H PRN PO 02/05/18 17:00 (Senokot) 17.2 mg Q12H PRN PO 02/05/18 17:00 (Dulcolax Supp) 10 mg DAILY PRN RECTAL 02/05/18 17:00 (Lactulose Liq) 30 ml DAILY PRN PO 02/05/18 17:00 (Synthroid) 75 mcg DAILY@0600 PO 02/06/18 06:00 02/14/18 06:34 (Coumadin) 3 mg DAILY@16 PO 02/06/18 16:00 Future Hold 02/09/18 16:24 (Xanax) 0.5 mg Q6H PRN PO 02/05/18 18:15 Future Hold 02/12/18 03:15 (Elavil) 10 mg HS PO 02/05/18 21:00 Future Hold 02/12/18 22:13 (Lioresal) 5 mg BID PO 02/05/18 21:00 02/13/18 22:01 (Pill Splitter) 1 ea UNSCH PRN OTHER 3/7/18 21:00 (Tylenol) 650 mg Q4H PRN PO 02/06/18 16:30 (Lopressor) 75 mg Q12HR PO 02/06/18 21:00 02/14/18 08:29 (Vasotec) 5 mg BID PO 02/07/18 09:00 02/14/18 08:29 (Lasix) 20 mg DAILY PO 02/09/18 09:00 02/14/18 08:28 (Duoneb Neb) 1 ampule Q2HR NEB PRN NEB 02/08/18 13:30 (risperDAL) 0.25 mg Q12HR PO 02/11/18 21:00 Future Hold 02/12/18 22:13 (Ceftin) 500 mg BID PO 02/11/18 21:00 02/14/18 08:28 (KCl) 20 meq BID PO 02/12/18 21:00 02/14/18 08:29 Assessment and Plan Problem List: (1) CHF (congestive heart failure) ICD Codes: I50.9 - Heart failure, unspecified Status: Acute Plan: Cont cardiac medications, Lasix, Metoprolol, enalapril. Will follow up as patients. (2) Pleural effusion, bilateral ICD Codes: J90 - Pleural effusion, not elsewhere classified Status: Acute Plan: Pulmonary following, lasix 20 mg qd (3) Afib ICD Codes: I48.91 - Unspecified atrial fibrillation Status: Chronic Plan: Rate controlled, on Coumadin INR better 4.0 today Coumadin on hold until <3.0 (4) Dysphagia ICD Codes: R13.10 - Dysphagia, unspecified Plan: Follow Gi Recommendations, Nurse reports no vomiting Baclofen and amitriptyline stopped r/t sedation (5) HTN (hypertension) ICD Codes: I10 - Essential (primary) hypertension Status: Chronic Plan: Monitor BP cont home medications. Assessment and Plan 02/11/18-Confused this am. Has underlying dementia, but more confused from baseline. Received call last night that patient had run of VT. . Cardiology reconsulted,and determined that it was not actual Vtach. INR today 4.5. Will restart when INR <3.0. Potassium pending, Breathing better on NC 4L.. Will get UA, and check ammonia level for increased confusion. If clear and breathing continues to improve will DC once cleared by Pulmonary. 02/12/18 Breathing better today, remains confused. Antibiotics switched to po Ceftin. Will get CXR today. Likely DC in am, if cont to improve. 02/13/18 Sleepy this am, sats maintained on 2 liters. Xanax, Elavil and Risperdal stopped. CT of brain done yesterday, no acute abnormalities. Will dc to rehab once inr <3.0. Discussed plan with alondra. 02/14/18- Still lethargic but better this am, She is able to hold conversation and asks why she is so sleepy. bun/creat 1.48/45, she is on Lasix 20mg qd. Cont to monitor. INR better today 4.0. Continue to hold until <3.0. Anticipate dc to rehab, likely tomorrow. Problem Qualifiers (1) CHF (congestive heart failure): Qualified Codes: I50.9 - Heart failure, unspecified Adrienne Lee Feb 14, 2018 09:18
[2018-02-14 09:22] LABS: BICARBONATE 26.8 MEQ/L (21.0-32.0); CALCIUM 9.8 MG/DL (8.5-10.1); CREATININE 1.48 MG/DL (0.50-1.00)
--- NOTE | 2018-02-14 19:37 | HHI.PR ---
Subjective Remarks Alert and in a chair . On O2 2 L. Keeps O2 on. INR better. Good output. Objective Vital Signs Date Time Temp Pulse Resp B/P (MAP) Pulse Ox O2 Delivery O2 Flow Rate FiO2 02/14/18 17:31 96 Nasal Cannula 3.00 02/14/18 16:00 93 02/14/18 16:00 98.3 88 16 108/58 (75) 96 02/14/18 12:18 86 02/14/18 12:00 98.4 88 16 114/64 (81) 97 02/14/18 08:07 92 02/14/18 08:00 Nasal Cannula 3.00 02/14/18 08:00 97.7 83 16 128/73 (91) 97 02/14/18 04:30 87 02/14/18 04:00 97.3 88 18 124/66 (85) 99 02/14/18 04:00 Nasal Cannula 2.00 02/14/18 00:00 98.0 79 18 122/56 (78) 96 02/14/18 00:00 Nasal Cannula 2.00 02/13/18 23:45 77 02/13/18 20:00 Nasal Cannula 2.00 02/13/18 20:00 97.3 84 18 107/53 (71) 95 02/13/18 19:48 86 I/O 02/13/18 02/13/18 02/13/18 02/14/18 02/14/18 02/14/18 07:00 15:00 23:00 07:00 15:00 23:00 Intake Total 720 ml 540 ml 480 ml Balance 720 ml 540 ml 480 ml Intake Oral 720 ml 540 ml 480 ml # Voids 4 2 2 # Bowel Movements 1 1 1 Result Diagram: 02/14/18 0803 02/14/18 0803 Objective Remarks GENERAL: This is an elderly averagely built white female who is alert and cooperative HEENT: Head normocephalic. Pupils are reactive and equal. Tongue is moist. NECK: No bruits, mild venous distention while lying flat. Trachea midline. CHEST: Distant breath sounds with occasional wheezes over both lung katz .Occ Crackles at bases HEART: Sounds are irregular, S1 and S2, with no definite murmur or S3. ABDOMEN: Soft, protuberant. No masses, no organomegaly or tenderness. The bowel sounds are active. EXTREMITIES: No clubbing, no edema. Peripheral pulses are diminished. NEUROLOGIC: Reflexes are 1+ with no gross motor deficits. SKIN: No lesions are observed. Assessment and Plan Assessment and Plan IMPRESSION: 1. Basilar pneumonia with hypoxemia. 2. Congestive heart failure with atrial fibrillation and atherosclerotic heart disease. 3. Dysphagia and probable aspiration. 4. Essential hypertension. 5. History of transient ischemic attack. 6. History of breast cancer. PLan : 1. PO Ceftin 500 mg BID X 5 days 2. Nebs TID Duoneb 3. O2 at 3 L. 4. IS at Bedside qid 5. PT Evaluation 6. Continue lasix 20 mg daily 7. Rehab placement 8. No Sedation. Gage Coleman MD Feb 14, 2018 19:37
[2018-02-15] VITALS (7 sets, daily range): BP systolic 122–134; BP diastolic 55–72; PULSE 80–91; RESP 16; TEMP 97.3–97.5; O2SAT 97–100
[2018-02-15] MEDS: LEVOTHYROXINE SODIUM 75 MCG TAB PO SCH (06:00)
[2018-02-15] MEDS: SODIUM CHLORIDE 0.9% FLUSH 10 ML FLUSH IV FLUSH SCH (08:58)
[2018-02-15] MEDS: CEFUROXIME AXETIL 500 MG TAB PO SCH (08:58)
[2018-02-15] MEDS: FUROSEMIDE 20 MG TAB PO SCH (08:59)
[2018-02-15] MEDS: POTASSIUM CHLORIDE 10 MEQ CAP PO SCH (08:59)
[2018-02-15] MEDS: ENALAPRIL MALEATE 5 MG TAB PO SCH (08:59)
[2018-02-15] MEDS: DOCUSATE SODIUM 50 MG/SENNA 8.6 MG TAB PO SCH (08:59)
[2018-02-15] MEDS: METOPROLOL TARTRATE 50 MG TAB PO SCH (08:59)
[2018-02-15 09:08] LABS: AUTOMATED NEUTROPHIL # 4.1 TH/MM3 (1.8-7.7); BASOPHIL # 0.1 TH/MM3 (0-0.2); BASOPHIL % 1.7 % (0.0-2.0); EOSINOPHIL # 0.3 TH/MM3 (0-0.4); EOSINOPHIL % 4.5 % (0.0-4.0); HEMATOCRIT 40.4 % (35.0-46.0); HEMOGLOBIN 13.8 GM/DL (11.6-15.3); LYMPH % 20.1 % (9.0-44.0); LYMPHOCYTE # 1.3 TH/MM3 (1.0-4.8); MEAN CELL VOLUME 82.9 FL (80.0-100.0); MEAN CORPUSCULAR HEMOGLOBIN 28.3 PG (27.0-34.0); MEAN CORPUSCULAR HGB CONC 34.2 % (32.0-36.0); MEAN PLATELET VOLUME 8.6 FL (7.0-11.0); MONO % 9.5 % (0.0-8.0); MONOCYTE # 0.6 TH/MM3 (0-0.9); NEUT % 64.2 % (16.0-70.0); PLATELET COUNT 286 TH/MM3 (150-450); RED BLOOD COUNT 4.88 MIL/MM3 (4.00-5.30); RED CELL DISTRIBUTION WIDTH 16.1 % (11.6-17.2); WHITE BLOOD COUNT 6.4 TH/MM3 (4.0-11.0)
[2018-02-15 09:14] LABS: INTERNATIONAL NORMALIZED RATIO 2.5 RATIO; PROTHROMBIN TIME - PATIENT 25.4 SEC (9.8-11.6)
[2018-02-15 09:59] LABS: BICARBONATE 27.1 MEQ/L (21.0-32.0); CALCIUM 9.6 MG/DL (8.5-10.1); CREATININE 1.44 MG/DL (0.50-1.00)
[2018-02-15] MEDS ORDERED: PERI PO (12:03)
[2018-02-15] MEDS ORDERED: POTA10CA PO (12:03)
[2018-02-15] MEDS ORDERED: CEFU1TAB20 PO (12:03)
[2018-02-15] MEDS ORDERED: METO-309 PO (12:03)
[2018-02-15] MEDS ORDERED: BACL10TA PO (12:03)
[2018-02-15] MEDS ORDERED: ENAL5TAB PO (12:03)
[2018-02-15] MEDS ORDERED: FURO20TA PO (12:03)
--- NOTE | 2018-02-15 12:05 | HHI.DS ---
Discharge Summary Admission Date Feb 05, 2018 at 16:31 Admitting Diagnosis vomiting, CHF, bilateral pleural effusions, SOB, hypoxia CBC/BMP: 02/15/18 0827 02/15/18 0827 Significant Findings Laboratory Tests Test 02/12/18 20:20 02/13/18 00:25 02/13/18 10:54 02/14/18 08:03 Monocytes (%) (Auto) 12.0 % (0.0-8.0) 8.4 % (0.0-8.0) 9.1 % (0.0-8.0) Eosinophils (%) (Auto) 5.7 % (0.0-4.0) 4.8 % (0.0-4.0) 5.1 % (0.0-4.0) Blood Gas HCO3 28 mmol/L (22-26) Blood Gas Base Excess 4.0 mmol/L (-2-2) Arterial Blood pH 7.43 (7.380-7.420) Arterial Blood Partial Pressure CO2 43 mmHg (38-42) Neutrophils (%) (Auto) 72.4 % (16.0-70.0) Prothrombin Time 46.5 SEC (9.8-11.6) 39.9 SEC (9.8-11.6) Blood Urea Nitrogen 38 MG/DL (7-18) 45 MG/DL (7-18) Creatinine 1.37 MG/DL (0.50-1.00) 1.48 MG/DL (0.50-1.00) Random Glucose 121 MG/DL (74-106) Estimat Glomerular Filtration Rate 37 ML/MIN (>89) 33 ML/MIN (>89) Test 02/15/18 08:27 Monocytes (%) (Auto) 9.5 % (0.0-8.0) Eosinophils (%) (Auto) 4.5 % (0.0-4.0) Prothrombin Time 25.4 SEC (9.8-11.6) Blood Urea Nitrogen 54 MG/DL (7-18) Creatinine 1.44 MG/DL (0.50-1.00) Estimat Glomerular Filtration Rate 35 ML/MIN (>89) Pt Condition on Discharge: Stable Discharge Disposition: Rehab Inpatient Discharge Instructions DIET: Follow Instructions for: Heart Healthy Diet, Coumadin (Warfarin) Diet Activities you can perform: Regular-No Restrictions Arlene Foster MD Feb 15, 2018 12:05
--- NOTE | 2018-02-15 12:05 | HHI.DCPOC ---
Discharge Care Plan Diagnosis: (1) Wide-complex tachycardia (2) Confusion and disorientation (3) Hypokalemia due to loss of potassium (4) Chronic atrial fibrillation (5) Pleural effusion, bilateral (6) Hypoxia (7) CHF (congestive heart failure) Goals to Promote Your Health * To prevent worsening of your condition and complications * To maintain your health at the optimal level Directions to Meet Your Goals Take your medications as prescribed Follow your dietary instruction Follow activity as directed Keep your appointments as scheduled Take your immunizations and boosters as scheduled If your symptoms worsen call your PCP, if no PCP go to Urgent Care Center or Emergency Room Smoking is Dangerous to Your Health. Avoid second hand smoke Call the 24-hour hour crisis hotline for domestic abuse at Arlene Foster MD Feb 15, 2018 12:05
[2018-02-15] MEDS ORDERED: SENN8.6T88 PO (16:40)
== END 2018-02-15 14:58 | DRG 391 ==
LOC: NEPD 12:18 → NEDA 16:31 → NEDH 20:31 → N04B 02-06 14:29
PROVIDERS: ADMIT Family Medicine; ATTEND Family Medicine
DX: K22.4 Dyskinesia of esophagus (principal); J18.9 Pneumonia, unspecified organism; I47.2 Ventricular tachycardia; I11.0 Hypertensive heart disease with heart failure; I42.9 Cardiomyopathy, unspecified; I50.9 Heart failure, unspecified; F03.90 Unspecified dementia, unspecified severity, without behavioral disturbance, psychotic disturbance, mood disturbance, and anxiety; R11.2 Nausea with vomiting, unspecified; Z99.81 Dependence on supplemental oxygen; R09.02 Hypoxemia; I48.2 Chronic atrial fibrillation; E03.9 Hypothyroidism, unspecified; M17.0 Bilateral primary osteoarthritis of knee; K21.9 Gastro-esophageal reflux disease without esophagitis; E78.5 Hyperlipidemia, unspecified; I45.10 Unspecified right bundle-branch block; I25.10 Atherosclerotic heart disease of native coronary artery without angina pectoris; E87.6 Hypokalemia; K22.8 Other specified diseases of esophagus; F32.9 Major depressive disorder, single episode, unspecified; F41.9 Anxiety disorder, unspecified; Z79.01 Long term (current) use of anticoagulants; Z85.3 Personal history of malignant neoplasm of breast; Z86.73 Personal history of transient ischemic attack (TIA), and cerebral infarction without residual deficits; Z87.891 Personal history of nicotine dependence; Z88.0 Allergy status to penicillin; Z96.612 Presence of left artificial shoulder joint; Z96.642 Presence of left artificial hip joint
CPT/HCPCS: 36600; 70450; 71045; 71046; 71250; 74230; 80048; 80053; 81001; 82140; 82805; 83690; 83735; 83880; 85025; 85610; 85730; 87449; 93005; 93306; 94640; 94664; 96374; J0692; J1940; J2060; J3480

== ENCOUNTER 2018-02-23 15:54 | Inpatient (IN) | payer MEDICARE, BC ==
[~2018-02-23] VITALS: Ht 152.4 cm; Wt 54.2 kg
[~2018-02-23 15:54] MED LIST changes: +BACL10TA PO; +CEFU1TAB20 PO; +COUM1TAB PO; -COUM3TAB PO; -DILT120T PO; +ENAL5TAB PO; +FAMO20TA2 PO; +FURO20TA PO; -JANT2.5T PO; +METO-309 PO; +PERI PO; +POTA10CA PO; +SENN8.6T88 PO; +VANC125C3 PO
[2018-02-23 17:00] VITALS: BP 155/92; PULSE 92; RESP 35; O2SAT 92
[2018-02-23 17:14] VITALS: O2SAT 96
[2018-02-23] MEDS ORDERED: DILTIAZEM HCL 25 MG/5 ML VIAL IV PUSH ONE (17:15)
[2018-02-23] MEDS ORDERED: DEXTROSE 50% IN WATER 50 ML VIAL(D50) IV PUSH PRN (17:15)
[2018-02-23] MEDS ORDERED: DILTIAZEM INJ 125 MG in SODIUM CHLORIDE 0.9% INJ 100 ML IV PRN (17:15)
[2018-02-23] MEDS ORDERED: GLUCAGON 1 MG/ML VIAL OTHER PRN (17:15)
[2018-02-23] MEDS ORDERED: SODIUM CHLORIDE 0.9% FLUSH 10 ML FLUSH IV FLUSH PRN ×2 (17:15)
[2018-02-23] MEDS: metroNIDAZOLE 500 MG INJ 100 ML IV SCH (17:39)
--- NOTE | 2018-02-23 17:45 | HHI.HP ---
[facility] Lc Moran MD Admission Diagnosis Diagnoses: (1) Transient ischemic attack (TIA) Diagnosis: Principal (2) Atrial fibrillation with RVR Diagnosis: Principal (3) Altered mental status Diagnosis: Principal (4) HTN (hypertension) Chief Complaint: Stroke alert Travel History International Travel<30 Days: No Contact w/Intl Traveler <30 Da: No Traveled to Known Affected Are: No History of Present Illness Written by Elian Gunter, acting as scribe for Dr. Jeb Torrez on 02/23/18 at 16: 59. 87-year-old female with past medical history significant for A. fib on Coumadin , TIA(January 2017), HTN, esophageal strictures s/p dilatation, hypothyroidism, IBS, depression and anxiety who was admitted to [facility] after recently being treated for CHF exacerbation and pneumonia. Patient was stable participating in physical therapy, however earlier today had an episode of anxiety as reported by nurse with increased heart rate, blood pressure, and altered mental status. Stat EKG was done revealing A. fib with RVR, due to her altered metal status a stroke alert was called. Patient underwent stat head CT which showed no new acute abnormalities, did show atrophy, and low density throughout the cerebral white matter likely representing small vessel ischemic changes. Patient also underwent CTA of brain and carotid arteries. She was transfer to [facility]. She is seen and examined in her room lying with HOB flat, she is nonverbal, but is moving all extremities. She does not follow commands, she is smiling, no facial droop noted. HR still in the 120's. Patient was not able to receive IV Cardizem as she was in CT scanner. Nurse is present during exam. Review of Systems ROS Limitations: Altered Mental Status Except as stated in HPI: all other systems reviewed are Neg Past Family Social History Past Medical History Gathered from prior EMR Atrial fibrillation on Coumadin Hypertension Esophageal stricture status post dilation 01/09/18 Dysphagia Hypothyroidism TIA Dec 2016 IBS Depression Anxiety History of duodenal ulcer as a teenager Past Surgical History Gathered from prior EMR Left hip replacement Hysterectomy Left shoulder replacement Previous lumpectomy Reported Medications Reported Meds & Active Scripts Active Vancomycin (Vancomycin HCl) 125 Mg Cap 125 Mg PO QID 10 Days Famotidine 20 Mg Tab 20 Mg PO BID 1 Days Xanax (Alprazolam) 0.25 Mg Tab 0.25 Mg PO Q8H PRN 1 Days Coumadin (Warfarin) 1 Mg Tab 1.5 Mg PO DAILY@1600 1 Days Gnp Senna Plus 8.6-50 mg (Sennosides-Docusate Sodium) 8.6 Mg-50 Mg Tab 1 Tab PO BID Furosemide 20 Mg Tab 20 Mg PO DAILY Potassium Chloride ER (Potassium Chloride) 10 Meq Cap 20 Meq PO BID Enalapril (Enalapril Maleate) 5 Mg Tab 5 Mg PO BID Lopressor (Metoprolol Tartrate) 50 Mg Tab 75 Mg PO Q12HR Baclofen 10 Mg Tab 5 Mg PO BID Reported Senna-Docusate Sodium Tablet (Sennosides/Docusate Sodium) 8.6 Mg-50 Mg Tablet 8.6 PO BID NEB Levothyroxine (Levothyroxine Sodium) 75 Mcg Tab 75 Mcg PO DAILY Allergies: Coded Allergies: ampicillin (Verified Allergy, Severe, Rash, 02/15/18) No Known Allergies (Verified Allergy, Unknown, 02/15/18) Family History Gathered from prior EMR CAD, NM, CHF Social History Patient unable to provide history Physical Exam Physical Exam GENERAL: This is a well-nourished, well-developed patient, restless. SKIN: No rashes, ecchymoses or lesions. Cool and dry. HEAD: Atraumatic. Normocephalic. EYES: Pupils equal round and reactive. No scleral icterus. No injection or drainage. ENT: Nose without bleeding, purulent drainage. Airway patent. NECK: Trachea midline. No JVD or lymphadenopathy. Supple. CARDIOVASCULAR: Irregular rate and rhythm (afib) no murmurs, gallops, or rubs. RESPIRATORY: Clear to auscultation. Breath sounds equal bilaterally. No wheezes , rales, or rhonchi. GASTROINTESTINAL: Abdomen soft, non-tender, nondistended. No guarding. MUSCULOSKELETAL: Extremities without clubbing, cyanosis, or edema. No joint tenderness, effusion, or edema noted. NEUROLOGICAL: Awake and alert, nonverbal. Moving all extremities spontaneously, not following commands, no facial droop noted. Caprini VTE Risk Assessment Caprini VTE Risk Assessment: Mod/High Risk (score >= 2) Caprini Risk Assessment Model Point Value = 1 Point Value = 2 Point Value = 3 Point Value = 5 Age 41-60 Minor surgery BMI > 25 kg/m2 Swollen legs Varicose veins or History of unexplained or recurrent spontaneous Oral contraceptives or hormone replacement Sepsis (< 1 month) Serious lung disease, including pneumonia (< 1 month) Abnormal pulmonary function Acute myocardial infarction Congestive heart failure (< 1 month) History of inflammatory bowel disease Medical patient at bed rest Age 61-74 Arthroscopic surgery Major open surgery (> 45 min) Laparoscopic surgery (> 45 min) Malignancy Confined to bed (> 72 hours) Immobilizing plaster cast Central venous access Age >= 75 History of VTE Family history of VTE Factor V Leiden Prothrombin [id number] Lupus anticoagulant Anticardiolipin antibodies Elevated serum homocysteine Heparin-induced thrombocytopenia Other congenital or acquired thrombophilia Stroke (< 1 month) Elective arthroplasty Hip, pelvis, or leg fracture Acute spinal cord injury (< 1 month) Prophylaxis Regimen Total Risk Factor Score Risk Level Prophylaxis Regimen 0-1 Low Early ambulation 2 Moderate Order ONE of the following: *Sequential Compression Device (SCD) *Heparin 5000 units SQ BID 3-4 Higher Order ONE of the following medications: *Heparin 5000 units SQ TID *Enoxaparin/Lovenox 40 mg SQ daily (WT < 150 kg, CrCl > 30 mL/min) *Enoxaparin/Lovenox 30 mg SQ daily (WT < 150 kg, CrCl > 10-29 mL/min) *Enoxaparin/Lovenox 30 mg SQ BID (WT < 150 kg, CrCl > 30 mL/min) AND/OR *Sequential Compression Device (SCD) 5 or more Highest Order ONE of the following medications: *Heparin 5000 units SQ TID (Preferred with Epidurals) *Enoxaparin/Lovenox 40 mg SQ daily (WT < 150 kg, CrCl > 30 mL/min) *Enoxaparin/Lovenox 30 mg SQ daily (WT < 150 kg, CrCl > 10-29 mL/min) *Enoxaparin/Lovenox 30 mg SQ BID (WT < 150 kg, CrCl > 30 mL/min) AND *Sequential Compression Device (SCD) Assessment and Plan Assessment and Plan 87-year-old female with past medical history significant for A. fib on Coumadin , TIA (January 2017), HTN, esophageal strictures s/p dilatation, hypothyroidism, IBS, depression and anxiety who was admitted to [facility] after recently being treated for CHF exacerbation and pneumonia. Patient was stable participating in physical therapy, however earlier today had an episode of anxiety as reported by nurse with increased heart rate, blood pressure, and altered mental status. Stat EKG was done revealing A. fib with RVR, due to her altered metal status a stroke alert was called. AMS Rule out stroke (Hx TIA 01/2017) -Orders placed while patient was still in [facility] re[facility]. Stroke protocol initiated, and stroke alert called. Patient D/C from [facility] admit to [facility] - Neurology consulted for further evaluation and recommendations, appreciate input -Stat CT of the brain with no new or acute abnormalities, atrophy, low density throughout the cerebral white matter likely related to small vessel ischemic change. 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 Peripheral flow appears symmetric. - Neck CTA mild calcified plaque at the carotid bulb regions without significant stenosis. Asymmetric vertebral arteries with the right vertebral artery being smaller. Flow was not seen in the most distal aspect of the right vertebral artery above the C1/foramina magnum level. - MRA and MRI of brain ordered - Check 2D echo, lipid profile, hemoglobin A1C - CBC and BMP reviewed, consistent with priors. - HOB flat, Neuro-checks, swallow evaluation IVF for hydration A. fib with RVR (not new) - AMS ? if this is TIA or if A.fib w/ RVR is causing mental status change. - Patient has been anticoagulated while at [place] on Coumadin. INR this AM 2.6, PT 25.8, rate controlled on Metoprolol 75mg BID - Stat EKG showing A. fib w/ RVR - HR continues to be in the 120's, Give Cardizem 15mg IVP, and start Cardizem gtt, titrate for HR <100 - Monitor HR and BP CHF - Last 2D echo completed on 02/07/18 with EF 50-55% mild centric left ventricular hypertrophy, trace MVR, moderate to severe TVR, mild pulmonary valve regurgitation. - Chest x-ray completed on 02/23 with left basilar patchiness consistent with atelectasis and/or infiltrate, cardiomegaly. - Gentle hydration with close monitoring for fluid overload. Patient has been afebrile while in rehab with no leukocytosis. BRADLEY on CKD -baseline creatinine/GFR around 1.1-1.2/40 - Gentle hydration as patient has received IV contrast, monitor renal function closely. C. Diff - Treat with IV Metronidazole - Special contact precautions Dysphagia - Hx esophageal dysmotility and stricture with recent dilation on 01/09/18 DVT prophylaxis-INR therapeutic, SCD's Discussed Condition With This note was transcribed by scribfelipe [Elian Gunter]. I, Dr. Zeferino Torrez personally performed the history, physical exam, and medical decision making; and confirmed the accuracy of the information in the transcribed note. Authenticated by Dr. Zeferino Torrez on 02/23/18 at 18:48. Physician Certification 2 Midnight Certification Type: Admission for Inpatient Services Order for Inpatient Services The services are ordered in accordance with Medicare regulations or non- Medicare payer requirements, as applicable. In the case of services not specified as inpatient-only, they are appropriately provided as inpatient services in accordance with the 2-midnight benchmark. Estimated LOS (days): 5 days is the estimated time the patient will need to remain in the hospital, assuming treatment plan goals are met and no additional complications. Post-Hospital Plan: Not yet determined Elian Gunter Feb 23, 2018 17:45 Zeferino Torrez MD Feb 23, 2018 18:49
[2018-02-23 18:00] VITALS: PULSE 102
[2018-02-23 18:25] LABS: INTERNATIONAL NORMALIZED RATIO 2.2 RATIO; PROTHROMBIN TIME - PATIENT 22.3 SEC (9.8-11.6)
[2018-02-23 20:00] VITALS: BP 154/73; PULSE 90; RESP 30; TEMP 100.2; O2SAT 91
[2018-02-23] MEDS ORDERED: hydrALAZINE HCL 20 MG/ML VIAL IV PUSH PRN (20:45)
[2018-02-23] MEDS: SODIUM CHLORIDE 0.9% FLUSH 10 ML FLUSH IV FLUSH SCH (20:47)
[2018-02-23 20:54] VITALS: O2SAT 97
[2018-02-23] MEDS ORDERED: SODIUM CHLORIDE 0.9% FLUSH 10 ML FLUSH IV FLUSH SCH (21:00)
[2018-02-23] MEDS: INSULIN ASPART SUPPLEMENTAL SCALE SQ SCH (21:00)
[2018-02-23 22:00] VITALS: PULSE 84
[2018-02-24] VITALS (15 sets, daily range): BP systolic 101–137; BP diastolic 57–65; PULSE 70–85; RESP 18–33; TEMP 98.5–99.7; O2SAT 93–98
[2018-02-24] MEDS: metroNIDAZOLE 500 MG INJ 100 ML IV SCH ×3 (01:07→16:41)
[2018-02-24 05:54] LABS: ALBUMIN 3.2 GM/DL (3.4-5.0); AST (GOT) 31 U/L (15-37); BICARBONATE 25.3 MEQ/L (21.0-32.0); BLOOD UREA NITROGEN 27 MG/DL (7-18); CHLORIDE 102 MEQ/L (98-107); CHOLESTEROL 187 MG/DL (120-200); CREATININE 1.41 MG/DL (0.50-1.00); GLOMERULAR FILTRATION RATE 35 ML/MIN (>89); GLUCOSE,RANDOM 93 MG/DL (74-106); SODIUM (NA) 137 MEQ/L (136-145); TRIGLYCERIDES 218 MG/DL (42-150)
[2018-02-24 05:58] LABS: ALKALINE PHOSPHATASE 104 U/L (45-117); ALT (GPT) 27 U/L (10-53); CHOLESTEROL/ HDL RATIO 5.09 RATIO; HDL CHOLESTEROL 36.7 MG/DL (40.0-60.0); LDL CHOLESTEROL 107 MG/DL (0-99); TOTAL BILIRUBIN ADULT 0.8 MG/DL (0.2-1.0); TOTAL PROTEIN 7.2 GM/DL (6.4-8.2)
[2018-02-24 06:12] LABS: AUTOMATED NEUTROPHIL # 8.5 TH/MM3 (1.8-7.7); BASOPHIL # 0.1 TH/MM3 (0-0.2); BASOPHIL % 0.6 % (0.0-2.0); EOSINOPHIL % 0.4 % (0.0-4.0); HEMATOCRIT 38.6 % (35.0-46.0); HEMOGLOBIN 13.2 GM/DL (11.6-15.3); LYMPH % 13.1 % (9.0-44.0); LYMPHOCYTE # 1.5 TH/MM3 (1.0-4.8); MEAN CELL VOLUME 82.2 FL (80.0-100.0); MEAN CORPUSCULAR HEMOGLOBIN 28.1 PG (27.0-34.0); MEAN CORPUSCULAR HGB CONC 34.2 % (32.0-36.0); MEAN PLATELET VOLUME 10.4 FL (7.0-11.0); MONO % 12.2 % (0.0-8.0); MONOCYTE # 1.4 TH/MM3 (0-0.9); NEUT % 73.7 % (16.0-70.0); PLATELET COUNT 294 TH/MM3 (150-450); RED BLOOD COUNT 4.69 MIL/MM3 (4.00-5.30); RED CELL DISTRIBUTION WIDTH 16.3 % (11.6-17.2); WHITE BLOOD COUNT 11.6 TH/MM3 (4.0-11.0)
[2018-02-24] MEDS: INSULIN ASPART SUPPLEMENTAL SCALE SQ SCH ×4 (08:00→21:00)
[2018-02-24] MEDS: SODIUM CHLORIDE 0.9% FLUSH 10 ML FLUSH IV FLUSH SCH ×2 (09:00→21:00)
--- NOTE | 2018-02-24 09:08 | MB ---
cc: Kaushik Bower MD DATE: 02/24/2018 HISTORY OF PRESENT ILLNESS: She is an 87-year-old gentleman seen in neurological consultation. This consult was called when she was in rehab yesterday. I spoke to the staff there at that time, but the patient was subsequently transferred to the regular floor. Seems to be stable. I have looked at the data. The patient was in rehab and has a history of atrial fibrillation, on Coumadin. Her INR was 2.4. Yesterday, the patient became anxious and there was some altered mentation. She was noted to have atrial fibrillation with RVR and the CT brain showed no acute abnormality. She also had CT angio studies yesterday, head and neck. The neck study was essentially unremarkable and the head study showed the right vertebral artery being occluded distally, just above the foramen magnum. The neurological exam shows the patient to be awakened easily this morning, obviously quite anxious, moving all 4 extremities. She is repeatedly talking something about [place], but she knew she was at [facility] and she asked that I help her, but she could not be specific. She denied pain. She did not know the date, but she knew her age. She has diminished but present reflexes throughout. Plantar responses were flexor. She has restraints. Again, on command, she was able to flex the knees and wiggle the toes/feet and she did associate application developer bilaterally without any distinct asymmetry. She gazed in all directions and was able to count fingers bilaterally. ASSESSMENT: Altered mentation, which seems to be improving. She is agitated and very anxious and talking about sabianist/[place]. Probably delirium from multiple sources including medications, cardiac issues, and severe anxiety. INR is 2.2. There is a plan for MRI studies. Would continue the Coumadin therapy from a neurological standpoint. Thank you for asking us to assist in her care. I will follow her with you. Kaushik Bower MD OFC/TI , 08:29 AM , 09:07 AM
--- NOTE | 2018-02-24 14:32 | RADRPT ---
EXAM DATE/TIME: 02/24/2018 11:38 [facility] COMPARISON: MRI BRAIN W/O CONTRAST, February 08, 2017, 15:23. INDICATIONS : CVA. MEDICAL HISTORY : Hypertension. TIA SURGICAL HISTORY : Total shoulder rt/hip replacement ENCOUNTER: Initial ACUITY: 2 day PAIN SCORE: 0/10 LOCATION: head TECHNIQUE: Multiplanar, multisequence MRI of the brain was performed without contrast. FINDINGS: CEREBRUM: A small focus of restricted diffusion is identified in the right parietal cortex. There is no associa shawn mass effect or edema. Significant atrophic changes remain evident throughout the brain there is loss of volume with en largement of the CSF spaces. A cavum septum pellucidum is again noted. WHITE MATTER: Advanced T2 hyperintense changes are again noted throughout the cerebral white matter. POSTERIOR FOSSA: The cerebellum and brainstem are intact. The 4th ventricle is midline. The cerebellopontine angle is unremarkable. The cerebellar tonsils are normal in position. DIFFUSION IMAGING: No other focal areas of restricted diffusion are seen. No evidence of acute infarction. EXTRACRANIAL: The visualized portions of the orbits and paranasal sinuses are unremarkable. CONCLUSION: 1. Very small focus of restricted diffusion in the right parietal lobe characteristics of of a small cortical infarct. 2. Advanced cerebral white matter chronic ischemic changes without significant change since previous study. 3. No evidence of acute hemorrhage, edema or mass effect. Eligio Barth MD on February 24, 2018 at 14:23 Board Certified Radiologist. This report was verified electronically.
--- NOTE | 2018-02-24 14:35 | RADRPT ---
EXAM DATE/TIME: 02/24/2018 11:38 [facility] COMPARISON: MRA BRAIN W/O CONTRAST, February 08, 2017, 15:23. INDICATIONS : CVA. MEDICAL HISTORY : Hypertension. SURGICAL HISTORY : Total shoulder replac.hip replacement. ENCOUNTER: Initial ACUITY: 1 day PAIN SCORE: 0/10 LOCATION: head Please note a normal MRA of the brain does not entirely exclude the possibility of a small aneurysm, nor the possibility of distal intracranial vessel disease. TECHNIQUE: 3D time of flight MRA was performed. Source images, multiplanar STS MIP, and 3D volume MIP reconstru ctions were reviewed. FINDINGS: There is adequate visualization of the major intracranial arteries out to the second-order branch ves sels. Luminal irregularity most characteristic of atherosclerotic disease is identified in the proximal cer ebral vessels. There are no proximal high-grade stenotic lesions, evidence of aneurysm or vascular displacement. CONCLUSION: 1. Luminal irregularity most characteristic of vessels chronic vascular disease. Other forms of vascu lopathy cannot be excluded. 2. No evidence of significant proximal stenotic or occlusive disease. Eligio Barth MD on February 24, 2018 at 14:29 Board Certified Radiologist. This report was verified electronically.
[2018-02-24] MEDS: DILTIAZEM INJ 125 MG in SODIUM CHLORIDE 0.9% INJ 100 ML IV PRN (16:00)
--- NOTE | 2018-02-24 19:12 | HHI.PR ---
Subjective Remarks pt with marked confusion and mild elevation of wbc Objective Vital Signs Date Time Temp Pulse Resp B/P (MAP) Pulse Ox O2 Delivery O2 Flow Rate FiO2 02/24/18 18:00 75 02/24/18 16:00 98.5 85 28 119/57 (77) 93 02/24/18 16:00 85 02/24/18 16:00 82 119/57 02/24/18 14:00 78 02/24/18 12:00 99.0 78 28 137/62 (87) 97 02/24/18 12:00 78 02/24/18 10:00 72 02/24/18 08:57 94 Nasal Cannula 3.00 02/24/18 08:00 76 02/24/18 08:00 98.7 76 18 101/65 (77) 96 02/24/18 07:00 Nasal Cannula 3.00 97 02/24/18 06:00 70 02/24/18 04:00 99.1 76 26 112/65 (81) 97 02/24/18 04:00 81 02/24/18 02:00 78 02/24/18 00:59 98 Nasal Cannula 4.00 02/24/18 00:00 82 02/24/18 00:00 99.7 81 33 132/65 (87) 97 02/23/18 22:00 84 02/23/18 22:00 84 02/23/18 20:54 97 Nasal Cannula 3.00 02/23/18 20:00 90 02/23/18 20:00 90 02/23/18 20:00 100.2 90 30 154/73 (100) 91 I/O 02/23/18 02/23/18 02/23/18 02/24/18 02/24/18 02/24/18 07:00 15:00 23:00 07:00 15:00 23:00 Intake Total 200 ml Balance 200 ml Intake Oral 200 ml # Voids 1 2 2 # Bowel Movements 0 1 2 Result Diagram: 02/24/1850602/24/18 050 Imaging Inpatient Medications Dextrose (D50w (Vial) Inj) 50 ml UNSCH PRN IV PUSH HYPOGLYCEMIA-SEE COMMENTS; Start 02/23/18 at 17:15 Diltiazem HCl (Cardizem Inj) 15 mg ONCE ONCE IV PUSH Last administered on 02/23at 17:41; Start 02/23/18 at 17:15; Stop 02/23/18 at 17:16; Status DC Diltiazem HCl 125 mg/Sodium Chloride 125 ml @ 5 mls/hr TITRATE PRN IV Tachycardia Last administered on 02/24/18at 16:00; Start 02/23/18 at 17:30 Glucagon (Glucagon Inj) 1 mg UNSCH PRN OTHER HYPOGLYCEMIA-SEE COMMENTS; Start 02/23/18 at 17:15 Hydralazine HCl (Apresoline Inj) 10 mg Q4H PRN IV PUSH SBP > 220 or DBP > 120; Start 02/23/18 at 20:45 Insulin Aspart (NovoLOG SUPPLEMENTAL SCALE) 1 ACHS SQ ; Start 02/23/18 at 21:00 Metronidazole 100 ml @ 100 mls/hr Q8H IV Last administered on 02/24/18at 16:41 ; Start 02/23/18 at 17:00 Sodium Chloride (NS Flush) 2 ml BID IV FLUSH ; Start 02/23/18 at 21:00 Objective Remarks GENERAL: Well-nourished, well-developed patient. SKIN: Warm and dry. HEAD: Normocephalic. EYES: No scleral icterus. No injection or drainage. NECK: Supple, trachea midline. No JVD or lymphadenopathy. CARDIOVASCULAR: Regular rate and rhythm without murmurs, gallops, or rubs.currently rate controlled on cardizem drip RESPIRATORY: Breath sounds equal bilaterally. No accessory muscle use. GASTROINTESTINAL: Abdomen soft, non-tender, nondistended. EXTREMITIES: No cyanosis, or edema. NEUROLOGICAL: Awake, very confused Medications and IVs Inpatient Medications Dextrose (D50w (Vial) Inj) 50 ml UNSCH PRN IV PUSH HYPOGLYCEMIA-SEE COMMENTS; Start 02/23/18 at 17:15 Diltiazem HCl (Cardizem Inj) 15 mg ONCE ONCE IV PUSH Last administered on 02/23at 17:41; Start 02/23/18 at 17:15; Stop 02/23/18 at 17:16; Status DC Diltiazem HCl 125 mg/Sodium Chloride 125 ml @ 5 mls/hr TITRATE PRN IV Tachycardia Last administered on 02/24/18at 16:00; Start 02/23/18 at 17:30 Glucagon (Glucagon Inj) 1 mg UNSCH PRN OTHER HYPOGLYCEMIA-SEE COMMENTS; Start 02/23/18 at 17:15 Hydralazine HCl (Apresoline Inj) 10 mg Q4H PRN IV PUSH SBP > 220 or DBP > 120; Start 02/23/18 at 20:45 Insulin Aspart (NovoLOG SUPPLEMENTAL SCALE) 1 ACHS SQ ; Start 02/23/18 at 21:00 Metronidazole 100 ml @ 100 mls/hr Q8H IV Last administered on 02/24/18at 16:41 ; Start 02/23/18 at 17:00 Sodium Chloride (NS Flush) 2 ml BID IV FLUSH ; Start 02/23/18 at 21:00 Assessment and Plan Problem List: (1) Confusion and disorientation ICD Codes: F99 - Mental disorder, not otherwise specified Plan: add risperdal consult neuro (2) Atrial fibrillation with RVR ICD Codes: I48.91 - Unspecified atrial fibrillation Plan: on cardizem drip cardiology managing Assessment and Plan elevated wbc asses cxr ua repeat cbc Darion Cano DO Feb 24, 2018 19:12
[2018-02-24] MEDS: risperiDONE 0.25 MG TAB PO SCH (23:06)
--- NOTE | 2018-02-24 23:08 | RADRPT ---
EXAM DATE/TIME: 02/24/2018 22:38 [facility] COMPARISON: CHEST SINGLE AP, November 02, 2012, 17:43. INDICATIONS : Cough. MEDICAL HISTORY : Cardiovascular disease. Hypertension Carcinoma, breast. SURGICAL HISTORY : Left shoulder arthroplasty. ENCOUNTER: Subsequent ACUITY: 3 days PAIN SCORE: Non-responsive. LOCATION: Bilateral chest FINDINGS: There is cardiomegaly. Mild left basilar airspace disease. Chronic interstitial changes in lungs agai n noted. Trace pleural fluid. No pneumothorax. Previous left shoulder joint replacement. CONCLUSION: 1. Subsegmental airspace disease at the left lung base. 2. Trace pleural fluid. 3. Cardiomegaly with interstitial changes, possibly some mild interstitial edema. Huber Herrera MD on February 24, 2018 at 23:03 Board Certified Radiologist. This report was verified electronically.
[2018-02-25] VITALS (15 sets, daily range): BP systolic 112–130; BP diastolic 58–83; PULSE 74–109; RESP 18–25; TEMP 97.6–98.7; O2SAT 95–99
[2018-02-25] MEDS: metroNIDAZOLE 500 MG INJ 100 ML IV SCH ×3 (02:11→17:38)
[2018-02-25 06:59] LABS: AUTOMATED NEUTROPHIL # 6.4 TH/MM3 (1.8-7.7); BASOPHIL # 0.1 TH/MM3 (0-0.2); BASOPHIL % 0.7 % (0.0-2.0); EOSINOPHIL % 0.4 % (0.0-4.0); LYMPH % 15.2 % (9.0-44.0); LYMPHOCYTE # 1.4 TH/MM3 (1.0-4.8); MEAN CELL VOLUME 83.3 FL (80.0-100.0); MEAN CORPUSCULAR HEMOGLOBIN 29.5 PG (27.0-34.0); MEAN CORPUSCULAR HGB CONC 35.4 % (32.0-36.0); MEAN PLATELET VOLUME 10.1 FL (7.0-11.0); MONO % 16.7 % (0.0-8.0); MONOCYTE # 1.6 TH/MM3 (0-0.9); PLATELET COUNT 215 TH/MM3 (150-450); RED BLOOD COUNT 4.08 MIL/MM3 (4.00-5.30); RED CELL DISTRIBUTION WIDTH 16.6 % (11.6-17.2); WHITE BLOOD COUNT 9.5 TH/MM3 (4.0-11.0)
[2018-02-25 07:18] LABS: BICARBONATE 21.4 MEQ/L (21.0-32.0); CALCIUM 8.7 MG/DL (8.5-10.1); CREATININE 1.14 MG/DL (0.50-1.00)
[2018-02-25] MEDS: INSULIN ASPART SUPPLEMENTAL SCALE SQ SCH ×4 (07:36→20:54)
[2018-02-25] MEDS: risperiDONE 0.25 MG TAB PO SCH ×2 (07:52→20:28)
[2018-02-25] MEDS: SODIUM CHLORIDE 0.9% FLUSH 10 ML FLUSH IV FLUSH SCH ×2 (07:52→20:28)
--- NOTE | 2018-02-25 08:57 | HHI.PR ---
Subjective Remarks In bed this am with wrist restraints, pleasantly confused Objective Vital Signs Date Time Temp Pulse Resp B/P (MAP) Pulse Ox O2 Delivery O2 Flow Rate FiO2 02/25/18 07:00 Nasal Cannula 3.00 100 02/25/18 06:00 94 02/25/18 05:57 96 Nasal Cannula 3.00 02/25/18 04:00 97.7 82 18 118/61 (80) 98 02/25/18 04:00 88 02/25/18 02:00 81 02/25/18 01:26 97 Nasal Cannula 3.00 02/25/18 00:00 81 02/25/18 00:00 98.2 82 20 112/58 (76) 96 02/24/18 22:00 82 02/24/18 20:40 95 Nasal Cannula 3.00 02/24/18 20:00 76 02/24/18 20:00 98.7 76 20 114/57 (76) 95 02/24/18 19:00 Nasal Cannula 3.00 96 02/24/18 18:00 75 02/24/18 16:00 98.5 85 28 119/57 (77) 93 02/24/18 16:00 85 02/24/18 16:00 82 119/57 02/24/18 14:00 78 02/24/18 12:00 99.0 78 28 137/62 (87) 97 02/24/18 12:00 78 02/24/18 10:00 72 I/O 02/24/18 02/24/18 02/24/18 02/25/18 02/25/18 02/25/18 07:00 15:00 23:00 07:00 15:00 23:00 Intake Total 200 ml 400 ml Balance 200 ml 400 ml Intake Oral 200 ml 400 ml # Voids 2 2 4 # Bowel Movements 1 2 Result Diagram: 02/25/18 0449 02/25/18 0449 Imaging Last 72 hours Impressions Head Magnetic Resonance Angiography 02/24/18 0000 Signed Impressions: Service Date/Time: Saturday, February 24, 2018 11:38 - CONCLUSION: 1. Luminal irregularity most characteristic of vessels chronic vascular disease. Other forms of vasculopathy cannot be excluded. 2. No evidence of significant proximal stenotic or occlusive disease. Eligio Barth MD Brain MRI 02/24/18 0000 Signed Impressions: Service Date/Time: Saturday, February 24, 2018 11:38 - CONCLUSION: 1. Very small focus of restricted diffusion in the right parietal lobe characteristics of of a small cortical infarct. 2. Advanced cerebral white matter chronic ischemic changes without significant change since previous study. 3. No evidence of acute hemorrhage, edema or mass effect. Eligio Barth MD Other Results ENERAL: Well-nourished, well-developed patient. SKIN: Warm and dry. HEAD: Normocephalic. EYES: No scleral icterus. No injection or drainage. NECK: Supple, trachea midline. No JVD or lymphadenopathy. CARDIOVASCULAR: Regular rate, no gallops, or rubs.currently on cardizem drip RESPIRATORY: Breath sounds equal bilaterally. No use of accessory muscle. GASTROINTESTINAL: Abdomen soft, non-tender, nondistended. EXTREMITIES: No cyanosis, or edema. NEUROLOGICAL: Awake, very confused, anxious Medications and IVs Laboratory Tests Test 02/23/18 17:30 02/23/18 18:05 02/24/18 05:07 02/25/18 04:49 Prothrombin Time 22.3 SEC (9.8-11.6) Activated Partial Thromboplast Time 39.8 SEC (24.3-30.1) White Blood Count 11.6 TH/MM3 (4.0-11.0) Neutrophils (%) (Auto) 73.7 % (16.0-70.0) Monocytes (%) (Auto) 12.2 % (0.0-8.0) 16.7 % (0.0-8.0) Neutrophils # (Auto) 8.5 TH/MM3 (1.8-7.7) Monocytes # (Auto) 1.4 TH/MM3 (0-0.9) 1.6 TH/MM3 (0-0.9) Blood Urea Nitrogen 27 MG/DL (7-18) 24 MG/DL (7-18) Creatinine 1.41 MG/DL (0.50-1.00) 1.14 MG/DL (0.50-1.00) Albumin 3.2 GM/DL (3.4-5.0) Estimat Glomerular Filtration Rate 35 ML/MIN (>89) 45 ML/MIN (>89) Triglycerides Level 218 MG/DL (42-150) LDL Cholesterol 107 MG/DL (0-99) HDL Cholesterol 36.7 MG/DL (40.0-60.0) Hematocrit 34.0 % (35.0-46.0) Chloride Level 108 MEQ/L (98-107) Current Medications Medications (Trade) Dose Ordered Sig/Jose A Route Start Time Stop Time Status Last Admin Metronidazole 100 ml @ 100 mls/hr Q8H IV 02/23/18 17:00 02/25/18 07:52 (NovoLOG SUPPLEMENTAL SCALE) 1 ACHS SQ 02/23/18 21:00 (D50w (Vial) Inj) 50 ml UNSCH PRN IV PUSH 02/23/18 17:15 (Glucagon Inj) 1 mg UNSCH PRN OTHER 02/23/18 17:15 (NS Flush) 2 ml UNSCH PRN IV FLUSH 02/23/18 17:15 (NS Flush) 2 ml BID IV FLUSH 02/23/18 21:00 Diltiazem HCl 125 mg/Sodium Chloride 125 ml @ 5 mls/hr TITRATE PRN IV 02/23/18 17:30 02/24/18 16:00 (Apresoline Inj) 10 mg Q4H PRN IV PUSH 02/23/18 20:45 (risperDAL) 0.25 mg Q12HR PO 02/24/18 21:00 02/25/18 07:52 Assessment and Plan Problem List: (1) Atrial fibrillation with RVR ICD Codes: I48.91 - Unspecified atrial fibrillation Plan: Currently on cardizem drip. Was on Cardizem at one point but d/c and Lopressor started prior to going to rehab. Will appreciate cardiology recommendation INR 2.2 . (2) Confusion and disorientation ICD Codes: F99 - Mental disorder, not otherwise specified Plan: started on low dose Risperdal will monitor (3) HTN (hypertension) ICD Codes: I10 - Essential (primary) hypertension Status: Chronic Plan: cont home medications, monitor Discharge Planning back to rehab at [facility] Feb 25, 2018 08:57
[2018-02-25] MEDS: DILTIAZEM INJ 125 MG in SODIUM CHLORIDE 0.9% INJ 100 ML IV PRN ×2 (11:41→23:44)
[2018-02-25] MEDS: METOPROLOL TARTRATE 50 MG TAB PO SCH (19:15)
[2018-02-25 19:25] LABS: PROTHROMBIN TIME - PATIENT 20.1 SEC (9.8-11.6)
[2018-02-25] MEDS: AMIODARONE 200 MG TAB PO SCH (20:28)
[2018-02-26] VITALS (11 sets, daily range): BP systolic 130–163; BP diastolic 65–87; PULSE 76–102; RESP 20–22; TEMP 97.8–98.2; O2SAT 91–98
[2018-02-26] MEDS: metroNIDAZOLE 500 MG INJ 100 ML IV SCH ×3 (02:08→17:00)
[2018-02-26 05:19] LABS: AUTOMATED NEUTROPHIL # 6.1 TH/MM3 (1.8-7.7); BASOPHIL # 0.1 TH/MM3 (0-0.2); BASOPHIL % 0.7 % (0.0-2.0); EOSINOPHIL # 0.1 TH/MM3 (0-0.4); EOSINOPHIL % 0.9 % (0.0-4.0); HEMOGLOBIN 12.2 GM/DL (11.6-15.3); LYMPH % 10.6 % (9.0-44.0); LYMPHOCYTE # 0.8 TH/MM3 (1.0-4.8); MEAN CELL VOLUME 87.3 FL (80.0-100.0); MEAN CORPUSCULAR HEMOGLOBIN 28.1 PG (27.0-34.0); MEAN CORPUSCULAR HGB CONC 32.2 % (32.0-36.0); MEAN PLATELET VOLUME 10.3 FL (7.0-11.0); MONO % 11.9 % (0.0-8.0); NEUT % 75.9 % (16.0-70.0); PLATELET COUNT 179 TH/MM3 (150-450); RED BLOOD COUNT 4.35 MIL/MM3 (4.00-5.30)
[2018-02-26 05:43] LABS: BICARBONATE 21.8 MEQ/L (21.0-32.0); CALCIUM 8.9 MG/DL (8.5-10.1); CREATININE 1.17 MG/DL (0.50-1.00)
[2018-02-26] MEDS: METOPROLOL TARTRATE 50 MG TAB PO SCH ×2 (06:04→17:53)
[2018-02-26] MEDS: INSULIN ASPART SUPPLEMENTAL SCALE SQ SCH ×4 (08:00→21:00)
--- NOTE | 2018-02-26 08:08 | MB ---
cc: Sabra Cheema MD DATE: 02/18/2018 REASON FOR CONSULTATION: Atrial fibrillation. HISTORY OF PRESENT ILLNESS: Ms. Del Cid is an 87-year-old female who does have a history of atrial fibrillation, hyperlipidemia, TIA. She initially presented at the beginning of the month with congestive heart failure and atrial fibrillation. She was changed from Cardizem to metoprolol before both the RVR and an EF of 40-45%. She had subsequently done well and was at [facility] when she was transferred back to the hospital for vomiting and shortness of breath on 02/15/2018. The patient was brought back to the main hospital for a possible TIA. She also had some atrial fibrillation with rapid ventricular rate at 125 beats a minute. She was taken off of her metoprolol and placed on a Cardizem drip. Cardiology was subsequently requested to assist with getting her back on p.o. medications. The patient remains pleasantly confused today. Thus, the history is per the records. PAST MEDICAL HISTORY: Significant for the atrial fibrillation, on Coumadin, hypertension, esophageal stricture with dilation, dysphagia, hypothyroidism, TIA, irritable bowel syndrome, depression, anxiety, cardiomyopathy of 40-45% that has subsequently resolved per the echo on 02/07/2018 that shows an EF of 50-55%. CURRENT MEDICATIONS: Per the record. FAMILY HISTORY, SOCIAL HISTORY AND REVIEW OF SYSTEMS: Unobtainable. PHYSICAL EXAMINATION: VITAL SIGNS: Are temperature 98.3, heart rate 86, blood pressure 130/65. GENERAL: She is a well-appearing, elderly female who is in no apparent distress. She is pleasantly confused. She recognizes me, but does not recall my name. PULMONARY: The lungs are decreased in the bases, but clear to auscultation. CARDIOVASCULAR: She has an irregularly irregular rhythm. No rubs or gallops were appreciated. ABDOMEN: Soft. EXTREMITIES: Free from edema. LABORATORY DATA: Significant for an INR of 2.2. ECHOCARDIOGRAM: From 02/23/2018 shows atrial fibrillation with a rapid ventricular rate. TELEMETRY: Shows atrial fibrillation at 86 beats a minute. IMPRESSION AND PLAN: 1. Atrial fibrillation with rapid ventricular rate. The patient is now well rate controlled on low-dose Cardizem. She did appear to have very good control on the metoprolol. I would like to put her back on the metoprolol and will also add amiodarone, as the metoprolol held her quite well. Heart rate of 125, I did not consider this to be excessive given her circumstance. The patient should be on anticoagulation. The Neurology note also recommended continuing anticoagulation. Her Coumadin was therapeutic. I do not see any Coumadin at this point and would have the primary team restart that. 2. History of congestive heart failure. The patient seems to be euvolemic at this point. The patient appears reasonably well compensated at this point. 3. Altered mental status. The patient has had some difficulties with this recently. This will be managed per the primary team and Neurology. MD DIONISIO Thomas/JADE , 05:43 PM , 06:03 PM
--- NOTE | 2018-02-26 08:43 | HHI.PR ---
Subjective Remarks Off Cardizem, resting in bed pleasantly confused Objective Vital Signs Date Time Temp Pulse Resp B/P (MAP) Pulse Ox O2 Delivery O2 Flow Rate FiO2 02/26/18 06:00 97 02/26/18 04:00 80 02/26/18 04:00 98.1 82 20 131/70 (90) 93 02/26/18 02:00 87 02/26/18 00:00 78 02/26/18 00:00 98.0 79 20 130/65 (86) 95 02/25/18 22:00 74 02/25/18 21:03 95 Nasal Cannula 3.00 02/25/18 20:00 90 02/25/18 20:00 97.6 90 20 112/58 (76) 96 02/25/18 19:00 Nasal Cannula 3.00 96 02/25/18 18:00 109 02/25/18 16:00 98.3 86 20 130/65 (86) 97 02/25/18 16:00 86 02/25/18 14:00 86 02/25/18 12:00 79 02/25/18 12:00 98.4 79 24 125/61 (82) 99 02/25/18 11:41 82 109/66 02/25/18 10:00 81 I/O 02/25/18 02/25/18 02/25/18 02/26/18 02/26/18 02/26/18 07:00 15:00 23:00 07:00 15:00 23:00 Intake Total 400 ml 540 ml 200 ml Output Total 500 ml Balance 400 ml 40 ml 200 ml Intake Oral 400 ml 540 ml 200 ml Output Urine Total 500 ml # Voids 4 2 # Bowel Movements 1 Result Diagram: 02/26/18 0452 02/26/18 0452 Other Results GENERAL: Well-nourished, well-developed patient. SKIN: Warm and dry. HEAD: Normocephalic. EYES: No scleral icterus. No injection or drainage. NECK: Supple, trachea midline. No JVD or lymphadenopathy. CARDIOVASCULAR: Regular rate, no gallops, or rubs.currently RESPIRATORY: Breath sounds equal bilaterally. No use of accessory muscle. GASTROINTESTINAL: Abdomen soft, non-tender, nondistended. EXTREMITIES: No cyanosis, or edema. NEUROLOGICAL: Awake, confused, anxious Medications and IVs Current Medications Medications (Trade) Dose Ordered Sig/Jose A Route Start Time Stop Time Status Last Admin Metronidazole 100 ml @ 100 mls/hr Q8H IV 02/23/18 17:00 02/26/18 02:08 (NovoLOG SUPPLEMENTAL SCALE) 1 ACHS SQ 02/23/18 21:00 02/25/18 20:54 (D50w (Vial) Inj) 50 ml UNSCH PRN IV PUSH 02/23/18 17:15 (Glucagon Inj) 1 mg UNSCH PRN OTHER 02/23/18 17:15 (NS Flush) 2 ml UNSCH PRN IV FLUSH 02/23/18 17:15 (NS Flush) 2 ml BID IV FLUSH 02/23/18 21:00 02/25/18 20:28 Diltiazem HCl 125 mg/Sodium Chloride 125 ml @ 5 mls/hr TITRATE PRN IV 02/23/18 17:30 02/25/18 11:41 (Apresoline Inj) 10 mg Q4H PRN IV PUSH 02/23/18 20:45 (risperDAL) 0.25 mg Q12HR PO 02/24/18 21:00 02/25/18 20:28 (Lopressor) 50 mg Q12H PO 02/25/18 18:00 02/26/18 06:04 (Cordarone) 400 mg Q12HR PO 02/25/18 21:00 02/25/18 20:28 Assessment and Plan Problem List: (1) Atrial fibrillation with RVR ICD Codes: I48.91 - Unspecified atrial fibrillation Plan: Off Cardizem, HR controlled with Lopressor and amiodarone. Coumadin 2 mg restarted Monitor INR (2) Confusion and disorientation ICD Codes: F99 - Mental disorder, not otherwise specified Plan: cont Risperdal will monitor (3) HTN (hypertension) ICD Codes: I10 - Essential (primary) hypertension Status: Chronic Plan: cont home medications, monitor Adrienne Lee Feb 26, 2018 08:43
[2018-02-26] MEDS: SODIUM CHLORIDE 0.9% FLUSH 10 ML FLUSH IV FLUSH SCH ×2 (09:14→21:52)
[2018-02-26] MEDS: AMIODARONE 200 MG TAB PO SCH ×2 (09:15→21:51)
[2018-02-26] MEDS: risperiDONE 0.25 MG TAB PO SCH ×2 (09:15→21:51)
[2018-02-26 11:19] LABS: PROTHROMBIN TIME - PATIENT 62.3 SEC (9.8-11.6)
[2018-02-26 11:25] LABS: INTERNATIONAL NORMALIZED RATIO 6.2 RATIO
--- NOTE | 2018-02-26 11:43 | ECHRPT ---
Indication: CVA/TIA CONCLUSIONS Normal left ventricular size. Mild concentric left ventricular hypertrophy. The left ventricular systolic function is hyperdynamic with an estimated ejection fraction in the ra nge of 65- 70%. LV normal size and systolic function. The left atrial size is erockzzt-ji-thzjtekp dilated. The right atrial size is severely dilated. Mild mitral valve regurgitation. Aortic valve sclerosis is present. Mild aortic valve regurgitation. There is moderate tricuspid valve regurgitation. The estimated pulmonary arterial pressure is 63.3 mmHg. Moderate pulmonary valve regurgitation. BP: 101 / 65 HR: 72 Rhythm: Sinus MEASUREMENTS (Male / Female) Normal Values Technical Quality:Fair 2D ECHO LV Diastolic Diameter PLAX 4.6 cm 4.2 - 5.9 / 3.9 - 5.3 cm LV Systolic Diameter PLAX 3.1 cm IVS Diastolic Thickness 1.0 cm 0.6 - 1.0 / 0.6 - 0.9 cm LVPW Diastolic Thickness 1.0 cm 0.6 - 1.0 / 0.6 - 0.9 cm LV Relative Wall Thickness 0.5 RV Internal Dim ED PLAX 3.5 cm LVOT Diameter 1.8 cm Aortic Root Diameter 3.2 cm LA Systolic Diameter LX 4.6 cm 3.0 - 4.0 / 2.7 - 3.8 cm M-MODE AV Cusp Separation MM 1.8 cm DOPPLER AV Peak Velocity 147.0 cm/s AV Peak Gradient 8.6 mmHg AV Mean Gradient 4.5 mmHg AV Velocity Time Integral 23.5 cm LVOT Peak Velocity 69.2 cm/s LVOT Peak Gradient 1.9 mmHg LVOT Velocity Time Integral 13.6 cm AV Area Cont Eq vti 1.5 cm AV Area Cont Eq pk 1.2 cm Mitral E Point Velocity 127.5 cm/s LV E' Lateral Velocity 6.6 cm/s Mitral E to LV E' Lateral Ratio 19.5 LV E' Septal Velocity 3.4 cm/s Mitral E to LV E' Septal Ratio 37.6 TR Peak Velocity 365.0 cm/s TR Peak Gradient 53.3 mmHg Right Atrial Pressure 10.0 mmHg Pulmonary Artery Systolic Pressu 63.3 mmHg Right Ventricular Systolic Press 63.3 mmHg PV Peak Velocity 97.8 cm/s PV Peak Gradient 3.8 mmHg FINDINGS LEFT VENTRICLE Normal left ventricular size. Mild concentric left ventricular hypertrophy. The left ventricular systolic function is hyperdynamic with an estimated ejection fraction in the ra nge of 65- 70%. RIGHT VENTRICLE Normal right ventricular size and systolic function. LEFT ATRIUM The left atrial size is hgtiaqdg-di-hutndcqa dilated. RIGHT ATRIUM The right atrial size is severely dilated. ATRIAL SEPTUM No atrial level shunt is demonstrated by color flow Doppler interrogation. AORTA The aortic root and proximal ascending aorta are not well visualized. MITRAL VALVE Mild mitral valve regurgitation. AORTIC VALVE Aortic valve sclerosis is present. Mild aortic valve regurgitation. TRICUSPID VALVE There is moderate to severe tricuspid valve regurgitation. The estimated pulmonary arterial pressure is 63.3 mmHg. PULMONARY VALVE Moderate pulmonary valve regurgitation. VESSELS The inferior vena cava is normal in size. PERICARDIUM No pericardial effusion. Yunior Greer MD, FACC (Electronically Signed) Final Date:26 February 2018 11:42
[2018-02-26 13:59] LABS: INTERNATIONAL NORMALIZED RATIO 1.5 RATIO; PROTHROMBIN TIME - PATIENT 15.1 SEC (9.8-11.6)
[2018-02-26] MEDS ORDERED: WARFARIN SOD 2 MG TAB PO SCH (16:00)
--- NOTE | 2018-02-26 17:56 | PD.CARD.PN ---
Subjective Subjective Remarks pt without complaints Objective Medications Current Medications Medications (Trade) Dose Ordered Sig/Jose A Route Start Time Stop Time Status Last Admin Metronidazole 100 ml @ 100 mls/hr Q8H IV 02/23/18 17:00 02/26/18 17:00 (NovoLOG SUPPLEMENTAL SCALE) 1 ACHS SQ 02/23/18 21:00 02/25/18 20:54 (D50w (Vial) Inj) 50 ml UNSCH PRN IV PUSH 02/23/18 17:15 (Glucagon Inj) 1 mg UNSCH PRN OTHER 02/23/18 17:15 (NS Flush) 2 ml UNSCH PRN IV FLUSH 02/23/18 17:15 (NS Flush) 2 ml BID IV FLUSH 02/23/18 21:00 02/26/18 09:14 Diltiazem HCl 125 mg/Sodium Chloride 125 ml @ 5 mls/hr TITRATE PRN IV 02/23/18 17:30 02/25/18 11:41 (Apresoline Inj) 10 mg Q4H PRN IV PUSH 02/23/18 20:45 (risperDAL) 0.25 mg Q12HR PO 02/24/18 21:00 02/26/18 09:15 (Lopressor) 50 mg Q12H PO 02/25/18 18:00 02/26/18 06:04 (Cordarone) 400 mg Q12HR PO 02/25/18 21:00 02/26/18 09:15 (Coumadin) 2 mg DAILY@16 PO 02/26/18 16:00 02/26/18 16:00 Vital Signs / I&O Vital Signs Date Time Temp Pulse Resp B/P (MAP) Pulse Ox O2 Delivery O2 Flow Rate FiO2 02/26/18 16:00 102 02/26/18 16:00 98.0 102 22 163/71 (101) 91 02/26/18 14:00 86 02/26/18 12:00 81 02/26/18 10:00 87 02/26/18 08:00 76 02/26/18 08:00 Nasal Cannula 2.00 02/26/18 08:00 98.2 79 20 152/82 (105) 98 02/26/18 06:00 97 02/26/18 04:00 80 02/26/18 04:00 98.1 82 20 131/70 (90) 93 02/26/18 02:00 87 02/26/18 00:00 78 02/26/18 00:00 98.0 79 20 130/65 (86) 95 02/25/18 22:00 74 02/25/18 21:03 95 Nasal Cannula 3.00 02/25/18 20:00 90 02/25/18 20:00 97.6 90 20 112/58 (76) 96 02/25/18 19:00 Nasal Cannula 3.00 96 02/25/18 18:00 109 I/O 02/25/18 02/25/18 02/25/18 02/26/18 02/26/18 02/26/18 07:00 15:00 23:00 07:00 15:00 23:00 Intake Total 400 ml 540 ml 200 ml Output Total 500 ml Balance 400 ml 40 ml 200 ml Intake Oral 400 ml 540 ml 200 ml Output Urine Total 500 ml # Voids 4 2 # Bowel Movements 1 Physical Exam Current Medications Medications (Trade) Dose Ordered Sig/Jose A Route Start Time Stop Time Status Last Admin Metronidazole 100 ml @ 100 mls/hr Q8H IV 02/23/18 17:00 02/26/18 17:00 (NovoLOG SUPPLEMENTAL SCALE) 1 ACHS SQ 02/23/18 21:00 02/25/18 20:54 (D50w (Vial) Inj) 50 ml UNSCH PRN IV PUSH 02/23/18 17:15 (Glucagon Inj) 1 mg UNSCH PRN OTHER 02/23/18 17:15 (NS Flush) 2 ml UNSCH PRN IV FLUSH 02/23/18 17:15 (NS Flush) 2 ml BID IV FLUSH 02/23/18 21:00 02/26/18 09:14 Diltiazem HCl 125 mg/Sodium Chloride 125 ml @ 5 mls/hr TITRATE PRN IV 02/23/18 17:30 02/25/18 11:41 (Apresoline Inj) 10 mg Q4H PRN IV PUSH 02/23/18 20:45 (risperDAL) 0.25 mg Q12HR PO 02/24/18 21:00 02/26/18 09:15 (Lopressor) 50 mg Q12H PO 02/25/18 18:00 02/26/18 06:04 (Cordarone) 400 mg Q12HR PO 02/25/18 21:00 02/26/18 09:15 (Coumadin) 2 mg DAILY@16 PO 02/26/18 16:00 02/26/18 16:00 Laboratory Laboratory Tests Test 02/25/18 18:50 02/26/18 04:52 02/26/18 11:00 02/26/18 13:35 Prothrombin Time 20.1 SEC 62.3 SEC 15.1 SEC Prothromb Time International Ratio 2.0 RATIO 6.2 RATIO 1.5 RATIO White Blood Count 8.0 TH/MM3 Red Blood Count 4.35 MIL/MM3 Hemoglobin 12.2 GM/DL Hematocrit 38.0 % Mean Corpuscular Volume 87.3 FL Mean Corpuscular Hemoglobin 28.1 PG Mean Corpuscular Hemoglobin Concent 32.2 % Red Cell Distribution Width 17.0 % Platelet Count 179 TH/MM3 Mean Platelet Volume 10.3 FL Neutrophils (%) (Auto) 75.9 % Lymphocytes (%) (Auto) 10.6 % Monocytes (%) (Auto) 11.9 % Eosinophils (%) (Auto) 0.9 % Basophils (%) (Auto) 0.7 % Neutrophils # (Auto) 6.1 TH/MM3 Lymphocytes # (Auto) 0.8 TH/MM3 Monocytes # (Auto) 1.0 TH/MM3 Eosinophils # (Auto) 0.1 TH/MM3 Basophils # (Auto) 0.1 TH/MM3 CBC Comment DIFF FINAL Differential Comment Blood Urea Nitrogen 22 MG/DL Creatinine 1.17 MG/DL Random Glucose 102 MG/DL Calcium Level 8.9 MG/DL Sodium Level 140 MEQ/L Potassium Level 3.8 MEQ/L Chloride Level 110 MEQ/L Carbon Dioxide Level 21.8 MEQ/L Anion Gap 8 MEQ/L Estimat Glomerular Filtration Rate 44 ML/MIN Assessment and Plan Problem List: (1) Afib ICD Codes: I48.91 - Unspecified atrial fibrillation Status: Chronic Plan: reasonable rate control on present meds; - I will decrease amio to standard dose -continue Coumadin for target INR 2-3 per PCP ok for d/c from CV perspective (2) Altered mental status ICD Codes: R41.82 - Altered mental status, unspecified (3) HTN (hypertension) ICD Codes: I10 - Essential (primary) hypertension Status: Chronic Sabra Cheema MD Feb 26, 2018 17:56
[2018-02-26 18:53] LABS: HEMOGLOBIN A1C 4.9 % (4.3-6.0)
[2018-02-27] VITALS (7 sets, daily range): BP systolic 153–158; BP diastolic 80–87; PULSE 77–88; RESP 17–25; TEMP 97.7–98.3; O2SAT 95–96
[2018-02-27] MEDS: metroNIDAZOLE 500 MG INJ 100 ML IV SCH ×2 (01:36→08:40)
[2018-02-27 05:22] LABS: AUTOMATED NEUTROPHIL # 6.4 TH/MM3 (1.8-7.7); BASOPHIL # 0.1 TH/MM3 (0-0.2); BASOPHIL % 0.9 % (0.0-2.0); EOSINOPHIL # 0.2 TH/MM3 (0-0.4); EOSINOPHIL % 1.9 % (0.0-4.0); HEMATOCRIT 38.1 % (35.0-46.0); LYMPH % 15.9 % (9.0-44.0); LYMPHOCYTE # 1.4 TH/MM3 (1.0-4.8); MEAN CELL VOLUME 83.3 FL (80.0-100.0); MEAN CORPUSCULAR HEMOGLOBIN 28.5 PG (27.0-34.0); MEAN CORPUSCULAR HGB CONC 34.2 % (32.0-36.0); MEAN PLATELET VOLUME 9.8 FL (7.0-11.0); MONO % 10.6 % (0.0-8.0); NEUT % 70.7 % (16.0-70.0); PLATELET COUNT 260 TH/MM3 (150-450); RED BLOOD COUNT 4.57 MIL/MM3 (4.00-5.30); RED CELL DISTRIBUTION WIDTH 17.1 % (11.6-17.2); WHITE BLOOD COUNT 9.1 TH/MM3 (4.0-11.0)
[2018-02-27 05:27] LABS: INTERNATIONAL NORMALIZED RATIO 1.4 RATIO
[2018-02-27 05:44] LABS: BICARBONATE 21.2 MEQ/L (21.0-32.0); CALCIUM 8.9 MG/DL (8.5-10.1); CREATININE 1.25 MG/DL (0.50-1.00)
[2018-02-27] MEDS: METOPROLOL TARTRATE 50 MG TAB PO SCH (06:37)
[2018-02-27] MEDS: INSULIN ASPART SUPPLEMENTAL SCALE SQ SCH (08:30)
[2018-02-27] MEDS: risperiDONE 0.25 MG TAB PO SCH (08:41)
[2018-02-27] MEDS: SODIUM CHLORIDE 0.9% FLUSH 10 ML FLUSH IV FLUSH SCH (08:41)
--- NOTE | 2018-02-27 08:44 | HHI.PR ---
Review/Management Daily Summary alert and pleasantly confused probably baseline cognition follows all simple commands counts fingers bilat overall doing reasonbly well neuro inr goal is 2-3 rehab today prn neuro while inpatient, outpt follow up after rehab Subjective Subjective Comments No acute events reported No headache Active Medications Current Medications Medications (Trade) Dose Ordered Sig/Jose A Route Start Time Stop Time Status Last Admin Metronidazole 100 ml @ 100 mls/hr Q8H IV 02/23/18 17:00 02/27/18 01:36 (NovoLOG SUPPLEMENTAL SCALE) 1 ACHS SQ 02/23/18 21:00 02/25/18 20:54 (D50w (Vial) Inj) 50 ml UNSCH PRN IV PUSH 02/23/18 17:15 (Glucagon Inj) 1 mg UNSCH PRN OTHER 02/23/18 17:15 (NS Flush) 2 ml UNSCH PRN IV FLUSH 02/23/18 17:15 (NS Flush) 2 ml BID IV FLUSH 02/23/18 21:00 02/26/18 21:52 Diltiazem HCl 125 mg/Sodium Chloride 125 ml @ 5 mls/hr TITRATE PRN IV 02/23/18 17:30 02/25/18 11:41 (Apresoline Inj) 10 mg Q4H PRN IV PUSH 02/23/18 20:45 (risperDAL) 0.25 mg Q12HR PO 02/24/18 21:00 02/26/18 21:51 (Lopressor) 50 mg Q12H PO 02/25/18 18:00 02/27/18 06:37 (Coumadin) 2 mg DAILY@16 PO 02/26/18 16:00 02/26/18 16:00 (Cordarone) 200 mg DAILY PO 02/27/18 09:00 Allergies Allergies Coded Allergies ampicillin (Verified Allergy, Severe, Rash, 02/15/18) No Known Allergies (Verified Allergy, Unknown, 02/15/18) Exam I&O / VS Vital Signs Date Time Temp Pulse Resp B/P (MAP) Pulse Ox O2 Delivery O2 Flow Rate FiO2 02/27/18 06:00 78 02/27/18 04:00 98.3 88 25 153/85 (107) 95 02/27/18 04:00 88 02/27/18 02:00 86 02/27/18 00:00 97.9 88 17 158/80 (106) 95 02/27/18 00:00 88 02/26/18 22:00 77 02/26/18 20:00 95 Nasal Cannula 2.00 02/26/18 20:00 97.8 81 22 152/87 (108) 95 02/26/18 20:00 78 02/26/18 16:00 102 02/26/18 16:00 98.0 102 22 163/71 (101) 91 02/26/18 14:00 86 02/26/18 12:00 81 02/26/18 10:00 87 Respiratory: Lungs CTA, Non-labored respirations, BS equal Cardiology: Normal rate, Intact pulses, Normal peripheral perfusion, No edema, Irregular Rhythm Musculoskeletal: ROM, No calf tenderness Objective Micro and Labs Laboratory Tests Test 02/26/18 11:00 02/26/18 13:35 02/27/18 05:00 Prothrombin Time 62.3 15.1 14.0 Prothromb Time International Ratio 6.2 1.5 1.4 White Blood Count 9.1 Red Blood Count 4.57 Hemoglobin 13.0 Hematocrit 38.1 Mean Corpuscular Volume 83.3 Mean Corpuscular Hemoglobin 28.5 Mean Corpuscular Hemoglobin Concent 34.2 Red Cell Distribution Width 17.1 Platelet Count 260 Mean Platelet Volume 9.8 Neutrophils (%) (Auto) 70.7 Lymphocytes (%) (Auto) 15.9 Monocytes (%) (Auto) 10.6 Eosinophils (%) (Auto) 1.9 Basophils (%) (Auto) 0.9 Neutrophils # (Auto) 6.4 Lymphocytes # (Auto) 1.4 Monocytes # (Auto) 1.0 Eosinophils # (Auto) 0.2 Basophils # (Auto) 0.1 CBC Comment DIFF FINAL Differential Comment Blood Urea Nitrogen 27 Creatinine 1.25 Random Glucose 98 Calcium Level 8.9 Sodium Level 141 Potassium Level 4.0 Chloride Level 111 Carbon Dioxide Level 21.2 Anion Gap 9 Estimat Glomerular Filtration Rate 41 Kaushik Bower MD Feb 27, 2018 08:44
[2018-02-27] MEDS ORDERED: AMIODARONE 200 MG TAB PO SCH (09:00)
[2018-02-27] MEDS ORDERED: COUM2TAB PO (09:33)
[2018-02-27] MEDS ORDERED: ENAL5TAB PO (09:33)
[2018-02-27] MEDS ORDERED: METO-309 PO (09:33)
[2018-02-27] MEDS ORDERED: RISP.25 PO (09:33)
[2018-02-27] MEDS ORDERED: AMIO200T PO (09:33)
--- NOTE | 2018-02-27 09:41 | HHI.DS ---
Discharge Summary Admission Date Feb 23, 2018 at 16:48 Admitting Diagnosis (1) Transient ischemic attack (TIA) Diagnosis: Principal ICD Codes: G45.9 - Transient cerebral ischemic attack, unspecified Status: Acute (2) Atrial fibrillation with RVR Diagnosis: Principal ICD Codes: I48.91 - Unspecified atrial fibrillation (3) Altered mental status Diagnosis: Principal ICD Codes: R41.82 - Altered mental status, unspecified (4) HTN (hypertension) ICD Codes: I10 - Essential (primary) hypertension Status: Chronic CBC/BMP: 02/27/18 0500 02/27/18 0500 Significant Findings Laboratory Tests Test 02/25/18 04:49 02/25/18 18:50 02/26/18 04:52 02/26/18 11:00 Hematocrit 34.0 % (35.0-46.0) Monocytes (%) (Auto) 16.7 % (0.0-8.0) 11.9 % (0.0-8.0) Monocytes # (Auto) 1.6 TH/MM3 (0-0.9) 1.0 TH/MM3 (0-0.9) Blood Urea Nitrogen 24 MG/DL (7-18) 22 MG/DL (7-18) Creatinine 1.14 MG/DL (0.50-1.00) 1.17 MG/DL (0.50-1.00) Chloride Level 108 MEQ/L (98-107) 110 MEQ/L (98-107) Estimat Glomerular Filtration Rate 45 ML/MIN (>89) 44 ML/MIN (>89) Prothrombin Time 20.1 SEC (9.8-11.6) 62.3 SEC (9.8-11.6) Neutrophils (%) (Auto) 75.9 % (16.0-70.0) Lymphocytes # (Auto) 0.8 TH/MM3 (1.0-4.8) Prothromb Time International Ratio 6.2 RATIO Test 02/26/18 13:35 02/27/18 05:00 Prothrombin Time 15.1 SEC (9.8-11.6) 14.0 SEC (9.8-11.6) Neutrophils (%) (Auto) 70.7 % (16.0-70.0) Monocytes (%) (Auto) 10.6 % (0.0-8.0) Monocytes # (Auto) 1.0 TH/MM3 (0-0.9) Blood Urea Nitrogen 27 MG/DL (7-18) Creatinine 1.25 MG/DL (0.50-1.00) Chloride Level 111 MEQ/L (98-107) Estimat Glomerular Filtration Rate 41 ML/MIN (>89) PE at Discharge GENERAL: Well-nourished, well-developed patient. SKIN: Warm and dry. HEAD: Normocephalic. EYES: No scleral icterus. No injection or drainage. NECK: Supple, trachea midline. No JVD or lymphadenopathy. CARDIOVASCULAR: Regular rate, no gallops, or rubs.currently RESPIRATORY: Breath sounds equal bilaterally. No use of accessory muscle. GASTROINTESTINAL: Abdomen soft, non-tender, nondistended. EXTREMITIES: No cyanosis, or edema. NEUROLOGICAL: Awake, pleasantly confused Hospital Course Neuro consulted for some AMS possible , Mri/ mra completed no bleed noted cleared to restart Coumadin. Cardiology consulted for afib rvr- placed on Cardizem, rate controlled, changed to po amiodarone, metoprolol, Coumadin restarted. started on Risperdal for some confusion. agitation, tolerating well Dc back to rehab. Pt Condition on Discharge: Stable Discharge Disposition: Rehab Inpatient Discharge Instructions DIET: Follow Instructions for: Heart Healthy Diet Activities you can perform: Regular-No Restrictions Adrienne Lee Feb 27, 2018 09:41
== END 2018-02-27 11:28 | DRG 69 ==
LOC: N03B 16:48
PROVIDERS: ADMIT Family Medicine; ATTEND Family Medicine
DX: G45.9 Transient cerebral ischemic attack, unspecified (principal); N17.9 Acute kidney failure, unspecified; I13.0 Hypertensive heart and chronic kidney disease with heart failure and stage 1 through stage 4 chronic kidney disease, or unspecified chronic kidney disease; I48.91 Unspecified atrial fibrillation; I08.1 Rheumatic disorders of both mitral and tricuspid valves; I50.9 Heart failure, unspecified; N18.9 Chronic kidney disease, unspecified; F41.9 Anxiety disorder, unspecified; E03.9 Hypothyroidism, unspecified; F32.9 Major depressive disorder, single episode, unspecified; Z78.1 Physical restraint status; Z79.01 Long term (current) use of anticoagulants; Z86.73 Personal history of transient ischemic attack (TIA), and cerebral infarction without residual deficits; Z96.612 Presence of left artificial shoulder joint; Z96.642 Presence of left artificial hip joint; Z82.49 Family history of ischemic heart disease and other diseases of the circulatory system; K22.4 Dyskinesia of esophagus; E78.5 Hyperlipidemia, unspecified; K58.9 Irritable bowel syndrome, unspecified
CPT/HCPCS: 70544; 70551; 71046; 80048; 80053; 80061; 82948; 83036; 85025; 85610; 85730; 87641; 93308; J1815

== ENCOUNTER 2018-04-16 10:31 | Inpatient (IN) | payer MEDICARE, BC ==
[~2018-04-16 10:31] MED LIST changes: +ACET325T15 PO; +AMIO200T PO; +AMLO5 PO; -CEFU1TAB20 PO; +CHOL4POW4 PO; -COUM1TAB PO; +LACTTAB8 PO; +ONDA4TAB7 PO; -PERI PO; -POTA10CA PO; -SENN8.6T88 PO; -VANC125C3 PO; +VANC500I3 PO; +WARF4TAB52 PO
[2018-04-16 10:46] VITALS: BP 119/56; PULSE 79; RESP 12; TEMP 97.4; O2SAT 94
--- NOTE | 2018-04-16 11:17 | PD ---
HPI Chief Complaint: General Weakness Time Seen by Provider: 11:04 Travel History International Travel<30 days: No Contact w/Intl Traveler<30days: No Traveled to known affect area: No History of Present Illness HPI This is an 87-year-old female who presents from [facility] reportedly for evaluation of pressure ulcers. It appears that the patient was discharged to [facility] on March 17. She was reportedly being treated there for pneumonia with Levaquin. At some point she developed pressure ulcers on her sacrum and bilateral heels. The patient reports that he started 3 weeks ago. They are somewhat painful. She reports that her cough is improved. Overall she reports that she feels well. She denies any fevers, chills, headache, chest pain, shortness of breath, abdominal pain, nausea, vomiting, diarrhea, constipation. She reports that she is ambulatory with assistance and with a walker. She reports that her grandson Raz wanted her to be evaluated in the emergency room today and that is why she was transported here. No other complaints at this time. PFSH Past Medical History Hx Anticoagulant Therapy: Yes Arthritis: Yes (BILATERAL KNEES) Atrial Fibrillation: Yes Autoimmune Disease: No Anxiety: Yes Depression: Yes Heart Rhythm Problems: Yes (A. 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) Diabetes: No Diminished Hearing: No Endocrine: Yes Gastrointestinal Disorders: Yes (IRRITABLE BOWEL SYNDROME) GERD: Yes Genitourinary: Yes Headaches: Yes Hiatal Hernia: No Hypertension: Yes Immune Disorder: No Implanted Vascular Access Dvce: No Kidney Stones: No Musculoskeletal: Yes Neurologic: Yes Psychiatric: Yes Reproductive: No Respiratory: Yes Immunizations Current: Yes Migraines: Yes Radiation Therapy: Yes (1998) Renal Failure: No Seizures: No Sickle Cell Disease: No Sleep Apnea: No Thyroid Disease: Yes (HYPOTHYROIDISM) Ulcer: Yes (DUODENAL ULCER ) ?: Not Past Surgical History Abdominal Surgery: Yes (01/08/18 PROLAPSED RECTUM) AICD: No Arteriovenous Shunt: No Cardiac Surgery: No Ear Surgery: No Endocrine Surgery: No Eye Surgery: No Genitourinary Surgery: Yes (CYSTOCELE AND RECTOCELE) Gynecologic Surgery: Yes (HYSTERECTOMY) Hysterectomy: Yes Insulin Pump: No Joint Replacement: Yes (L HIP AND L SHOULDER) Oral Surgery: No Pacemaker: No Thoracic Surgery: No Other Surgery: Yes (1997 LEFT LUMPECTOMY (15 LYMPH NODES REMOVED) ) Social History Alcohol Use: No Tobacco Use: No Substance Use: No Allergies-Medications (Allergen,Severity, Reaction): Coded Allergies: ampicillin (Verified Allergy, Severe, Rash, 04/16/18) Reported Meds & Prescriptions Reported Meds & Active Scripts Active Xanax (Alprazolam) 0.25 Mg Tab 0.125 Mg PO Q12HR PRN Xanax (Alprazolam) 0.25 Mg Tab 0.125 Mg PO HS Baclofen 10 Mg Tab 5 Mg PO BID Norvasc (Amlodipine Besylate) 5 Mg Tab 5 Mg PO DAILY Lactobacillus Acidophilus 1 Billion Cell Tab 1 Tab PO BIDAC Ondansetron Odt 4 Mg Tab 4 Mg PO Q4H PRN Eq Acetaminophen (Acetaminophen) 325 Mg Tab 650 Mg PO Q4H PRN MDD 3gm 30 Days Lopressor (Metoprolol Tartrate) 50 Mg Tab 50 Mg PO Q12HR Cholestyramine 4 Gm/Pkt Powd 4 Gm PO BID Please do not take if you have constipation Amiodarone (Amiodarone HCl) 200 Mg Tab 200 Mg PO DAILY 30 Days Warfarin 1 Mg Tab 1 Mg PO DAILY Please have your PT INR checked every Saturday and -depending on the levels will be the dose she will continue to take. Enalapril (Enalapril Maleate) 5 Mg Tab 5 Mg PO BID 30 Days Famotidine 20 Mg Tab 20 Mg PO BID 1 Days Furosemide 20 Mg Tab 20 Mg PO DAILY Levothyroxine (Levothyroxine Sodium) 75 Mcg Tab 75 Mcg PO DAILY Reported Levofloxacin 750 Mg Tablet 750 Mg PO DAILY Santyl Topical (Collagenase) 250 Unit/Gm Oint 1 Applic TOPICAL DAILY Omeprazole 20 Mg Tab 20 Mg PO DAILY Escitalopram (Escitalopram Oxalate) 5 Mg Tab 5 Mg PO DAILY Duoneb (Ipratropium-Albuterol Neb) 0.5-2.5 Mg/3 Ml Neb 1 Nebule INH Q6HR NEB Dulcolax Supp (Bisacodyl) 10 Mg Supp 10 Mg RECTAL DAILY PRN Citroma Liq (Magnesium Citrate) 300 Ml Liq 300 Ml PO DIRECTED Review of Systems Except as stated in HPI: all other systems reviewed are Neg Physical Exam Narrative GENERAL: Pleasant well-developed well-nourished female no acute distress. She is alert and oriented to person place but not time. SKIN: Warm and dry. There is a stage I pressure ulcer on the sacrum, stage I pressure ulcer on the posterior right heel and a stage III pressure ulcer to the posterior left heel. The margins the pressure ulcer clean. There is no erythema or foul-smelling drainage. HEAD: Atraumatic. Normocephalic. EYES: Pupils equal and round. No scleral icterus. No injection or drainage. ENT: No nasal bleeding or discharge. Mucous membranes pink and moist. NECK: Trachea midline. No JVD. CARDIOVASCULAR: Regular rate and rhythm. No murmur appreciated. RESPIRATORY: No accessory muscle use. Clear to auscultation. Breath sounds equal bilaterally. GASTROINTESTINAL: Abdomen soft, non-tender, nondistended. Hepatic and splenic margins not palpable. MUSCULOSKELETAL: No obvious deformities. No clubbing. No cyanosis. No edema. NEUROLOGICAL: Awake and alert. No obvious cranial nerve deficits. Motor grossly within normal limits. Normal speech. Data Data Last Documented VS Vital Signs Date Time Temp Pulse Resp B/P (MAP) Pulse Ox O2 Delivery O2 Flow Rate FiO2 04/16/18 10:46 97.4 79 12 119/56 (77) 94 Orders Orders Electrocardiogram (04/16/18 11:12) Complete Blood Count With Diff (04/16/18 11:12) Comprehensive Metabolic Panel (04/16/18 11:12) Prothrombin Time / Inr (Pt) (04/16/18 11:12) Magnesium (Mg) (04/16/18 11:12) Urinalysis - C+S If Indicated (04/16/18 11:12) Chest, Single Ap (04/16/18 11:12) Act Partial Throm Time (Ptt) (04/16/18 11:12) Iv Access Insert/Monitor (04/16/18 11:12) Foot, Complete ([id number]) (04/16/18 ) Urine Culture (04/16/18 12:25) Labs Laboratory Tests Test 04/16/18 11:20 04/16/18 12:25 White Blood Count 6.9 TH/MM3 Red Blood Count 3.73 MIL/MM3 Hemoglobin 10.5 GM/DL Hematocrit 30.9 % Mean Corpuscular Volume 82.8 FL Mean Corpuscular Hemoglobin 28.2 PG Mean Corpuscular Hemoglobin Concent 34.1 % Red Cell Distribution Width 17.8 % Platelet Count 262 TH/MM3 Mean Platelet Volume 8.9 FL Neutrophils (%) (Auto) 78.8 % Lymphocytes (%) (Auto) 8.0 % Monocytes (%) (Auto) 11.7 % Eosinophils (%) (Auto) 0.9 % Basophils (%) (Auto) 0.6 % Neutrophils # (Auto) 5.5 TH/MM3 Lymphocytes # (Auto) 0.6 TH/MM3 Monocytes # (Auto) 0.8 TH/MM3 Eosinophils # (Auto) 0.1 TH/MM3 Basophils # (Auto) 0.0 TH/MM3 CBC Comment AUTO DIFF Differential Comment AUTO DIFF CONFIRMED Platelet Estimate NORMAL Platelet Morphology Comment NORMAL Ovalocytes 1+ Acanthocytes OCC Prothrombin Time 28.0 SEC Prothromb Time International Ratio 2.8 RATIO Activated Partial Thromboplast Time 45.3 SEC Blood Urea Nitrogen 30 MG/DL Creatinine 1.39 MG/DL Random Glucose 81 MG/DL Total Protein 7.7 GM/DL Albumin 2.4 GM/DL Calcium Level 8.5 MG/DL Magnesium Level 2.1 MG/DL Alkaline Phosphatase 91 U/L Aspartate Amino Transf (AST/SGOT) 13 U/L Alanine Aminotransferase (ALT/SGPT) 18 U/L Total Bilirubin 0.7 MG/DL Sodium Level 138 MEQ/L Potassium Level 4.4 MEQ/L Chloride Level 107 MEQ/L Carbon Dioxide Level 15.6 MEQ/L Anion Gap 15 MEQ/L Estimat Glomerular Filtration Rate 36 ML/MIN Urine Color YELLOW Urine Turbidity CLEAR Urine pH 5.0 Urine Specific [place] 1.008 Urine Protein NEG mg/dL Urine Glucose (UA) NEG mg/dL Urine Ketones NEG mg/dL Urine Occult Blood NEG Urine Nitrite NEG Urine Bilirubin NEG Urine Urobilinogen LESS THAN 2.0 MG/DL Urine Leukocyte Esterase NEG Urine RBC 2 /hpf Urine WBC 1 /hpf Urine Squamous Epithelial Cells 2 /hpf Urine Renal Epithelial Cells <1 /hpf Urine Amorphous Sediment RARE Urine Bacteria FEW /hpf Urine Mucus FEW /lpf Microscopic Urinalysis Comment CATH-CULTURE IND MDM Medical Decision Making Medical Screen Exam Complete: Yes Emergency Medical Condition: Yes Medical Record Reviewed: Yes Differential Diagnosis Pressure ulcer, cellulitis, osteomyelitis, sepsis, pneumonia, failure to thrive Narrative Course The patient was placed on ECG monitoring pulse oximetry. A 12-lead EKG was obtained. Lab work, chest x-ray, left foot x-ray were obtained. The heels were floated on pillows. The patient was turned on her side to keep pressure off of the sacrum. Chest x-ray reveals CONCLUSION: 1. Left basilar airspace disease 2. Persistent moderate to severe cardiomegaly 3. Otherwise stable evaluation. The left-sided basilar airspace disease seems significantly worse in comparison to most recent chest x-ray that we have on record from mid March. Per chart review from [facility] it appears that the patient was started on Levaquin 750 mg yesterday for 10 days for pneumonia treatment. Prior to that she was on a seven-day course of Levaquin 250 mg which was completed on April 11. I discussed the case with the supervisor case loading Froylan who spoke to a nurse at [facility]. She reports over the past 2 days the patient has not been eating and they have been hydrating her parentally. I also discussed the case with the patient's grandson, Vidal, on the phone. At this point time the plan would be to admit the patient, likely would benefit from further physical therapy evaluation and treatment. Diagnosis Primary Impression: Pneumonia Additional Impressions: Pressure ulcer of left heel, stage 3 Pressure ulcer of left heel, stage 1 Pressure ulcer of sacral region, stage 1 Failure to thrive in adult Admitting Information Admitting Physician Requests: Marcell Rico April 16, 2018 11:16
[2018-04-16] MEDS ORDERED: IPRASOL INH (11:21)
[2018-04-16] MEDS ORDERED: ESCI5TAB PO (11:21)
[2018-04-16] MEDS ORDERED: OMEP20TA93 PO (11:21)
[2018-04-16] MEDS ORDERED: COLL30T TOPICAL (11:21)
[2018-04-16] MEDS ORDERED: DULC10SU3 RECTAL (11:21)
[2018-04-16] MEDS ORDERED: CITRSOL4 PO (11:21)
[2018-04-16 11:34] LABS: AUTOMATED NEUTROPHIL # 5.5 TH/MM3 (1.8-7.7); BASOPHIL % 0.6 % (0.0-2.0); EOSINOPHIL # 0.1 TH/MM3 (0-0.4); EOSINOPHIL % 0.9 % (0.0-4.0); HEMATOCRIT 30.9 % (35.0-46.0); HEMOGLOBIN 10.5 GM/DL (11.6-15.3); LYMPHOCYTE # 0.6 TH/MM3 (1.0-4.8); MEAN CELL VOLUME 82.8 FL (80.0-100.0); MEAN CORPUSCULAR HEMOGLOBIN 28.2 PG (27.0-34.0); MEAN CORPUSCULAR HGB CONC 34.1 % (32.0-36.0); MEAN PLATELET VOLUME 8.9 FL (7.0-11.0); MONO % 11.7 % (0.0-8.0); MONOCYTE # 0.8 TH/MM3 (0-0.9); NEUT % 78.8 % (16.0-70.0); PLATELET COUNT 262 TH/MM3 (150-450); RED BLOOD COUNT 3.73 MIL/MM3 (4.00-5.30); RED CELL DISTRIBUTION WIDTH 17.8 % (11.6-17.2); WHITE BLOOD COUNT 6.9 TH/MM3 (4.0-11.0)
[2018-04-16 11:53] LABS: INTERNATIONAL NORMALIZED RATIO 2.8 RATIO
[2018-04-16 12:06] LABS: ACANTHOCYTES OCC (NORMAL); OVALOCYTES 1+ (NORMAL)
[2018-04-16 12:10] LABS: ALBUMIN 2.4 GM/DL (3.4-5.0); AST (GOT) 13 U/L (15-37); BICARBONATE 15.6 MEQ/L (21.0-32.0); BLOOD UREA NITROGEN 30 MG/DL (7-18); CALCIUM 8.5 MG/DL (8.5-10.1); CHLORIDE 107 MEQ/L (98-107); CREATININE 1.39 MG/DL (0.50-1.00); GLOMERULAR FILTRATION RATE 36 ML/MIN (>89); GLUCOSE,RANDOM 81 MG/DL (74-106); MAGNESIUM 2.1 MG/DL (1.5-2.5); SODIUM (NA) 138 MEQ/L (136-145)
[2018-04-16 12:14] LABS: ALKALINE PHOSPHATASE 91 U/L (45-117); ALT (GPT) 18 U/L (10-53); TOTAL BILIRUBIN ADULT 0.7 MG/DL (0.2-1.0); TOTAL PROTEIN 7.7 GM/DL (6.4-8.2)
--- NOTE | 2018-04-16 12:39 | RADRPT ---
EXAM DATE/TIME: 04/16/2018 11:53 [facility] COMPARISON: CHEST SINGLE AP, March 13, 2018, 18:06. INDICATIONS : Shortness of breath. MEDICAL HISTORY : Hypertension. Hypothyroidism. Congestive heart failure SURGICAL HISTORY : Hysterectomy. Lumpectomy, Lt shoulder sx, left hip sx/ ENCOUNTER: Initial ACUITY: 1 day PAIN SCORE: Non-responsive. LOCATION: Bilateral chest FINDINGS: Moderate to severe cardiomegaly is again noted. Significant airspace disease remains evident in the left base. There is no significant interstitial or vascular congestion. Left shoulder joint prosthesis is again noted. CONCLUSION: 1. Left basilar airspace disease 2. Persistent moderate to severe cardiomegaly 3. Otherwise stable evaluation. Eligio Barth MD on April 16, 2018 at 12:37 Board Certified Radiologist. This report was verified electronically.
--- NOTE | 2018-04-16 12:48 | RADRPT ---
EXAM DATE/TIME: 04/16/2018 11:57 [facility] COMPARISON: No previous studies available for comparison. INDICATIONS : Left foot pain and heel laceration. MEDICAL HISTORY : Hypertension. Hypothyroidism. Congestive heart failure SURGICAL HISTORY : Hysterectomy. Lumpectomy, Lt shoulder sx, left hip sx/ ENCOUNTER: Initial ACUITY: 1 day PAIN SCORE: Non-responsive. LOCATION: Left foot FINDINGS: The second metatarsophalangeal joint is dislocated. There is no evidence of acute fracture. An old fracture of the third metatarsal is identified. Soft tissue swelling is seen along the heel. The underlying bone is unremarkable. There are no erosiv e or destructive changes. CONCLUSION: 1. Soft tissue swelling of the heel pad without evidence of underlying calcaneal erosive or destructi ve changes. 2. Dislocated second metatarsophalangeal joint. 3. Healed fracture third metatarsal. Eligio Barth MD on April 16, 2018 at 12:44 Board Certified Radiologist. This report was verified electronically.
[2018-04-16 12:53] LABS: AMORPHOUS SEDIMENT, URINE RARE; BACTERIA, URINE FEW /hpf; BILIRUBIN, URINE NEG (NEG); BLOOD, URINE NEG (NEG); GLUCOSE,URINE NEG (NEG); KETONE, URINE NEG (NEG); MUCUS URINE FEW /lpf (OCC); NITRITE,URINE NEG (NEG); RENAL EPITHELIAL CELLS <1 /hpf; SQUAMOUS EPITHELIAL CELL URINE 2 /hpf (0-5); URINE COLOR YELLOW (YELLW/STRAW); URINE LEUKOCYTE ESTERASE NEG (NEG)
[2018-04-16] MEDS ORDERED: LEVO750T3 PO (13:11)
[2018-04-16] MEDS ORDERED: MAGNESIUM HYDROXIDE SUSP 30 ML CUP PO PRN (14:15)
[2018-04-16] MEDS ORDERED: NALOXONE HCL 0.4 MG/ML AMP IV PUSH PRN (14:15)
[2018-04-16] MEDS ORDERED: LACTULOSE SYRUP 20 GM/30 ML CUP PO PRN (14:15)
[2018-04-16] MEDS ORDERED: ONDANSETRON ODT 4 MG TAB PO PRN (14:15)
[2018-04-16] MEDS ORDERED: BISACODYL 10 MG SUPP RECTAL PRN (14:15)
[2018-04-16] MEDS ORDERED: SODIUM CHLORIDE 0.9% FLUSH 10 ML FLUSH IV FLUSH PRN (14:15)
[2018-04-16] MEDS ORDERED: SENNOSIDES 8.6 MG TAB PO PRN (14:15)
[2018-04-16] MEDS ORDERED: ACETAMINOPHEN 325 MG TAB PO PRN (14:15)
--- NOTE | 2018-04-16 14:46 | HHI.HP ---
HPI Service [facility] Primary Care Physician Lc Moran MD Admission Diagnosis Pneumonia, failure to thrive, pressure ulcers Diagnoses: Chief Complaint: Generalized weakness, pressure ulcers Travel History International Travel<30 Days: No Contact w/Intl Traveler <30 Da: No Traveled to Known Affected Are: No History of Present Illness Ms. Del Cid is a pleasant 87-year-old female with a history of breast cancer, atrial fibrillation who presents to the emergency department from [facility] due to generalized weakness as well as pressure ulcers. Patient was discharged to [facility] on March 17, 2018. She was being treated for pneumonia with Levaquin. During her stay about pressure ulcers on her sacrum and bilateral heels. Patient reports some cough but no fever or chills. She denies any dysphagia or odynophagia. No chest pain, shortness of breath. She denies any abdominal pain but reports persistent diarrhea. She denies any dysuria or hematuria. On arrival, vitals within normal range. No leukocytosis, BUN 30, Cr 1.39, Lactic acid 0.9. CXR shows Left basilar airspace disease and cardiomegaly. Patient denies any allergies to any medications including penicillins. Review of Systems Except as stated in HPI: all other systems reviewed are Neg Past Family Social History Past Medical History Breast cancer, atrial fibrillation, arthritis, hypothyroidism Past Surgical History Surgery for rectal prolapse Hysterectomy Hip and shoulder surgery Left sided breast lumpectomy Reported Medications Xanax (Alprazolam) 0.25 Mg Tab 0.125 Mg PO Q12HR PRN Xanax (Alprazolam) 0.25 Mg Tab 0.125 Mg PO HS Baclofen 10 Mg Tab 5 Mg PO BID Norvasc (Amlodipine Besylate) 5 Mg Tab 5 Mg PO DAILY Lactobacillus Acidophilus 1 Billion Cell Tab 1 Tab PO BIDAC Ondansetron Odt 4 Mg Tab 4 Mg PO Q4H PRN Eq Acetaminophen (Acetaminophen) 325 Mg Tab 650 Mg PO Q4H PRN MDD 3gm 30 Days Lopressor (Metoprolol Tartrate) 50 Mg Tab 50 Mg PO Q12HR Cholestyramine 4 Gm/Pkt Powd 4 Gm PO BID Please do not take if you have constipation Amiodarone (Amiodarone HCl) 200 Mg Tab 200 Mg PO DAILY 30 Days Warfarin 1 Mg Tab 1 Mg PO DAILY Please have your PT INR checked every Saturday and -depending on the levels will be the dose she will continue to take. Enalapril (Enalapril Maleate) 5 Mg Tab 5 Mg PO BID 30 Days Famotidine 20 Mg Tab 20 Mg PO BID 1 Days Furosemide 20 Mg Tab 20 Mg PO DAILY Levothyroxine (Levothyroxine Sodium) 75 Mcg Tab 75 Mcg PO DAILY Reported Levofloxacin 750 Mg Tablet 750 Mg PO DAILY Santyl Topical (Collagenase) 250 Unit/Gm Oint 1 Applic TOPICAL DAILY Omeprazole 20 Mg Tab 20 Mg PO DAILY Escitalopram (Escitalopram Oxalate) 5 Mg Tab 5 Mg PO DAILY Duoneb (Ipratropium-Albuterol Neb) 0.5-2.5 Mg/3 Ml Neb 1 Nebule INH Q6HR NEB Dulcolax Supp (Bisacodyl) 10 Mg Supp 10 Mg RECTAL DAILY PRN Citroma Liq (Magnesium Citrate) 300 Ml Liq 300 Ml PO DIRECTED Allergies: Coded Allergies: ampicillin (Verified Allergy, Severe, Rash, 04/16/18) Family History No family history of Alzheimer's or Parkinson's. Social History Alcohol Use: No Tobacco Use: No Substance Use: No Physical Exam Vital Signs Vital Signs Date Time Temp Pulse Resp B/P (MAP) Pulse Ox O2 Delivery O2 Flow Rate FiO2 04/16/18 10:46 97.4 79 12 119/56 (77 94 Physical Exam GENERAL: This is a well-nourished, well-developed patient, in no apparent distress. SKIN: No rashes, ecchymoses or lesions. Warm and dry. HEAD: Atraumatic. Normocephalic. No temporal or scalp tenderness. EYES: Pupils equal round and reactive. No injection or drainage. ENT: Nose without bleeding, purulent drainage or septal hematoma. Airway patent. NECK: Trachea midline. No lymphadenopathy. Supple, nontender, no meningeal signs. CARDIOVASCULAR: Regular rate and rhythm without murmurs, gallops, or rubs. No JVD. RESPIRATORY: Moderate air entry, No wheezes, rales, or rhonchi. GASTROINTESTINAL: Abdomen soft, non-tender, nondistended. No guarding. MUSCULOSKELETAL: Extremities without clubbing, cyanosis, or edema. Pressure ulcer noted on heels. Left heel has peeled skin with bloody discharge. NEUROLOGICAL: Awake and alert. Cranial nerves II through XII intact. No focal neurological deficits. Normal speech. Laboratory Laboratory Tests Test 04/16/18 11:20 04/16/18 12:25 White Blood Count 6.9 Red Blood Count 3.73 Hemoglobin 10.5 Hematocrit 30.9 Mean Corpuscular Volume 82.8 Mean Corpuscular Hemoglobin 28.2 Mean Corpuscular Hemoglobin Concent 34.1 Red Cell Distribution Width 17.8 Platelet Count 262 Mean Platelet Volume 8.9 Neutrophils (%) (Auto) 78.8 Lymphocytes (%) (Auto) 8.0 Monocytes (%) (Auto) 11.7 Eosinophils (%) (Auto) 0.9 Basophils (%) (Auto) 0.6 Neutrophils # (Auto) 5.5 Lymphocytes # (Auto) 0.6 Monocytes # (Auto) 0.8 Eosinophils # (Auto) 0.1 Basophils # (Auto) 0.0 CBC Comment AUTO DIFF Differential Comment AUTO DIFF CONFIRMED Platelet Estimate NORMAL Platelet Morphology Comment NORMAL Ovalocytes 1+ Acanthocytes OCC Prothrombin Time 28.0 Prothromb Time International Ratio 2.8 Activated Partial Thromboplast Time 45.3 Blood Urea Nitrogen 30 Creatinine 1.39 Random Glucose 81 Total Protein 7.7 Albumin 2.4 Calcium Level 8.5 Magnesium Level 2.1 Alkaline Phosphatase 91 Aspartate Amino Transf (AST/SGOT) 13 Alanine Aminotransferase (ALT/SGPT) 18 Total Bilirubin 0.7 Sodium Level 138 Potassium Level 4.4 Chloride Level 107 Carbon Dioxide Level 15.6 Anion Gap 15 Estimat Glomerular Filtration Rate 36 Urine Color YELLOW Urine Turbidity CLEAR Urine pH 5.0 Urine Specific [place] 1.008 Urine Protein NEG Urine Glucose (UA) NEG Urine Ketones NEG Urine Occult Blood NEG Urine Nitrite NEG Urine Bilirubin NEG Urine Urobilinogen LESS THAN 2.0 Urine Leukocyte Esterase NEG Urine RBC 2 Urine WBC 1 Urine Squamous Epithelial Cells 2 Urine Renal Epithelial Cells <1 Urine Amorphous Sediment RARE Urine Bacteria FEW Urine Mucus FEW Microscopic Urinalysis Comment CATH-CULTURE IND Date/Time Source Procedure Growth Status 04/16/18 12:25 Urine Clean Catch Urine Culture Pending Received Result Diagram: 04/16/18 1120 04/16/18 1120 Imaging Last Impressions Chest X-Ray 04/16/18 1112 Signed Impressions: Service Date/Time: Monday, April 16, 2018 11:53 - CONCLUSION: 1. Left basilar airspace disease 2. Persistent moderate to severe cardiomegaly 3. Otherwise stable evaluation. Eligio Barth MD Foot X-Ray 04/16/18 0000 Signed Impressions: Service Date/Time: Monday, April 16, 2018 11:57 - CONCLUSION: 1. Soft tissue swelling of the heel pad without evidence of underlying calcaneal erosive or destructive changes. 2. Dislocated second metatarsophalangeal joint. 3. Healed fracture third metatarsal. Eligio Barth MD Echo 02/25/2018 Normal left ventricular size. Mild concentric left ventricular hypertrophy. The left ventricular systolic function is hyperdynamic with an estimated ejection fraction in the range of 65- 70%. LV normal size and systolic function. The left atrial size is [id number]-[id number] dilated. The right atrial size is severely dilated. Mild mitral valve regurgitation. Aortic valve sclerosis is present. Mild aortic valve regurgitation. There is moderate tricuspid valve regurgitation. The estimated pulmonary arterial pressure is 63.3 mmHg. Moderate pulmonary valve regurgitation. Caprini VTE Risk Assessment Caprini VTE Risk Assessment: Mod/High Risk (score >= 2) Caprini Risk Assessment Model Point Value = 1 Point Value = 2 Point Value = 3 Point Value = 5 Age 41-60 Minor surgery BMI > 25 kg/m2 Swollen legs Varicose veins or History of unexplained or recurrent spontaneous Oral contraceptives or hormone replacement Sepsis (< 1 month) Serious lung disease, including pneumonia (< 1 month) Abnormal pulmonary function Acute myocardial infarction Congestive heart failure (< 1 month) History of inflammatory bowel disease Medical patient at bed rest Age 61-74 Arthroscopic surgery Major open surgery (> 45 min) Laparoscopic surgery (> 45 min) Malignancy Confined to bed (> 72 hours) Immobilizing plaster cast Central venous access Age >= 75 History of VTE Family history of VTE Factor V Leiden Prothrombin [id number] Lupus anticoagulant Anticardiolipin antibodies Elevated serum homocysteine Heparin-induced thrombocytopenia Other congenital or acquired thrombophilia Stroke (< 1 month) Elective arthroplasty Hip, pelvis, or leg fracture Acute spinal cord injury (< 1 month) Prophylaxis Regimen Total Risk Factor Score Risk Level Prophylaxis Regimen 0-1 Low Early ambulation 2 Moderate Order ONE of the following: *Sequential Compression Device (SCD) *Heparin 5000 units SQ BID 3-4 Higher Order ONE of the following medications: *Heparin 5000 units SQ TID *Enoxaparin/Lovenox 40 mg SQ daily (WT < 150 kg, CrCl > 30 mL/min) *Enoxaparin/Lovenox 30 mg SQ daily (WT < 150 kg, CrCl > 10-29 mL/min) *Enoxaparin/Lovenox 30 mg SQ BID (WT < 150 kg, CrCl > 30 mL/min) AND/OR *Sequential Compression Device (SCD) 5 or more Highest Order ONE of the following medications: *Heparin 5000 units SQ TID (Preferred with Epidurals) *Enoxaparin/Lovenox 40 mg SQ daily (WT < 150 kg, CrCl > 30 mL/min) *Enoxaparin/Lovenox 30 mg SQ daily (WT < 150 kg, CrCl > 10-29 mL/min) *Enoxaparin/Lovenox 30 mg SQ BID (WT < 150 kg, CrCl > 30 mL/min) AND *Sequential Compression Device (SCD) Assessment and Plan Problem List: (1) Pneumonia ICD Code: J18.9 - Pneumonia, unspecified organism Status: Resolved (2) Pressure ulcer of left heel, stage 1 ICD Code: L89.621 - Pressure ulcer of left heel, stage 1 Status: Acute (3) Pressure ulcer of left heel, stage 3 ICD Code: L89.623 - Pressure ulcer of left heel, stage 3 Status: Acute (4) Pressure ulcer of sacral region, stage 1 ICD Code: L89.151 - Pressure ulcer of sacral region, stage 1 Status: Acute (5) Afib ICD Code: I48.91 - Unspecified atrial fibrillation Status: Chronic (6) HTN (hypertension) ICD Code: I10 - Essential (primary) hypertension Status: Chronic (7) Hypothyroidism ICD Code: E03.9 - Hypothyroidism, unspecified Status: Chronic Assessment and Plan Ms. Del Cid is a pleasant 87 year old female with a history of Afib, breast cancer and recent pneumonia who presents to the ED from [facility] due to cough, generalized weakness, pressure ulcer on heels and sacral area. Pneumonia - Possibility of aspiration pneumonia cannot be ruled out at this point - Patient was on Levaquin. Will start patient on Zosyn IV and IV Azithromycin. May de-escalate based on clinical response - PSI score is 106 which indicates need for hospital admission. - CXR reviewed - shows cardiomegaly and possible left sided pleural effusion and infiltrates. Pressure ulcers on heels and sacram - Will obtain wound care consult. CKD stage IIIB - Creatinine 1.39. Avoid nephrotoxins. - will provide NS gentle hydration. Atrial fibrillation - Rate is controlled with BB. Patient takes Metoprolol tartrate 50mg BID. - On Warfarin. INR 2.8. IF family desires, we can switch to Apixaban Hypertension Hypothyroidism - Continue Amlodipine and JESI inhibitor. May need to hold some of these meds due to low BP. - Continue Levothyroxine. Full code. Warfarin. INR 2.8. Physician Certification 2 Midnight Certification Type: Admission for Inpatient Services Order for Inpatient Services The services are ordered in accordance with Medicare regulations or non- Medicare payer requirements, as applicable. In the case of services not specified as inpatient-only, they are appropriately provided as inpatient services in accordance with the 2-midnight benchmark. Estimated LOS (days): 3 days is the estimated time the patient will need to remain in the hospital, assuming treatment plan goals are met and no additional complications. Post-Hospital Plan: [facility] Luisa Damon DO April 16, 2018 14:45
[2018-04-16] MEDS: PIPERACIL-TAZO 4.5 GM PREMIX 100 ML IV SCH (15:40)
[2018-04-16] MEDS: SODIUM CHLOR 0.9% 1000 ML INJ 1,000 ML IV SCH (15:49)
[2018-04-16 15:52] VITALS: BP 92/75; PULSE 74; RESP 19; TEMP 97.6; O2SAT 95
[2018-04-16] MEDS: AZITHROMYCIN INJ 500 MG in SODIUM CHLOR 0.9% 250 ML INJ 250 ML IV SCH (16:10)
[2018-04-16 20:00] VITALS: BP 111/58; PULSE 87; RESP 18; TEMP 97.4; O2SAT 94
[2018-04-16] MEDS: SODIUM CHLORIDE 0.9% FLUSH 10 ML FLUSH IV FLUSH SCH (21:00)
[2018-04-17] VITALS (8 sets, daily range): BP systolic 93–122; BP diastolic 49–65; PULSE 57–82; RESP 18; TEMP 97.3–98.5; O2SAT 91–96
[2018-04-17] MEDS: SODIUM CHLOR 0.9% 1000 ML INJ 1,000 ML IV SCH ×3 (00:05→20:24)
[2018-04-17] MEDS: PIPERACIL-TAZO 4.5 GM PREMIX 100 ML IV SCH ×3 (01:24→16:49)
--- NOTE | 2018-04-17 07:42 | PD.PN.STU ---
Subjective Remarks 87 y/o F w/ PMHx of a fib, hypothyroidism, and HTN seen in the ER with a chief concern of feeling weak. She was brought in by after feeling like she wasnt being treated well in an assisted living facility. She has completed day one of a 10 day course of levoquin for presumed pneumonia. She also has pressure on her heels bilaterally (L appears worse than right) and on her back. She admits to having some cough. Denies fever, chest pain, SOB, swelling. CXR showed left basilar disease and persistent moderate to severe cardiomegaly. Labs showed Hgb of 10.5, WBC 6.9, BUN 30, creatinine 1.39 PMHx: hypothyroidism, HTN, a fib PSHx: rectal prolapse, esophageal dilation Objective Vitals Vital Signs Date Time Temp Pulse Resp B/P (MAP) Pulse Ox O2 Delivery O2 Flow Rate FiO2 04/17/18 04:00 98.5 77 18 122/58 (79) 94 04/17/18 00:00 97.5 76 18 120/65 (83) 94 04/16/18 20:00 97.4 87 18 111/58 (75) 94 04/16/18 16:47 (81) 04/16/18 15:52 97.6 74 19 92/75 (81) 95 Room Air 04/16/18 10:46 97.4 79 12 119/56 (77) 94 I/O 04/16/18 04/16/18 04/16/18 04/17/18 04/17/18 04/17/18 07:00 15:00 23:00 07:00 15:00 23:00 Intake Total 100 ml Output Total 300 ml Balance -300 ml 100 ml Intake IV Total 100 ml Output Urine Total 300 ml # Voids 2 2 1 Result Diagram: 04/16/18 1120 04/16/18 1120 Imaging Vital Signs, 24 Hour Date Time Temp Pulse Resp B/P (MAP) Pulse Ox O2 Delivery O2 Flow Rate FiO2 04/17/18 04:00 98.5 77 18 122/58 (79) 94 04/17/18 00:00 97.5 76 18 120/65 (83) 94 04/16/18 20:00 97.4 87 18 111/58 (75) 94 04/16/18 16:47 (81) 04/16/18 15:52 97.6 74 19 92/75 (81) 95 Room Air 04/16/18 10:46 97.4 79 12 119/56 (77) 94 Allergies Coded Allergies ampicillin (Verified Allergy, Severe, Rash, 04/16/18) Laboratory Tests per Claudia Test 04/16/18 11:20 Blood Urea Nitrogen 30 MG/DL Creatinine 1.39 MG/DL Random Glucose 81 MG/DL Total Protein 7.7 GM/DL Albumin 2.4 GM/DL Calcium Level 8.5 MG/DL Magnesium Level 2.1 MG/DL Alkaline Phosphatase 91 U/L Aspartate Amino Transf (AST/SGOT) 13 U/L Alanine Aminotransferase (ALT/SGPT) 18 U/L Total Bilirubin 0.7 MG/DL Sodium Level 138 MEQ/L Potassium Level 4.4 MEQ/L Chloride Level 107 MEQ/L Carbon Dioxide Level 15.6 MEQ/L Red Blood Count 3.73 MIL/MM3 White Blood Count 6.9 TH/MM3 Recent Impressions Chest X-Ray 04/16/18 1112 Signed Impressions: Service Date/Time: Monday, April 16, 2018 11:53 - CONCLUSION: 1. Left basilar airspace disease 2. Persistent moderate to severe cardiomegaly 3. Otherwise stable evaluation. Eligio Barth MD Active Scripts Active Xanax (Alprazolam) 0.25 Mg Tab 0.125 Mg PO Q12HR PRN Xanax (Alprazolam) 0.25 Mg Tab 0.125 Mg PO HS Baclofen 10 Mg Tab 5 Mg PO BID Norvasc (Amlodipine Besylate) 5 Mg Tab 5 Mg PO DAILY Lactobacillus Acidophilus 1 Billion Cell Tab 1 Tab PO BIDAC Ondansetron Odt 4 Mg Tab 4 Mg PO Q4H PRN Eq Acetaminophen (Acetaminophen) 325 Mg Tab 650 Mg PO Q4H PRN MDD 3gm 30 Days Lopressor (Metoprolol Tartrate) 50 Mg Tab 50 Mg PO Q12HR Cholestyramine 4 Gm/Pkt Powd 4 Gm PO BID Please do not take if you have constipation Amiodarone (Amiodarone HCl) 200 Mg Tab 200 Mg PO DAILY 30 Days Warfarin 1 Mg Tab 1 Mg PO DAILY Please have your PT INR checked every Saturday and -depending on the levels will be the dose she will continue to take. Enalapril (Enalapril Maleate) 5 Mg Tab 5 Mg PO BID 30 Days Famotidine 20 Mg Tab 20 Mg PO BID 1 Days Furosemide 20 Mg Tab 20 Mg PO DAILY Levothyroxine (Levothyroxine Sodium) 75 Mcg Tab 75 Mcg PO DAILY Reported Levofloxacin 750 Mg Tablet 750 Mg PO DAILY Santyl Topical (Collagenase) 250 Unit/Gm Oint 1 Applic TOPICAL DAILY Omeprazole 20 Mg Tab 20 Mg PO DAILY Escitalopram (Escitalopram Oxalate) 5 Mg Tab 5 Mg PO DAILY Duoneb (Ipratropium-Albuterol Neb) 0.5-2.5 Mg/3 Ml Neb 1 Nebule INH Q6HR NEB Dulcolax Supp (Bisacodyl) 10 Mg Supp 10 Mg RECTAL DAILY PRN Citroma Liq (Magnesium Citrate) 300 Ml Liq 300 Ml PO DIRECTED Microbiology 04/16/18 Urine Culture, Received Pending Objective Remarks pt appears comfortable and in no acute distress alert and oriented HEENT:normocephalic Pulm: lungs clear to auscultation, no rails rhonchi or wheezing Cardiac: regular rate, irregular rhythm Abdomen: soft nondistended Lower extremities: ulcers noted on the both heels, left larger than right. They are not covered, not dry, and some blood is noted on the sheets from presumably them A/P Assessment and Plan 87 y/o F with weakness and CXR findings 1. Pneumonia obtain Lactic acid discontinue levofloxacin Start piperacillin/tazobactam 2. Prerenal Azotemia Decreased urine output, BUn/Cr ratio 30/1.39, consider decreased volume status Replete volume with normal saline 3. A fib contnue therapuetic warfarin, consider changing to eliquis 4. HTN: well controlled with amlodipine and angela 5. Hypothyroidism obtain TSH continue levothyroxine Jono Rowell M3 April 17, 2018 07:42
[2018-04-17] MEDS ORDERED: ENALAPRIL MALEATE 5 MG TAB PO SCH (09:00)
[2018-04-17] MEDS ORDERED: METOPROLOL TARTRATE 50 MG TAB PO SCH (09:00)
[2018-04-17] MEDS: amLODIPine BESYLATE 5 MG TAB PO SCH (09:58)
[2018-04-17] MEDS: METOPROLOL TARTRATE 25 MG TAB PO SCH ×2 (09:58→20:23)
[2018-04-17] MEDS: ESCITALOPRAM OXALATE 10 MG TAB PO SCH (09:58)
[2018-04-17] MEDS: FAMOTIDINE 20 MG TAB PO SCH ×2 (09:59→20:23)
[2018-04-17] MEDS: SODIUM CHLORIDE 0.9% FLUSH 10 ML FLUSH IV FLUSH SCH ×2 (09:59→20:24)
[2018-04-17] MEDS: LEVOTHYROXINE SODIUM 75 MCG TAB PO SCH (10:08)
--- NOTE | 2018-04-17 10:38 | HHI.PR ---
Subjective Remarks Follow-up for pneumonia, pressure ulcers, CKD stage III, atrial fibrillation. Patient is currently resting in bed. No fever, chills. Currently on room air. Objective Vitals Vital Signs Date Time Temp Pulse Resp B/P (MAP) Pulse Ox O2 Delivery O2 Flow Rate FiO2 04/17/18 08:00 97.3 76 18 112/58 (76) 94 04/17/18 04:00 98.5 77 18 122/58 (79) 94 04/17/18 00:00 97.5 76 18 120/65 (83) 94 04/16/18 20:00 97.4 87 18 111/58 (75) 94 04/16/18 16:47 (81) 04/16/18 15:52 97.6 74 19 92/75 (81) 95 Room Air 04/16/18 10:46 97.4 79 12 119/56 (77) 94 I/O 04/16/18 04/16/18 04/16/18 04/17/18 04/17/18 04/17/18 07:00 15:00 23:00 07:00 15:00 23:00 Intake Total 100 ml Output Total 300 ml Balance -300 ml 100 ml Intake IV Total 100 ml Output Urine Total 300 ml # Voids 2 2 1 Result Diagram: 04/16/18 1120 04/16/18 1120 Imaging Last Impressions Chest X-Ray 04/16/18 1112 Signed Impressions: Service Date/Time: Monday, April 16, 2018 11:53 - CONCLUSION: 1. Left basilar airspace disease 2. Persistent moderate to severe cardiomegaly 3. Otherwise stable evaluation. Eligio Barth MD Foot X-Ray 04/16/18 0000 Signed Impressions: Service Date/Time: Monday, April 16, 2018 11:57 - CONCLUSION: 1. Soft tissue swelling of the heel pad without evidence of underlying calcaneal erosive or destructive changes. 2. Dislocated second metatarsophalangeal joint. 3. Healed fracture third metatarsal. Eligio Barth MD Objective Remarks GENERAL: Alert, NAD. Answers questions appropriately but somewhat confused as well. SKIN: Warm and dry. HEAD: Normocephalic. EYES: No scleral icterus. No injection or drainage. NECK: Supple, trachea midline. No JVD or lymphadenopathy. CARDIOVASCULAR: Regular rate and rhythm without murmurs, gallops, or rubs. RESPIRATORY: Breath sounds equal bilaterally. No accessory muscle use. GASTROINTESTINAL: Abdomen soft, non-tender, nondistended. MUSCULOSKELETAL: No cyanosis, or edema. Heel ulcers noted. BACK: Nontender without obvious deformity. No CVA tenderness. Procedures None. A/P Problem List: (1) Pneumonia ICD Code: J18.9 - Pneumonia, unspecified organism Status: Resolved (2) Pressure ulcer of left heel, stage 1 ICD Code: L89.621 - Pressure ulcer of left heel, stage 1 Status: Acute (3) Pressure ulcer of left heel, stage 3 ICD Code: L89.623 - Pressure ulcer of left heel, stage 3 Status: Acute (4) Pressure ulcer of sacral region, stage 1 ICD Code: L89.151 - Pressure ulcer of sacral region, stage 1 Status: Acute (5) Afib ICD Code: I48.91 - Unspecified atrial fibrillation Status: Chronic (6) HTN (hypertension) ICD Code: I10 - Essential (primary) hypertension Status: Chronic (7) Hypothyroidism ICD Code: E03.9 - Hypothyroidism, unspecified Status: Chronic Assessment and Plan Ms. Del Cid is a pleasant 87 year old female with a history of Afib, breast cancer and recent pneumonia who presents to the ED from [facility] due to cough, generalized weakness, pressure ulcer on heels and sacral area. Pneumonia - Possibility of aspiration pneumonia cannot be ruled out at this point - Patient was on Levaquin. Continue patient on Zosyn IV and IV Azithromycin. May de-escalate based on clinical response - PSI score is 106 which indicates need for hospital admission. - CXR reviewed - shows cardiomegaly and possible left sided pleural effusion and infiltrates. Anemia of unknown cause -Patient's baseline hemoglobin appears to be above 12 which was noted in the labs 2 months ago. -We will obtain iron studies, ferritin level as well as reticulocyte count, TSH, Free T4. -CBC shows acanthocytes - no liver disease history. Will check TSH. -If iron deficiency anemia noted, we will consider GI consult. Pressure ulcers on heels and sacram - Wound care consult pending. CKD stage IIIB - Creatinine 1.39. Avoid nephrotoxins. - will provide NS gentle hydration. Atrial fibrillation - Continue metoprolol 25 mg twice daily - On Warfarin. INR 2.8 on 04/16/2018. Will obtain PT/INR tomorrow morning. Hypertension Hypothyroidism - Continue Amlodipine and JESI inhibitor. May need to hold some of these meds due to low BP. - Continue Levothyroxine. Full code. Warfarin. INR 2.8 on 04/16/2018. Luisa Damon DO April 17, 2018 10:38 am
--- NOTE | 2018-04-17 11:27 | PD.PN.STU ---
Subjective Remarks 87 Y F w/ PMHx of A fib, Left Breast Cancer, Hypertension, Hypothyroidism is being followed for pneumonia and bilateral pressure ulcers on both her heels. She reports that she has some cough and that her feet hurt. Denies chest pain, SOB, wheezing, abdominal pain, wheezing. She says she can ambulate with assistance of walker and has good appetite. Objective Vitals Vital Signs Date Time Temp Pulse Resp B/P (MAP) Pulse Ox O2 Delivery O2 Flow Rate FiO2 04/17/18 08:00 97.3 76 18 112/58 (76) 94 04/17/18 04:00 98.5 77 18 122/58 (79) 94 04/17/18 00:00 97.5 76 18 120/65 (83) 94 04/16/18 20:00 97.4 87 18 111/58 (75) 94 04/16/18 16:47 (81) 04/16/18 15:52 97.6 74 19 92/75 (81) 95 Room Air I/O 04/16/18 04/16/18 04/16/18 04/17/18 04/17/18 04/17/18 07:00 15:00 23:00 07:00 15:00 23:00 Intake Total 100 ml Output Total 300 ml Balance -300 ml 100 ml Intake IV Total 100 ml Output Urine Total 300 ml # Voids 2 2 1 Result Diagram: 04/16/18 1120 04/16/18 1120 Other Results Vital Signs, 24 Hour Date Time Temp Pulse Resp B/P (MAP) Pulse Ox O2 Delivery O2 Flow Rate FiO2 04/17/18 08:00 97.3 76 18 112/58 (76) 94 04/17/18 04:00 98.5 77 18 122/58 (79) 94 04/17/18 00:00 97.5 76 18 120/65 (83) 94 04/16/18 20:00 97.4 87 18 111/58 (75) 94 04/16/18 16:47 (81) 04/16/18 15:52 97.6 74 19 92/75 (81) 95 Room Air Allergies Coded Allergies ampicillin (Verified Allergy, Severe, Rash, 04/16/18) Laboratory Tests per Claudia Test 04/16/18 11:20 Blood Urea Nitrogen 30 MG/DL Creatinine 1.39 MG/DL Random Glucose 81 MG/DL Total Protein 7.7 GM/DL Albumin 2.4 GM/DL Calcium Level 8.5 MG/DL Magnesium Level 2.1 MG/DL Alkaline Phosphatase 91 U/L Aspartate Amino Transf (AST/SGOT) 13 U/L Alanine Aminotransferase (ALT/SGPT) 18 U/L Total Bilirubin 0.7 MG/DL Sodium Level 138 MEQ/L Potassium Level 4.4 MEQ/L Chloride Level 107 MEQ/L Carbon Dioxide Level 15.6 MEQ/L Red Blood Count 3.73 MIL/MM3 White Blood Count 6.9 TH/MM3 Recent Impressions Chest X-Ray 04/16/18 1112 Signed Impressions: Service Date/Time: Monday, April 16, 2018 11:53 - CONCLUSION: 1. Left basilar airspace disease 2. Persistent moderate to severe cardiomegaly 3. Otherwise stable evaluation. Eligio Barth MD Active Scripts Active Xanax (Alprazolam) 0.25 Mg Tab 0.125 Mg PO Q12HR PRN Xanax (Alprazolam) 0.25 Mg Tab 0.125 Mg PO HS Baclofen 10 Mg Tab 5 Mg PO BID Norvasc (Amlodipine Besylate) 5 Mg Tab 5 Mg PO DAILY Lactobacillus Acidophilus 1 Billion Cell Tab 1 Tab PO BIDAC Ondansetron Odt 4 Mg Tab 4 Mg PO Q4H PRN Eq Acetaminophen (Acetaminophen) 325 Mg Tab 650 Mg PO Q4H PRN MDD 3gm 30 Days Lopressor (Metoprolol Tartrate) 50 Mg Tab 50 Mg PO Q12HR Cholestyramine 4 Gm/Pkt Powd 4 Gm PO BID Please do not take if you have constipation Amiodarone (Amiodarone HCl) 200 Mg Tab 200 Mg PO DAILY 30 Days Warfarin 1 Mg Tab 1 Mg PO DAILY Please have your PT INR checked every Saturday and -depending on the levels will be the dose she will continue to take. Enalapril (Enalapril Maleate) 5 Mg Tab 5 Mg PO BID 30 Days Famotidine 20 Mg Tab 20 Mg PO BID 1 Days Furosemide 20 Mg Tab 20 Mg PO DAILY Levothyroxine (Levothyroxine Sodium) 75 Mcg Tab 75 Mcg PO DAILY Reported Levofloxacin 750 Mg Tablet 750 Mg PO DAILY Santyl Topical (Collagenase) 250 Unit/Gm Oint 1 Applic TOPICAL DAILY Omeprazole 20 Mg Tab 20 Mg PO DAILY Escitalopram (Escitalopram Oxalate) 5 Mg Tab 5 Mg PO DAILY Duoneb (Ipratropium-Albuterol Neb) 0.5-2.5 Mg/3 Ml Neb 1 Nebule INH Q6HR NEB Dulcolax Supp (Bisacodyl) 10 Mg Supp 10 Mg RECTAL DAILY PRN Citroma Liq (Magnesium Citrate) 300 Ml Liq 300 Ml PO DIRECTED Microbiology 04/16/18 Urine Culture, Received Pending Objective Remarks Pt does not appear in any acute distress. She did seem a little bit confused. She knew her name but could not at first recognize where she was. she also seemed a little bit unsure of time course of her events HEENT:normocephalic Pulm: lungs clear to auscultation. Some mild wheezing perhaps Cardiac: regular rate, irregular rhythm. abdomen: soft, nondistended lower extremities: heels appear to raw and slightly oozing. no active bleeding, although blood stains are noticeable on the sheets underneatht the heels. No signs of infection at this time. Left is worse than right A/P Assessment and Plan 87 y/o F with weakness and CXR findings of pneumonia. PMHx of Hypothyroidism, HTN, Breast CA, A fib. No leukocytosis, elevated lactic acid. Pneumonia obtain Lactic acid-WNL .9 discontinue levofloxacin Start piperacillin/tazobactam Bilateral Calcaneous Pressure Ulcers, stage 2 wound care consultation monitor for devitalized tissue warranting debridement optimize nutritional intake,both protein and total caloric. nutrition consult should be considered Anemia H.5, was 14+ in january. acanthocytes on smear assess hypothyroidism, TSH, F T4 Prerenal Azotemia Decreased urine output, BUn/Cr ratio 30/1.39, consider decreased volume status Replete volume with normal saline A fib contnue therapuetic warfarin, consider changing to eliquis HTN: well controlled with amlodipine and angela i Hypothyroidism obtain TSH, Free T4 continue levothyroxine Jono Rowell April 17, 2018 11:27
[2018-04-17] MEDS: AZITHROMYCIN INJ 500 MG in SODIUM CHLOR 0.9% 250 ML INJ 250 ML IV SCH (15:36)
[2018-04-17 16:23] LABS: RETIC # 75.4 MIL/L (20.0-150.0); RETIC % 2.1 % (0.4-3.0)
--- NOTE | 2018-04-17 16:43 | HHI.HCPN ---
Palliative care consulted to assist with goals of care for Ms. Del Cid. Spoke with grandson/health care surrogate Vidal Fan. He was initially hesitant to speak with palliative care stating "I don't think we are there yet". Upon further review of palliative care service he is more receptive and welcomes palliative consultation. States he is is going to be out of town traveling for work the next few days but will schedule a family meeting next week. Palliative care to meet with patient tomorrow per grandson's request. Grandson appears to be overwhelmed with navigating patient's medical condition, verbalizing decline in last few months, and options for discharge. Offered emotional support. Palliative care full consultation to come tomorrow, Wednesday 04/18. Palliative care contact information provided. Angela Corcoran, [employer] April 17, 2018 16:43
[2018-04-17 16:55] LABS: FERRITIN 288 NG/ML (8-252); FREE T4 1.63 NG/DL (0.76-1.46); IRON (FE) 30 MCG/DL (50-170); TOTAL IRON BINDING CAPACITY 231 MCG/DL (250-450)
--- NOTE | 2018-04-17 17:17 | PD.WCN.NOT ---
Wound Consult Description: Received consult for wound management of heels and decub Communicated with: RN Inna [address] [place] [address],Leanne [address] [place] [address], and Doctor Luisa Damon Recommendation: 1.Please cleanse wound to L heel with wound cleanser or normal saline and pat dry. Apply Optifoam basic to wound and secure with rolled gauze and tape. Change dressing every 3 days or PRN if saturated or dislodged. 2. [place] Cavilon skin barrier film To L posterior lateral heel DTI and L posterior heel stage 2 pressure injury roofed bulla BID and leave open to air. 3. Offload pressure from bilateral heels with heel raiser boots or with floating of the heels off mattress surface with pillows Additional Information: Patient seen on [address] [place] [address] for evaluation of wound management of heels and decub.Patient in bed with heels floating on pillows.Assessed L heel with stage 3 pressure injury. Wound bed presents with ~70% red non granulation tissue and ~ 30% scattered thin black eschar. Wound has minimal sero-sanguinous drainage that is without odor.Wound margins are well defined. Wound measures ~6cm x ~4cm x ~0.1cm . Wound was cleansed with normal saline and patted dry. Applied Optifoam basic dressing and secured with rolled gauze and tape. R heel assessed with Roofed bulla to posterior R heel, that measures ~3cm x ~ 3cm. Intact Bulla over alley prominence with pressure etiology is a stage 2. R lateral posterior heel presents with non blanchable purple discoloration to intact skin indicating deep tissue injury located ~0.5cm from R posterior heel bulla. Wound measures ~1.2cm x ~1.3cm. Cavilon skin barrier film was sprayed to Bulla and DTI to R heel and left open to air. Recommendations noted above, spoke with patient regarding importance of offloading pressure from heels and other alley prominences to prevent the worsening or creation of pressure injuries. Sheryl Luna [facility] April 17, 2018 17:17
[2018-04-18] VITALS: BP 95/57; PULSE 65; PULSE 66; RESP 18; TEMP 97.5; O2SAT 93
[2018-04-18] MEDS: PIPERACIL-TAZO 4.5 GM PREMIX 100 ML IV SCH ×2 (01:28→10:16)
[2018-04-18 04:00] VITALS: BP 104/58; PULSE 63; PULSE 65; RESP 18; TEMP 97.6; O2SAT 92
[2018-04-18 05:05] LABS: AUTOMATED NEUTROPHIL # 4.5 TH/MM3 (1.8-7.7); BASOPHIL # 0.1 TH/MM3 (0-0.2); BASOPHIL % 1.3 % (0.0-2.0); EOSINOPHIL # 0.2 TH/MM3 (0-0.4); EOSINOPHIL % 2.9 % (0.0-4.0); HEMATOCRIT 28.3 % (35.0-46.0); HEMOGLOBIN 9.8 GM/DL (11.6-15.3); LYMPHOCYTE # 0.9 TH/MM3 (1.0-4.8); MEAN CELL VOLUME 82.2 FL (80.0-100.0); MEAN CORPUSCULAR HEMOGLOBIN 28.5 PG (27.0-34.0); MEAN CORPUSCULAR HGB CONC 34.6 % (32.0-36.0); MEAN PLATELET VOLUME 8.7 FL (7.0-11.0); MONO % 14.6 % (0.0-8.0); NEUT % 68.2 % (16.0-70.0); PLATELET COUNT 275 TH/MM3 (150-450); RED BLOOD COUNT 3.44 MIL/MM3 (4.00-5.30); RED CELL DISTRIBUTION WIDTH 18.3 % (11.6-17.2); WHITE BLOOD COUNT 6.6 TH/MM3 (4.0-11.0)
[2018-04-18] MEDS: SODIUM CHLOR 0.9% 1000 ML INJ 1,000 ML IV SCH (05:19)
[2018-04-18] MEDS: LEVOTHYROXINE SODIUM 75 MCG TAB PO SCH (05:19)
[2018-04-18 05:22] LABS: PROTHROMBIN TIME - PATIENT 30.7 SEC (9.8-11.6)
[2018-04-18 05:37] LABS: BICARBONATE 15.4 MEQ/L (21.0-32.0); CALCIUM 8.3 MG/DL (8.5-10.1); CREATININE 1.34 MG/DL (0.50-1.00)
[2018-04-18 08:24] VITALS: BP 119/57; PULSE 70; RESP 18; TEMP 97.9; O2SAT 91
[2018-04-18] MEDS: SODIUM CHLORIDE 0.9% FLUSH 10 ML FLUSH IV FLUSH SCH ×2 (09:00→21:07)
[2018-04-18] MEDS: amLODIPine BESYLATE 5 MG TAB PO SCH (09:00)
[2018-04-18] MEDS: FAMOTIDINE 20 MG TAB PO SCH ×2 (10:18→21:06)
[2018-04-18] MEDS: ESCITALOPRAM OXALATE 10 MG TAB PO SCH (10:18)
[2018-04-18] MEDS: METOPROLOL TARTRATE 25 MG TAB PO SCH ×2 (10:28→21:06)
--- NOTE | 2018-04-18 10:58 | PD.PN.STU ---
Subjective Remarks 87 Y F w/ PMHx of A fib, Left Breast Cancer, Hypertension, Hypothyroidism is being followed for pneumonia and bilateral pressure ulcers on both her heels.Denies chest pain, SOB, wheezing, abdominal pain, She reports pain in her feet that is unchanged. Objective Vitals Vital Signs Date Time Temp Pulse Resp B/P (MAP) Pulse Ox O2 Delivery O2 Flow Rate FiO2 04/18/18 08:24 97.9 70 18 119/57 (77) 91 04/18/18 04:00 65 04/18/18 04:00 97.6 63 18 104/58 (73) 92 04/18/18 00:00 97.5 66 18 95/57 (70) 93 04/18/18 00:00 65 04/17/18 20:00 82 04/17/18 20:00 97.6 75 18 112/65 (81) 91 04/17/18 18:06 21 04/17/18 17:28 64 18 93/53 (66) 93 04/17/18 17:17 57 04/17/18 13:26 64 04/17/18 11:54 97.8 70 18 99/49 (66) 96 I/O 04/17/18 04/17/18 04/17/18 04/18/18 04/18/18 04/18/18 07:00 15:00 23:00 07:00 15:00 23:00 Intake Total 100 ml 800 ml 100 ml Balance 100 ml 800 ml 100 ml Intake IV Total 100 ml 800 ml 100 ml # Voids 1 3 # Bowel Movements 2 Result Diagram: 04/18/18 0340 04/18/18 0340 Other Results Vital Signs, 24 Hour Date Time Temp Pulse Resp B/P (MAP) Pulse Ox O2 Delivery O2 Flow Rate FiO2 04/18/18 08:24 97.9 70 18 119/57 (77) 91 04/18/18 04:00 65 04/18/18 04:00 97.6 63 18 104/58 (73) 92 04/18/18 00:00 97.5 66 18 95/57 (70) 93 04/18/18 00:00 65 04/17/18 20:00 82 04/17/18 20:00 97.6 75 18 112/65 (81) 91 04/17/18 18:06 21 04/17/18 17:28 64 18 93/53 (66) 93 04/17/18 17:17 57 04/17/18 13:26 64 04/17/18 11:54 97.8 70 18 99/49 (66) 96 Allergies Coded Allergies ampicillin (Verified Allergy, Severe, Rash, 04/16/18) Intake/Outtake 04/18/18 04/18/18 11:00 23:00 Intake Total 100 ml Balance 100 ml Laboratory Tests per Claudia Test 04/18/18 03:40 Blood Urea Nitrogen 27 MG/DL Creatinine 1.34 MG/DL Random Glucose 78 MG/DL Calcium Level 8.3 MG/DL Sodium Level 141 MEQ/L Potassium Level 3.9 MEQ/L Chloride Level 115 MEQ/L Carbon Dioxide Level 15.4 MEQ/L Red Blood Count 3.44 MIL/MM3 White Blood Count 6.6 TH/MM3 Active Scripts Active Xanax (Alprazolam) 0.25 Mg Tab 0.125 Mg PO Q12HR PRN Xanax (Alprazolam) 0.25 Mg Tab 0.125 Mg PO HS Baclofen 10 Mg Tab 5 Mg PO BID Norvasc (Amlodipine Besylate) 5 Mg Tab 5 Mg PO DAILY Lactobacillus Acidophilus 1 Billion Cell Tab 1 Tab PO BIDAC Ondansetron Odt 4 Mg Tab 4 Mg PO Q4H PRN Eq Acetaminophen (Acetaminophen) 325 Mg Tab 650 Mg PO Q4H PRN MDD 3gm 30 Days Lopressor (Metoprolol Tartrate) 50 Mg Tab 50 Mg PO Q12HR Cholestyramine 4 Gm/Pkt Powd 4 Gm PO BID Please do not take if you have constipation Amiodarone (Amiodarone HCl) 200 Mg Tab 200 Mg PO DAILY 30 Days Warfarin 1 Mg Tab 1 Mg PO DAILY Please have your PT INR checked every Saturday and -depending on the levels will be the dose she will continue to take. Enalapril (Enalapril Maleate) 5 Mg Tab 5 Mg PO BID 30 Days Famotidine 20 Mg Tab 20 Mg PO BID 1 Days Furosemide 20 Mg Tab 20 Mg PO DAILY Levothyroxine (Levothyroxine Sodium) 75 Mcg Tab 75 Mcg PO DAILY Reported Levofloxacin 750 Mg Tablet 750 Mg PO DAILY Santyl Topical (Collagenase) 250 Unit/Gm Oint 1 Applic TOPICAL DAILY Omeprazole 20 Mg Tab 20 Mg PO DAILY Escitalopram (Escitalopram Oxalate) 5 Mg Tab 5 Mg PO DAILY Duoneb (Ipratropium-Albuterol Neb) 0.5-2.5 Mg/3 Ml Neb 1 Nebule INH Q6HR NEB Dulcolax Supp (Bisacodyl) 10 Mg Supp 10 Mg RECTAL DAILY PRN Citroma Liq (Magnesium Citrate) 300 Ml Liq 300 Ml PO DIRECTED Objective Remarks she is no acute distress. appears somewhat confused HEENT: normocephalic Cardiac: regular rate, irregular rythym. no murmurs Pulm: clear to auscultation bilaterlaly A/P Assessment and Plan 87 y/o F with weakness and CXR findings of pneumonia. PMHx of Hypothyroidism, HTN, Breast CA, A fib, cerbrovascular disease. No leukocytosis, elevated lactic acid. Pneumonia obtain Lactic acid-WNL .9 discontinue levofloxacin Start piperacillin/tazobactam Bilateral Calcaneous Pressure Ulcers, stage 2 wound care consultation--Left side has appropriate dressing per stage 3 protocol. right is left open per stage 2 protocol monitor for devitalized tissue warranting debridement optimize nutritional intake,both protein and total caloric. nutrition consult should be considered Anemia H.5-->dropped to 9.8 today, was 14+ in january. TIBC decreased at 231, Ferritin increased at 288: consistent with anemia of chronic inflammation acanthocytes on smear assess hypothyroidism, TSH, F T4: TSH normal, FT4 slightly elevated Prerenal Azotemia Decreased urine output, BUn/Cr ratio 30/1.39, consider decreased volume status Replete volume with normal saline A fib contnue therapuetic warfarin, consider changing to eliquis HTN: well controlled with amlodipine and angela i Hypothyroidism obtain TSH, Free T4: WNL continue levothyroxine Palliative Care: consultation Jono Rowell M3 April 18, 2018 10:58
--- NOTE | 2018-04-18 10:58 | HHI.PR ---
Subjective Remarks Follow-up for pneumonia, pressure ulcers, CKD stage III, atrial fibrillation. Patient is currently doing well. Denies any chest pain, shortness of breath, fever or chills. Objective Vitals Vital Signs Date Time Temp Pulse Resp B/P (MAP) Pulse Ox O2 Delivery O2 Flow Rate FiO2 04/18/18 08:24 97.9 70 18 119/57 (77) 91 04/18/18 04:00 65 04/18/18 04:00 97.6 63 18 104/58 (73) 92 04/18/18 00:00 97.5 66 18 95/57 (70) 93 04/18/18 00:00 65 04/17/18 20:00 82 04/17/18 20:00 97.6 75 18 112/65 (81) 91 04/17/18 18:06 21 04/17/18 17:28 64 18 93/53 (66) 93 04/17/18 17:17 57 04/17/18 13:26 64 04/17/18 11:54 97.8 70 18 99/49 (66) 96 I/O 04/17/18 04/17/18 04/17/18 04/18/18 04/18/18 04/18/18 07:00 15:00 23:00 07:00 15:00 23:00 Intake Total 100 ml 800 ml 100 ml Balance 100 ml 800 ml 100 ml Intake IV Total 100 ml 800 ml 100 ml # Voids 1 3 # Bowel Movements 2 Result Diagram: 04/18/18 0340 04/18/18 0340 Imaging Last Impressions Chest X-Ray 04/16/18 1112 Signed Impressions: Service Date/Time: Monday, April 16, 2018 11:53 - CONCLUSION: 1. Left basilar airspace disease 2. Persistent moderate to severe cardiomegaly 3. Otherwise stable evaluation. Eligio Barth MD Foot X-Ray 04/16/18 0000 Signed Impressions: Service Date/Time: Monday, April 16, 2018 11:57 - CONCLUSION: 1. Soft tissue swelling of the heel pad without evidence of underlying calcaneal erosive or destructive changes. 2. Dislocated second metatarsophalangeal joint. 3. Healed fracture third metatarsal. Eligio Barth MD Objective Remarks GENERAL: Alert, NAD. Answers questions appropriately but somewhat confused as well. SKIN: Warm and dry. HEAD: Normocephalic. EYES: No scleral icterus. No injection or drainage. NECK: Supple, trachea midline. No JVD or lymphadenopathy. CARDIOVASCULAR: Regular rate and rhythm without murmurs, gallops, or rubs. RESPIRATORY: Breath sounds equal bilaterally. No accessory muscle use. GASTROINTESTINAL: Abdomen soft, non-tender, nondistended. MUSCULOSKELETAL: No cyanosis, or edema. Heel ulcers noted. BACK: Nontender without obvious deformity. No CVA tenderness. Procedures None. A/P Problem List: (1) Pneumonia ICD Code: J18.9 - Pneumonia, unspecified organism Status: Resolved (2) Pressure ulcer of left heel, stage 1 ICD Code: L89.621 - Pressure ulcer of left heel, stage 1 Status: Acute (3) Pressure ulcer of left heel, stage 3 ICD Code: L89.623 - Pressure ulcer of left heel, stage 3 Status: Acute (4) Pressure ulcer of sacral region, stage 1 ICD Code: L89.151 - Pressure ulcer of sacral region, stage 1 Status: Acute (5) Afib ICD Code: I48.91 - Unspecified atrial fibrillation Status: Chronic (6) HTN (hypertension) ICD Code: I10 - Essential (primary) hypertension Status: Chronic (7) Hypothyroidism ICD Code: E03.9 - Hypothyroidism, unspecified Status: Chronic Assessment and Plan Ms. Del Cid is a pleasant 87 year old female with a history of Afib, breast cancer and recent pneumonia who presents to the ED from [facility] due to cough, generalized weakness, pressure ulcer on heels and sacral area. Pneumonia - Possibility of aspiration pneumonia cannot be ruled out at this point - Patient was on Levaquin. Continue patient on Zosyn IV and IV Azithromycin. May de-escalate based on clinical response - PSI score was 106 which indicates need for hospital admission. - CXR reviewed - shows cardiomegaly and possible left sided pleural effusion and infiltrates. Anemia of unknown cause -Patient's baseline hemoglobin appears to be above 12 which was noted in the labs 2 months ago. -TIBC is low - patient's anemia is likely due to chronic inflammation. Ferritin 288. Pressure ulcers on heels and sacram - Wound care evaluated patient and provided recommendations. CKD stage III - Creatinine 1.39 --> 1.34. Avoid nephrotoxins. - will provide NS gentle hydration. Atrial fibrillation - Continue metoprolol 25 mg twice daily - On Warfarin. INR 3.0 on 04/17/2018. Will obtain INR in the AM. Hypertension Hypothyroidism - Continue Amlodipine and JESI inhibitor. May need to hold some of these meds due to low BP. - Continue Levothyroxine. DNR. Warfarin. INR 3.0 on 04/17/2018. Discharge plan: Patient came from [facility]. Grandson does not want her to go back there. A different facility may need to be arranged. Luisa Damon DO April 18, 2018 10:57 am
[2018-04-18 12:00] VITALS: BP 121/66; PULSE 66; RESP 18; TEMP 97.4; O2SAT 91
--- NOTE | 2018-04-18 12:12 | EKG ---
Date Performed: 04/16/2018 Time Performed: 11:27:45 PTAGE: 87 years EKG: ATRIAL FIBRILLATION INDETERMINATE AXIS RIGHT BUNDLE BRANCH BLOCK ABNORMAL ECG PREVIOUS TRACING : 02/05/2018 15.29 DOCTOR: Miguelangel Lane Interpretating Date/Time 04/18/2018 12:03:05
--- NOTE | 2018-04-18 12:35 | PD.CONS ---
Consult Service Palliative Care Consult Requested By Dr. Damon. Primary Care Physician Lc Moran MD Reason for Consultation a. To assist with evaluation and management of symptoms including: Dyspnea, confusion, pain b. To assist medical decision maker(s) with: better understanding of current medical conditions; weighing benefits/burdens of medical treatment options; making medical treatment decisions. HPI History of Present Illness This 87-year-old patient was admitted to the ED on 04/16/18, from [facility] rehab for valuation of pressure ulcers. She was recently discharged to [facility] on March 17, 2018, with ongoing treatment for pneumonia. She is reported to have pressure ulcers on sacrum and bilateral heels onset about 3 weeks prior to presentation. Some pain reported. Cough is improved. Patient reporting overall feeling well. She denies fever, chills, headache chest pain shortness of breath, abdominal pain nausea or vomiting, area or constipation. Reports is able to ambulate with assistance and a walker. Her grandson wanted her to be evaluated in the ED and she states that is why she was transported here. She appears to be oriented to self and place not fully oriented to time or situation. * ED: CXR notes left basilar airspace disease, persistent moderate to severe cardiomegaly in otherwise stable evaluation. ED physician notes that this disease seems worse in comparison to most recent CXR. [facility] records report patient started on Levaquin the day before for pneumonia. Just prior to that she had been on a seven-day course of Levaquin which completed April 11. [facility] shoe parts caser reported patient not eating over the past 2 days and requiring parenteral hydration. ED physician discussed with alondra Crandall on the phone. Patient planned for admission for further evaluation and management, possible aspiration pneumonia. Started on Zosyn, azithromycin. Wound care consulted. * Urine sent for culture. Foot imaging notes soft swelling of the heel pad without evidence of underlying calcaneal erosive or destructive changes. Dislocated second metatarsal phalangeal joint. Healed fracture third metatarsal. WBC unremarkable 6.9. Hemoglobin 10.5, hematocrit 30.9. BUN 30, creatinine 1.39. Lactic acid 0.9. * Speech therapy following; patient tolerating regular diet with thin liquids. ST notes no changes in comparison to prior swallow assessment, patient with mild oral phase swallowing deficits. * Physical therapy following: Patient able to stand for 10 seconds with a walker and moderate to maximum PT assistance. Unable to take any steps. per PT review it sounds like patient was nonambulatory at rehab. * Wound therapy: Patient with wounds to sacrum 6 cm x 4 cm. Some eschar. Also with 3 x 3 cm wound with bullae to right heel over bony prominence. Other heel wound 1.2 cm x 1.3 cm * Patient remains stable, discharge planning will require nursing facility placement. Grandson requesting she does not return to [facility]. Case management assisting with placement options. Palliative care consulted to assist with clarification of goals of treatment. Patient examined in room no visitors present. She is alert, oriented to self, city, year, president. She is unable to name the hospital. She is able to name her family. She reports additional family history, which per my discussion with her grandson later is accurate. She does appear to have poor recent history recall, as she tells me the reason she is in the hospital is for knee problems. She has poor recall in terms of recent hospitalizations and rehabilitation courses. She is cooperative she is pleasant. Explore the reason for my visit. she denies pain (though she does tell me she is in the hospital for knee problems) she denies nausea or vomiting. She denies difficulty swallowing. She denies abdominal discomfort or urinary discomfort. She does tell me that her catheter is not working (I notified nursing, this patient has an external pure wick urine drainage device) Following exam call to grandginger Vidal Fan, discussed with him at length. Also discussed with primary nurse. Discussed with occupational therapist who indicates the patient was able to participate however patient rather withdrawn and reluctant to participate, indicated that she does not wish to do therapy. The same therapist followed with her some during her [facility] course indicated at that time patient was more engaged and wanting to participate in therapy. Additional history per review of EMR: Patient was inpatient at [facility] rehab 02/15 through 02/23, during rehab course she required transfer to [facility] for stroke alert 02/23 through 02/27 [ her acute altered mental status was felt to be secondary to delirium, atrial fibrillation, and some baseline confusion] she then went back to [facility] rehab through 03/17. She was initially in rehab 02/15 following acute hospitalization February 05 - February 15 for vomiting, CHF, pleural effusions. She has essentially been in the hospital or rehab setting since February 05. She also had a brief admission in January for rectal prolapse. During those admissions she was noted to have been recently discharged from [facility] following another hospitalization. During that rehab course she had some episodes of diarrhea, some vomiting. She was treated for C. difficile with oral vancomycin. She did require Risperdal, prn Xanax for anxiety. Brain imaging stable. Functional/cognitive status noted during rehab course, team conference near patient's time of discharge: == Required some assist for meals == Independent with grooming, required some assistance with dressing and bathing , moderate assistance with toileting, full assistance for bowels == Required some contact assistance for transferring from bed to chair == Required some assistance and walker for safety ambulating approximately 50 feet with 3 rest episodes, required some assistance in wheelchair == Able to make most needs known though had very little safety awareness in terms of ability to transfer etc. Significant memory deficits. She had previously lived at home alone with grandchildren assisting as needed. They had been considering [facility] placement due to increased needs. . Function/Cognitive Trajectory Has been in and out of hospital and rehab setting since January of this year. Previously lived at home alone with some assistance as needed from her grandchildren. During recent [facility] rehabilitation course was able to walk about 50 feet with a walker, and some rest and minimal assist. Some cognitive deficits limited safety awareness. Most recently at nursing/rehab facility primarily in bed appears may not have been ambulatory. . Review of Systems ROS Limitations: Poor Historian Constitutional: COMPLAINS OF: Generalized weakness (Per grandson), DENIES: Pain Ears, nose, mouth, throat: COMPLAINS OF: Nasal discharge (Patient complains of some sinus congestion), DENIES: Oral lesions, Throat pain Respiratory: DENIES: Cough, Sputum production, Shortness of breath Cardiovascular: DENIES: Chest pain, Dyspnea on Exertion, Lower Extremity Edema Gastrointestinal: DENIES: Abdominal pain, Constipation, Diarrhea, Nausea, Vomiting, Anorexia Genitourinary: DENIES: Urinary frequency Musculoskeletal: COMPLAINS OF: Joint pain (Knee pain) Integumentary: DENIES: Rash Neurologic: DENIES: Headache Psychiatric: COMPLAINS OF: Anxiety (Per grandson) Past Family Social History Coded Allergies: ampicillin (Verified Allergy, Severe, Rash, 04/16/18) Past Medical History Breast cancer atrial fibrillation arthritis hypothyroidism TIA History of esophageal stricture requiring dilatation, previously on modified diet C. difficile infection . Past Surgical History Surgery for rectal prolapse Hysterectomy Hip and shoulder surgery Left sided breast lumpectomy Reported Medications Xanax (Alprazolam) 0.25 Mg Tab 0.125 Mg PO Q12HR PRN Xanax (Alprazolam) 0.25 Mg Tab 0.125 Mg PO HS Baclofen 10 Mg Tab 5 Mg PO BID Norvasc (Amlodipine Besylate) 5 Mg Tab 5 Mg PO DAILY Lactobacillus Acidophilus 1 Billion Cell Tab 1 Tab PO BIDAC Ondansetron Odt 4 Mg Tab 4 Mg PO Q4H PRN Eq Acetaminophen (Acetaminophen) 325 Mg Tab 650 Mg PO Q4H PRN MDD 3gm 30 Days Lopressor (Metoprolol Tartrate) 50 Mg Tab 50 Mg PO Q12HR Cholestyramine 4 Gm/Pkt Powd 4 Gm PO BID Please do not take if you have constipation Amiodarone (Amiodarone HCl) 200 Mg Tab 200 Mg PO DAILY 30 Days Warfarin 1 Mg Tab 1 Mg PO DAILY Please have your PT INR checked every Saturday and -depending on the levels will be the dose she will continue to take. Enalapril (Enalapril Maleate) 5 Mg Tab 5 Mg PO BID 30 Days Famotidine 20 Mg Tab 20 Mg PO BID 1 Days Furosemide 20 Mg Tab 20 Mg PO DAILY Levothyroxine (Levothyroxine Sodium) 75 Mcg Tab 75 Mcg PO DAILY Levofloxacin 750 Mg Tablet 750 Mg PO DAILY Santyl Topical (Collagenase) 250 Unit/Gm Oint 1 Applic TOPICAL DAILY Omeprazole 20 Mg Tab 20 Mg PO DAILY Escitalopram (Escitalopram Oxalate) 5 Mg Tab 5 Mg PO DAILY Duoneb (Ipratropium-Albuterol Neb) 0.5-2.5 Mg/3 Ml Neb 1 Nebule INH Q6HR NEB Dulcolax Supp (Bisacodyl) 10 Mg Supp 10 Mg RECTAL DAILY PRN Citroma Liq (Magnesium Citrate) 300 Ml Liq 300 Ml PO DIRECTED . Current Medications Medications (Trade) Dose Ordered Sig/Jose A Route Start Time Stop Time Status Last Admin Sodium Chloride 1,000 ml @ 100 mls/hr Q10H IV 04/16/18 14:05 04/18/18 14:04 04/18/18 05:19 (NS Flush) 2 ml UNSCH PRN IV FLUSH 04/16/18 14:15 (NS Flush) 2 ml BID IV FLUSH 04/16/18 21:00 04/17/18 09:59 (Tylenol) 500 mg Q4H PRN PO 04/16/18 14:15 (Zofran Odt) 4 mg Q6H PRN PO 04/16/18 14:15 (Narcan Inj) 0.4 mg UNSCH PRN IV PUSH 04/16/18 14:15 (Milk Of Magnesia Liq) 30 ml Q12H PRN PO 04/16/18 14:15 (Senokot) 17.2 mg Q12H PRN PO 04/16/18 14:15 (Dulcolax Supp) 10 mg DAILY PRN RECTAL 04/16/18 14:15 (Lactulose Liq) 30 ml DAILY PRN PO 04/16/18 14:15 Piperacillin Sod/ Tazobactam Sod 100 ml @ 200 mls/hr Q8H IV 04/16/18 17:00 04/18/18 10:16 Azithromycin 500 mg/Sodium Chloride 250 ml @ 250 mls/hr Q24H IV 04/16/18 16:00 04/17/18 15:36 (Norvasc) 5 mg DAILY PO 04/17/18 09:00 04/17/18 09:58 (Lexapro) 5 mg DAILY PO 04/17/18 09:00 04/18/18 10:18 (Pepcid) 20 mg BID PO 04/17/18 09:00 04/18/18 10:18 (Synthroid) 75 mcg DAILY@0600 PO 04/17/18 09:00 04/18/18 05:19 (Lopressor) 25 mg Q12HR PO 04/17/18 09:00 04/18/18 10:28 Family History No family history of Alzheimer's or Parkinson's. Substance Use Tobacco: Former smoker Alcohol: None Prescription med abuse: None Illicits: None . Psychosocial History Patient originally from [place]. 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 Moved to [place] about 18 years ago after her 's . She had 3 children all are 1 secondary to heart issues, one due to dialysis complications and 1 from multiple sclerosis. Supported by grandchildren, in laws. Spiritual/Cultural Factors Patient indicates no particular jehovah's witness connection does not want tie in machine operator visits Living Will: Copy in medical record Health Care Surrogate: Copy in medical record Date completed: 2009 Health Care Surrogate(s): Grandginger Fan Documented care wishes: Living will details in standard verbiage in the presence of end-stage, terminal or vegetative states would not want artificial measures would instead want comfort measures only. Ethical and Legal Issues Patient with poor insight to medical conditions. Not able to make her own medical decisions, does not appear she will regain this insight. Her grandson Vidal Fan is designated healthcare surrogate. Physical Exam Vital Signs Date Time Temp Pulse Resp B/P (MAP) Pulse Ox O2 Delivery O2 Flow Rate FiO2 04/18/18 08:24 97.9 70 18 119/57 (77) 91 04/18/18 04:00 65 04/18/18 04:00 97.6 63 18 104/58 (73) 92 04/18/18 00:00 97.5 66 18 95/57 (70) 93 04/18/18 00:00 65 04/17/18 20:00 82 04/17/18 20:00 97.6 75 18 112/65 (81) 91 04/17/18 18:06 21 04/17/18 17:28 64 18 93/53 (66) 93 04/17/18 17:17 57 04/17/18 13:26 64 Exam CONSTITUTIONAL/GENERAL: This is an adequately nourished patient, in no apparent distress. Alert, cooperative TUBES/LINES/DRAINS: Peripheral IV upper extremity, external with urine drainage device SKIN: No jaundice, rashes, or lesions.No wounds seen anteriorly. Skin warm/dry. Left heel with gauze dressing clean and dry. Right heel with red and intact ulceration noted. HEAD: Atraumatic. Normocephalic. EYES: Pupils equal and round and reactive. Extraocular motions intact. No scleral icterus. No injection or drainage. Fundi not examined. ENT: Slightly hard of hearing. Nose without bleeding or purulent drainage. Throat without visible erythema, exudates, masses, or lesions. NECK: Trachea midline. Supple, nontender. No palpable thyroid enlargement or nodularity. CARDIOVASCULAR: Regular rate and rhythm without murmur. No JVD. Peripheral pulses symmetric. No peripheral edema. RESPIRATORY/CHEST: Symmetric, unlabored respirations. On room air. Clear to auscultation. Breath sounds equal bilaterally. GASTROINTESTINAL: Abdomen soft, round, non-tender, nondistended. No hepato- splenomegaly, or palpable masses. No guarding. Bowel sounds present. GENITOURINARY: Without palpable bladder distension. External wick drainage device in place for urine MUSCULOSKELETAL: Extremities without clubbing, cyanosis, or edema. No joint tenderness or effusion noted. No calf tenderness. No mottling or clubbing. LYMPHATICS: No palpable cervical or supraclavicular adenopathy. NEUROLOGICAL: Awake and alert. Oriented 23. Poor insight into hospitalization. Cooperative. Moves all extremities with generalized weakness . PSYCHIATRIC: No obvious anxiety/depression. no apparent hallucinations or other psychotic thought process. Diagnostic Tests Laboratory Laboratory Tests Test 04/16/18 11:20 04/16/18 12:25 04/16/18 15:45 04/17/18 15:13 White Blood Count 6.9 TH/MM3 (4.0-11.0) Red Blood Count 3.73 MIL/MM3 (4.00-5.30) Hemoglobin 10.5 GM/DL (11.6-15.3) Hematocrit 30.9 % (35.0-46.0) Mean Corpuscular Volume 82.8 FL (80.0-100.0) Mean Corpuscular Hemoglobin 28.2 PG (27.0-34.0) Mean Corpuscular Hemoglobin Concent 34.1 % (32.0-36.0) Red Cell Distribution Width 17.8 % (11.6-17.2) Platelet Count 262 TH/MM3 (150-450) Mean Platelet Volume 8.9 FL (7.0-11.0) Neutrophils (%) (Auto) 78.8 % (16.0-70.0) Lymphocytes (%) (Auto) 8.0 % (9.0-44.0) Monocytes (%) (Auto) 11.7 % (0.0-8.0) Eosinophils (%) (Auto) 0.9 % (0.0-4.0) Basophils (%) (Auto) 0.6 % (0.0-2.0) Neutrophils # (Auto) 5.5 TH/MM3 (1.8-7.7) Lymphocytes # (Auto) 0.6 TH/MM3 (1.0-4.8) Monocytes # (Auto) 0.8 TH/MM3 (0-0.9) Eosinophils # (Auto) 0.1 TH/MM3 (0-0.4) Basophils # (Auto) 0.0 TH/MM3 (0-0.2) CBC Comment AUTO DIFF Differential Comment AUTO DIFF CONFIRMED Platelet Estimate NORMAL (NORMAL) Platelet Morphology Comment NORMAL (NORMAL) Ovalocytes 1+ (NORMAL) Acanthocytes OCC (NORMAL) Prothrombin Time 28.0 SEC (9.8-11.6) Prothromb Time International Ratio 2.8 RATIO Activated Partial Thromboplast Time 45.3 SEC (24.3-30.1) Blood Urea Nitrogen 30 MG/DL (7-18) Creatinine 1.39 MG/DL (0.50-1.00) Random Glucose 81 MG/DL (74-106) Total Protein 7.7 GM/DL (6.4-8.2) Albumin 2.4 GM/DL (3.4-5.0) Calcium Level 8.5 MG/DL (8.5-10.1) Magnesium Level 2.1 MG/DL (1.5-2.5) Alkaline Phosphatase 91 U/L (45-117) Aspartate Amino Transf (AST/SGOT) 13 U/L (15-37) Alanine Aminotransferase (ALT/SGPT) 18 U/L (10-53) Total Bilirubin 0.7 MG/DL (0.2-1.0) Sodium Level 138 MEQ/L (136-145) Potassium Level 4.4 MEQ/L (3.5-5.1) Chloride Level 107 MEQ/L (98-107) Carbon Dioxide Level 15.6 MEQ/L (21.0-32.0) Anion Gap 15 MEQ/L (5-15) Estimat Glomerular Filtration Rate 36 ML/MIN (>89) Urine Color YELLOW (YELLW/STRAW) Urine Turbidity CLEAR (CLEAR) Urine pH 5.0 (5.0-8.5) Urine Specific [place] 1.008 (1.002-1.035) Urine Protein NEG mg/dL (NEG-TRACE) Urine Glucose (UA) NEG mg/dL (NEG) Urine Ketones NEG mg/dL (NEG) Urine Occult Blood NEG (NEG) Urine Nitrite NEG (NEG) Urine Bilirubin NEG (NEG) Urine Urobilinogen LESS THAN 2.0 MG/DL (LESS Urine Leukocyte Esterase NEG (NEG) Urine RBC 2 /hpf (0-3) Urine WBC 1 /hpf (0-5) Urine Squamous Epithelial Cells 2 /hpf (0-5) Urine Renal Epithelial Cells <1 /hpf (NONE) Urine Amorphous Sediment RARE Urine Bacteria FEW /hpf (NONE) Urine Mucus FEW /lpf (OCC) Microscopic Urinalysis Comment CATH-CULTURE IND Lactic Acid Level 0.9 mmol/L (0.4-2.0) Reticulocyte Count 2.1 % (0.4-3.0) Absolute Reticulocyte Count 75.4 MIL/L (20.0-150.0) Iron Level 30 MCG/DL (50-170) Total Iron Binding Capacity 231 MCG/DL (250-450) Percent Iron Saturation 13.0 % (20-50) Ferritin 288 NG/ML (8-252) Free Thyroxine 1.63 NG/DL (0.76-1.46) Thyroid Stimulating Hormone 3rd Gen 2.840 uIU/ML (0.358-3.740) Test 04/18/18 03:40 White Blood Count 6.6 TH/MM3 (4.0-11.0) Red Blood Count 3.44 MIL/MM3 (4.00-5.30) Hemoglobin 9.8 GM/DL (11.6-15.3) Hematocrit 28.3 % (35.0-46.0) Mean Corpuscular Volume 82.2 FL (80.0-100.0) Mean Corpuscular Hemoglobin 28.5 PG (27.0-34.0) Mean Corpuscular Hemoglobin Concent 34.6 % (32.0-36.0) Red Cell Distribution Width 18.3 % (11.6-17.2) Platelet Count 275 TH/MM3 (150-450) Mean Platelet Volume 8.7 FL (7.0-11.0) Neutrophils (%) (Auto) 68.2 % (16.0-70.0) Lymphocytes (%) (Auto) 13.0 % (9.0-44.0) Monocytes (%) (Auto) 14.6 % (0.0-8.0) Eosinophils (%) (Auto) 2.9 % (0.0-4.0) Basophils (%) (Auto) 1.3 % (0.0-2.0) Neutrophils # (Auto) 4.5 TH/MM3 (1.8-7.7) Lymphocytes # (Auto) 0.9 TH/MM3 (1.0-4.8) Monocytes # (Auto) 1.0 TH/MM3 (0-0.9) Eosinophils # (Auto) 0.2 TH/MM3 (0-0.4) Basophils # (Auto) 0.1 TH/MM3 (0-0.2) CBC Comment DIFF FINAL Differential Comment Prothrombin Time 30.7 SEC (9.8-11.6) Prothromb Time International Ratio 3.0 RATIO Blood Urea Nitrogen 27 MG/DL (7-18) Creatinine 1.34 MG/DL (0.50-1.00) Random Glucose 78 MG/DL (74-106) Calcium Level 8.3 MG/DL (8.5-10.1) Sodium Level 141 MEQ/L (136-145) Potassium Level 3.9 MEQ/L (3.5-5.1) Chloride Level 115 MEQ/L (98-107) Carbon Dioxide Level 15.4 MEQ/L (21.0-32.0) Anion Gap 11 MEQ/L (5-15) Estimat Glomerular Filtration Rate 38 ML/MIN (>89) Result Diagram: 04/18/18 0340 04/18/18 0340 Microbiology Microbiology Date/Time Source Procedure Growth Status 04/16/18 12:25 Urine Clean Catch Urine Culture - Final 10-50,000 CFU/ML MIXED GRAM POSITIVE ... Complete Imaging Last Impressions Chest X-Ray 04/16/18 1112 Signed Impressions: Service Date/Time: Monday, April 16, 2018 11:53 - CONCLUSION: 1. Left basilar airspace disease 2. Persistent moderate to severe cardiomegaly 3. Otherwise stable evaluation. Eligio Barth MD Foot X-Ray 04/16/18 0000 Signed Impressions: Service Date/Time: Monday, April 16, 2018 11:57 - CONCLUSION: 1. Soft tissue swelling of the heel pad without evidence of underlying calcaneal erosive or destructive changes. 2. Dislocated second metatarsophalangeal joint. 3. Healed fracture third metatarsal. Eligio Barth MD Patient/Family Conference Family Conference Time (mins): 45 Family Conference Location: Telephone Issues Discussed: Called to grandson and healthcare surrogate Vidal discussion included the following: * Palliative care role, purpose, approach * Additional medical, psychosocial, and spiritual history * Patients general health, functional status, and cognitive changes in the months leading up to the current hospitalization * Patient/family understanding of the current medical problems * Patient/family understanding of prognosis; review of likely trajectory going forward based on patient's most recent history of in and out of the hospital and trajectory of decline * Patients goals of care as best understood from advance directives and/or conversations and/or values * Current medical treatment options and benefits/burdens of those options * Legal decision makers * CODE STATUS-affirms DNR status * Likely scenarios comparing ongoing aggressive care with a transition to comfort measures only/review of hospice role and philosophy, and services would be appropriate if patient continued to decline/significant setbacks, and she did not want ongoing aggressive interventions * Questions answered to the best of my ability * Palliative care contact information provided Spoke extensively with alondra Crandall. He endorses patient's family report as per HPI is accurate. He also notes patient poor recent medical history. He details trajectory of decline over the past several months to year. He indicates one problem would arise such as C. difficile, it would get treated and resolved and then something else would come up. They have been hopeful to get the patient to an [facility] setting, however he understands her needs may exceed that that an [facility]CI can meet. For now he wishes to maximize medical treatments to stabilize, improve her current conditions, and will work with case management on discharge options/placement options. He is open to ongoing discussions as clinical course evolves. We did discuss hospice role and services he understands that if patient experiences significant decline or additional complications and she would not want recurrent hospitalizations then she may be appropriate for hospice services. . Assessment and Plan Disease Oriented Problem List: (1) Pneumonia Comment: ? Aspiration . (2) Chronic atrial fibrillation (3) History of esophageal stricture (4) CHF (congestive heart failure) (5) Renal insufficiency (6) Dysphagia (7) Thyroid disease (8) COPD (chronic obstructive pulmonary disease) (9) Pressure ulcer of left heel, stage 1 (10) Pressure ulcer of left heel, stage 3 (11) HTN (hypertension) (12) Transient ischemic attack (TIA) Symptom Scale: (1) Confusion 0-10 Scale: Unable to quantify (2) Dyspnea 0-10 Scale: Unable to quantify (3) Pain 0-10 Scale: Unable to quantify Pertinent Non-Medical Issues Psychosocial:Patient originally from [place]. 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 Moved to [place] about 18 years ago after her 's . She had 3 children all are 1 secondary to heart issues, one due to dialysis complications and 1 from multiple sclerosis. Supported by grandchildren, in laws. Spiritual: No particular jehovah's witness connection does not want tie in machine operator visits Legal:Patient with poor insight to medical conditions. Not able to make her own medical decisions, does not appear she will regain this insight. Her grandson Vidal Fan is designated healthcare surrogate. Ethical issues impacting care: No ethical issues identified Important Contacts Vidal Fan grandson [phone], granddaughter in law Minerva Fan Prognosis This patient was admitted for pressure wound evaluation. She has been in and out of the hospital and rehab setting since January of this year. She has had general physical decline over the last several months. She seems reluctant to participate with rehab this admission per therapist notation. Concern for aspiration pneumonia though speech therapy evaluation this admission did not indicate dysphasia. Due to debilitated status recent recurrent hospitalizations and multiple chronic medical conditions patient does remain at risk for further debility and complications going forward. Likely with ongoing aggressive treatments and interventions conditions can be stabilized and she will survive them though she will likely continue to decline. . Code Status: No Code Plan Legal decision maker::Patient with poor insight to medical conditions. Not able to make her own medical decisions, does not appear she will regain this insight. Her grandson Vidal Fan is designated healthcare surrogate. Goals: Spoke at length with healthcare surrogate alondra Drake; at this point he wishes to take it one day at a time, and continue maximized medical management short of resuscitation. He wishes to work with case management on discharge placement options. He understands patient overall condition, debility and that she is high risk for further decline. We have explored hospice role in the event that patient does not improve, or experiences additional decline or setbacks. (though she is not currently terminal at this time, and he wishes to continue available treatments at this time). He would like to try to get the patient placed in a nursing facility or [facility] if she is able. He is open to ongoing discussions as clinical course evolves. CODE STATUS: DNR SYMPTOMS: --Pain-patient grandson reports she has significant arthritis minimal cartilage to her knee joints was supposed to have joint replacements but due to medical issues over the past year or so has never been well enough to seek elective knee replacement. She does indicate that is the reason for her hospitalization today (which is not) she does not endorse pain for me today. Cautious use of opiates. She has prn Tylenol . Other potential sources would include debilitated, bedbound status and wounds to heels. --Dyspnea-concern for aspiration pneumonia. Recently treated 2 courses in a row outpatient for pneumonia with Levaquin. CXR=Left basilar airspace disease. Tolerating room air. No dyspnea observed or reported. Will continue to evaluate. --Confusion-patient mental status fluctuates. She is noted to generally be a poor historian this admission and multiple prior evaluations. She does have good remote history, and generally is oriented 2-3 however with poor insight into medical condition. This may be some baseline mild dementia.[Previous MRI indicates no acute process however notes atrophy and chronic small vessel ischemic changes] Palliative care will continue to follow during hospital course as condition evolves, to assist patient/decision-maker with understanding of medical conditions, weighing benefits/burdens of treatment options, for clarification of goals of treatment. Additionally will assist with any symptoms of palliative concern Time Spent Total Floor Time (mins): 75 (Discussion with nurse, discussion with OT, discussion with family, chart review, PE) Thank you for the opportunity to participate in the care of Ms. Del Cid. Attestation To help prompt me to consider important information that might be impacting today's encounter and assessment, information from prior notes written by myself or my colleagues may have been "brought forward" into today's note. My signature on this note, however, is an attestation that I personally performed the exam, history, and/or decision-making noted today, and, unless otherwise indicated, the interactions with patient, family, and staff as well as the review of records all occurred today. I also attest that the listed assessment and stated plan reflect my best clinical judgment today based on the combination of historical information, prior notes, and today's exam/ interactions. When time spent is documented, it refers only to time spent today by the signer, or if indicated, combined time spent today by collaborating physician/nurse practitioner. Karena Talley April 18, 2018 12:35
[2018-04-18 16:30] VITALS: BP 119/62; PULSE 65; RESP 18; TEMP 97.5; O2SAT 93
[2018-04-18 20:00] VITALS: BP 118/65; PULSE 71; RESP 18; TEMP 98; O2SAT 92
[2018-04-18] MEDS: AMOXICILLIN/CLAVULANATE K 875 MG TAB PO SCH (21:06)
[2018-04-19] VITALS: BP_SYST 112; BP_SYST 125; BP_DIAS 63; BP_DIAS 64; PULSE 63; PULSE 73; PULSE 85; RESP 18; TEMP 98.1; TEMP 98.2; O2SAT 93
[2018-04-19 04:00] VITALS: BP 111/58; PULSE 66; RESP 18; TEMP 98; O2SAT 93
[2018-04-19] MEDS: LEVOTHYROXINE SODIUM 75 MCG TAB PO SCH (05:23)
[2018-04-19 08:00] VITALS: PULSE 74
[2018-04-19 08:36] VITALS: BP 146/72; PULSE 77; RESP 18; TEMP 97.3; O2SAT 90
[2018-04-19] MEDS: ESCITALOPRAM OXALATE 10 MG TAB PO SCH (08:43)
[2018-04-19] MEDS: METOPROLOL TARTRATE 25 MG TAB PO SCH ×2 (08:43→22:25)
[2018-04-19] MEDS: AMOXICILLIN/CLAVULANATE K 875 MG TAB PO SCH ×2 (08:43→22:25)
[2018-04-19] MEDS: FAMOTIDINE 20 MG TAB PO SCH ×2 (08:43→22:25)
[2018-04-19] MEDS: amLODIPine BESYLATE 5 MG TAB PO SCH (08:43)
--- NOTE | 2018-04-19 08:43 | HHI.PR ---
Subjective Remarks Pt seen and examined. AFVSS. No acute events overnight. Only complaint is stiff neck which she attributes to the way she slept. She is concerned about her feet and states she cannot walk. She understands she will be going to a different SNF. She denies CP, SOB, cough, abdominal pain, N/V. She is tolerating PO. Objective Vitals Vital Signs Date Time Temp Pulse Resp B/P (MAP) Pulse Ox O2 Delivery O2 Flow Rate FiO2 04/19/18 04:00 98.0 66 18 111/58 (75) 93 04/19/18 00:00 63 04/19/18 00:00 98.2 73 18 112/63 (79) 93 04/18/18 20:00 98.0 71 18 118/65 (82) 92 04/18/18 16:30 97.5 65 18 119/62 (81) 93 04/18/18 12:00 97.4 66 18 121/66 (84) 91 I/O 04/18/18 04/18/18 04/18/18 04/19/18 04/19/18 04/19/18 07:00 15:00 23:00 07:00 15:00 23:00 Intake Total 100 ml 800 ml Balance 100 ml 800 ml Intake IV Total 100 ml 800 ml # Voids 3 1 3 # Bowel Movements 2 Result Diagram: 04/18/18 0340 04/18/18 0340 Imaging Chest X-Ray 04/16/18 1112 Signed Impressions: Service Date/Time: Monday, April 16, 2018 11:53 - CONCLUSION: 1. Left basilar airspace disease 2. Persistent moderate to severe cardiomegaly 3. Otherwise stable evaluation. Eligio Barth MD Foot X-Ray 04/16/18 0000 Signed Impressions: Service Date/Time: Monday, April 16, 2018 11:57 - CONCLUSION: 1. Soft tissue swelling of the heel pad without evidence of underlying calcaneal erosive or destructive changes. 2. Dislocated second metatarsophalangeal joint. 3. Healed fracture third metatarsal. Eligio Barth MD Objective Remarks GENERAL: Elderly female resting in bed in NAD. SKIN: Warm and dry. HEENT: AT/NC. Pupils equal and round. MMM. NECK: Supple no tender LAD or JVD. HEART: RRR no m/r/g. LUNGS: CTAB without wheezes or crackles. ABDOMEN: +BS, soft, NT, ND. EXTREMITIES: No LE edema. L heel dressing in place, no drainage. NEURO: Awake and alert. PSYCH: Appropriate mood and affect. A/P Problem List: (1) Pneumonia ICD Code: J18.9 - Pneumonia, unspecified organism Status: Resolved (2) Pressure ulcer of left heel, stage 1 ICD Code: L89.621 - Pressure ulcer of left heel, stage 1 Status: Acute (3) Pressure ulcer of left heel, stage 3 ICD Code: L89.623 - Pressure ulcer of left heel, stage 3 Status: Acute (4) Pressure ulcer of sacral region, stage 1 ICD Code: L89.151 - Pressure ulcer of sacral region, stage 1 Status: Acute (5) Afib ICD Code: I48.91 - Unspecified atrial fibrillation Status: Chronic (6) HTN (hypertension) ICD Code: I10 - Essential (primary) hypertension Status: Chronic (7) Hypothyroidism ICD Code: E03.9 - Hypothyroidism, unspecified Status: Chronic Assessment and Plan 87 year old female with history of breast cancer and atrial fibrillation admitted from [facility] on 04/16 for generalized weakness and pressure ulcers. 1. Pneumonia - CXR demonstrating L basilar airspace disease possibly infiltration as well as persistent moderate to severe cardiomegaly - Treated for aspiration as an outpatient with Levaquin - Treated with IV Zosyn and Azithromycin 04/16-04/17 - Changed to Augmentin yesterday, will continue for a total duration of 7-10 days - Clinically stable and no leukocytosis or fevers - [facility] with no signs of dysphagia 2. Pressure ulcers heels and sacrum - No active infection - Wound care following 1.Please cleanse wound to L heel with wound cleanser or normal saline and pat dry. Apply Optifoam basic to wound and secure with rolled gauze and tape. Change dressing every 3 days or PRN if saturated or dislodged. 2. [place] Cavilon skin barrier film To L posterior lateral heel DTI and L posterior heel stage 2 pressure injury roofed bulla BID and leave open to air. 3. Offload pressure from bilateral heels with heel raiser boots or with floating of the heels off mattress surface with pillows 3. Weakness/debility - PT consulted and recommending rehab - Palliative following 4. Anemia - Likely iron deficiency as well as anemia of chronic disease given low iron studies and slightly elevated ferritin - Hemodynamically stable - Periodically monitor CBC 5. CKD stage III - Avoid nephrotoxic agents and renally dose medications 6. Atrial fibrillation - Rate-controlled - Continue metoprolol 25 mg BID - Continue Coumadin, INR yesterday was 3.0. Will recheck today 7. Hypertension - Continue metoprolol, amlodipine, and JESI inhibitor 8. Hypothyroidism - Continue Levothyroxine DVT prophylaxis: On Coumadin Discharge Planning Case management assisting, patient came from [facility] but her son does not want her going back. She has been accepted into [facility]. Plan to D/C today. Page Goyal MD April 19, 2018 08:42
[2018-04-19] MEDS: SODIUM CHLORIDE 0.9% FLUSH 10 ML FLUSH IV FLUSH SCH ×2 (09:00→22:25)
--- NOTE | 2018-04-19 10:03 | HHI.DS ---
Discharge Summary Admission Date April 16, 2018 at 14:01 Discharge Date: April 19, 2018 Admitting Diagnosis Pneumonia, failure to thrive, pressure ulcers (1) Pneumonia ICD Code: J18.9 - Pneumonia, unspecified organism Status: Resolved (2) Pressure ulcer of left heel, stage 1 ICD Code: L89.621 - Pressure ulcer of left heel, stage 1 Status: Acute (3) Pressure ulcer of left heel, stage 3 ICD Code: L89.623 - Pressure ulcer of left heel, stage 3 Status: Acute (4) Pressure ulcer of sacral region, stage 1 ICD Code: L89.151 - Pressure ulcer of sacral region, stage 1 Status: Acute (5) Afib ICD Code: I48.91 - Unspecified atrial fibrillation Status: Chronic (6) HTN (hypertension) ICD Code: I10 - Essential (primary) hypertension Status: Chronic (7) Hypothyroidism ICD Code: E03.9 - Hypothyroidism, unspecified Status: Chronic Procedures None Brief History - From Admission Ms. Del Cid is a pleasant 87-year-old female with a history of breast cancer, atrial fibrillation who presents to the emergency department from [facility] due to generalized weakness as well as pressure ulcers. Patient was discharged to [facility] on March 17, 2018. She was being treated for pneumonia with Levaquin. During her stay about pressure ulcers on her sacrum and bilateral heels. Patient reports some cough but no fever or chills. She denies any dysphagia or odynophagia. No chest pain, shortness of breath. She denies any abdominal pain but reports persistent diarrhea. She denies any dysuria or hematuria. On arrival, vitals within normal range. No leukocytosis, BUN 30, Cr 1.39, Lactic acid 0.9. CXR shows Left basilar airspace disease and cardiomegaly. Patient denies any allergies to any medications including penicillins. CBC/BMP: 04/18/18 0340 04/18/18 0340 Significant Findings Laboratory Tests Test 04/16/18 11:20 04/16/18 12:25 04/16/18 15:45 04/17/18 15:13 Red Blood Count 3.73 MIL/MM3 (4.00-5.30) Hemoglobin 10.5 GM/DL (11.6-15.3) Hematocrit 30.9 % (35.0-46.0) Red Cell Distribution Width 17.8 % (11.6-17.2) Neutrophils (%) (Auto) 78.8 % (16.0-70.0) Lymphocytes (%) (Auto) 8.0 % (9.0-44.0) Monocytes (%) (Auto) 11.7 % (0.0-8.0) Lymphocytes # (Auto) 0.6 TH/MM3 (1.0-4.8) Ovalocytes 1+ (NORMAL) Acanthocytes OCC (NORMAL) Prothrombin Time 28.0 SEC (9.8-11.6) Activated Partial Thromboplast Time 45.3 SEC (24.3-30.1) Blood Urea Nitrogen 30 MG/DL (7-18) Creatinine 1.39 MG/DL (0.50-1.00) Albumin 2.4 GM/DL (3.4-5.0) Aspartate Amino Transf (AST/SGOT) 13 U/L (15-37) Carbon Dioxide Level 15.6 MEQ/L (21.0-32.0) Estimat Glomerular Filtration Rate 36 ML/MIN (>89) Urine Bacteria FEW /hpf (NONE) Urine Mucus FEW /lpf (OCC) Iron Level 30 MCG/DL (50-170) Total Iron Binding Capacity 231 MCG/DL (250-450) Percent Iron Saturation 13.0 % (20-50) Ferritin 288 NG/ML (8-252) Free Thyroxine 1.63 NG/DL (0.76-1.46) Test 04/18/18 03:40 Red Blood Count 3.44 MIL/MM3 (4.00-5.30) Hemoglobin 9.8 GM/DL (11.6-15.3) Hematocrit 28.3 % (35.0-46.0) Red Cell Distribution Width 18.3 % (11.6-17.2) Monocytes (%) (Auto) 14.6 % (0.0-8.0) Lymphocytes # (Auto) 0.9 TH/MM3 (1.0-4.8) Monocytes # (Auto) 1.0 TH/MM3 (0-0.9) Prothrombin Time 30.7 SEC (9.8-11.6) Blood Urea Nitrogen 27 MG/DL (7-18) Creatinine 1.34 MG/DL (0.50-1.00) Calcium Level 8.3 MG/DL (8.5-10.1) Chloride Level 115 MEQ/L (98-107) Carbon Dioxide Level 15.4 MEQ/L (21.0-32.0) Estimat Glomerular Filtration Rate 38 ML/MIN (>89) PE at Discharge GENERAL: Elderly female resting in bed in NAD. SKIN: Warm and dry. HEENT: AT/NC. Pupils equal and round. MMM. NECK: Supple no tender LAD or JVD. HEART: RRR no m/r/g. LUNGS: CTAB without wheezes or crackles. ABDOMEN: +BS, soft, NT, ND. EXTREMITIES: No LE edema. L heel dressing in place, no drainage. NEURO: Awake and alert. PSYCH: Appropriate mood and affect. Hospital Course 87 year old female with history of breast cancer and atrial fibrillation admitted from [facility] on 04/16 for generalized weakness and pressure ulcers. 1. Pneumonia - CXR demonstrating L basilar airspace disease possibly infiltration as well as persistent moderate to severe cardiomegaly - Treated for aspiration as an outpatient with Levaquin - Treated with IV Zosyn and Azithromycin 04/16-04/17 - Changed to Augmentin 04/18, will continue for a total duration of 7-10 days - Clinically stable and no leukocytosis or fevers - ST eval with no signs of dysphagia 2. Pressure ulcers heels and sacrum - No active infection - Wound care following 1.Please cleanse wound to L heel with wound cleanser or normal saline and pat dry. Apply Optifoam basic to wound and secure with rolled gauze and tape. Change dressing every 3 days or PRN if saturated or dislodged. 2. [place] Cavilon skin barrier film To L posterior lateral heel DTI and L posterior heel stage 2 pressure injury roofed bulla BID and leave open to air. 3. Offload pressure from bilateral heels with heel raiser boots or with floating of the heels off mattress surface with pillows 3. Weakness/debility - PT consulted and recommending rehab - Palliative following 4. Anemia - Likely iron deficiency as well as anemia of chronic disease given low iron studies and slightly elevated ferritin - Hemodynamically stable - Periodically monitor CBC 5. CKD stage III - Avoid nephrotoxic agents and renally dose medications 6. Atrial fibrillation - Rate-controlled - Continue metoprolol 25 mg BID - Continue Coumadin, INR 3.0 on 04/18 7. Hypertension - Continue metoprolol, amlodipine, and JESI inhibitor 8. Hypothyroidism - Continue Levothyroxine Discharged to [facility] on 04/19 in stable condition. Pt Condition on Discharge: Stable Discharge Disposition: Discharge to SNF Discharge Time: > 30 minutes Discharge Instructions DIET: Follow Instructions for: Heart Healthy Diet Activities you can perform: Regular-No Restrictions Follow up Referrals: PCP Follow-up - 1 Week New Orders: PT/INR - 1 Week New Medications: Amoxicillin-Clavulanate (Augmentin) 875-125 Mg Tab 1 TAB PO BID for Infection, #14 TAB 0 Refills Continued Medications: Acetaminophen (Eq Acetaminophen) 325 Mg Tab 650 MG PO Q4H PRN for PAIN/FEVER MDD 3gm for 30 Days, #360 TAB Alprazolam (Xanax) 0.25 Mg Tab 0.125 MG PO HS, #1 TAB Alprazolam (Xanax) 0.25 Mg Tab 0.125 MG PO Q12HR PRN for ANXIETY, #1 TAB 0 Refills Amiodarone (Amiodarone) 200 Mg Tab 200 MG PO DAILY for arrythmia for 30 Days, #30 TAB Amlodipine (Norvasc) 5 Mg Tab 5 MG PO DAILY for Blood Pressure Management, #30 TAB Baclofen (Baclofen) 10 Mg Tab 5 MG PO BID for dysphagia, #40 TAB 0 Refills Bisacodyl Supp (Dulcolax Supp) 10 Mg Supp 10 MG RECTAL DAILY PRN for CONSTIPATION, #12 SUPP 0 Refills Cholestyramine (Cholestyramine) 4 Gm/Pkt Powd 4 GM PO BID, #60 PACKET Please do not take if you have constipation Collagenase Topical (Santyl Topical) 250 Unit/Gm Oint 1 APPLIC TOPICAL DAILY for Wound Management, #15 GM 0 Refills Enalapril (Enalapril) 5 Mg Tab 5 MG PO BID for hypertension for 30 Days, #60 TAB 0 Refills Escitalopram (Escitalopram) 5 Mg Tab 5 MG PO DAILY, #30 TAB 0 Refills Famotidine (Famotidine) 20 Mg Tab 20 MG PO BID for Reflux for 1 Day, #60 TAB Furosemide (Furosemide) 20 Mg Tab 20 MG PO DAILY for CHF, #30 TAB 0 Refills Ipratropium-Albuterol Neb (Duoneb) 0.5-2.5 Mg/3 Ml Neb 1 NEBULE INH Q6HR NEB for Breathing Treatment, #120 NEBULE 0 Refills Lactobacillus Acidophilus (Lactobacillus Acidophilus) 1 Billion Cell Tab 1 TAB PO BIDAC for Nutritional Supplement, #60 TAB 0 Refills Levothyroxine (Levothyroxine) 75 Mcg Tab 75 MCG PO DAILY for Thyroid, #30 TAB 0 Refills Magnesium Citrate Liq (Citroma Liq) 300 Ml Liq 300 ML PO DIRECTED, #1 BOTTLE 0 Refills Metoprolol Tartrate (Lopressor) 50 Mg Tab 50 MG PO Q12HR for Blood Pressure Management, #60 TAB Ondansetron Odt (Ondansetron Odt) 4 Mg Tab 4 MG PO Q4H PRN for NAUSEA OR VOMITING, #15 TAB Warfarin (Warfarin) 1 Mg Tab 1 MG PO DAILY for Blood Clot Prevention, #30 TAB 0 Refills Please have your PT INR checked every Saturday and -depending on the levels will be the dose she will continue to take. Discontinued Medications: Levofloxacin (Levofloxacin) 750 Mg Tablet 750 MG PO DAILY for Infection, TAB 0 Refills Omeprazole (Omeprazole) 20 Mg Tab 20 MG PO DAILY, #30 TAB 0 Refills Page Goyal MD April 19, 2018 10:03
[2018-04-19] MEDS ORDERED: AUGM875T3 PO (10:05)
[2018-04-19] MEDS ORDERED: ALPR.25 PO ×2 (11:23)
[2018-04-19 12:00] VITALS: BP 140/78; PULSE 86; PULSE 89; RESP 18; TEMP 97.5; O2SAT 90
[2018-04-19 14:11] LABS: INTERNATIONAL NORMALIZED RATIO 3.2 RATIO; PROTHROMBIN TIME - PATIENT 31.9 SEC (9.8-11.6)
[2018-04-19] MEDS ORDERED: PILL SPLITTER OTHER PRN (16:15)
--- NOTE | 2018-04-19 17:10 | RADRPT ---
EXAM DATE/TIME: 04/19/2018 16:29 [place] COMPARISON: CHEST PA & LAT, March 11, 2018, 14:48. INDICATIONS : Short of Breath MEDICAL HISTORY : Hypertension. Hypothyroidism. Congestive heart failure SURGICAL HISTORY : Hysterectomy. Lumpectomy, Lt shoulder sx, left hip sx/ ENCOUNTER: Initial ACUITY: 1 day PAIN SCORE: 0/10 LOCATION: chest FINDINGS: PA and lateral views of the chest demonstrate cardiomegaly with increase in pulmonary vascularity. Bi basilar airspace disease greater left lower lobe. Small left pleural effusion.. Osseous structures a re intact. Degenerative changes right shoulder. Left humeral prosthesis. CONCLUSION: 1. Bibasilar airspace disease and small left pleural effusion. 2. Cardiomegaly with increase in pulmonary vascularity. Akhil Castellanos MD on April 19, 2018 at 17:08 Board Certified Radiologist. This report was verified electronically.
[2018-04-19 20:00] VITALS: BP 125/64; PULSE 85; PULSE 90; RESP 18; TEMP 98.1; O2SAT 93
[2018-04-20] VITALS (10 sets, daily range): BP systolic 107–135; BP diastolic 58–68; PULSE 72–86; RESP 18–21; TEMP 97.1–99; O2SAT 92–96
[2018-04-20] MEDS: LEVOTHYROXINE SODIUM 75 MCG TAB PO SCH (05:09)
[2018-04-20] MEDS: FAMOTIDINE 20 MG TAB PO SCH ×2 (08:33→22:24)
[2018-04-20] MEDS: METOPROLOL TARTRATE 25 MG TAB PO SCH ×2 (08:33→22:24)
[2018-04-20] MEDS: ESCITALOPRAM OXALATE 10 MG TAB PO SCH (08:33)
[2018-04-20] MEDS: SODIUM CHLORIDE 0.9% FLUSH 10 ML FLUSH IV FLUSH SCH ×2 (08:33→22:24)
[2018-04-20] MEDS: amLODIPine BESYLATE 5 MG TAB PO SCH (08:33)
[2018-04-20] MEDS: AMOXICILLIN/CLAVULANATE K 875 MG TAB PO SCH ×2 (08:33→22:24)
[2018-04-20 08:43] LABS: INTERNATIONAL NORMALIZED RATIO 2.7 RATIO; PROTHROMBIN TIME - PATIENT 26.8 SEC (9.8-11.6)
[2018-04-20] MEDS ORDERED: COUM1TAB PO (09:29)
--- NOTE | 2018-04-20 09:29 | HHI.PR ---
Subjective Remarks Pt seen and examined. AFVSS. D/C held yesterday as nursing reported some hypoxia. CXR performed showing slightly more increased vascular congestion than prior study on 04/16. One time Lasix given. Pt denies any shortness of breath or cough. Reports she is breathing comfortably. Denies CP. Agreeable to being discharged today. Reports she feels weak and tired and understands that she will be getting PT at the SNF. Objective Vitals Vital Signs Date Time Temp Pulse Resp B/P (MAP) Pulse Ox O2 Delivery O2 Flow Rate FiO2 04/20/18 08:23 97.1 81 20 135/63 (87) 94 04/20/18 04:00 99.0 72 18 119/61 (80) 93 04/20/18 00:00 86 04/20/18 00:00 98.1 72 18 121/58 (79) 92 04/19/18 20:00 90 04/19/18 20:00 98.1 85 18 125/64 (84) 93 04/19/18 12:00 97.5 89 18 140/78 (98) 90 04/19/18 12:00 86 I/O 04/19/18 04/19/18 04/19/18 04/20/18 04/20/18 04/20/18 07:00 15:00 23:00 07:00 15:00 23:00 Output Total 400 ml Balance -400 ml Output Urine Total 400 ml # Voids 3 3 # Bowel Movements 2 2 Result Diagram: 04/18/18 0340 04/18/18 0340 Objective Remarks GENERAL: Elderly female resting in bed in [facility]. SKIN: Warm and dry. HEENT: AT/NC. Pupils equal and round. MMM. NECK: Supple no tender LAD or JVD. HEART: RRR no m/r/g. LUNGS: Diminished at the bases otherwise CTAB without wheezes or crackles. ABDOMEN: +BS, soft, NT, ND. EXTREMITIES: No LE edema. Stage 1 clean pressure ulcer R heel. L heel dressing in place, no drainage. NEURO: Awake and alert. PSYCH: Appropriate mood and affect. Procedures None A/P Problem List: (1) Pneumonia ICD Code: J18.9 - Pneumonia, unspecified organism Status: Resolved (2) Pressure ulcer of left heel, stage 1 ICD Code: L89.621 - Pressure ulcer of left heel, stage 1 Status: Acute (3) Pressure ulcer of left heel, stage 3 ICD Code: L89.623 - Pressure ulcer of left heel, stage 3 Status: Acute (4) Pressure ulcer of sacral region, stage 1 ICD Code: L89.151 - Pressure ulcer of sacral region, stage 1 Status: Acute (5) Afib ICD Code: I48.91 - Unspecified atrial fibrillation Status: Chronic (6) HTN (hypertension) ICD Code: I10 - Essential (primary) hypertension Status: Chronic (7) Hypothyroidism ICD Code: E03.9 - Hypothyroidism, unspecified Status: Chronic Assessment and Plan 87 year old female with history of breast cancer and atrial fibrillation admitted from [facility] on 04/16 for generalized weakness and pressure ulcers. 1. Pneumonia - CXR demonstrating L basilar airspace disease possibly infiltration as well as persistent moderate to severe cardiomegaly - Repeat CXR yesterday showing stable airspace disease with slightly worsening pulmonary vascular congestion. Will give Lasix x 1 - Treated for aspiration as an outpatient with Levaquin - Treated with IV Zosyn and Azithromycin 04/16-04/17 - Changed to Augmentin 04/18, will continue for a total duration of 7-10 days - Clinically stable and no leukocytosis or fevers - [facility] with no signs of dysphagia 2. Pressure ulcers heels and sacrum - No active infection - Wound care following 1.Please cleanse wound to L heel with wound cleanser or normal saline and pat dry. Apply Optifoam basic to wound and secure with rolled gauze and tape. Change dressing every 3 days or PRN if saturated or dislodged. 2. [place] Cavilon skin barrier film To L posterior lateral heel DTI and L posterior heel stage 2 pressure injury roofed bulla BID and leave open to air. 3. Offload pressure from bilateral heels with heel raiser boots or with floating of the heels off mattress surface with pillows 3. Weakness/debility - PT consulted and recommending rehab - Palliative following 4. Anemia - Likely iron deficiency as well as anemia of chronic disease given low iron studies and slightly elevated ferritin - Hemodynamically stable - Periodically monitor CBC 5. CKD stage III - Avoid nephrotoxic agents and renally dose medications 6. Atrial fibrillation - Rate-controlled - Continue metoprolol 25 mg BID - INR 2.7. Resume home Coumadin and will have SNF check level tomorrow 7. Hypertension - Continue metoprolol, amlodipine, and JESI inhibitor 8. Hypothyroidism - Continue Levothyroxine DVT prophylaxis: On Coumadin Discharge Planning Case management assisting, patient came from [facility] but her son does not want her going back. She has been accepted into [facility]. Plan to D/C today. Page Goyal MD April 20, 2018 09:29
[2018-04-20] MEDS ORDERED: FUROSEMIDE 20 MG TAB PO ONE (10:00)
[2018-04-20] MEDS ORDERED: ALPRAZolam 0.25 MG TAB PO PRN (13:45)
[2018-04-21] VITALS (10 sets, daily range): BP systolic 107–138; BP diastolic 57–79; PULSE 72–95; RESP 16–20; TEMP 97.3–100.5; O2SAT 94–96
[2018-04-21] MEDS: LEVOTHYROXINE SODIUM 75 MCG TAB PO SCH (05:01)
--- NOTE | 2018-04-21 08:23 | HHI.PR ---
Subjective Remarks Pt seen and examined in follow-up for PNA and pressure wounds. AFVSS. Maintaining adequate O2 sats on 2L NC. Pt reports she bumped her head two weeks ago at the living facility she was at and sometimes has some tenderness in the back of her head. She denies neck stiffness or pain with movement of her neck. She denies dizziness. She reports otherwise she feels okay and is agreeable to going to [facility] pending her grandson. She endorses an occasional nonproductive cough but denies shortness of breath or wheezing. She denies swelling in her legs or chest pain. She is tolerating PO without abdominal pain , nausea, or vomiting. Objective Vitals Vital Signs Date Time Temp Pulse Resp B/P (MAP) Pulse Ox O2 Delivery O2 Flow Rate FiO2 04/21/18 05:45 98.0 80 19 130/64 (86) 96 04/21/18 00:30 98.7 76 20 138/69 (92) 95 04/21/18 00:00 76 04/20/18 21:40 98.3 81 20 128/68 (88) 96 04/20/18 20:00 80 04/20/18 19:00 96 Nasal Cannula 2.00 04/20/18 16:18 97.8 74 20 109/62 (78) 92 04/20/18 16:00 74 04/20/18 12:11 97.7 77 21 107/59 (75) 92 04/20/18 12:00 79 I/O 04/20/18 04/20/18 04/20/18 04/21/18 04/21/18 04/21/18 06:59 14:59 22:59 06:59 14:59 22:59 Intake Total 400 ml 700 ml Balance 400 ml 700 ml Intake Oral 400 ml 700 ml # Voids 3 0 1 # Bowel Movements 2 0 0 Result Diagram: 04/18/18 0340 04/18/18 0340 Objective Remarks GENERAL: Elderly female resting in bed in NAD. SKIN: Warm and dry. HEENT: AT/NC. Pupils equal and round. MMM. NC in place. NECK: Supple no tender LAD or JVD. Full ROM of neck without stiffness or pain. No bony cervical tenderness. HEART: RRR no m/r/g. LUNGS: Breathing comfortably. Diminished at the bases with mild bibasilar crackles otherwise CTAB without wheezes or crackles. ABDOMEN: +BS, soft, NT, ND. EXTREMITIES: No LE edema. Clean pressure ulcer R heel. L heel dressing in place , no drainage. BACK: Sacrum covered. NEURO: Awake and alert. PSYCH: Appropriate mood and affect. Procedures None A/P Problem List: (1) Pneumonia ICD Code: J18.9 - Pneumonia, unspecified organism Status: Resolved (2) Pressure ulcer of left heel, stage 1 ICD Code: L89.621 - Pressure ulcer of left heel, stage 1 Status: Acute (3) Pressure ulcer of left heel, stage 3 ICD Code: L89.623 - Pressure ulcer of left heel, stage 3 Status: Acute (4) Pressure ulcer of sacral region, stage 1 ICD Code: L89.151 - Pressure ulcer of sacral region, stage 1 Status: Acute (5) Afib ICD Code: I48.91 - Unspecified atrial fibrillation Status: Chronic (6) HTN (hypertension) ICD Code: I10 - Essential (primary) hypertension Status: Chronic (7) Hypothyroidism ICD Code: E03.9 - Hypothyroidism, unspecified Status: Chronic Assessment and Plan 87 year old female with history of breast cancer and atrial fibrillation admitted from [facility] on 04/16 for generalized weakness and pressure ulcers. 1. Pneumonia - CXR demonstrating L basilar airspace disease possibly infiltration as well as persistent moderate to severe cardiomegaly - Repeat CXR 04/19 showing stable airspace disease with slightly worsening pulmonary vascular congestion. Continue Lasix - Treated for aspiration as an outpatient with Levaquin - Treated with IV Zosyn and Azithromycin 04/16-04/17 - Changed to Augmentin 04/18, will continue for a total duration of 7-10 days - Clinically stable and no leukocytosis or fevers - ST eval with no signs of dysphagia - DuoNeb PRN 2. Pressure ulcers heels and sacrum - No active infection - Wound care following 1.Please cleanse wound to L heel with wound cleanser or normal saline and pat dry. Apply Optifoam basic to wound and secure with rolled gauze and tape. Change dressing every 3 days or PRN if saturated or dislodged. 2. [place] Cavilon skin barrier film To L posterior lateral heel DTI and L posterior heel stage 2 pressure injury roofed bulla BID and leave open to air. 3. Offload pressure from bilateral heels with heel raiser boots or with floating of the heels off mattress surface with pillows 3. Weakness/debility - PT consulted and recommending rehab - Palliative following 4. Anemia - Likely iron deficiency as well as anemia of chronic disease given low iron studies and slightly elevated ferritin - Hemodynamically stable - Periodically monitor CBC 5. CKD stage III - Avoid nephrotoxic agents and renally dose medications 6. Atrial fibrillation - Rate-controlled - Continue metoprolol 25 mg BID - INR 2.7. Resume home Coumadin - Follow INR (goal 2-3) 7. Hypertension - BPs stable - Continue metoprolol, amlodipine, and JESI inhibitor 8. Hypothyroidism - Continue Levothyroxine 9. Pulmonary vascular congestion - Euvolemic on exam - Lasix 20 mg daily, caution with CKD - KCl 10 meq - Incentive spirometer DVT prophylaxis: On Coumadin Discharge Planning Medically clear for D/C, CM working on d/c needs with plans to go to [facility] Goyal,Page Ordoñez MD April 21, 2018 08:23
[2018-04-21] MEDS: ESCITALOPRAM OXALATE 10 MG TAB PO SCH (08:40)
[2018-04-21] MEDS: FAMOTIDINE 20 MG TAB PO SCH (08:40)
[2018-04-21] MEDS: AMOXICILLIN/CLAVULANATE K 875 MG TAB PO SCH (08:40)
[2018-04-21] MEDS: SODIUM CHLORIDE 0.9% FLUSH 10 ML FLUSH IV FLUSH SCH (08:41)
[2018-04-21] MEDS: amLODIPine BESYLATE 5 MG TAB PO SCH (08:41)
[2018-04-21] MEDS: METOPROLOL TARTRATE 25 MG TAB PO SCH (08:41)
[2018-04-21] MEDS ORDERED: RESP: ALBUTEROL 2.5 MG/IPRATROPIUM 0.5 MG NEB (PRN) NEB (09:15)
[2018-04-21] MEDS ORDERED: FUROSEMIDE 20 MG TAB PO SCH (10:00)
[2018-04-21] MEDS ORDERED: POTASSIUM CHLORIDE 10 MEQ CAP PO SCH (11:00)
[2018-04-21 11:08] LABS: INTERNATIONAL NORMALIZED RATIO 2.4 RATIO; PROTHROMBIN TIME - PATIENT 24.1 SEC (9.8-11.6)
[2018-04-21] MEDS ORDERED: WARFARIN SOD 1 MG TAB PO SCH (16:00)
--- NOTE | 2018-04-21 17:13 | HHI.DS ---
Discharge Summary Admission Date April 16, 2018 at 14:01 Discharge Date: April 21, 2018 Admitting Diagnosis Pneumonia, failure to thrive, pressure ulcers (1) Pneumonia ICD Code: J18.9 - Pneumonia, unspecified organism Status: Resolved (2) Pressure ulcer of left heel, stage 1 ICD Code: L89.621 - Pressure ulcer of left heel, stage 1 Status: Acute (3) Pressure ulcer of left heel, stage 3 ICD Code: L89.623 - Pressure ulcer of left heel, stage 3 Status: Acute (4) Pressure ulcer of sacral region, stage 1 ICD Code: L89.151 - Pressure ulcer of sacral region, stage 1 Status: Acute (5) Afib ICD Code: I48.91 - Unspecified atrial fibrillation Status: Chronic (6) HTN (hypertension) ICD Code: I10 - Essential (primary) hypertension Status: Chronic (7) Hypothyroidism ICD Code: E03.9 - Hypothyroidism, unspecified Status: Chronic Procedures None Brief History - From Admission Ms. Del Cid is a pleasant 87-year-old female with a history of breast cancer, atrial fibrillation who presents to the emergency department from [facility] due to generalized weakness as well as pressure ulcers. Patient was discharged to [facility] on March 17, 2018. She was being treated for pneumonia with Levaquin. During her stay about pressure ulcers on her sacrum and bilateral heels. Patient reports some cough but no fever or chills. She denies any dysphagia or odynophagia. No chest pain, shortness of breath. She denies any abdominal pain but reports persistent diarrhea. She denies any dysuria or hematuria. On arrival, vitals within normal range. No leukocytosis, BUN 30, Cr 1.39, Lactic acid 0.9. CXR shows Left basilar airspace disease and cardiomegaly. Patient denies any allergies to any medications including penicillins. CBC/BMP: 04/18/18 0340 04/18/18 0340 Significant Findings Laboratory Tests Test 04/19/18 13:21 04/20/18 06:56 04/21/18 10:42 Prothrombin Time 31.9 SEC (9.8-11.6) 26.8 SEC (9.8-11.6) 24.1 SEC (9.8-11.6) Imaging Chest X-Ray 04/19/18 0000 Signed Impressions: Service Date/Time: Thursday, April 19, 2018 16:29 - CONCLUSION: 1. Bibasilar airspace disease and small left pleural effusion. 2. Cardiomegaly with increase in pulmonary vascularity. Akhil Castellanos MD Foot X-Ray 04/16/18 0000 Signed Impressions: Service Date/Time: Monday, April 16, 2018 11:57 - CONCLUSION: 1. Soft tissue swelling of the heel pad without evidence of underlying calcaneal erosive or destructive changes. 2. Dislocated second metatarsophalangeal joint. 3. Healed fracture third metatarsal. Eligio Barth MD PE at Discharge GENERAL: Elderly female resting in bed in NAD. SKIN: Warm and dry. HEENT: AT/NC. Pupils equal and round. MMM. NC in place. NECK: Supple no tender LAD or JVD. Full ROM of neck without stiffness or pain. No bony cervical tenderness. HEART: RRR no m/r/g. LUNGS: Breathing comfortably. Diminished at the bases with mild bibasilar crackles otherwise CTAB without wheezes or crackles. ABDOMEN: +BS, soft, NT, ND. EXTREMITIES: No LE edema. Clean pressure ulcer R heel. L heel dressing in place , no drainage. BACK: Sacrum covered. NEURO: Awake and alert. PSYCH: Appropriate mood and affect. Hospital Course 87 year old female with history of breast cancer, CKD, and atrial fibrillation admitted from [facility] on 04/16 for generalized weakness and pressure ulcers. She was treated for the following during her hospital admission : 1. Pneumonia - CXR demonstrating L basilar airspace disease possibly infiltration as well as persistent moderate to severe cardiomegaly - Treated for aspiration as an outpatient with Levaquin - Treated with IV Zosyn and Azithromycin 04/16-04/17 - Changed to Augmentin 04/18, will continue for a total duration of 7-10 days - ST eval with no signs of dysphagia 2. Pressure ulcers heels and sacrum - No active infection - Wound care following 1.Please cleanse wound to L heel with wound cleanser or normal saline and pat dry. Apply Optifoam basic to wound and secure with rolled gauze and tape. Change dressing every 3 days or PRN if saturated or dislodged. 2. [place] Cavilon skin barrier film To L posterior lateral heel DTI and L posterior heel stage 2 pressure injury roofed bulla BID and leave open to air. 3. Offload pressure from bilateral heels with heel raiser boots or with floating of the heels off mattress surface with pillows 3. Weakness/debility - PT was following patient - Palliative care was following patient She was clear for discharge on 04/19 but her grandson wanted to appeal the discharge which was denied so she ended up being discharged to [facility] on . Pt Condition on Discharge: Stable Discharge Disposition: Discharge to SNF Discharge Time: > 30 minutes Discharge Instructions DIET: Follow Instructions for: Heart Healthy Diet Activities you can perform: Regular-No Restrictions Follow up Referrals: PCP Follow-up - 1 Week New Orders: PT/INR - 04/21/18 New Medications: Amoxicillin-Clavulanate (Augmentin) 875-125 Mg Tab 1 TAB PO BID for Infection, #14 TAB 0 Refills Warfarin (Coumadin) 1 Mg Tab 1 MG PO DAILY for Prevent Blood Clot, #30 TAB 0 Refills Continued Medications: Acetaminophen (Eq Acetaminophen) 325 Mg Tab 650 MG PO Q4H PRN for PAIN/FEVER MDD 3gm for 30 Days, #360 TAB Alprazolam (Xanax) 0.25 Mg Tab 0.125 MG PO HS for Anxiety, #30 TAB (This prescription has been renewed) Alprazolam (Xanax) 0.25 Mg Tab 0.125 MG PO Q12HR PRN for ANXIETY, #60 TAB 0 Refills (This prescription has been renewed) Amiodarone (Amiodarone) 200 Mg Tab 200 MG PO DAILY for arrythmia for 30 Days, #30 TAB Amlodipine (Norvasc) 5 Mg Tab 5 MG PO DAILY for Blood Pressure Management, #30 TAB Baclofen (Baclofen) 10 Mg Tab 5 MG PO BID for dysphagia, #40 TAB 0 Refills Bisacodyl Supp (Dulcolax Supp) 10 Mg Supp 10 MG RECTAL DAILY PRN for CONSTIPATION, #12 SUPP 0 Refills Cholestyramine (Cholestyramine) 4 Gm/Pkt Powd 4 GM PO BID, #60 PACKET Please do not take if you have constipation Collagenase Topical (Santyl Topical) 250 Unit/Gm Oint 1 APPLIC TOPICAL DAILY for Wound Management, #15 GM 0 Refills Enalapril (Enalapril) 5 Mg Tab 5 MG PO BID for hypertension for 30 Days, #60 TAB 0 Refills Escitalopram (Escitalopram) 5 Mg Tab 5 MG PO DAILY, #30 TAB 0 Refills Famotidine (Famotidine) 20 Mg Tab 20 MG PO BID for Reflux for 1 Day, #60 TAB Furosemide (Furosemide) 20 Mg Tab 20 MG PO DAILY for CHF, #30 TAB 0 Refills Ipratropium-Albuterol Neb (Duoneb) 0.5-2.5 Mg/3 Ml Neb 1 NEBULE INH Q6HR NEB for Breathing Treatment, #120 NEBULE 0 Refills Lactobacillus Acidophilus (Lactobacillus Acidophilus) 1 Billion Cell Tab 1 TAB PO BIDAC for Nutritional Supplement, #60 TAB 0 Refills Levothyroxine (Levothyroxine) 75 Mcg Tab 75 MCG PO DAILY for Thyroid, #30 TAB 0 Refills Magnesium Citrate Liq (Citroma Liq) 300 Ml Liq 300 ML PO DIRECTED, #1 BOTTLE 0 Refills Metoprolol Tartrate (Lopressor) 50 Mg Tab 50 MG PO Q12HR for Blood Pressure Management, #60 TAB Ondansetron Odt (Ondansetron Odt) 4 Mg Tab 4 MG PO Q4H PRN for NAUSEA OR VOMITING, #15 TAB Discontinued Medications: Levofloxacin (Levofloxacin) 750 Mg Tablet 750 MG PO DAILY for Infection, TAB 0 Refills Omeprazole (Omeprazole) 20 Mg Tab 20 MG PO DAILY, #30 TAB 0 Refills Warfarin (Warfarin) 1 Mg Tab 1 MG PO DAILY for Blood Clot Prevention, #30 TAB 0 Refills Please have your PT INR checked every Saturday and -depending on the levels will be the dose she will continue to take. Page Goyal MD April 21, 2018 17:13
== END 2018-04-21 18:02 | DRG 193 ==
LOC: NEPE 10:31 → NEDA 14:01 → N05A 17:05
PROVIDERS: ADMIT Family Medicine; ATTEND Family Medicine
DX: J18.9 Pneumonia, unspecified organism (principal); L89.623 Pressure ulcer of left heel, stage 3; L89.151 Pressure ulcer of sacral region, stage 1; J44.0 Chronic obstructive pulmonary disease with (acute) lower respiratory infection; I13.0 Hypertensive heart and chronic kidney disease with heart failure and stage 1 through stage 4 chronic kidney disease, or unspecified chronic kidney disease; I50.9 Heart failure, unspecified; D63.1 Anemia in chronic kidney disease; S93.335A Other dislocation of left foot, initial encounter; F32.9 Major depressive disorder, single episode, unspecified; L89.612 Pressure ulcer of right heel, stage 2; R62.7 Adult failure to thrive; E78.00 Pure hypercholesterolemia, unspecified; N18.3 Chronic kidney disease, stage 3 (moderate); K58.0 Irritable bowel syndrome with diarrhea; K21.9 Gastro-esophageal reflux disease without esophagitis; E03.9 Hypothyroidism, unspecified; I48.2 Chronic atrial fibrillation; I08.3 Combined rheumatic disorders of mitral, aortic and tricuspid valves; M17.0 Bilateral primary osteoarthritis of knee; M43.6 Torticollis; R09.02 Hypoxemia; F41.9 Anxiety disorder, unspecified; Z66 Do not resuscitate; Z79.01 Long term (current) use of anticoagulants; Z85.3 Personal history of malignant neoplasm of breast; Z86.73 Personal history of transient ischemic attack (TIA), and cerebral infarction without residual deficits; Z87.891 Personal history of nicotine dependence; Z88.1 Allergy status to other antibiotic agents; Z96.612 Presence of left artificial shoulder joint; Z96.642 Presence of left artificial hip joint
CPT/HCPCS: 71045; 71046; 73630; 80048; 80053; 81001; 82728; 83540; 83550; 83605; 83735; 84439; 84443; 85025; 85044; 85610; 85730; 87086; 93005; 94150; J0456; J2543; J7030; J7050

== ENCOUNTER 2018-06-06 20:13 | Inpatient (IN) ==
--- NOTE | 2018-06-06 20:48 | XR ---
EXAM DATE: 06/06/2018 8:43 PM EDT AGE/SEX: 87 years / Female INDICATIONS: Shortness of breath. CLINICAL DATA: This is the patient's initial encounter. Patient reports that signs and symptoms have been present for 1 day and indicates a pain score of 0/10. MEDICAL/SURGICAL HISTORY: . Hypothyroidism. Hypercholesterolemia. Irritable bowel syndrome. CVA . Migraines. Arryhthmia. AFib. HTN. CHF. Chest pain. Dyspnea. Duodenal lcer. GERD. Anticoagulant ther apy, Coumadin. Arthritis. Osteoporosis. Left breast carcinoma. C-diff. MRSA . Hysterectomy. Prolaps ed rectum surgery. Cystocele. Rectocele. Left shoulder replacement. Left hip replacement. Radiation t herapy. COMPARISON: [facility] [place], CHEST EXPIRATION ONLY, 05/27/2018. . FINDINGS: Bibasilar consolidations (left worse than right) are noted as with possible pneumonia. Small bilatera l pleural effusions are noted. The heart is enlarged. Degenerative changes and scoliosis of thoracolu mbar spine are noted. Left shoulder replacement is noted. CONCLUSION: 1. Bibasilar consolidations (left worse than right) are noted as with possible pneumonia. 2. Cardiomegaly. 3. Small bilateral pleural effusions. 4. Degenerative changes and scoliosis of the thoracolumbar spine. Electronically signed by: Rupert Zhou MD 06/06/2018 8:46 PM EDT
--- NOTE | 2018-06-06 20:52 | ED ---
HPI General Chief complaint: Respiratory Symptoms Stated complaint: Resp/Evac Time Seen by Provider: 06/06/18 20:27 Source: EMS Mode of arrival: wheelchair Limitations: physical limitation History of Present Illness HPI narrative: 87yo F with PMH of breast CA s/p radiation therapy, HTN, hypothyroidism, CKD, afib on coumadin, CHF was brought in by [facility] from [facility] for sob. Pt said she feels sob but cannot tell me how much oxygen she uses normally. She came in on 100% nonrebreather and we switched her to nasal cannula. She was saturaring at 88% on 4L NC. Pt was still tachypneic. Since she is AAOx3, switched her to BIPAP 50% and she is saturating at 97% and feeling better. Denies any fever, chest pain, n/v, abdominal pain. Said she does not really walk. [facility]AC said there was a wheelchair but they are not sure if she is normally wheelchair bound. Pt was recently admitted here on 05/20/18-05/29/18 and had 2 left thoracentesis initially showing exudate and then transudate. DC with augmentin for aspiration pneumonia and fluconazole for andres esophagitis. Related Data Allergies Allergy/AdvReac Type Severity Reaction Status Date / Time No Known Allergies Allergy Unverified 06/06/18 20:20 Review of Systems ROS Unobtainable All other systems reviewed negative except as stated in HPI Exam Narrative Exam Narrative: GENERAL: 87yo F in moderate distress. SKIN: Focused skin assessment warm/dry. HEAD: Atraumatic. Normocephalic. EYES: Pupils equal and round. No scleral icterus. No injection or drainage. ENT: No nasal bleeding or discharge. Mucous membranes pink and moist. NECK: Trachea midline. No JVD. CARDIOVASCULAR: Regular rate and rhythm. No murmur appreciated. RESPIRATORY: + accessory muscle use. Decreased breath sounds bilateral lower extremity more on left. There is a dressing on the left lower lung. GASTROINTESTINAL: Abdomen soft, non-tender, nondistended. Hepatic and splenic margins not palpable. MUSCULOSKELETAL: No obvious deformities. No clubbing. No cyanosis. +Pitting bilateral lower extremity edema. NEUROLOGICAL: Awake and alert. No obvious cranial nerve deficits. Motor grossly within normal limits. Normal speech. PSYCHIATRIC: Appropriate mood and affect; insight and judgment normal. Course Initial Documented Vital Signs Temperature 97.8 F 06/06/18 20:20 Pulse Rate 86 06/06/18 20:20 Respiratory Rate 22 06/06/18 20:20 Blood Pressure 128/78 06/06/18 20:20 Pulse Oximetry 96 06/06/18 20:20 Last Documented Vital Signs Temperature 97.8 F 06/06/18 20:20 Pulse Rate 85 06/06/18 20:34 Respiratory Rate 20 06/06/18 20:34 Blood Pressure 123/72 06/06/18 20:34 Pulse Oximetry 97 06/06/18 20:34 Critical Care Time Critical Care Time: Yes Total Critical Care Time: 45 Attestation: Aggregate critical care time was 45 minutes. Time to perform other separately billable procedures was not included in the critical care time. My time did not include minutes spent treating any other patients simultaneously or on activities that did not directly contribute to the patient's treatment. The services I provided to this patient were to treat and/or prevent clinically significant deterioration that could result in: cardiovascular collapse or . I provided critical care services requiring my management, as noted below: Chart data review, documentation time, medication orders and management, vital sign assessments/reviewing monitor data, ordering and reviewing lab tests, ordering and interpreting/reviewing x-rays and diagnostic studies, care of the patient and discussion of the patient with the admitting physicians. Medical Decision Making MDM Narrative Medical decision making narrative: 87yo F presents from [facility] for worsening sob today. Labs reviewed, no leukocytosis. H/H low at 11.3/34.3. Troponin negative. Creatinine elevated at 1.68 which is mildly more elevated than prior. BNP elevated at 931. CXR showed bibasilar consolidation left worse than right as possible pneumonia. Cardiomegaly. Small bilateral pleural effusions. Pt was just discharged and is still on augmentin for aspiration pneumonia. Pt appears comfortable on the BIPAP. Will keep on her it now and switch to ventimask as tolerated. Will cover with broad spectrum antibiotics for HCAP. Pt is under hospice care for end stage heart disease and a DNR. However, pt cannot go to hospice with BIPAP. Feel that she may need a day or 2 of IV antibiotics with improvement before she can go back to hospice. Place hospice consult so they can follow her. Discussed with Dr. Hernandez and accepted to her service. Differential Diagnosis Differential Diagnosis: CHF exacerbation vs. pneumonia vs. pleural effusion Lab Data Result diagrams: 06/06/18 20:35 06/06/18 20:35 Lab Results 06/06/18 06/06/18 06/06/18 Range/Units 20:35 20:35 20:35 WBC 7.2 (4.0-11.0) th/mm3 RBC 4.14 (4.00-5.30) mil/mm3 Hgb 11.3 L (11.6-15.3) gm/dL Hct 34.3 L (35.0-46.0) % MCV 82.8 (80.0-100.0) fL MCH 27.3 (27.0-34.0) pg MCHC 33.0 (32.0-36.0) % RDW 19.6 H (11.6-17.2) % Plt Count 315 (150-450) th/mm3 MPV 8.4 (7.0-11.0) fL Neut % (Auto) 71.3 H (16.0-70.0) % Lymph % (Auto) 11.8 (9.0-44.0) % Harlan % (Auto) 11.1 H (0.0-8.0) % Eos % (Auto) 4.6 H (0.0-4.0) % Baso % (Auto) 1.2 (0.0-2.0) % Neut # (Auto) 5.2 (1.8-7.7) th/mm3 Lymph # (Auto) 0.9 L (1.0-4.8) th/mm3 Harlan # (Auto) 0.8 (0.0-0.9) th/mm3 Eos # (Auto) 0.3 (0.0-0.4) th/mm3 Baso # (Auto) 0.1 (0.0-0.2) th/mm3 WBC Differential . Differential Comment Auto diff final PT 21.7 H (9.8-11.6) sec INR 2.1 Ratio APTT 38.4 H (24.3-30.1) sec Puncture Site Patient Temperature O2 Saturation (90-100) % ABG pH (7.380-7.420) ABG pCO2 (38-42) mmHg ABG pO2 (61-120) mmHg ABG HCO3 (22-26) mmol/L ABG O2 Content (12.0-20.0) Vol % ABG Base Excess (-2-2) mmol/L ABG Methemoglobin (0-2) % Wei Test Hemoglobin (12.0-16.0) G/DL Carboxyhemoglobin (0-4) % O2 Delivery Device Vent Setting Inspired O2 % Critical Value Sodium 142 (136-145) meq/L Potassium 3.4 L (3.5-5.1) meq/L Chloride 103 (98-107) meq/L Carbon Dioxide 25.0 (21.0-32.0) meq/L Anion Gap 14 (5-15) meq/L BUN 15 (7-18) mg/dL Creatinine 1.68 H (0.50-1.00) mg/dL Estimated GFR 29 L (>89) mL/min Random Glucose 77 (74-106) mg/dL Lactic Acid (0.4-2.0) mmol/L Calcium 9.4 (8.5-10.1) mg/dL Total Bilirubin 0.5 (0.2-1.0) mg/dL AST 25 (15-37) U/L ALT 13 (10-53) U/L Alkaline Phosphatase 92 (45-117) U/L Troponin I Less than 0.02 L (0.02-0.05) ng/mL B-Natriuretic Peptide (0-100) pg/mL Total Protein 7.1 (6.4-8.2) g/dL Albumin 2.7 L (3.4-5.0) g/dL 06/06/18 06/06/18 06/06/18 Range/Units 20:35 20:40 21:08 WBC (4.0-11.0) th/mm3 RBC (4.00-5.30) mil/mm3 Hgb (11.6-15.3) gm/dL Hct (35.0-46.0) % MCV (80.0-100.0) fL MCH (27.0-34.0) pg MCHC (32.0-36.0) % RDW (11.6-17.2) % Plt Count (150-450) th/mm3 MPV (7.0-11.0) fL Neut % (Auto) (16.0-70.0) % Lymph % (Auto) (9.0-44.0) % Harlan % (Auto) (0.0-8.0) % Eos % (Auto) (0.0-4.0) % Baso % (Auto) (0.0-2.0) % Neut # (Auto) (1.8-7.7) th/mm3 Lymph # (Auto) (1.0-4.8) th/mm3 Harlan # (Auto) (0.0-0.9) th/mm3 Eos # (Auto) (0.0-0.4) th/mm3 Baso # (Auto) (0.0-0.2) th/mm3 WBC Differential Differential Comment PT (9.8-11.6) sec INR Ratio APTT (24.3-30.1) sec Puncture Site Left radial Patient Temperature 98.6 O2 Saturation 93 (90-100) % ABG pH 7.46 H (7.380-7.420) ABG pCO2 40 (38-42) mmHg ABG pO2 66 (61-120) mmHg ABG HCO3 28 H (22-26) mmol/L ABG O2 Content 13.4 (12.0-20.0) Vol % ABG Base Excess 3.8 H (-2-2) mmol/L ABG Methemoglobin 0.3 (0-2) % Wei Test Present Hemoglobin 10.1 L (12.0-16.0) G/DL Carboxyhemoglobin 2.0 (0-4) % O2 Delivery Device Bipap Vent Setting [id number]/[id number] Inspired O2 50 % Critical Value No Sodium (136-145) meq/L Potassium (3.5-5.1) meq/L Chloride (98-107) meq/L Carbon Dioxide (21.0-32.0) meq/L Anion Gap (5-15) meq/L BUN (7-18) mg/dL Creatinine (0.50-1.00) mg/dL Estimated GFR (>89) mL/min Random Glucose (74-106) mg/dL Lactic Acid 1.2 (0.4-2.0) mmol/L Calcium (8.5-10.1) mg/dL Total Bilirubin (0.2-1.0) mg/dL AST (15-37) U/L ALT (10-53) U/L Alkaline Phosphatase (45-117) U/L Troponin I (0.02-0.05) ng/mL B-Natriuretic Peptide 931 H (0-100) pg/mL Total Protein (6.4-8.2) g/dL Albumin (3.4-5.0) g/dL Imaging Data Radiologist's impression: ITS Impressions Chest X-Ray 06/06/18 20:27 CONCLUSION: 1. Bibasilar consolidations (left worse than right) are noted as with possible pneumonia. 2. Cardiomegaly. 3. Small bilateral pleural effusions. 4. Degenerative changes and scoliosis of the thoracolumbar spine. ECG Data EKG Prior to Arrival: No Attestation: I personally reviewed and interpreted this ECG as follows: Interpretation: Afib at 79bpm. RAD. RBBB. No significant ST elevation or depression Discharge Plan Discharge Disposition Patient Disposition: 30 Still Patient Physicians Team ED Provider: Marizol Morales Primary Care Provider: Lc Moran Status ED Status: Admitted Patient
[2018-06-06 21:01] LABS: Baso # (Auto) 0.1 th/mm3 (0.0-0.2); Baso % (Auto) 1.2 % (0.0-2.0); Eos # (Auto) 0.3 th/mm3 (0.0-0.4); Eos % (Auto) 4.6 % (0.0-4.0); Hematocrit 34.3 % (35.0-46.0); Hemoglobin 11.3 gm/dL (11.6-15.3); Lymph # (Auto) 0.9 th/mm3 (1.0-4.8); Lymph % (Auto) 11.8 % (9.0-44.0); Mean Corpuscular Hemoglobin 27.3 pg (27.0-34.0); Mean Corpuscular Volume 82.8 fL (80.0-100.0); Mean Platelet Volume 8.4 fL (7.0-11.0); Mono # (Auto) 0.8 th/mm3 (0.0-0.9); Mono % (Auto) 11.1 % (0.0-8.0); Neut # (Auto) 5.2 th/mm3 (1.8-7.7); Neut % (Auto) 71.3 % (16.0-70.0); Platelet Count 315 th/mm3 (150-450); Red Blood Count 4.14 mil/mm3 (4.00-5.30); Red Cell Distribution Width 19.6 % (11.6-17.2); White Blood Count 7.2 th/mm3 (4.0-11.0)
[2018-06-06 21:16] LABS: Activated Partial Thrombo Time 38.4 sec (24.3-30.1); INR 2.1 Ratio; Prothrombin Time 21.7 sec (9.8-11.6)
[2018-06-06 21:26] LABS: ABG Base Excess 3.8 mmol/L (-2-2); ABG PCO2 40 mmHg (38-42); ABG PO2 66 mmHg (61-120)
[2018-06-06 21:32] LABS: Alanine Aminotransferase 13 U/L (10-53); Albumin 2.7 g/dL (3.4-5.0); Anion Gap 14 meq/L (5-15); Aspartate Aminotransferase 25 U/L (15-37); Blood Urea Nitrogen 15 mg/dL (7-18); Calcium 9.4 mg/dL (8.5-10.1); Chloride 103 meq/L (98-107); Glomerular Filtration Rate 29 mL/min (>89); Glucose,Random 77 mg/dL (74-106); Potassium 3.4 meq/L (3.5-5.1); Sodium 142 meq/L (136-145)
[2018-06-06 21:36] LABS: Alkaline Phosphatase 92 U/L (45-117); Total Protein 7.1 g/dL (6.4-8.2)
[2018-06-06] MEDS ORDERED: Piperacil/Tazo 2.25 GM Premix 50 ML IV.SIG ONE (22:17)
[2018-06-06] MEDS ORDERED: Vancomycin Inj 1 GM/200 ML PIGGYBACK IV.SIG ONE (22:17)
[2018-06-06] MEDS ORDERED: Vancomycin Inj 1,000 MG in Sodium Chlor 0.9% Inj 250 ML IV.SIG ONE (23:00)
[2018-06-07] MEDS ORDERED: Acetaminophen 325 MG Tablet PO PRN (01:40)
[2018-06-07] MEDS ORDERED: Bisacodyl 10 MG Supp RECTAL PRN (01:40)
[2018-06-07] MEDS: Heparin - SQ 10,000 UNITS/ML Vial SQ SCH ×2 (05:07→13:16)
[2018-06-07] MEDS ORDERED: Amoxicillin/Clavulanate 600 MG/5 ML Susp 125 ML Bottle PO SCH (09:00)
[2018-06-07] MEDS ORDERED: FAMOTIDINE 10 MG PO SCH (09:00)
[2018-06-07] MEDS ORDERED: ESCITALOPRAM OXALATE 5 MG PO SCH (09:00)
[2018-06-07] MEDS: Amiodarone 200 MG Tablet PO SCH (09:10)
[2018-06-07] MEDS: hydrALAZINE 10 MG Tablet PO SCH ×3 (09:10→17:23)
[2018-06-07] MEDS: Levothyroxine 75 MCG Tablet PO SCH (09:10)
[2018-06-07] MEDS: amLODIPine 5 MG Tablet PO SCH (09:10)
[2018-06-07] MEDS: Senna/Docusate Sodium 8.6/50 MG Tablet PO SCH ×2 (09:10→20:43)
[2018-06-07] MEDS: levoFLOXacin 750 MG Tablet PO SCH (10:10)
--- NOTE | 2018-06-07 10:23 | ECG ---
Date Performed: 06/06/2018 Time Performed: 23:07:05 PTAGE: 87 years EKG: ATRIAL FIBRILLATION RIGHT BUNDLE BRANCH BLOCK DIFFUSE NONSPECIFIC T WAVE ABNORMALITY ABNORM AL ECG PREVIOUS TRACING : 05/20/2018 13.59 No significant change from previous tracing noted. DOCTOR: Manuel Balderas Interpretating Date/Time 06/07/2018 10:22:50
--- NOTE | 2018-06-07 12:35 | P.HP ---
History of Present Illness Primary Care Physician: Lc Moran MD Chief Complaint: Shortness of breath. History of Present Illness: Ms. Del Cid is a pleasant 87-year-old female with a history of breast CA s/p radiation therapy, HTN, hypothyroidism, CKD, afib on coumadin, CHF who was brought to the emergency department from [facility] due to shortness of breath. At the time of this interview, patient was on nonrebreather. She could not participate in the interview much. However she denies any cough, fever or chills. No abdominal pain no chest pain. Chest x- ray in the ED shows bilateral inflow left more than right as well as small pleural effusion. No changes in bowel or bladder habits. PAST MEDICAL HISTORY: 1. Significant for chronic atrial fibrillation on Coumadin 2. Chronic kidney disease stage III. 3. Hypertension. 4. Hypothyroidism. 5. Arthritis. 6. Breast cancer. 7. History of irritable bowel syndrome, 8. Previous TIA 9. GERD. PAST SURGICAL HISTORY: Previous hysterectomy, previous shoulder and hip replacement, previous surgery for cystocele and rectocele. Previous left lumpectomy in 1997. SOCIAL HISTORY: Nonsmoker, nondrinker. FAMILY HISTORY: Noncontributing to present illness. - Diagnosis (1) Pneumonia Inpatient Certification: I certify that the inpatient services were ordered in accordance with Medicare regulations governing the order. This includes certification that hospital inpatient services are reasonable and necessary and in the case of services not specified as inpatient-only under 42 CFR 419.22(n), that they are appropriately provided as inpatient services in accordance to with the 2-midnight benchmark under 43 CFR 412.3(e) Estimated Total Length of Stay (Days): 3 Plans for Post Hospital Care: Not yet determined PMFSH - History History Provided By: Needle Straightener / EMT - Tobacco History Second Hand Smoke Exposure: No Tobacco Use In Past 30 Days: No Smoking Status: Former smoker - Alcohol History How Often Do You Have a Drink Containing Alcohol: Never - Substance Use History Substance History: No History of Abuse - Immunization History Tetanus Immunization: <5 Years Hx Influenza Vaccine This Season: Yes Medications and Allergies Active Medications: Active Medications Acetaminophen (Tylenol) 650 mg PO Q4H PRN PRN Reason: Temp > 100.4 Al Hydroxide/Mg Hydroxide (Milk Of Magnesia Liq) 30 ml PO Q12H PRN PRN Reason: Mild Constipation Amiodarone HCl (Cordarone) 200 mg PO DAILY [facility] Last Admin: 06/07/18 09:10 Dose: 200 mg Amlodipine Besylate (Norvasc) 5 mg PO DAILY [facility] Last Admin: 06/07/18 09:10 Dose: 5 mg Bisacodyl (Dulcolax Supp) 10 mg RECTAL DAILY PRN PRN Reason: SEVERE CONSITIPATION Fluconazole (Diflucan) 200 mg PO DAILY [facility] Last Admin: 06/07/18 10:10 Dose: 200 mg Furosemide (Lasix Inj) 40 mg IV.PUSH BID@0900,1800 [facility] Last Admin: 06/07/18 09:11 Dose: 40 mg Heparin Sodium (Porcine) (Heparin Inj) 5,000 units SQ Q12H [facility] Last Admin: 06/07/18 05:07 Dose: 5,000 units Hydralazine HCl (Apresoline) 10 mg PO TID [facility] Last Admin: 06/07/18 09:10 Dose: 10 mg Lactulose (Lactulose Liq) 30 ml PO DAILY PRN PRN Reason: SEVERE CONSITIPATION Levofloxacin (Levaquin) 750 mg PO Q48H [facility] Stop: 06/11/18 10:01 Last Admin: 06/07/18 10:10 Dose: 750 mg Levothyroxine Sodium (Synthroid) 75 mcg PO DAILY [facility] Last Admin: 06/07/18 09:10 Dose: 75 mcg Metoprolol Succinate (Toprol Xl) 25 mg PO DAILY [facility] Last Admin: 06/07/18 09:10 Dose: 25 mg Non-Formulary Medication (Escitalopram Oxalate [Lexapro]) 5 mg PO DAILY [facility] Non-Formulary Medication (Famotidine [Famotidine]) 10 mg PO BID [facility] Last Admin: 06/07/18 10:10 Dose: 10 mg Ondansetron HCl (Zofran Inj) 4 mg IV.PUSH Q6H PRN PRN Reason: NAUSEA OR VOMITING Ondansetron HCl (Zofran Odt) 4 mg PO Q6H PRN PRN Reason: Nausea or Vomiting Senna/Docusate Sodium ([place]-Colace) 1 tab PO BID [facility] Last Admin: 06/07/18 09:10 Dose: 1 tab Sennosides (Senokot) 17.2 mg PO Q12H PRN PRN Reason: Moderate Constipation Warfarin Sodium (Coumadin) 0.5 mg PO Q48H [facility] Allergies Allergy/AdvReac Type Severity Reaction Status Date / Time No Known Allergies Allergy Unverified 06/06/18 20:20 Home Medications Medication Instructions Recorded Confirmed Type Saccharomyces boulardii [Florastor] 250 mg PO BID 06/07/18 06/07/18 History acetaminophen [Tylenol] 650 mg PO Q4H PRN 06/07/18 06/07/18 History alprazolam [Xanax] 0.125 mg PO BID PRN 06/07/18 06/07/18 History alprazolam [Xanax] 0.125 mg PO HS 06/07/18 06/07/18 History amiodarone 200 mg PO DAILY 06/07/18 06/07/18 History amlodipine 5 mg PO DAILY 06/07/18 06/07/18 History amoxicillin-pot clavulanate 5 ml PO BID 06/07/18 06/07/18 History [Augmentin ES-600] ascorbic acid (vitamin C) [Fani-C] 500 mg PO DAILY 06/07/18 06/07/18 History bisacodyl [Dulcolax (bisacodyl)] 10 mg CA DAILY PRN 06/07/18 06/07/18 History cranberry extract 425 mg PO DAILY 06/07/18 06/07/18 History escitalopram oxalate [Lexapro] 5 mg PO DAILY 06/07/18 06/07/18 History famotidine 10 mg PO BID 06/07/18 06/07/18 History famotidine 10 mg PO BID 06/07/18 06/07/18 History fluconazole 200 mg PO DAILY 06/07/18 06/07/18 History furosemide 40 mg PO BID 06/07/18 06/07/18 History hydralazine 10 mg PO TID 06/07/18 06/07/18 History ipratropium-albuterol 3 ml INHALATION Q6H 06/07/18 06/07/18 History levothyroxine 75 mcg PO DAILY 06/07/18 06/07/18 History magnesium citrate 300 ml PO DAILY PRN 06/07/18 06/07/18 History magnesium hydroxide [Milk of 30 ml PO DAILY PRN 06/07/18 06/07/18 History Magnesia] metoprolol succinate 25 mg PO DAILY 06/07/18 06/07/18 History ondansetron 4 mg PO Q4H PRN 06/07/18 06/07/18 History potassium chloride 20 meq PO DAILY 06/07/18 06/07/18 History warfarin 0.5 mg PO Q OTHER DAY 06/07/18 06/07/18 History Exam Vital signs: Vital Signs 06/06/18 20:20 06/06/18 20:34 06/06/18 22:00 Temperature 97.8 F Pulse Rate 86 85 80 Respiratory Rate 22 20 18 Blood Pressure 128/78 123/72 113/65 Pulse Oximetry 96 96 96 06/06/18 23:52 06/07/18 00:00 06/07/18 02:00 Temperature Pulse Rate 78 76 Respiratory Rate 20 20 Blood Pressure 116/62 127/66 Pulse Oximetry 94 L 96 97 06/07/18 03:00 06/07/18 04:00 06/07/18 04:05 Temperature 98.0 F Pulse Rate 78 75 76 Respiratory Rate 20 22 Blood Pressure 116/67 102/63 Pulse Oximetry 97 98 06/07/18 04:36 06/07/18 05:00 06/07/18 06:00 Temperature Pulse Rate 75 78 Respiratory Rate Blood Pressure Pulse Oximetry 99 06/07/18 07:00 06/07/18 08:00 Temperature 97.7 F Pulse Rate 74 Respiratory Rate 20 Blood Pressure 112/67 Pulse Oximetry 100 100 Intake & Output 06/06/18 06/07/18 06/07/18 18:59 06:59 18:59 Intake Total 370 / 370 Output Total 50 / 50 Balance 320 / 320 Weight 69 kg Intake: IV 250 / 250 Vancomycin Inj 1,000 MG In NS 250 / 250 Inj 250 ML @ 250 mls/hr IV.SIG ONCE ONE Rx#:[id number] Oral 120 / 120 Output: Urine 50 / 50 Narrative: GENERAL: This is a well-nourished, well-developed patient, in no apparent distress. Has O2 mask on. SKIN: No rashes, ecchymoses or lesions. Warm and dry. HEAD: Atraumatic. Normocephalic. No temporal or scalp tenderness. EYES: Pupils equal round and reactive. No injection or drainage. ENT: Nose without bleeding, purulent drainage or septal hematoma. Airway patent. NECK: Trachea midline. No lymphadenopathy. Supple, nontender, no meningeal signs. CARDIOVASCULAR: Regular rate and rhythm without murmurs, gallops, or rubs. No JVD. RESPIRATORY: Moderate air entry. Diminished breath sound in the bibasilar areas. Mild crackles bibasilar areas. GASTROINTESTINAL: Abdomen soft, non-tender, nondistended. No guarding. MUSCULOSKELETAL: Extremities without clubbing, cyanosis, or edema. NEUROLOGICAL: Awake and alert. Cranial nerves II through XII intact. No focal neurological deficits. Normal speech. Results - Labs CBC & Chem 7: 06/06/18 20:35 06/06/18 20:35 Labs: Laboratory Results - last 24 hr 06/06/18 06/06/18 06/06/18 20:35 20:35 20:35 WBC 7.2 RBC 4.14 Hgb 11.3 L Hct 34.3 L MCV 82.8 MCH 27.3 MCHC 33.0 RDW 19.6 H Plt Count 315 MPV 8.4 Neut % (Auto) 71.3 H Lymph % (Auto) 11.8 Gates % (Auto) 11.1 H Eos % (Auto) 4.6 H Baso % (Auto) 1.2 Neut # (Auto) 5.2 Lymph # (Auto) 0.9 L Gates # (Auto) 0.8 Eos # (Auto) 0.3 Baso # (Auto) 0.1 WBC Differential . Differential Comment Auto diff final PT 21.7 H INR 2.1 APTT 38.4 H Puncture Site Patient Temperature O2 Saturation ABG pH ABG pCO2 ABG pO2 ABG HCO3 ABG O2 Content ABG Base Excess ABG Methemoglobin Wei Test Hemoglobin Carboxyhemoglobin O2 Delivery Device Vent Setting Inspired O2 Critical Value Sodium 142 Potassium 3.4 L Chloride 103 Carbon Dioxide 25.0 Anion Gap 14 BUN 15 Creatinine 1.68 H Estimated GFR 29 L Random Glucose 77 Lactic Acid Calcium 9.4 Total Bilirubin 0.5 AST 25 ALT 13 Alkaline Phosphatase 92 Troponin I Less than 0.02 L B-Natriuretic Peptide Total Protein 7.1 Albumin 2.7 L 06/06/18 06/06/18 06/06/18 20:35 20:40 21:08 WBC RBC Hgb Hct MCV MCH MCHC RDW Plt Count MPV Neut % (Auto) Lymph % (Auto) Gates % (Auto) Eos % (Auto) Baso % (Auto) Neut # (Auto) Lymph # (Auto) Gates # (Auto) Eos # (Auto) Baso # (Auto) WBC Differential Differential Comment PT INR APTT Puncture Site Left radial Patient Temperature 98.6 O2 Saturation 93 ABG pH 7.46 H ABG pCO2 40 ABG pO2 66 ABG HCO3 28 H ABG O2 Content 13.4 ABG Base Excess 3.8 H ABG Methemoglobin 0.3 Wei Test Present Hemoglobin 10.1 L Carboxyhemoglobin 2.0 O2 Delivery Device Bipap Vent Setting [id number]/epap5 Inspired O2 50 Critical Value No Sodium Potassium Chloride Carbon Dioxide Anion Gap BUN Creatinine Estimated GFR Random Glucose Lactic Acid 1.2 Calcium Total Bilirubin AST ALT Alkaline Phosphatase Troponin I B-Natriuretic Peptide 931 H Total Protein Albumin - Imaging Impressions Chest X-Ray 06/06/18 20:27 CONCLUSION: 1. Bibasilar consolidations (left worse than right) are noted as with possible pneumonia. 2. Cardiomegaly. 3. Small bilateral pleural effusions. 4. Degenerative changes and scoliosis of the thoracolumbar spine. Caprini VTE Risk Assessment Caprini VTE Risk Assessment: No/Low Risk (score <= 1) Caprini Risk Assessment Model: Point Value = 1 Point Value = 2 Point Value = 3 Point Value = 5 Age 41-60 Minor surgery BMI > 25 kg/m2 Swollen legs Varicose veins or History of unexplained or recurrent spontaneous Oral contraceptives or hormone replacement Sepsis (< 1 month) Serious lung disease, including pneumonia (< 1 month) Abnormal pulmonary function Acute myocardial infarction Congestive heart failure (< 1 month) History of inflammatory bowel disease Medical patient at bed rest Age 61-74 Arthroscopic surgery Major open surgery (> 45 min) Laparoscopic surgery (> 45 min) Malignancy Confined to bed (> 72 hours) Immobilizing plaster cast Central venous access Age >= 75 History of VTE Family history of VTE Factor V Leiden Prothrombin [id number] Lupus anticoagulant Anticardiolipin antibodies Elevated serum homocysteine Heparin-induced thrombocytopenia Other congenital or acquired thrombophilia Stroke (< 1 month) Elective arthroplasty Hip, pelvis, or leg fracture Acute spinal cord injury (< 1 month) Prophylaxis Regimen: Total Risk Factor Score Risk Level Prophylaxis Regimen 0-1 Low Early ambulation 2 Moderate Order ONE of the following: *Sequential Compression Device (SCD) *Heparin 5000 units SQ BID 3-4 Higher Order ONE of the following medications: *Heparin 5000 units SQ TID *Enoxaparin/Lovenox 40 mg SQ daily (WT < 150 kg, CrCl > 30 mL/min) *Enoxaparin/Lovenox 30 mg SQ daily (WT < 150 kg, CrCl > 10-29 mL/min) *Enoxaparin/Lovenox 30 mg SQ BID (WT < 150 kg, CrCl > 30 mL/min) AND/OR *Sequential Compression Device (SCD) 5 or more Highest Order ONE of the following medications: *Heparin 5000 units SQ TID (Preferred with Epidurals) *Enoxaparin/Lovenox 40 mg SQ daily (WT < 150 kg, CrCl > 30 mL/min) *Enoxaparin/Lovenox 30 mg SQ daily (WT < 150 kg, CrCl > 10-29 mL/min) *Enoxaparin/Lovenox 30 mg SQ BID (WT < 150 kg, CrCl > 30 mL/min) AND *Sequential Compression Device (SCD) Assessment and Plan - Assessment (1) Pneumonia Code(s): J18.9 - Pneumonia, unspecified organism Status: Acute - Plan Ms. Del iCd is a pleasant 87-year-old female with a history of CHF, breast cancer, hypertension who presented to the emergency department from her halfway due to shortness of breath. Chest x-ray on arrival shows bilateral consolidations left greater than right. Bilateral pneumonia -Continue supplemental O2 to keep O2 saturation around 90%. -Start Levaquin 750 mg p.o. every 48 hours. -Continue DuoNeb Q4hrs PRN -If clinically not improved, we will consider CT chest to evaluate for pleural effusion. On CXR, left sided pleural effusion looks more significant than reported in the radiology report. Atrial fibrillation, chronic -Continue amiodarone 200 mg p.o. daily, metoprolol succinate 25 mg p.o. daily , warfarin 0.5 mg every 48 hours. INR 2.1 on admission. Hypertension -Continue amlodipine 5 mg daily, hydralazine 10 mg 3 times matti,y Full code. Warfarin. INR 2.1.
[2018-06-07] MEDS: Escitalopram 10 MG Tablet PO SCH (13:45)
[2018-06-07] MEDS: Famotidine 20 MG Tablet PO SCH (20:42)
[2018-06-08] MEDS: Heparin - SQ 10,000 UNITS/ML Vial SQ SCH ×2 (01:40→13:48)
[2018-06-08 06:49] LABS: Baso # (Auto) 0.1 th/mm3 (0.0-0.2); Baso % (Auto) 1.2 % (0.0-2.0); Eos # (Auto) 0.4 th/mm3 (0.0-0.4); Eos % (Auto) 7.2 % (0.0-4.0); Hematocrit 31.4 % (35.0-46.0); Hemoglobin 10.6 gm/dL (11.6-15.3); Lymph # (Auto) 0.6 th/mm3 (1.0-4.8); Lymph % (Auto) 10.4 % (9.0-44.0); Mean Corpuscular HGB Conc 33.7 % (32.0-36.0); Mean Corpuscular Hemoglobin 27.7 pg (27.0-34.0); Mean Corpuscular Volume 82.1 fL (80.0-100.0); Mono # (Auto) 0.7 th/mm3 (0.0-0.9); Mono % (Auto) 11.3 % (0.0-8.0); Neut # (Auto) 4.3 th/mm3 (1.8-7.7); Neut % (Auto) 69.9 % (16.0-70.0); Platelet Count 280 th/mm3 (150-450); Red Blood Count 3.83 mil/mm3 (4.00-5.30); Red Cell Distribution Width 19.7 % (11.6-17.2); White Blood Count 6.1 th/mm3 (4.0-11.0)
[2018-06-08 07:11] LABS: Calcium 8.5 mg/dL (8.5-10.1); Carbon Dioxide 27.9 meq/L (21.0-32.0); Potassium 3.5 meq/L (3.5-5.1)
[2018-06-08] MEDS: amLODIPine 5 MG Tablet PO SCH (09:08)
[2018-06-08] MEDS: Levothyroxine 75 MCG Tablet PO SCH (09:08)
[2018-06-08] MEDS: hydrALAZINE 10 MG Tablet PO SCH ×3 (09:08→17:50)
[2018-06-08] MEDS: Senna/Docusate Sodium 8.6/50 MG Tablet PO SCH ×2 (09:08→21:30)
[2018-06-08] MEDS: Amiodarone 200 MG Tablet PO SCH (09:08)
[2018-06-08] MEDS: Famotidine 20 MG Tablet PO SCH ×2 (09:08→21:31)
[2018-06-08] MEDS: Escitalopram 10 MG Tablet PO SCH (09:08)
--- NOTE | 2018-06-08 13:24 | XR ---
EXAM DATE: 06/08/2018 1:14 PM EDT AGE/SEX: 87 years / Female INDICATIONS: Shortness of breath. Evaluate for pneumonia. CLINICAL DATA: This is the patient's subsequent encounter. Patient reports that signs and symptoms h ave been present for 3 days and indicates a pain score of 0/10. MEDICAL/SURGICAL HISTORY: Congestive heart failure. Hypertension. Carcinoma, left breast. AFIB . CVA. . Left shoulder replacement. COMPARISON: [facility] [place]ST 1V SINGLE AP, 06/06/2018. . FINDINGS: A single AP view of the chest demonstrates cardiomegaly. Left basilar airspace disease and probable p leural effusion. Right basilar airspace disease. Increase in pulmonary vascularity. Atherosclerotic c hanges thoracic aorta. Left humeral/shoulder prosthesis. The cardiomediastinal contours are unremark able. Osseous structures are intact. CONCLUSION: 1. Bibasilar consolidation greater left lower lobe with probable left pleural effusion. 2. Cardiomegaly and increase in pulmonary vascularity. Electronically signed by: Akhil Castellanos MD 06/08/2018 1:22 PM EDT
[2018-06-09] MEDS: Heparin - SQ 10,000 UNITS/ML Vial SQ SCH ×2 (01:48→13:44)
[2018-06-09] MEDS: Famotidine 20 MG Tablet PO SCH ×2 (09:31→21:19)
[2018-06-09] MEDS: levoFLOXacin 750 MG Tablet PO SCH (09:32)
[2018-06-09] MEDS: Amiodarone 200 MG Tablet PO SCH (09:32)
[2018-06-09] MEDS: Escitalopram 10 MG Tablet PO SCH (09:32)
--- NOTE | 2018-06-09 09:33 | P.PN ---
Subjective Interval history: Delayed entry for 06/08/2018 Patient was seen in the AM. Resting in bed, requiring 5-6 L of O2 via NC. No chest pain, fever, chills. Physical Exam Vital signs: Vital Signs 06/08/18 10:20 06/08/18 11:00 06/08/18 12:00 Temperature 98.1 F Pulse Rate 77 71 Respiratory Rate 20 Blood Pressure 117/67 Pulse Oximetry 93 L 93 L 06/08/18 13:00 06/08/18 14:00 06/08/18 15:00 Temperature 97.4 F L Pulse Rate 70 78 75 Respiratory Rate 20 Blood Pressure 117/67 Pulse Oximetry 93 L 06/08/18 17:00 06/08/18 17:38 06/08/18 18:00 Temperature Pulse Rate 74 68 Respiratory Rate Blood Pressure Pulse Oximetry 93 L 06/08/18 19:00 06/08/18 20:00 06/08/18 21:00 Temperature 97 F L Pulse Rate 73 72 70 Respiratory Rate 24 Blood Pressure 107/76 Pulse Oximetry 92 L 97 06/08/18 22:00 06/08/18 23:00 06/09/18 00:00 Temperature Pulse Rate 70 71 68 Respiratory Rate 20 Blood Pressure 107/71 Pulse Oximetry 97 06/09/18 01:00 06/09/18 02:00 06/09/18 03:00 Temperature Pulse Rate 66 68 77 Respiratory Rate 20 Blood Pressure 100/54 L Pulse Oximetry 96 06/09/18 04:00 06/09/18 05:00 06/09/18 06:00 Temperature Pulse Rate 68 68 70 Respiratory Rate Blood Pressure Pulse Oximetry 06/09/18 07:00 Temperature 97.9 F Pulse Rate 76 Respiratory Rate 18 Blood Pressure 108/69 Pulse Oximetry 92 L Intake & Output 06/08/18 06/09/18 06/09/18 18:59 06:59 18:59 Intake Total 480 / 480 240 / 240 Output Total 410 / 410 400 / 400 Balance 70 / 70 -160 / -160 Weight 67.1 kg Intake: Oral 480 / 480 240 / 240 Output: Urine 350 / 350 400 / 400 Emesis 60 / 60 Other: Date of Last Bowel Movement 06/08/18 06/09/18 # Bowel Movements 1 # Emeses 1 Narrative: GENERAL: Alert, NAD. SKIN: Warm and dry. HEAD: Normocephalic. EYES: No scleral icterus. No injection or drainage. NECK: Supple, trachea midline. No JVD or lymphadenopathy. CARDIOVASCULAR: Regular rate and rhythm without murmurs, gallops, or rubs. RESPIRATORY: Moderate air entry, bibasilar crackles. GASTROINTESTINAL: Abdomen soft, non-tender, nondistended. MUSCULOSKELETAL: No cyanosis, or edema. BACK: Nontender without obvious deformity. No CVA tenderness. Results - Labs CBC & Chem 7: 06/08/18 06:25 06/08/18 06:25 Microbiology 06/06/18 20:35 Blood - Peripheral Aerobic Blood Culture - Preliminary No growth in 2 days 06/06/18 20:35 Blood - Peripheral Anaerobic Blood Culture - Preliminary No growth in 2 days 06/06/18 20:40 Blood - Peripheral Aerobic Blood Culture - Preliminary No growth in 2 days 06/06/18 20:40 Blood - Peripheral Anaerobic Blood Culture - Preliminary No growth in 2 days - Imaging Impressions Chest X-Ray 06/08/18 00:00 CONCLUSION: 1. Bibasilar consolidation greater left lower lobe with probable left pleural effusion. 2. Cardiomegaly and increase in pulmonary vascularity. Assessment and Plan - Assessment (1) Pneumonia Code(s): J18.9 - Pneumonia, unspecified organism Status: Acute - Plan Ms. Del Cid is a pleasant 87-year-old female with a history of CHF, breast cancer, hypertension who presented to the emergency department from her longterm due to shortness of breath. Chest x-ray on arrival shows bilateral consolidations left greater than right. Bilateral pneumonia -Continue supplemental O2 to keep O2 saturation around 90%. -Start Levaquin 750 mg p.o. every 48 hours. -Continue DuoNeb Q4hrs PRN Probable Acute CHF exacerbation - Will continue Lasix 40mg IV BID. Low blood pressure makes it difficult to use Lasix - May need thoracentesis for left pleural effusion. Atrial fibrillation, chronic -Continue amiodarone 200 mg p.o. daily, metoprolol succinate 25 mg p.o. daily , warfarin 0.5 mg every 48 hours. INR 2.1. Hypertension -Continue amlodipine 5 mg daily, hydralazine 10 mg 3 times matti,y Full code. Warfarin. INR 2.1. Will check INR in the AM.
[2018-06-09] MEDS: Senna/Docusate Sodium 8.6/50 MG Tablet PO SCH ×2 (09:34→21:19)
[2018-06-09] MEDS: Levothyroxine 75 MCG Tablet PO SCH (09:34)
[2018-06-09] MEDS: hydrALAZINE 10 MG Tablet PO SCH ×3 (09:35→18:23)
[2018-06-09] MEDS: amLODIPine 5 MG Tablet PO SCH (09:35)
[2018-06-09 10:22] LABS: INR 2.1 Ratio; Prothrombin Time 21.4 sec (9.8-11.6)
--- NOTE | 2018-06-09 11:24 | P.PNPAL ---
Email from hospice after hours team to request I call Vidal cantu to provide update and answer questions. I am seeing this patient as hospice FIELD [employer]ER per family request. Discussed with Dr. Damon. Plan for thoracentesis after INR corrected for procedure, plan for Vit K today and thoracentesis in AM. Spoke with patient who reports "I am so tired." She hopes to return to [facility] tomorrow as she dislikes being in the hospital. She asks about "those people who help you " referring to hospice will help her again when she goes back to [facility]. I advised yes they would be there to help take care of her. She was pleased. She tells me she "does not think she has much time left." She hopes to return [facility] and does not want to return to the hospital. Called [facility]idal cantu ([facility]) to provide update on chest xray, plan of care and conversation with patient. Dr. Damon will order Vit. K. I also requested her order Xanax for anxiety/ dyspnea. I will be available to assist as needed.
[2018-06-09] MEDS ORDERED: Phytonadione 2.5 MG/SWFI 2.5 ML Oral Syringe PO ONE (12:00)
[2018-06-09] MEDS ORDERED: Phytonadione 5 MG/SWFI 5 ML Oral Syringe PO ONE ×2 (13:15)
[2018-06-09] MEDS: ALPRAZolam 0.25 MG Tablet PO PRN (13:43)
--- NOTE | 2018-06-09 13:58 | P.PNWCN ---
Wound Care Nurse Consult Description: Consult for Wound Management of Left heel per Dr Damon Communicated with: Dr Marisol Arshad, RN Recommendation: Remove dry cover dressing on left heel daily and cleanse with NS and gauze. Apply dry dressing daily and PRN for saturation or dislodgement. Additional information: Patient known to jingle writer and seen on [facility] for left heel wound. Dressing of bordered gauze was removed to reveal a full thickness skin loss wound with necrotic tissue and dark yellow exudate noted to gauze. Wound appears worsened since last assessment by jingle writer on previous admission. Wound measures 3cm x 4cm x ~50% slough ~30% pink tissue ~20% white tissue. Wound has a mild odor without active drainage noted. Wound was cleansed with NS and gauze. A bordered gauze dressing was placed for comfort and heels elevated off mattress surface using a pillow under the calves. Wound/Pressure Injury - Patient Status Premedicated for Pain Prior to Dressing Change: No - Wound Left Heel Wound Assessment: Admission Wound Type: Pressure Injury Is This a Chronic Wound: Yes Length: 3 (cm) Width: 4 (cm) Depth: 0.1 (less than) Wound Bed Appearance: Necrotic, [place], Shiny, White, Yellow Wound Bed Appearance: moist Drainage Amount: None (no active drainage noted) Dressing Status: Dry & Intact Cleansing Solution: Saline Primary Dressing: Gauze Pad Cover Dressing: Bordered gauze Wound Dressing Change Date: 06/09/18 Incision - Patient Status Premedicated for Pain Prior to Dressing Change: No
--- NOTE | 2018-06-09 17:59 | P.PN ---
Subjective Interval history: Follow-up for bilateral pneumonia, left pleural effusion. Patient is currently doing well. However she is requiring significant amount of oxygen. Between 5 and 6 L of oxygen via nasal cannula. No fever or chills. Whenever she tries to eat or talk her oxygen saturation drops. When her oxygen drops to low 80s she remains asymptomatic. Physical Exam Vital signs: Vital Signs 06/08/18 18:00 06/08/18 19:00 06/08/18 20:00 Temperature 97 F L Pulse Rate 68 73 72 Respiratory Rate 24 Blood Pressure 107/76 Pulse Oximetry 92 L 97 06/08/18 21:00 06/08/18 22:00 06/08/18 23:00 Temperature Pulse Rate 70 70 71 Respiratory Rate 20 Blood Pressure 107/71 Pulse Oximetry 97 06/09/18 00:00 06/09/18 01:00 06/09/18 02:00 Temperature Pulse Rate 68 66 68 Respiratory Rate Blood Pressure Pulse Oximetry 06/09/18 03:00 06/09/18 04:00 06/09/18 05:00 Temperature Pulse Rate 77 68 68 Respiratory Rate 20 Blood Pressure 100/54 L Pulse Oximetry 96 06/09/18 06:00 06/09/18 07:00 06/09/18 08:00 Temperature 97.9 F Pulse Rate 70 76 74 Respiratory Rate 18 Blood Pressure 108/69 Pulse Oximetry 92 L 92 L 06/09/18 09:00 06/09/18 10:00 06/09/18 11:00 Temperature 97.5 F L Pulse Rate 72 70 76 Respiratory Rate 18 Blood Pressure 105/62 Pulse Oximetry 91 L 06/09/18 12:00 06/09/18 13:00 06/09/18 14:00 Temperature Pulse Rate 78 74 72 Respiratory Rate Blood Pressure Pulse Oximetry 06/09/18 15:00 06/09/18 16:00 06/09/18 17:00 Temperature 97.7 F Pulse Rate 72 74 79 Respiratory Rate 18 Blood Pressure 104/68 Pulse Oximetry 94 L Intake & Output 06/08/18 06/09/18 06/09/18 18:59 06:59 18:59 Intake Total 480 / 480 240 / 240 Output Total 410 / 410 400 / 400 Balance 70 / 70 -160 / -160 Weight 67.1 kg Intake: Oral 480 / 480 240 / 240 Output: Urine 350 / 350 400 / 400 Emesis 60 / 60 Other: Date of Last Bowel Movement 06/08/18 06/09/18 06/08/18 # Bowel Movements 1 # Emeses 1 Narrative: GENERAL: Alert, NAD. SKIN: Warm and dry. HEAD: Normocephalic. EYES: No scleral icterus. No injection or drainage. NECK: Supple, trachea midline. No JVD or lymphadenopathy. CARDIOVASCULAR: Regular rate and rhythm without murmurs, gallops, or rubs. RESPIRATORY: Moderate air entry, bibasilar crackles. GASTROINTESTINAL: Abdomen soft, non-tender, nondistended. MUSCULOSKELETAL: No cyanosis, or edema. BACK: Nontender without obvious deformity. No CVA tenderness. Results - Labs CBC & Chem 7: 06/08/18 06:25 06/08/18 06:25 Laboratory Results - last 24 hr 06/09/18 09:50 PT 21.4 H INR 2.1 Microbiology 06/06/18 20:35 Blood - Peripheral Aerobic Blood Culture - Preliminary No growth in 3 days 06/06/18 20:35 Blood - Peripheral Anaerobic Blood Culture - Preliminary No growth in 3 days 06/06/18 20:40 Blood - Peripheral Aerobic Blood Culture - Preliminary No growth in 3 days 06/06/18 20:40 Blood - Peripheral Anaerobic Blood Culture - Preliminary No growth in 3 days Assessment and Plan - Assessment (1) Pneumonia Code(s): J18.9 - Pneumonia, unspecified organism Status: Acute - Plan Ms. Del Cid is a pleasant 87-year-old female with a history of CHF, breast cancer, hypertension who presented to the emergency department from her [facility] due to shortness of breath. Chest x-ray on arrival shows bilateral consolidations left greater than right. Bilateral pneumonia -Continue supplemental O2 to keep O2 saturation around 90%. -Continue Levaquin 750 mg p.o. every 48 hours. -Continue DuoNeb Q4hrs PRN Probable Acute CHF exacerbation Left pleural effusion -Reduce Lasix to 20mg IV BID. Low blood pressure makes it difficult to use Lasix -Will likely need left thoracentesis. -Will give vitamin K PO today and check INR in the AM. INR should decrease to below 2.0. -IF for some reason, INR remains above 2.0, consider giving 1 unit of FFP. -Will order US guided Thoracentesis. Atrial fibrillation, chronic -Continue amiodarone 200 mg p.o. daily, metoprolol succinate 25 mg p.o. daily , warfarin 0.5 mg every 48 hours (on hold for now). INR 2.1. Hypertension -Continue amlodipine 5 mg daily, hydralazine 10 mg 3 times matti,y Full code. Warfarin on hold. INR 2.1. Will check INR in the AM.
[2018-06-10] MEDS: Heparin - SQ 10,000 UNITS/ML Vial SQ SCH ×2 (02:02→15:02)
[2018-06-10 09:10] LABS: INR 1.5 Ratio; Prothrombin Time 14.8 sec (9.8-11.6)
[2018-06-10] MEDS: Famotidine 20 MG Tablet PO SCH ×2 (09:32→22:50)
[2018-06-10] MEDS: Escitalopram 10 MG Tablet PO SCH (09:33)
[2018-06-10] MEDS: Amiodarone 200 MG Tablet PO SCH (09:34)
[2018-06-10] MEDS: Senna/Docusate Sodium 8.6/50 MG Tablet PO SCH ×2 (09:34→22:40)
[2018-06-10] MEDS: Levothyroxine 75 MCG Tablet PO SCH (09:34)
[2018-06-10] MEDS: amLODIPine 5 MG Tablet PO SCH (09:35)
[2018-06-10] MEDS: hydrALAZINE 10 MG Tablet PO SCH ×3 (09:36→18:27)
--- NOTE | 2018-06-10 11:45 | XR ---
EXAM DATE: 06/10/2018 11:40 AM EDT AGE/SEX: 87 years / Female INDICATIONS: Post left side thoracentesis CLINICAL DATA: This is the patient's subsequent encounter. Patient reports that signs and symptoms h ave been present for 3 days and indicates a pain score of 0/10. MEDICAL/SURGICAL HISTORY: Carcinoma, breast. Chronic obstructive pulmonary disease. Hypertens ion. . Left shoulder replacement. COMPARISON: [facility] – [place], CHEST 1V SINGLE AP, 06/08/2018. . FINDINGS: A single frontal expiratory view of the chest was performed. Improvement in the previously seen left- sided pleural effusion. No pneumothorax postthoracentesis. Right-sided effusion persists. Heart size is prominent. 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 Loss of t he right acromiohumeral interval characteristic of chronic rotator cuff injury. CONCLUSION: 1. Improvement in left-sided effusion post thoracentesis. No pneumothorax. 2. Persistent right-sided effusion. Stable cardiomegaly. Electronically signed by: Justyn Jimenez MD 06/10/2018 11:44 AM EDT
[2018-06-10] MEDS ORDERED: Lidocaine PF 1% Inj 30 ML Vial ONE (12:02)
--- NOTE | 2018-06-10 12:46 | P.PNIM ---
Subjective Interval history: Ms. Del Cid is a pleasant 87-year-old female with a history of breast CA s/p radiation therapy, HTN, hypothyroidism, CKD, afib on coumadin, CHF who was brought to the emergency department from [facility] due to shortness of breath. At the time of this interview, patient was on nonrebreather. She could not participate in the interview much. However she denies any cough, fever or chills. No abdominal pain no chest pain. Chest x- ray in the ED shows bilateral inflow left more than right as well as small pleural effusion. No changes in bowel or bladder habits. 7-8 Patient was seen in the AM. Resting in bed, requiring 5-6 L of O2 via NC. No chest pain, fever, chills. 7-9 Follow-up for bilateral pneumonia, left pleural effusion. Patient is currently doing well. However she is requiring significant amount of oxygen. Between 5 and 6 L of oxygen via nasal cannula. No fever or chills. Whenever she tries to eat or talk her oxygen saturation drops. When her oxygen drops to low 80s she remains asymptomatic. 7-10 HAD LEFT SIDE THORACENTESIS TODAY BREATHING BETTER WILL GET AM CHEST XRAY AM LABS PT AND OT TO EVAL AND TREAT RELOAD COUMADIN Physical Exam Vital signs: Vital Signs 06/09/18 13:00 06/09/18 14:00 06/09/18 15:00 Temperature 97.7 F Pulse Rate 74 72 72 Respiratory Rate 18 Blood Pressure 104/68 Pulse Oximetry 94 L 06/09/18 16:00 06/09/18 17:00 06/09/18 18:00 Temperature Pulse Rate 74 79 77 Respiratory Rate Blood Pressure Pulse Oximetry 06/09/18 19:00 06/09/18 20:00 06/09/18 21:00 Temperature 98.1 F Pulse Rate 76 78 72 Respiratory Rate 20 Blood Pressure 109/69 Pulse Oximetry 94 L 94 L 06/09/18 22:00 06/09/18 23:00 06/10/18 00:00 Temperature 97.8 F Pulse Rate 72 74 72 Respiratory Rate 20 Blood Pressure 106/66 Pulse Oximetry 95 06/10/18 01:00 06/10/18 02:00 06/10/18 03:00 Temperature 97.5 F L Pulse Rate 72 70 67 Respiratory Rate 20 Blood Pressure 103/60 Pulse Oximetry 99 07/10/18 04:00 06/10/18 05:00 06/10/18 06:00 Temperature Pulse Rate 70 70 70 Respiratory Rate Blood Pressure Pulse Oximetry 06/10/18 07:00 06/10/18 08:00 06/10/18 09:00 Temperature 97.9 F Pulse Rate 69 74 72 Respiratory Rate 20 Blood Pressure 107/64 Pulse Oximetry 93 L 93 L 06/10/18 10:13 06/10/18 11:35 Temperature 97.9 F 97.9 F Pulse Rate 90 67 Respiratory Rate 20 18 Blood Pressure 105/70 109/72 Pulse Oximetry 90 L 93 L Intake & Output 06/09/18 06/10/18 06/10/18 18:59 06:59 18:59 Intake Total 480 / 480 240 / 240 Output Total 375 / 375 Balance 480 / 480 -135 / -135 Weight 67.8 kg Intake: Oral 480 / 480 240 / 240 Output: Urine 375 / 375 Other: # Incontinent Voids 3 Date of Last Bowel Movement 06/08/18 06/09/18 06/09/18 # Bowel Movements 2 Narrative: GENERAL: Alert, NAD. SKIN: Warm and dry. HEAD: Normocephalic. Atraumatic EYES: No scleral icterus. No injection or drainage. PERRLA EOMI NECK: Supple, trachea midline. No JVD or lymphadenopathy. CARDIOVASCULAR: IRRegular rate and rhythm without murmurs, gallops, or rubs. S1 -S2 no S3 or S4 RESPIRATORY: Moderate air entry, bibasilar crackles. GASTROINTESTINAL: Abdomen soft, non-tender, nondistended. MUSCULOSKELETAL: No cyanosis, or edema. No clubbing cyanosis or edema good pedal pulses bilaterally BACK: Nontender without obvious deformity. No CVA tenderness. Insight and judgment is good Mood and behavior is appropriate Results - Labs CBC & Chem 7: 06/08/18 06:25 06/08/18 06:25 Laboratory Results - last 24 hr 06/10/18 06/10/18 08:47 11:05 PT 14.8 H INR 1.5 Pleural RBC Cancelled Pleural Nuc Cells Cancelled Pleural Neutrophils Cancelled Pleural Lymphocytes Cancelled Pleural Monocytes Cancelled Pleural Eosinophils Cancelled Pleural Basophils Cancelled Pleural Plasma Cells Cancelled Pleural Histocytes Cancelled Pleural Mesothelial Cancelled Pleural Other Cells Cancelled Pleural Fluid Comment Cancelled Microbiology 06/06/18 20:35 Blood - Peripheral Aerobic Blood Culture - Preliminary No growth in 4 days 06/06/18 20:35 Blood - Peripheral Anaerobic Blood Culture - Preliminary No growth in 4 days 06/06/18 20:40 Blood - Peripheral Aerobic Blood Culture - Preliminary No growth in 4 days 06/06/18 20:40 Blood - Peripheral Anaerobic Blood Culture - Preliminary No growth in 4 days - Imaging Impressions Chest X-Ray 06/10/18 00:00 CONCLUSION: 1. Improvement in left-sided effusion post thoracentesis. No pneumothorax. 2. Persistent right-sided effusion. Stable cardiomegaly. - Procedures Left-sided thoracentesis June 10 Assessment and Plan - Assessment (1) Pneumonia Code(s): J18.9 - Pneumonia, unspecified organism Status: Acute (2) Pleural effusion on left Code(s): J90 - Pleural effusion, not elsewhere classified Status: Acute - Plan Ms. Del Cid is a pleasant 87-year-old female with a history of CHF, breast cancer, hypertension who presented to the emergency department from her residential due to shortness of breath. Chest x-ray on arrival shows bilateral consolidations left greater than right. Bilateral pneumonia -Continue supplemental O2 to keep O2 saturation around 90%. -Continue Levaquin 750 mg p.o. every 48 hours. -Continue DuoNeb Q4hrs PRN Probable Acute CHF exacerbation Left pleural effusion -Reduce Lasix to 20mg IV BID. Low blood pressure makes it difficult to use Lasix -Will likely need left thoracentesis. -Will give vitamin K PO today and check INR in the AM. INR should decrease to below 2.0. -IF for some reason, INR remains above 2.0, consider giving 1 unit of FFP. -Will order US guided Thoracentesis. Atrial fibrillation, chronic -Continue amiodarone 200 mg p.o. daily, metoprolol succinate 25 mg p.o. daily , warfarin 0.5 mg every 48 hours (on hold for now). INR 2.1. TO 1.5 Hypertension -Continue amlodipine 5 mg daily, hydralazine 10 mg 3 times matti,y Full code. Warfarin on hold. INR 2.1. IS NOW 1.5 SP LEFT SIDE THORACENTESIS Code Status: DNR Discussed Condition With: RN AND PT AND CM Discharge Planning: PENDING IMPROVED BREATHING
--- NOTE | 2018-06-10 13:34 | US ---
EXAM DATE: 06/10/2018 11:55 AM EDT AGE/SEX: 87 years / Female INDICATIONS: Left pleural effusion. CLINICAL DATA: This is the patient's subsequent encounter. Patient reports that signs and symptoms h ave been present for 2 weeks and indicates a pain score of 4/10. MEDICAL/SURGICAL HISTORY: Hypothyroidism. Hypercholesterolemia. Stroke. Irritable bowel synd kim. Migraines. Arrhythmia. AFib. HTN. CHF. Chest pain. Dyspnea. Duodenal ulcer. GERD. Anticoagulant therapy, Coumadin. Arthritis. Osteoporosis. Left breast carcinoma. C-diff. MRSA. . Hysterectomy. Pr olapsed rectum surgery. Cystocele. Rectocele. Left shoulder replacement. Left hip replacement. Radiat ion therapy COMPARISON: [facility] – [place], CHEST EXPIRATION ONLY, 06/10/2018. . FLUID: Total volume of 900 cc of clear, yellow fluid was removed. Fluid was sent to lab for ordered studies. . . TECHNIQUE: Ultrasound guidance for thoracentesis. Thoracentesis. The risks, benefits, and alternatives to ultrasound guided thoracentesis were explained to the patien t in lay simple terms, including the risk of bleeding and infection. Written and verbal informed con sent was obtained. Appropriate area for left thoracentesis was marked under ultrasound guidance with the patient in the upright position. Overlying skin was prepped and draped in the usual sterile fashion and with local anesthetic, a dermatotomy was made with an 11 blade scalpel. A 6 Cameroonian thoracentesis catheter was p laced in the pleural space and fluid was removed. Catheter was then removed and a sterile dressing a pplied. There were no immediate complications. The patient tolerated the procedure well and the left the ultrasound suite in stable condition. Chest radiograph is to be obtained. FINDINGS: Postthoracentesis radiograph demonstrates no evidence of left pneumothorax following procedure. CONCLUSION: Uncomplicated left thoracentesis Electronically signed by: Eligio Barth MD 06/10/2018 1:33 PM EDT
[2018-06-10 14:06] LABS: Lymphocytes,Pleural Fluid 27 %; Monocytes,Pleural Fluid 27 %; Neutrophils,Pleural Fluid 46 %; RBC,Pleural Fluid 6 /mm3 (0-0)
[2018-06-11] MEDS: Heparin - SQ 10,000 UNITS/ML Vial SQ SCH ×2 (02:01→13:47)
--- NOTE | 2018-06-11 05:37 | XR ---
EXAM DATE: 06/11/2018 5:08 AM EDT AGE/SEX: 87 years / Female INDICATIONS: Short of breath. CLINICAL DATA: This is the patient's subsequent encounter. Patient reports that signs and symptoms h ave been present for 1 week and indicates a pain score of 0/10. MEDICAL/SURGICAL HISTORY: Carcinoma, breast. Chronic obstructive pulmonary disease. Hypertens ion. . Left shoulder replacement. COMPARISON: [facility] [place]ST [place]ATION [place], 06/10/2018. . FINDINGS: Stable right-sided small pleural effusion with associated airspace disease in the right lower lung zo ne. Persistent trace left pleural effusion and associated left lower lobe airspace disease. Excellent is enlarged with indistinct central pulmonary vascularity. Remainder of the exam is unchanged. CONCLUSION: 1. No significant interval change. 2. Stable small right pleural effusion and associated right lower lung zone airspace disease. 3. Stable trace left pleural effusion and associated left lower lobe airspace consolidation. 4. Cardiomegaly with positive fluid balance. Electronically signed by: Ammon Rodriguez MD 06/11/2018 5:35 AM EDT
[2018-06-11 08:11] LABS: Baso # (Auto) 0.1 th/mm3 (0.0-0.2); Baso % (Auto) 1.2 % (0.0-2.0); Eos # (Auto) 0.5 th/mm3 (0.0-0.4); Hematocrit 32.6 % (35.0-46.0); Hemoglobin 10.9 gm/dL (11.6-15.3); Lymph # (Auto) 0.7 th/mm3 (1.0-4.8); Mean Corpuscular HGB Conc 33.5 % (32.0-36.0); Mean Corpuscular Hemoglobin 27.2 pg (27.0-34.0); Mean Corpuscular Volume 81.2 fL (80.0-100.0); Mean Platelet Volume 8.4 fL (7.0-11.0); Mono # (Auto) 0.5 th/mm3 (0.0-0.9); Neut # (Auto) 3.9 th/mm3 (1.8-7.7); Neut % (Auto) 69.8 % (16.0-70.0); Platelet Count 257 th/mm3 (150-450); Red Blood Count 4.01 mil/mm3 (4.00-5.30); Red Cell Distribution Width 19.5 % (11.6-17.2); White Blood Count 5.6 th/mm3 (4.0-11.0)
[2018-06-11 08:23] LABS: INR 1.2 Ratio; Prothrombin Time 12.6 sec (9.8-11.6)
[2018-06-11 08:37] LABS: Albumin 2.4 g/dL (3.4-5.0); Anion Gap 9 meq/L (5-15); Aspartate Aminotransferase 19 U/L (15-37); Blood Urea Nitrogen 25 mg/dL (7-18); Calcium 9.2 mg/dL (8.5-10.1); Carbon Dioxide 28.9 meq/L (21.0-32.0); Chloride 104 meq/L (98-107); Glomerular Filtration Rate 26 mL/min (>89); Glucose,Random 79 mg/dL (74-106); Magnesium 2.2 mg/dL (1.5-2.5); Potassium 3.5 meq/L (3.5-5.1); Sodium 142 meq/L (136-145)
[2018-06-11 08:52] LABS: Alanine Aminotransferase 12 U/L (10-53); Alkaline Phosphatase 91 U/L (45-117); Free T4 (Free Thyroxine) 1.46 ng/dL (0.76-1.46); Total Protein 6.1 g/dL (6.4-8.2)
[2018-06-11] MEDS: Famotidine 20 MG Tablet PO SCH (09:00)
[2018-06-11] MEDS: Levothyroxine 75 MCG Tablet PO SCH (10:07)
[2018-06-11] MEDS: Amiodarone 200 MG Tablet PO SCH (10:15)
[2018-06-11] MEDS: levoFLOXacin 750 MG Tablet PO SCH (10:15)
[2018-06-11] MEDS: Escitalopram 10 MG Tablet PO SCH (10:16)
[2018-06-11] MEDS: amLODIPine 5 MG Tablet PO SCH (10:17)
[2018-06-11] MEDS: hydrALAZINE 10 MG Tablet PO SCH ×2 (10:17→13:46)
[2018-06-11] MEDS: Senna/Docusate Sodium 8.6/50 MG Tablet PO SCH (10:17)
[2018-06-11] MEDS: ALPRAZolam 0.25 MG Tablet PO PRN (10:28)
--- NOTE | 2018-06-11 12:43 | P.PNIM ---
Subjective Interval history: Ms. Del Cid is a pleasant 87-year-old female with a history of breast CA s/p radiation therapy, HTN, hypothyroidism, CKD, afib on coumadin, CHF who was brought to the emergency department from [facility] due to shortness of breath. At the time of this interview, patient was on nonrebreather. She could not participate in the interview much. However she denies any cough, fever or chills. No abdominal pain no chest pain. Chest x- ray in the ED shows bilateral inflow left more than right as well as small pleural effusion. No changes in bowel or bladder habits. 7-8 Patient was seen in the AM. Resting in bed, requiring 5-6 L of O2 via NC. No chest pain, fever, chills. 7-9 Follow-up for bilateral pneumonia, left pleural effusion. Patient is currently doing well. However she is requiring significant amount of oxygen. Between 5 and 6 L of oxygen via nasal cannula. No fever or chills. Whenever she tries to eat or talk her oxygen saturation drops. When her oxygen drops to low 80s she remains asymptomatic. 7-10 HAD LEFT SIDE THORACENTESIS TODAY BREATHING BETTER WILL GET AM CHEST XRAY AM LABS PT AND OT TO EVAL AND TREAT RELOAD COUMADIN 7-11 PATIENT IS SCHEDULED TO GO BACK TO [facility] TODAY WILL GO ON OXYGEN IS A DNR STATES BREATHING A LITTLE BETTER DW RN AND PT AND CM Physical Exam Vital signs: Vital Signs 06/10/18 13:00 06/10/18 13:05 06/10/18 13:35 Temperature Pulse Rate 71 72 75 Respiratory Rate Blood Pressure 103/67 99/66 L Pulse Oximetry 95 94 L 06/10/18 14:00 06/10/18 14:35 06/10/18 15:00 Temperature 97.9 F Pulse Rate 68 74 70 Respiratory Rate 20 Blood Pressure 102/63 97/62 L Pulse Oximetry 94 L 93 L 06/10/18 16:00 06/10/18 17:00 06/10/18 17:50 Temperature Pulse Rate 72 88 Respiratory Rate Blood Pressure Pulse Oximetry 93 L 06/10/18 18:00 06/10/18 19:00 06/10/18 20:00 Temperature 97.5 F L Pulse Rate 71 68 72 Respiratory Rate 20 Blood Pressure 107/64 Pulse Oximetry 92 L 92 L 06/10/18 21:00 06/10/18 22:00 06/10/18 23:00 Temperature 97.3 F L Pulse Rate 70 64 68 Respiratory Rate 20 Blood Pressure 110/60 Pulse Oximetry 91 L 06/11/18 00:00 06/11/18 01:00 06/11/18 02:00 Temperature Pulse Rate 68 68 55 L Respiratory Rate Blood Pressure Pulse Oximetry 06/11/18 03:00 06/11/18 03:21 06/11/18 04:00 Temperature 96.5 F L Pulse Rate 65 68 64 Respiratory Rate 20 Blood Pressure 109/60 Pulse Oximetry 98 06/11/18 05:00 06/11/18 06:00 06/11/18 07:00 Temperature 97.1 F L Pulse Rate 65 65 71 Respiratory Rate 22 Blood Pressure 115/70 Pulse Oximetry 91 L 06/11/18 09:58 06/11/18 11:00 Temperature 97.7 F Pulse Rate 72 Respiratory Rate 22 Blood Pressure 101/62 Pulse Oximetry 93 L 90 L Intake & Output 06/10/18 06/11/18 06/11/18 18:59 06:59 18:59 Intake Total 480 / 480 240 / 240 Output Total 200 / 200 Balance 480 / 480 40 / 40 Weight 67.7 kg Intake: Oral 480 / 480 240 / 240 Output: Urine 200 / 200 Other: # Voids 3 Date of Last Bowel Movement 06/09/18 06/11/18 06/11/18 # Bowel Movements 1 1 Narrative: GENERAL: Alert, NAD. SKIN: Warm and dry. HEAD: Normocephalic. Atraumatic EYES: No scleral icterus. No injection or drainage. PERRLA EOMI NECK: Supple, trachea midline. No JVD or lymphadenopathy. CARDIOVASCULAR: IRRegular rate and rhythm without murmurs, gallops, or rubs. S1 -S2 no S3 or S4 RESPIRATORY: Moderate air entry, bibasilar crackles. GASTROINTESTINAL: Abdomen soft, non-tender, nondistended. MUSCULOSKELETAL: No cyanosis, or edema. No clubbing cyanosis or edema good pedal pulses bilaterally BACK: Nontender without obvious deformity. No CVA tenderness. Insight and judgment is good Mood and behavior is appropriate Results - Labs CBC & Chem 7: 06/11/18 07:35 06/11/18 07:35 Laboratory Results - last 24 hr 06/10/18 06/10/18 06/10/18 11:05 11:05 11:05 WBC RBC Hgb Hct MCV MCH MCHC RDW Plt Count MPV Neut % (Auto) Lymph % (Auto) [place] % (Auto) Eos % (Auto) Baso % (Auto) Neut # (Auto) Lymph # (Auto) [place] # (Auto) Eos # (Auto) Baso # (Auto) WBC Differential Differential Comment PT INR Sodium Potassium Chloride Carbon Dioxide Anion Gap BUN Creatinine Estimated GFR Random Glucose Calcium Phosphorus Magnesium Total Bilirubin AST ALT Alkaline Phosphatase Total Protein Albumin TSH Free T4 Pleural pH 8.0 Pleural RBC 6 H Pleural Nuc Cells 44 H Pleural Neutrophils 46 Pleural Lymphocytes 27 Pleural Monocytes 27 Pleural Fluid Comment Pleural Total Protein 2.0 Cancelled Pleural LDH 53 Cancelled Pleural Glucose 86 Pleural Amylase 10 Cancelled 06/11/18 06/11/18 06/11/18 07:35 07:35 07:35 WBC 5.6 RBC 4.01 Hgb 10.9 L Hct 32.6 L MCV 81.2 MCH 27.2 MCHC 33.5 RDW 19.5 H Plt Count 257 MPV 8.4 Neut % (Auto) 69.8 Lymph % (Auto) 12.0 [place] % (Auto) 9.0 H Eos % (Auto) 8.0 H Baso % (Auto) 1.2 Neut # (Auto) 3.9 Lymph # (Auto) 0.7 L [place] # (Auto) 0.5 Eos # (Auto) 0.5 H Baso # (Auto) 0.1 WBC Differential . Differential Comment Auto diff final PT 12.6 H INR 1.2 Sodium 142 Potassium 3.5 Chloride 104 Carbon Dioxide 28.9 Anion Gap 9 BUN 25 H Creatinine 1.82 H Estimated GFR 26 L Random Glucose 79 Calcium 9.2 Phosphorus 3.0 Magnesium 2.2 Total Bilirubin 0.5 AST 19 ALT 12 Alkaline Phosphatase 91 Total Protein 6.1 L D Albumin 2.4 L TSH 3.130 Free T4 1.46 Pleural pH Pleural RBC Pleural Nuc Cells Pleural Neutrophils Pleural Lymphocytes Pleural Monocytes Pleural Fluid Comment Pleural Total Protein Pleural LDH Pleural Glucose Pleural Amylase Microbiology 06/10/18 11:05 Fluid - Pleural fluid Acid Fast Bacilli Smear - Final No acid fast bacilli seen 06/06/18 20:35 Blood - Peripheral Aerobic Blood Culture - Final No growth in 5 days 06/06/18 20:35 Blood - Peripheral Anaerobic Blood Culture - Final No growth in 5 days 06/06/18 20:40 Blood - Peripheral Aerobic Blood Culture - Final No growth in 5 days 06/06/18 20:40 Blood - Peripheral Anaerobic Blood Culture - Final No growth in 5 days 06/10/18 11:05 Fluid - Pleural fluid Fungal Smear - Final No fungal elements seen 06/10/18 11:05 Fluid - Pleural fluid Gram Stain - Final - Imaging Impressions Thoracentesis Ultrasound 06/10/18 00:00 CONCLUSION: Uncomplicated left thoracentesis Chest X-Ray 06/11/18 05:00 CONCLUSION: 1. No significant interval change. 2. Stable small right pleural effusion and associated right lower lung zone airspace disease. 3. Stable trace left pleural effusion and associated left lower lobe airspace consolidation. 4. Cardiomegaly with positive fluid balance. - Procedures Left-sided thoracentesis June 10 Assessment and Plan - Assessment (1) Pneumonia Code(s): J18.9 - Pneumonia, unspecified organism Status: Acute (2) Pleural effusion on left Code(s): J90 - Pleural effusion, not elsewhere classified Status: Acute - Plan Ms. Del Cid is a pleasant 87-year-old female with a history of CHF, breast cancer, hypertension who [facility]. Chest x-ray on arrival shows bilateral consolidations left greater than right. Bilateral pneumonia -Continue supplemental O2 to keep O2 saturation around 90%. -Continue Levaquin 750 mg p.o. every 48 hours. -Continue DuoNeb Q4hrs PRN Probable Acute CHF exacerbation Left pleural effusion -Reduce Lasix to 20mg IV BID. Low blood pressure makes it difficult to use Lasix -Will likely need left thoracentesis. -Will give vitamin K PO today and check INR in the AM. INR should decrease to below 2.0. -IF for some reason, INR remains above 2.0, consider giving 1 unit of FFP. -Will order US guided Thoracentesis. Atrial fibrillation, chronic -Continue amiodarone 200 mg p.o. daily, metoprolol succinate 25 mg p.o. daily , warfarin 0.5 mg every 48 hours (on hold for now). INR 2.1. TO 1.2 Hypertension -Continue amlodipine 5 mg daily, hydralazine 10 mg 3 times matti,y Full code. Warfarin on hold. INR 2.1. IS NOW 1.2 SP LEFT SIDE THORACENTESIS PATIENT TO GO BACK TO HOSPICE INPT TODAY RELOAD COUMADIN AT HOSPICE IS A DNR Code Status: DNR Discussed Condition With: RN AND PT AND CM Discharge Planning: TRANSFER TO INPT HOSPICE
--- NOTE | 2018-06-11 12:49 | P.DS ---
Date of admission: 06/07/18 00:13 Primary care physician: Lc Moran MD Attending physician on discharge: Quentin Joshi Anticipated date of discharge: 06/11/18 Brief History from admission: Ms. Del Cid is a pleasant 87-year-old female with a history of breast CA s/p radiation therapy, HTN, hypothyroidism, CKD, afib on coumadin, CHF who was brought to the emergency department from [facility] due to shortness of breath. At the time of this interview, patient was on nonrebreather. She could not participate in the interview much. However she denies any cough, fever or chills. No abdominal pain no chest pain. Chest x- ray in the ED shows bilateral inflow left more than right as well as small pleural effusion. No changes in bowel or bladder habits. PAST MEDICAL HISTORY: 1. Significant for chronic atrial fibrillation on Coumadin 2. Chronic kidney disease stage III. 3. Hypertension. 4. Hypothyroidism. 5. Arthritis. 6. Breast cancer. 7. History of irritable bowel syndrome, 8. Previous TIA 9. GERD. PAST SURGICAL HISTORY: Previous hysterectomy, previous shoulder and hip replacement, previous surgery for cystocele and rectocele. Previous left lumpectomy in 1997. SOCIAL HISTORY: Nonsmoker, nondrinker. FAMILY HISTORY: Noncontributing to present illness. DS: Diagnosis - Discharge Diagnosis (1) Pneumonia Status: Acute (2) Pleural effusion on left Status: Acute DS: Summary Hospital Course: Ms. Del Cid is a pleasant 87-year-old female with a history of breast CA s/p radiation therapy, HTN, hypothyroidism, CKD, afib on coumadin, CHF who was brought to the emergency department from [facility] due to shortness of breath. At the time of this interview, patient was on nonrebreather. She could not participate in the interview much. However she denies any cough, fever or chills. No abdominal pain no chest pain. Chest x- ray in the ED shows bilateral inflow left more than right as well as small pleural effusion. No changes in bowel or bladder habits. 7-8 Patient was seen in the AM. Resting in bed, requiring 5-6 L of O2 via NC. No chest pain, fever, chills. 7-9 Follow-up for bilateral pneumonia, left pleural effusion. Patient is currently doing well. However she is requiring significant amount of oxygen. Between 5 and 6 L of oxygen via nasal cannula. No fever or chills. Whenever she tries to eat or talk her oxygen saturation drops. When her oxygen drops to low 80s she remains asymptomatic. 7 HAD LEFT SIDE THORACENTESIS TODAY BREATHING BETTER WILL GET AM CHEST XRAY AM LABS PT AND OT TO EVAL AND TREAT RELOAD COUMADIN 06-11 PATIENT IS SCHEDULED TO GO BACK TO [facility] TODAY WILL GO ON OXYGEN IS A DNR STATES BREATHING A LITTLE BETTER DW RN AND PT AND CM - Time Spent with Patient Total time spent providing and/or coordinating discharge services: Greater than 30 minutes Exam Vital signs: Vital Signs 06/10/18 13:00 06/10/18 13:05 06/10/18 13:35 Temperature Pulse Rate 71 72 75 Respiratory Rate Blood Pressure 103/67 99/66 L Pulse Oximetry 95 94 L 06/10/18 14:00 06/10/18 14:35 06/10/18 15:00 Temperature 97.9 F Pulse Rate 68 74 70 Respiratory Rate 20 Blood Pressure 102/63 97/62 L Pulse Oximetry 94 L 93 L 06/10/18 16:00 06/10/18 17:00 06/10/18 17:50 Temperature Pulse Rate 72 88 Respiratory Rate Blood Pressure Pulse Oximetry 93 L 06/10/18 18:00 06/10/18 19:00 06/10/18 20:00 Temperature 97.5 F L Pulse Rate 71 68 72 Respiratory Rate 20 Blood Pressure 107/64 Pulse Oximetry 92 L 92 L 06/10/18 21:00 06/10/18 22:00 06/10/18 23:00 Temperature 97.3 F L Pulse Rate 70 64 68 Respiratory Rate 20 Blood Pressure 110/60 Pulse Oximetry 91 L 06/11/18 00:00 06/11/18 01:00 06/11/18 02:00 Temperature Pulse Rate 68 68 55 L Respiratory Rate Blood Pressure Pulse Oximetry 06/11/18 03:00 06/11/18 03:21 06/11/18 04:00 Temperature 96.5 F L Pulse Rate 65 68 64 Respiratory Rate 20 Blood Pressure 109/60 Pulse Oximetry 98 06/11/18 05:00 06/11/18 06:00 06/11/18 07:00 Temperature 97.1 F L Pulse Rate 65 65 71 Respiratory Rate 22 Blood Pressure 115/70 Pulse Oximetry 91 L 06/11/18 09:58 06/11/18 11:00 Temperature 97.7 F Pulse Rate 72 Respiratory Rate 22 Blood Pressure 101/62 Pulse Oximetry 93 L 90 L Intake & Output 06/10/18 06/11/18 06/11/18 18:59 06:59 18:59 Intake Total 480 / 480 240 / 240 Output Total 200 / 200 Balance 480 / 480 40 / 40 Weight 67.7 kg Intake: Oral 480 / 480 240 / 240 Output: Urine 200 / 200 Other: # Voids 3 Date of Last Bowel Movement 06/09/18 06/11/18 06/11/18 # Bowel Movements 1 1 Narrative: GENERAL: Alert, NAD. SKIN: Warm and dry. HEAD: Normocephalic. Atraumatic EYES: No scleral icterus. No injection or drainage. PERRLA EOMI NECK: Supple, trachea midline. No JVD or lymphadenopathy. CARDIOVASCULAR: IRRegular rate and rhythm without murmurs, gallops, or rubs. S1 -S2 no S3 or S4 RESPIRATORY: Moderate air entry, bibasilar crackles. GASTROINTESTINAL: Abdomen soft, non-tender, nondistended. MUSCULOSKELETAL: No cyanosis, or edema. No clubbing cyanosis or edema good pedal pulses bilaterally BACK: Nontender without obvious deformity. No CVA tenderness. Insight and judgment is good Mood and behavior is appropriate Results Procedures completed during hospitalization: Left-sided thoracentesis June 10 Completed studies during hospitalization: Laboratory Results WBC 5.6 th/mm3 (4.0-11.0) 06/11/18 07:35 RBC 4.01 mil/mm3 (4.00-5.30) 06/11/18 07:35 Hgb 10.9 gm/dL (11.6-15.3) L 06/11/18 07:35 Hct 32.6 % (35.0-46.0) L 06/11/18 07:35 MCV 81.2 fL (80.0-100.0) 06/11/18 07:35 MCH 27.2 pg (27.0-34.0) 06/11/18 07:35 MCHC 33.5 % (32.0-36.0) 06/11/18 07:35 RDW 19.5 % (11.6-17.2) H 06/11/18 07:35 Plt Count 257 th/mm3 (150-450) 06/11/18 07:35 MPV 8.4 fL (7.0-11.0) 06/11/18 07:35 Neut % (Auto) 69.8 % (16.0-70.0) 06/11/18 07:35 Lymph % (Auto) 12.0 % (9.0-44.0) 06/11/18 07:35 Kimble % (Auto) 9.0 % (0.0-8.0) H 06/11/18 07:35 Eos % (Auto) 8.0 % (0.0-4.0) H 06/11/18 07:35 Baso % (Auto) 1.2 % (0.0-2.0) 06/11/18 07:35 Neut # (Auto) 3.9 th/mm3 (1.8-7.7) 06/11/18 07:35 Lymph # (Auto) 0.7 th/mm3 (1.0-4.8) L 06/11/18 07:35 Kimble # (Auto) 0.5 th/mm3 (0.0-0.9) 06/11/18 07:35 Eos # (Auto) 0.5 th/mm3 (0.0-0.4) H 06/11/18 07:35 Baso # (Auto) 0.1 th/mm3 (0.0-0.2) 06/11/18 07:35 WBC Differential . 06/11/18 07:35 Differential Comment Auto diff final 06/11/18 07:35 PT 12.6 sec (9.8-11.6) H 06/11/18 07:35 INR 1.2 Ratio 06/11/18 07:35 APTT 38.4 sec (24.3-30.1) H 06/06/18 20:35 Puncture Site Left radial 06/06/18 21:08 Patient Temperature 98.6 06/06/18 21:08 O2 Saturation 93 % (90-100) 06/06/18 21:08 ABG pH 7.46 (7.380-7.420) H 06/06/18 21:08 ABG pCO2 40 mmHg (38-42) 06/06/18 21:08 ABG pO2 66 mmHg (61-120) 06/06/18 21:08 ABG HCO3 28 mmol/L (22-26) H 06/06/18 21:08 ABG O2 Content 13.4 Vol % (12.0-20.0) 06/06/18 21:08 ABG Base Excess 3.8 mmol/L (-2-2) H 06/06/18 21:08 ABG Methemoglobin 0.3 % (0-2) 06/06/18 21:08 Wei Test Present 06/06/18 21:08 Hemoglobin 10.1 G/DL (12.0-16.0) L 06/06/18 21:08 Carboxyhemoglobin 2.0 % (0-4) 06/06/18 21:08 O2 Delivery Device Bipap 06/06/18 21:08 Vent Setting [id number] 06/06/18 21:08 Inspired O2 50 % 06/06/18 21:08 Critical Value No 06/06/18 21:08 Sodium 142 meq/L (136-145) 06/11/18 07:35 Potassium 3.5 meq/L (3.5-5.1) 06/11/18 07:35 Chloride 104 meq/L (98-107) 06/11/18 07:35 Carbon Dioxide 28.9 meq/L (21.0-32.0) 06/11/18 07:35 Anion Gap 9 meq/L (5-15) 06/11/18 07:35 BUN 25 mg/dL (7-18) H 06/11/18 07:35 Creatinine 1.82 mg/dL (0.50-1.00) H 06/11/18 07:35 Estimated GFR 26 mL/min (>89) L 06/11/18 07:35 Random Glucose 79 mg/dL (74-106) 06/11/18 07:35 Lactic Acid 1.2 mmol/L (0.4-2.0) 06/06/18 20:40 Calcium 9.2 mg/dL (8.5-10.1) 06/11/18 07:35 Phosphorus 3.0 mg/dL (2.5-4.9) 06/11/18 07:35 Magnesium 2.2 mg/dL (1.5-2.5) 06/11/18 07:35 Total Bilirubin 0.5 mg/dL (0.2-1.0) 06/11/18 07:35 AST 19 U/L (15-37) 06/11/18 07:35 ALT 12 U/L (10-53) 06/11/18 07:35 Alkaline Phosphatase 91 U/L (45-117) 06/11/18 07:35 Troponin I Less than 0.02 ng/mL (0.02-0.05) L 06/06/18 20:35 B-Natriuretic Peptide 931 pg/mL (0-100) H 06/06/18 20:35 Total Protein 6.1 g/dL (6.4-8.2) L D 06/11/18 07:35 Albumin 2.4 g/dL (3.4-5.0) L 06/11/18 07:35 TSH 3.130 uIU/mL (0.358-3.740) 06/11/18 07:35 Free T4 1.46 ng/dL (0.76-1.46) 06/11/18 07:35 Pleural pH 8.0 06/10/18 11:05 Pleural RBC 6 /mm3 (0-0) H 06/10/18 11:05 Pleural Nuc Cells 44 /mm3 (0-10) H 06/10/18 11:05 Pleural Neutrophils 46 % 06/10/18 11:05 Pleural Lymphocytes 27 % 06/10/18 11:05 Pleural Monocytes 27 % 06/10/18 11:05 Pleural Eosinophils Cancelled 06/10/18 11:05 Pleural Basophils Cancelled 06/10/18 11:05 Pleural Plasma Cells Cancelled 06/10/18 11:05 Pleural Histocytes Cancelled 06/10/18 11:05 Pleural Mesothelial Cancelled 06/10/18 11:05 Pleural Other Cells Cancelled 06/10/18 11:05 Pleural Fluid Comment 06/10/18 11:05 Pleural Total Protein 2.0 gm/dL 06/10/18 11:05 Pleural LDH 53 U/L 06/10/18 11:05 Pleural Glucose 86 mg/dL 06/10/18 11:05 Pleural Amylase 10 U/L 06/10/18 11:05 Impressions Thoracentesis Ultrasound 06/10/18 00:00 CONCLUSION: Uncomplicated left thoracentesis Chest X-Ray 06/11/18 05:00 CONCLUSION: 1. No significant interval change. 2. Stable small right pleural effusion and associated right lower lung zone airspace disease. 3. Stable trace left pleural effusion and associated left lower lobe airspace consolidation. 4. Cardiomegaly with positive fluid balance. Labs on day of discharge: Labs from last 24 hours 06/11/18 06/11/18 06/11/18 07:35 07:35 07:35 WBC RBC Hgb Hct MCV MCH MCHC RDW Plt Count MPV Neut % (Auto) Lymph % (Auto) Kimble % (Auto) Eos % (Auto) Baso % (Auto) Neut # (Auto) Lymph # (Auto) Kimble # (Auto) Eos # (Auto) Baso # (Auto) WBC Differential Differential Comment PT 12.6 H INR 1.2 Sodium 142 Potassium 3.5 Chloride 104 Carbon Dioxide 28.9 Anion Gap 9 BUN 25 H Creatinine 1.82 H Estimated GFR 26 L Random Glucose 79 Hemoglobin A1c Pending Calcium 9.2 Phosphorus 3.0 Magnesium 2.2 Total Bilirubin 0.5 AST 19 ALT 12 Alkaline Phosphatase 91 Total Protein 6.1 L D Albumin 2.4 L TSH 3.130 Free T4 1.46 Pleural pH Pleural RBC Pleural Nuc Cells Pleural Neutrophils Pleural Lymphocytes Pleural Monocytes Pleural Fluid Comment Pleural Total Protein Pleural LDH Pleural Glucose Pleural Amylase 06/11/18 06/10/18 06/10/18 07:35 11:05 11:05 WBC 5.6 RBC 4.01 Hgb 10.9 L Hct 32.6 L MCV 81.2 MCH 27.2 MCHC 33.5 RDW 19.5 H Plt Count 257 MPV 8.4 Neut % (Auto) 69.8 Lymph % (Auto) 12.0 Kimble % (Auto) 9.0 H Eos % (Auto) 8.0 H Baso % (Auto) 1.2 Neut # (Auto) 3.9 Lymph # (Auto) 0.7 L Kimble # (Auto) 0.5 Eos # (Auto) 0.5 H Baso # (Auto) 0.1 WBC Differential . Differential Comment Auto diff final PT INR Sodium Potassium Chloride Carbon Dioxide Anion Gap BUN Creatinine Estimated GFR Random Glucose Hemoglobin A1c Calcium Phosphorus Magnesium Total Bilirubin AST ALT Alkaline Phosphatase Total Protein Albumin TSH Free T4 Pleural pH Pleural RBC 6 H Pleural Nuc Cells 44 H Pleural Neutrophils 46 Pleural Lymphocytes 27 Pleural Monocytes 27 Pleural Fluid Comment Pleural Total Protein Cancelled Pleural LDH Cancelled Pleural Glucose Pleural Amylase Cancelled 06/10/18 11:05 WBC RBC Hgb Hct MCV MCH MCHC RDW Plt Count MPV Neut % (Auto) Lymph % (Auto) Kimble % (Auto) Eos % (Auto) Baso % (Auto) Neut # (Auto) Lymph # (Auto) Kimble # (Auto) Eos # (Auto) Baso # (Auto) WBC Differential Differential Comment PT INR Sodium Potassium Chloride Carbon Dioxide Anion Gap BUN Creatinine Estimated GFR Random Glucose Hemoglobin A1c Calcium Phosphorus Magnesium Total Bilirubin AST ALT Alkaline Phosphatase Total Protein Albumin TSH Free T4 Pleural pH 8.0 Pleural RBC Pleural Nuc Cells Pleural Neutrophils Pleural Lymphocytes Pleural Monocytes Pleural Fluid Comment Pleural Total Protein 2.0 Pleural LDH 53 Pleural Glucose 86 Pleural Amylase 10 - Impressions ITS Impressions Thoracentesis Ultrasound 06/10/18 00:00 CONCLUSION: Uncomplicated left thoracentesis Chest X-Ray 06/11/18 05:00 CONCLUSION: 1. No significant interval change. 2. Stable small right pleural effusion and associated right lower lung zone airspace disease. 3. Stable trace left pleural effusion and associated left lower lobe airspace consolidation. 4. Cardiomegaly with positive fluid balance. Discharge Plan - Discharge Disposition Patient Disposition: [facility] Hospice[facility] Facility - Discharge Condition Condition: Fair - Discharge Order Discharge Orders: Discharge Order (Routine); Ordered 06/11/18 Ordered By: Quentin Joshi - Discharge Details Anticipated Discharge Date: 06/11/18 - Physicians Team Primary Care Provider: Lc Moran Attending Provider: Quentin Joshi
[2018-06-11 16:55] LABS: Hemoglobin A1c 4.2 % (4.3-6.0)
== END 2018-06-11 14:01 | disposition hospice, inpatient (51) ==
LOC: NEPC 20:13 → NEDA 06-07 00:13 → HCIS 06-07 03:20
PROVIDERS: ADMIT Hospitalist; ATTEND Hospitalist